=== PATIENT | male | born 1975 | race Caucasian/White ===

== ENCOUNTER 2018-02-04 13:29 | Emergency (ER) | payer BC ==
--- NOTE | 2018-02-04 15:15 | EDPHYS ---
Physician Documentation [facility] Name: Javid Carver Age: 42 yrs Sex: Male : 1975 Arrival Date: 02/04/2018 Time: 13:33 Bed 13 Private MD: ED Physician Keron Gillespie HPI: 02/04 15:08 This 42 yrs old Male presents to ER via Ambulatory with complaints of marcelino Congestion, Cough, Sore Throat. 15:08 The patient or guardian reports cough. Onset: The symptoms/episode began/occurred 2 marcelino day(s) ago. Severity of symptoms: At their worst the symptoms were mild, in the emergency department the symptoms are unchanged. Modifying factors: The symptoms are alleviated by nothing, the symptoms are aggravated by nothing. Associated signs and symptoms: Pertinent positives:. The patient has not experienced similar symptoms in the past. Historical: - Allergies: 13:45 No Known Drug Allergies; aj - Home Meds: 13:45 hydrochlorothiazide 12.5 mg Oral tab 1 tab once daily [Active]; aj - PMHx: 13:45 Hypertension; aj - PSHx: 13:45 None; aj - Immunization history:: Adult Immunizations up to date. - Social history:: Smoking status: Patient uses tobacco products, denies chronic smoking, but will smoke occasionally. - Family history:: not pertinent. ROS: 15:08 Constitutional: Negative for fever, chills, and weight loss, Eyes: Negative for injury, marcelino pain, redness, and discharge, ENT: Negative for injury, pain, and discharge, Neck: Negative for injury, pain, and swelling, Cardiovascular: Negative for chest pain, palpitations, and edema, Abdomen/GI: Negative for abdominal pain, nausea, vomiting, diarrhea, and constipation, Back: Negative for injury and pain, : Negative for injury, bleeding, discharge, and swelling, MS/Extremity: Negative for injury and deformity, Skin: Negative for injury, rash, and discoloration, Neuro: Negative for headache, weakness, numbness, tingling, and seizure, Psych: Negative for depression, anxiety, suicide ideation, homicidal ideation, and hallucinations, Allergy/Immunology: Negative for hives, rash, and allergies, Endocrine: Negative for neck swelling, polydipsia, polyuria, polyphagia, and marked weight changes, Hematologic/Lymphatic: Negative for swollen nodes, abnormal bleeding, and unusual bruising. 15:08 Respiratory: Positive for cough. Exam: 15:08 Constitutional: This is a well developed, well nourished patient who is awake, alert, marcelino and in no acute distress. Head/Face: Normocephalic, atraumatic. Eyes: Pupils equal round and reactive to light, extra-ocular motions intact. Lids and lashes normal. Conjunctiva and sclera are non-icteric and not injected. Cornea within normal limits. Periorbital areas with no swelling, redness, or edema. ENT: Nares patent. No nasal discharge, no septal abnormalities noted. Tympanic membranes are normal and external auditory canals are clear. Oropharynx with no redness, swelling, or masses, exudates, or evidence of obstruction, uvula midline. Mucous membranes moist. Neck: Trachea midline, no thyromegaly or masses palpated, and no cervical lymphadenopathy. Supple, full range of motion without nuchal rigidity, or vertebral point tenderness. No Meningismus. Chest/axilla: Normal chest wall appearance and motion. Nontender with no deformity. No lesions are appreciated. Cardiovascular: Regular rate and rhythm with a normal S1 and S2. No gallops, murmurs, or rubs. Normal PMI, no JVD. No pulse deficits. Abdomen/GI: Soft, non-tender, with normal bowel sounds. No distension or tympany. No guarding or rebound. No evidence of tenderness throughout. Back: No spinal tenderness. No costovertebral tenderness. Full range of motion. Male : Normal genitalia with no discharge or lesions. Skin: Warm, dry with normal turgor. Normal color with no rashes, no lesions, and no evidence of cellulitis. MS/ Extremity: Pulses equal, no cyanosis. Neurovascular intact. Full, normal range of motion. Neuro: Awake and alert, GCS 15, oriented to person, place, time, and situation. Cranial nerves II-XII grossly intact. Motor strength 5/5 in all extremities. Sensory grossly intact. Cerebellar exam normal. Normal gait. Psych: Awake, alert, with orientation to person, place and time. Behavior, mood, and affect are within normal limits. 15:08 Respiratory: the patient does not display signs of respiratory distress, Respirations: normal, Breath sounds: rhonchi, Respiratory rate: 19 Vital Signs: 13:45 BP 140 / 107; Pulse 97; Resp 19; Temp 98.8; Pulse Ox 98% on R/A; Weight 94.35 kg; aj Height 5 ft. 9 in. (175.26 cm); Pain 0/10; 14:45 BP 139 / 103; Pulse 95; Resp 18; Pulse Ox 99% on R/A; rb1 15:29 BP 140 / 100; Pulse 96; Resp 17; Pulse Ox 99% on R/A; rb1 13:45 Body Mass Index 30.72 (94.35 kg, 175.26 cm) 15:29 provider aware of BP rb1 MDM: 14:41 Patient medically screened. [facility] 15:10 Data reviewed: vital signs, nurses notes, lab test result(s), Flu: negative. [facility] 02/04 13:47 Order name: Flu; Complete Time: 15:07 02/04 13:47 Order name: Strep; Complete Time: 15:07 02/04 14:20 Order name: Throat Culture EDMS Administered Medications: 15:24 Drug: Zithromax 500 mg Route: PO; rb1 15:28 Follow up: Response: Medication administered at discharge. rb1 15:24 Drug: predniSONE 20 mg Route: PO; rb1 15:28 Follow up: Response: Medication administered at discharge. rb1 Disposition: 02/04/18 15:14 Discharged to Home. Impression: Cough, Acute upper respiratory infection, unspecified, Bronchitis, not specified as acute or chronic. - Condition is Stable. - Discharge Instructions: Acute Bronchitis, Upper Respiratory Infection, Adult, Cool Mist Vaporizers, Upper Respiratory Infection, Adult, [id number]. - Prescriptions for Cheratussin AC 10- 100 mg/5 mL Oral liquid - take 10 milliliter by ORAL route every 4 hours; 120 milliliter. Zithromax Z- Alexis 250 mg Oral Tablet - take 1 tablet by ORAL route as directed for 5 days Day 1 - take two (2) tablets one time. Day 2, 3, 4 , 5 take one (1) tablet once daily.; 6 tablet. Albuterol Sulfate 90 mcg/actuation - inhale 1-2 puff by INHALATION route every 4-6 hours; 1 Inhaler. - Medication Reconciliation Form, Thank You Letter, Antibiotic Education, Prescription Opioid Use, Work release form form. - Follow up: Private Physician; When: 2 - 3 days; Reason: Recheck today's complaints, Continuance of care, Re-evaluation by your physician. Follow up: Joel Harrison MD; When: 2 - 3 days; Reason: Recheck today's complaints, Continuance of care, Re-evaluation by your physician. - Problem is new. - Symptoms have improved. Signatures: Dispatcher [employer] Amberly Zavala RN RN aj Anderson, Corey, MD MD cha Barber, Rebecca, RN RN rb1
--- NOTE | 2018-02-04 15:15 | ER ---
Nurse's Notes [facility] Name: Javid Carver Age: 42 yrs Sex: Male : 1975 Arrival Date: 02/04/2018 Time: 13:33 Bed 13 Private MD: Diagnosis: Cough;Acute upper respiratory infection, unspecified;Bronchitis, not specified as acute or chronic Presentation: 02/04 13:44 Presenting complaint: Patient states: Flu like symptoms for 2 days. Transition of care: aj patient was not received from another setting of care. Onset of symptoms was February 02, 2018. Care prior to arrival: None. 13:44 Method Of Arrival: Ambulatory 13:44 Acuity: ALEJANDRA 4 aj Triage Assessment: 13:45 General: Appears in no apparent distress. comfortable, Behavior is calm, cooperative, aj appropriate for age. Pain: Denies pain. EENT: Reports nasal congestion nasal discharge. Respiratory: Reports cough that is Airway is patent Respiratory effort is even, unlabored, Respiratory pattern is regular, symmetrical, Breath sounds are clear bilaterally. Derm: Skin is intact, is healthy with good turgor, Skin is pink, warm \T\ dry. normal. Historical: - Allergies: 13:45 No Known Drug Allergies; - Home Meds: 13:45 hydrochlorothiazide 12.5 mg Oral tab 1 tab once daily [Active]; - PMHx: 13:45 Hypertension; - PSHx: 13:45 None; aj - Immunization history:: Adult Immunizations up to date. - Social history:: Smoking status: Patient uses tobacco products, denies chronic smoking, but will smoke occasionally. - Family history:: not pertinent. Screenin:44 Abuse screen: Denies threats or abuse. Nutritional screening: No deficits noted. rb1 Tuberculosis screening: No symptoms or risk factors identified. Fall Risk None identified. Assessment: 14:44 General: Appears uncomfortable, Behavior is calm, cooperative, Reports chills for 2-3 rb1 days, fever for feeling ill for. Neuro: Level of Consciousness is awake, alert, obeys commands, Oriented to person, place, time, situation. Cardiovascular: Capillary refill < 3 seconds is brisk in bilateral fingers. Respiratory: Reports cough that is productive, yellow sputum Airway is patent Respiratory effort is even, unlabored, Respiratory pattern is regular, symmetrical. GI: Reports diarrhea, nausea, vomiting, since 2-3 days. : No signs and/or symptoms were reported regarding the genitourinary system. Derm: Skin is pink, warm \T\ dry. 14:44 Respiratory: Breath sounds are clear bilaterally. rb1 14:44 Pain: Denies pain. rb1 15:28 Reassessment: Patient appears in no apparent distress at this time. No changes from rb1 previously documented assessment. Vital Signs: 13:45 BP 140 / 107; Pulse 97; Resp 19; Temp 98.8; Pulse Ox 98% on R/A; Weight 94.35 kg; aj Height 5 ft. 9 in. (175.26 cm); Pain 0/10; 14:45 BP 139 / 103; Pulse 95; Resp 18; Pulse Ox 99% on R/A; rb1 15:29 BP 140 / 100; Pulse 96; Resp 17; Pulse Ox 99% on R/A; rb1 13:45 Body Mass Index 30.72 (94.35 kg, 175.26 cm) aj 15:29 provider aware of BP rb1 ED Course: 13:33 Patient arrived in ED. rg4 13:44 Triage completed. aj 13:45 Arm band placed on left wrist. Patient placed in waiting room, Patient notified of wait aj time. Labs ordered per protocol. 14:41 Keron Gillespie MD is Attending Physician. [facility] 14:44 Linda Vieyra, RN is Primary Nurse. rb1 14:44 Patient has correct armband on for positive identification. Bed in low position. Call rb1 light in reach. Side rails up X 1. Pulse ox on. NIBP on. 15:12 Joel Harrison MD is Referral Physician. marcelino 15:32 No provider procedures requiring assistance completed. Patient did not have IV access rb1 during this emergency room visit. 15:34 Throat Culture Sent. rb1 Administered Medications: 15:24 Drug: Zithromax 500 mg Route: PO; rb1 15:28 Follow up: Response: Medication administered at discharge. rb1 15:24 Drug: predniSONE 20 mg Route: PO; rb1 15:28 Follow up: Response: Medication administered at discharge. rb1 Outcome: 15:14 Discharge ordered by . marcelino 15:32 Discharged to home ambulatory, with significant other. rb1 15:32 Condition: stable 15:32 Discharge instructions given to patient, Instructed on discharge instructions, follow up and referral plans. medication usage, Demonstrated understanding of instructions, follow-up care, medications, Prescriptions given X 3. 15:33 Patient left the ED. rb1 Signatures: Amberly Turner RN RN aj Anderson, Corey, MD MD cha Barber, Rebecca, RN RN rb1 Jayleen Contreras rg4 Corrections: (The following items were deleted from the chart) 15:30 14:44 Pain: Complains of pain in throat Pain currently is 5 out of 10 on a pain scale. rb1 rb1 15:32 15:29 BP 140 / 100; Pulse 96bpm; Resp 17bpm; Pulse Ox 99% RA; rb1 rb1
[2018-02-04 15:37] VITALS: TEMP 98.8
[2018-02-04 15:38] VITALS: O2SAT 99
[2018-02-04 15:39] VITALS: BP 140/100
[2018-02-04] MEDS ORDERED: AZITHROMYCIN 250 MG TAB ONE (15:41)
[2018-02-04] MEDS ORDERED: predniSONE 20 MG TAB ONE (15:41)
== END 2018-02-04 15:33 | disposition home or self-care (01) ==
LOC: ER 13:29
DX: J40 Bronchitis, not specified as acute or chronic (principal); J06.9 Acute upper respiratory infection, unspecified; I10 Essential (primary) hypertension; Z72.0 Tobacco use
CPT/HCPCS: 87070; 87081; 87804; 99284; J7512

== ENCOUNTER 2018-03-05 12:02 | Emergency (ER) | payer BC ==
--- NOTE | 2018-03-05 14:57 | EDPHYS ---
Physician Documentation [facility] Name: Javid Carver Age: 42 yrs Sex: Male : 1975 Arrival Date: 03/05/2018 Time: 12:05 Bed 12 Private MD: ED Physician Jay Cummings HPI: 03/05 14:05 This 42 yrs old Male presents to ER via Ambulatory with complaints of cp Congestion. Historical: - Allergies: 12:26 No Known Allergies; aj - Home Meds: 12:26 Norvasc 10 mg Oral tab 1 tab once daily [Active]; aj - PMHx: 12:26 Hypertension; aj - PSHx: 12:26 None; aj - Immunization history:: Adult Immunizations up to date. - Social history:: Smoking status: Patient uses tobacco products, smokes one-half pack cigarettes per day. ROS: 14:10 Constitutional: Negative for body aches, chills, fever, poor PO intake. cp 14:10 Eyes: Negative for injury, pain, redness, and discharge. cp 14:10 ENT: Positive for rhinorrhea, sore throat, Negative for drainage from ear(s), ear pain, difficulty swallowing, difficulty handling secretions. 14:10 Cardiovascular: Negative for chest pain, edema. 14:10 Respiratory: Positive for cough, Negative for shortness of breath, wheezing. 14:10 Abdomen/GI: Negative for abdominal pain, nausea, vomiting, and diarrhea. 14:10 Skin: Negative for cellulitis, rash. 14:10 Neuro: Negative for altered mental status, headache, weakness. 14:10 All other systems are negative. Exam: 14:15 Constitutional: The patient appears in no acute distress, alert, awake, cp non-diaphoretic, non-toxic, well developed, well nourished. 14:15 Head/Face: Normocephalic, atraumatic. cp 14:15 Eyes: Periorbital structures: appear normal, Pupils: equal, round, and reactive to light and accomodation, Extraocular movements: intact throughout, Conjunctiva: normal, no exudate, no injection, Sclera: no appreciated abnormality, Lids and lashes: appear normal, bilaterally. 14:15 ENT: External ear(s): are unremarkable, Ear canal(s): are normal, clear, TM's: bulging, is not appreciated, bilaterally, dullness, bilaterally, erythema, is not appreciated, bilaterally, Nose: is normal, Mouth: Lips: moist, Oral mucosa: moist, Posterior pharynx: Airway: no evidence of obstruction, patent, Tonsils: mild erythema, Uvula: midline, non-edematous, no erythema, swelling, is not appreciated, erythema, that is mild, exudate, is not appreciated. 14:15 Neck: ROM/movement: is normal, is supple, without pain, no range of motions limitations, no meningismus, no nuchal rigidity, Lymph nodes: no appreciated lymphadenopathy. 14:15 Chest/axilla: Inspection: normal, Palpation: is normal, no crepitus, no tenderness. 14:15 Cardiovascular: Rate: normal, Rhythm: regular. 14:15 Respiratory: the patient does not display signs of respiratory distress, Respirations: normal, no use of accessory muscles, no retractions, no splinting, no tachypnea, labored breathing, is not present, Breath sounds: are clear throughout, no decreased breath sounds, no stridor, no wheezing. 14:15 Abdomen/GI: Exam negative for discomfort, distension, guarding, Inspection: abdomen appears normal. 14:15 Skin: cellulitis, is not appreciated, no rash present. Vital Signs: 12:26 BP 133 / 96; Pulse 98; Resp 16; Temp 98.1; Pulse Ox 100% on R/A; Weight 95.25 kg; aj Height 5 ft. 9 in. (175.26 cm); 12:26 Body Mass Index 31.01 (95.25 kg, 175.26 cm) MDM: 14:04 Patient medically screened. 14:56 Data reviewed: vital signs, nurses notes, lab test result(s), and as a result, I will cp discharge patient. 03/05 12:28 Order name: Flu; Complete Time: 14:15 03/05 14:15 Interpretation: Reviewed. 03/05 14:15 Order name: Strep; Complete Time: 14:56 03/05 14:56 Interpretation: Reviewed. 03/05 14:54 Order name: Throat Culture EDMS Administered Medications: No medications were administered Disposition: 03/05/18 14:56 Discharged to Home. Impression: Acute upper respiratory infection, unspecified. - Condition is Stable. - Discharge Instructions: Upper Respiratory Infection, Adult. - Prescriptions for Tessalon Perles 100 mg Oral Capsule - take 1 capsule by ORAL route every 8 hours As needed; 15 capsule. - Work release form, Medication Reconciliation Form, Thank You Letter, Antibiotic Education, Prescription Opioid Use form. - Follow up: Private Physician; When: 2 - 3 days; Reason: Recheck today's complaints. - Problem is new. - Symptoms are unchanged. Addendum: 03/07/2018 06:42 Co-signature as Attending Physician, Jay Cummings MD I agree with the assessment and w a plan of care. Signatures: Dispatcher [employer] EDAmberly Carlson RN RN Keron Ferrell PA PA cp Appiah, William, MD MD wa Corrections: (The following items were deleted from the chart) 03/05 15:43 14:56 03/05/2018 14:56 Discharged to Home. Impression: Acute upper respiratory aj infection, unspecified. Condition is Stable. Forms are Medication Reconciliation Form, Thank You Letter, Antibiotic Education, Prescription Opioid Use. Follow up: Private Physician; When: 2 - 3 days; Reason: Recheck today's complaints. Problem is new. Symptoms are unchanged. cp
--- NOTE | 2018-03-05 14:57 | ER ---
Nurse's Notes [facility] Name: Javid Carver Age: 42 yrs Sex: Male : 1975 Arrival Date: 03/05/2018 Time: 12:05 Bed 12 Private MD: Diagnosis: Acute upper respiratory infection, unspecified Presentation: 03/05 12:25 Presenting complaint: Patient states: Flu symptoms for 2 days. Transition of care: aj patient was not received from another setting of care. Onset of symptoms was March 04, 2018. Initial Sepsis Screen: Does the patient meet any 2 criteria? No. Patient's initial sepsis screen is negative. Does the patient have a suspected source of infection? No. Patient's initial sepsis screen is negative. Care prior to arrival: None. 12:25 Method Of Arrival: Ambulatory 12:25 Acuity: ALEJANDRA 4 Triage Assessment: 12:26 General: Appears in no apparent distress. comfortable, Behavior is calm, cooperative, aj appropriate for age. Pain: Denies pain. EENT: Reports nasal congestion nasal discharge. Respiratory: Reports cough that is Breath sounds are clear bilaterally. Derm: Skin is intact, is healthy with good turgor, Skin is pink, warm \T\ dry. normal. Historical: - Allergies: 12:26 No Known Allergies; aj - Home Meds: 12: Norvasc 10 mg Oral tab 1 tab once daily [Active]; aj - PMHx: 12: Hypertension; aj - PSHx: 12: None; aj - Immunization history:: Adult Immunizations up to date. - Social history:: Smoking status: Patient uses tobacco products, smokes one-half pack cigarettes per day. Vital Signs: 12:26 BP 133 / 96; Pulse 98; Resp 16; Temp 98.1; Pulse Ox 100% on R/A; Weight 95.25 kg; aj Height 5 ft. 9 in. (175.26 cm); 12: Body Mass Index 31.01 (95.25 kg, 175.26 cm) aj ED Course: 12:05 Patient arrived in ED. rg4 12:25 Triage completed. aj 12:26 Arm band placed on left wrist. Patient placed in waiting room, Patient notified of wait aj time. Labs ordered per protocol. 14:04 Keron Good PA is PHCP. mae 14:04 Jay Cummings MD is Attending Physician. cp 14:29 Heather Limon, RN is Primary Nurse. dm5 Administered Medications: No medications were administered Outcome: 14:56 Discharge ordered by . cp 15:43 Patient left the ED. aj Signatures: Heather Limon, RN RN Amberly Henry RN RN Keron Ferrell PA PA cp Garcia, Rubi 4
[2018-03-05 15:54] VITALS: BP 133/96; TEMP 98.1; O2SAT 100
== END 2018-03-05 15:43 | disposition home or self-care (01) ==
LOC: ER 12:02
DX: J06.9 Acute upper respiratory infection, unspecified (principal); I10 Essential (primary) hypertension; F17.210 Nicotine dependence, cigarettes, uncomplicated
CPT/HCPCS: 87070; 87081; 87804; 99282

== ENCOUNTER 2019-01-05 10:21 | Emergency (ER) | payer BC ==
--- NOTE | 2019-01-05 11:12 | ER ---
Nurse's Notes [facility] Name: Javid Carver Age: 43 yrs Sex: Male : 1975 Arrival Date: 01/05/2019 Time: 10:22 Bed 25 Private MD: Sal Reardon Diagnosis: Blister (nonthermal) of lip and oral cavity Presentation: 01/05 10:27 Presenting complaint: Patient states: "I've had this sore on my lower lip and it keeps aa5 getting worse". Transition of care: patient was not received from another setting of care. Onset of symptoms was December 2018. Risk Assessment: Do you want to hurt yourself or someone else? Patient reports no desire to harm self or others. Initial Sepsis Screen: Does the patient meet any 2 criteria? No. Patient's initial sepsis screen is negative. Does the patient have a suspected source of infection? No. Patient's initial sepsis screen is negative. Care prior to arrival: None. 10:27 Method Of Arrival: Ambulatory aa5 10:27 Acuity: ALEJANDRA 4 aa5 Historical: - Allergies: 10:30 No Known Allergies; aa5 - Home Meds: 10:30 chlorothiazide 250 mg Oral tab once daily [Active]; aa5 - PMHx: 10:30 Hypertension; aa5 - PSHx: 10:30 None; aa5 - Immunization history:: Flu vaccine is up to date. - Social history:: Smoking status: Patient/guardian denies using tobacco. - Ebola Screening: : No symptoms or risks identified at this time. Screenin:48 Abuse screen: Denies threats or abuse. Denies injuries from another. Nutritional aj1 screening: No deficits noted. Tuberculosis screening: No symptoms or risk factors identified. Fall Risk None identified. Assessment: 11:48 General: Appears in no apparent distress. comfortable, Behavior is calm, cooperative, aj1 appropriate for age. Pain: Complains of pain in lower lip. Neuro: Level of Consciousness is awake, alert, obeys commands, Oriented to person, place, time, situation, Speech is normal. Cardiovascular: Patient's skin is warm and dry. Respiratory: Airway is patent Respiratory effort is even, unlabored, Respiratory pattern is regular, symmetrical. GI: No signs and/or symptoms were reported involving the gastrointestinal system. : No signs and/or symptoms were reported regarding the genitourinary system. EENT: wound noted to lower lip. Derm: Skin is pink, warm \\T\\ dry. normal. Musculoskeletal: No signs and/or symptoms reported regarding the musculoskeletal system. Circulation, motion, and sensation intact. Vital Signs: 10:30 BP 136 / 107; Pulse 104; Resp 16 S; Temp 98.5(O); Pulse Ox 96% on R/A; Weight 95.25 kg aa5 (R); Height 5 ft. 9 in. (175.26 cm) (R); Pain 7/10; 10:30 Body Mass Index 31.01 (95.25 kg, 175.26 cm) aa5 ED Course: 10:22 Patient arrived in ED. ag5 10:22 Sal Reardon MD is Private Physician. ag5 10:27 Arm band placed on. aa5 10:28 Triage completed. aa5 10:34 Rodney Sauceda MD is Attending Physician. 10:42 Patti Izquierdo, HANK is Primary Nurse. aj1 11:10 Clayton Ortiz DDS is Referral Physician. gs 11:48 Patient has correct armband on for positive identification. Bed in low position. Call aj1 light in reach. Side rails up X 1. 11:48 No provider procedures requiring assistance completed. aj1 11:50 Patient did not have IV access during this emergency room visit. aj1 Administered Medications: No medications were administered Outcome: 11:12 Discharge ordered by . gs 11:48 Discharged to home ambulatory. aj1 11:48 Condition: good 11:48 Discharge instructions given to patient, Instructed on discharge instructions, follow up and referral plans. medication usage, Demonstrated understanding of instructions, follow-up care, medications, Prescriptions given X 2. 11:50 Patient left the ED. aj1 Signatures: Patti Izquierdo, RN RN aj1 Rama Laurent RN RN aa5 Rodney Sauceda MD MD gs [place], [facility] Corrections: (The following items were deleted from the chart) 10:31 10:27 Acuity: ALEJANDRA 3 aa5 aa5
[2019-01-05 11:59] VITALS: BP 136/107; TEMP 98.5; O2SAT 96
--- NOTE | 2019-01-06 12:20 | EDPHYS ---
Physician Documentation [facility] Name: Javid Carver Age: 43 yrs Sex: Male : 1975 Arrival Date: 01/05/2019 Time: 10:22 Bed 25 Private MD: Sal Reardon ED Physician Rodney Sauceda HPI: 01/05 15:00 This 43 yrs old Male presents to ER via Ambulatory with complaints of BLISTER gs ON LIP. 15:00 The patient presents with a lesion. The problem is located in the lower lip. Onset: The gs symptoms/episode began/occurred 1 week(s) ago, and became worse. Duration: The symptoms are continuous. Modifying factors: the symptoms are aggravated by chewing. Associated signs and symptoms: Pertinent positives: pain, swelling, Pertinent negatives: fever. Severity of symptoms: At their worst the symptoms were moderate, in the emergency department the symptoms are unchanged. The patient has not experienced similar symptoms in the past. Historical: - Allergies: 10:30 No Known Allergies; aa5 - Home Meds: 10:30 chlorothiazide 250 mg Oral tab once daily [Active]; aa5 - PMHx: 10:30 Hypertension; aa5 - PSHx: 10:30 None; aa5 - Immunization history:: Flu vaccine is up to date. - Social history:: Smoking status: Patient/guardian denies using tobacco. - Ebola Screening: : No symptoms or risks identified at this time. ROS: 15:00 All other systems are negative. gs Exam: 15:00 Head/Face: Normocephalic, atraumatic. Eyes: Pupils equal round and reactive to light, gs extra-ocular motions intact. Lids and lashes normal. Conjunctiva and sclera are non-icteric and not injected. Cornea within normal limits. Periorbital areas with no swelling, redness, or edema. Neck: Trachea midline, no thyromegaly or masses palpated, and no cervical lymphadenopathy. Supple, full range of motion without nuchal rigidity, or vertebral point tenderness. No Meningismus. Cardiovascular: Regular rate and rhythm with a normal S1 and S2. No gallops, murmurs, or rubs. Normal PMI, no JVD. No pulse deficits. Respiratory: Lungs have equal breath sounds bilaterally, clear to auscultation and percussion. No rales, rhonchi or wheezes noted. No increased work of breathing, no retractions or nasal flaring. Abdomen/GI: Soft, non-tender, with normal bowel sounds. No distension or tympany. No guarding or rebound. No evidence of tenderness throughout. Back: No spinal tenderness. No costovertebral tenderness. Full range of motion. Skin: Warm, dry with normal turgor. Normal color with no rashes, no lesions, and no evidence of cellulitis. MS/ Extremity: Pulses equal, no cyanosis. Neurovascular intact. Full, normal range of motion. Neuro: Awake and alert, GCS 15, oriented to person, place, time, and situation. Cranial nerves II-XII grossly intact. Motor strength 5/5 in all extremities. Sensory grossly intact. Cerebellar exam normal. Normal gait. 15:00 Constitutional: The patient appears alert, awake. 15:00 ENT: Mouth: Lips: 2cm ulcerative lesion lower lip with small communication with buccal mucosa. Vital Signs: 10:30 BP 136 / 107; Pulse 104; Resp 16 S; Temp 98.5(O); Pulse Ox 96% on R/A; Weight 95.25 kg aa5 (R); Height 5 ft. 9 in. (175.26 cm) (R); Pain 7/10; 10:30 Body Mass Index 31.01 (95.25 kg, 175.26 cm) aa5 MDM: 11:04 Patient medically screened. 15:00 Data reviewed: vital signs, nurses notes. Counseling: I had a detailed discussion with the patient and/or guardian regarding: the historical points, exam findings, and any diagnostic results supporting the discharge/admit diagnosis, the need for outpatient follow up, an oral maxilofacial specialist. Response to treatment: There is no appreciated change of the patient's symptoms at this time. Administered Medications: No medications were administered Disposition: 01/05/19 11:12 Discharged to Home. Impression: Blister (nonthermal) of lip and oral cavity. - Condition is Stable. - Prescriptions for Clindamycin HCl 150 mg Oral Capsule - take 1 capsule by ORAL route every 6 hours for 10 days; 40 capsule. Valtrex 1 g Oral Tablet - take 2 tablet by ORAL route every 12 hours for 1 day; 4 tablet. - Work release form, Medication Reconciliation Form, Thank You Letter, Antibiotic Education, Prescription Opioid Use form. - Follow up: Clayton Ortiz DDS; When: 2 - 3 days; Reason: Re-evaluation by your physician. - Notes: warm salt water gargles after each meal, use only vaseline on lips and mouth Signatures: Patti Izquierdo, RN RN aj1 Rama Laurent RN RN aa5 Rodney Sauceda MD MD gs Corrections: (The following items were deleted from the chart) 11:50 11:12 01/05/2019 11:12 Discharged to Home. Impression: Blister (nonthermal) of lip and aj1 oral cavity. Condition is Stable. Forms are Medication Reconciliation Form, Thank You Letter, Antibiotic Education, Prescription Opioid Use. Follow up: Clayton Ortiz; When: 2 - 3 days; Reason: Re-evaluation by your physician. gs
== END 2019-01-05 11:50 | disposition home or self-care (01) ==
LOC: ER 10:21
DX: S00.521A Blister (nonthermal) of lip, initial encounter (principal); I10 Essential (primary) hypertension
CPT/HCPCS: 99282

== ENCOUNTER 2019-04-26 11:11 | Observation (INO) | payer BC ==
--- OUTSIDE RECORDS SUMMARY | 2019-04-26 11:14 | XMS REPORT ---
:1975 Author Organization [employer] Care Team Providers Name Role Phone Sal Reardon Provider Role Unavailable Allergies, Adverse Reactions, Alerts Substance Reaction Event Type N.K.D.A. Info Not Available Non Drug Allergy Problems Problem Type Condition Code Onset Dates Condition Status Assessment GERD without esophagitis K21.9 Active Problem HTN (hypertension), benign I10 Active Assessment Obstructive sleep apnea G47.33 Active Assessment Adult BMI 30.0-30.9 kg/sq m Z68.30 Active Assessment Encounter for general adult medical Z00.00 Active examination without abnormal findings Assessment HTN (hypertension), benign I10 Active Problem Adult BMI 30.0-30.9 kg/sq m Z68.30 Active Problem Moderate persistent reactive airway J45.41 Active disease with acute exacerbation Problem Obstructive sleep apnea G47.33 Active Problem GERD without esophagitis K21.9 Active Problem Need for tetanus, diphtheria, and Z23 Active acellular pertussis (Tdap) vaccine Problem Seasonal allergic rhinitis, J30.2 Active unspecified trigger Problem Need for pneumococcal vaccination Z23 Active Medications Medication Code Code Instructions Start End Date Status Dosage System Date Losartan [facility] 48160108968 50 MG Orally Active 1 tablet Potassium Once a day ProAir RespiClick [facility] 20132113918 108 (90 Base) February Active 2 puffs MCG/ACT 2017 as needed Inhalation every 6 hrs Chlorthalidone [facility] 56069675755 25 MG Orally Active 1 tablet Once a day in the morning with food Norvasc [facility] 32098111132 10 MG Orally February Active 1 tablet Once a day 2018 Flonase ND 05880212174 50 MCG/ACT February Active 1 spray Nasally Once a 2017 in each day nostril Protonix [facility] 22171643090 20 MG Orally Active 1 tablet Once a day Results No Known Results Summary Purpose [employer] Submission
--- NOTE | 2019-04-26 11:50 | EDPHYS ---
Physician Documentation [facility] Name: Javid Carver Age: 43 yrs Sex: Male : 1975 Arrival Date: 04/26/2019 Time: 11:13 Bed 4 Private MD: Sal Reardon ED Physician Keron Gillespie HPI: 04/26 11:45 This 43 yrs old Male presents to ER via Ambulatory with complaints of marcelino Weakness, Dizziness. 11:45 The patient presents to the emergency department with weakness of the. marcelino Historical: - Allergies: 11:29 No Known Allergies; aa5 - Home Meds: 11:29 chlorothiazide 250 mg Oral tab once daily [Active]; Norvasc 10 mg Oral tab 1 tab once aa5 daily [Active]; pantoprazole oral oral [Active]; - PMHx: 11: Hypertension; Acid Reflux; aa5 - PSHx: 11:29 None; aa5 - Immunization history:: Adult Immunizations up to date. - Social history:: Smoking status: Patient uses tobacco products, smokes one-half pack cigarettes per day. - Ebola Screening: : No symptoms or risks identified at this time. ROS: 11:45 Constitutional: Negative for fever, chills, and weight loss, Eyes: Negative for injury, marcelino pain, redness, and discharge, ENT: Negative for injury, pain, and discharge, Neck: Negative for injury, pain, and swelling, Cardiovascular: Negative for chest pain, palpitations, and edema, Respiratory: Negative for shortness of breath, cough, wheezing, and pleuritic chest pain, Back: Negative for injury and pain, : Negative for injury, bleeding, discharge, and swelling, MS/Extremity: Negative for injury and deformity, Skin: Negative for injury, rash, and discoloration, Neuro: Negative for headache, weakness, numbness, tingling, and seizure, Psych: Negative for depression, anxiety, suicide ideation, homicidal ideation, and hallucinations, Allergy/Immunology: Negative for hives, rash, and allergies, Endocrine: Negative for neck swelling, polydipsia, polyuria, polyphagia, and marked weight changes, Hematologic/Lymphatic: Negative for swollen nodes, abnormal bleeding, and unusual bruising. 11:45 Cardiovascular: Positive for chest pain. 11:45 Abdomen/GI: Positive for nausea. Exam: 11:45 Constitutional: This is a well developed, well nourished patient who is awake, alert, marcelino and in no acute distress. Head/Face: Normocephalic, atraumatic. Eyes: Pupils equal round and reactive to light, extra-ocular motions intact. Lids and lashes normal. Conjunctiva and sclera are non-icteric and not injected. Cornea within normal limits. Periorbital areas with no swelling, redness, or edema. ENT: Nares patent. No nasal discharge, no septal abnormalities noted. Tympanic membranes are normal and external auditory canals are clear. Oropharynx with no redness, swelling, or masses, exudates, or evidence of obstruction, uvula midline. Mucous membranes moist. Neck: Trachea midline, no thyromegaly or masses palpated, and no cervical lymphadenopathy. Supple, full range of motion without nuchal rigidity, or vertebral point tenderness. No Meningismus. Chest/axilla: Normal chest wall appearance and motion. Nontender with no deformity. No lesions are appreciated. Cardiovascular: Regular rate and rhythm with a normal S1 and S2. No gallops, murmurs, or rubs. Normal PMI, no JVD. No pulse deficits. Respiratory: Lungs have equal breath sounds bilaterally, clear to auscultation and percussion. No rales, rhonchi or wheezes noted. No increased work of breathing, no retractions or nasal flaring. Abdomen/GI: Soft, non-tender, with normal bowel sounds. No distension or tympany. No guarding or rebound. No evidence of tenderness throughout. Back: No spinal tenderness. No costovertebral tenderness. Full range of motion. Male : Normal genitalia with no discharge or lesions. Skin: Warm, dry with normal turgor. Normal color with no rashes, no lesions, and no evidence of cellulitis. MS/ Extremity: Pulses equal, no cyanosis. Neurovascular intact. Full, normal range of motion. Neuro: Awake and alert, GCS 15, oriented to person, place, time, and situation. Cranial nerves II-XII grossly intact. Motor strength 5/5 in all extremities. Sensory grossly intact. Cerebellar exam normal. Normal gait. Psych: Awake, alert, with orientation to person, place and time. Behavior, mood, and affect are within normal limits. Vital Signs: 11:29 BP 148 / 93; Pulse 92; Resp 16 S; Temp 97.0(TE); Pulse Ox 95% on R/A; Weight 95.25 kg aa5 (R); Height 5 ft. 9 in. (175.26 cm) (R); Pain 0/10; 12:50 BP 146 / 109; Pulse 98; Resp 16; Pulse Ox 98% on R/A; la1 13:49 BP 129 / 99; Pulse 74; Resp 15; Pulse Ox 98% on R/A; la1 11:29 Body Mass Index 31.01 (95.25 kg, 175.26 cm) aa5 MDM: 11:32 Patient medically screened. [facility] 11:45 Data reviewed: vital signs, nurses notes. [facility] 04/26 11:44 Order name: Basic Metabolic Panel [facility] 04/26 11:44 Order name: CBC with Diff [facility] 04/26 11:44 Order name: LFT's [facility] 04/26 11:44 Order name: Magnesium [facility] 04/26 11:44 Order name: NT PRO-BNP [facility] 04/26 11:44 Order name: PT-INR [facility] 04/26 11:44 Order name: Troponin (emerg Dept Use Only) [facility] 04/26 11:44 Order name: Lipase; Complete Time: 12:47 [facility] 04/26 11:44 Order name: Acetaminophen; Complete Time: 12:47 [facility] 04/26 11:44 Order name: ETOH Level; Complete Time: 12:47 [facility] 04/26 11:44 Order name: Ptt, Activated [facility] 04/26 11:44 Order name: Salicylate; Complete Time: 12:47 [facility] 04/26 11:44 Order name: Urine Drug Screen; Complete Time: 12:47 [facility] 04/26 11:45 Order name: Basic Metabolic Panel; Complete Time: 12:47 [facility] 04/26 11:44 Order name: XRAY Chest (1 view) [facility] 04/26 11:44 Order name: EKG; Complete Time: 11:47 [facility] 04/26 11:44 Order name: CT Head Brain wo Cont; Complete Time: 12:47 [facility] 04/26 11:45 Order name: CBC with Automated Diff; Complete Time: 12:47 [facility] 04/26 11:46 Order name: Liver (Hepatic) Function; Complete Time: 12:47 [facility] 04/26 11:46 Order name: Magnesium; Complete Time: 12:47 [facility] 04/26 11:46 Order name: NT PRO-BNP; Complete Time: 12:47 [facility] 04/26 11:46 Order name: Protime (+INR) [facility] 04/26 11:46 Order name: Troponin (Emerg Dept Use Only); Complete Time: 12:47 [facility] 04/26 12:27 Order name: Urine Dipstick--Ancillary (enter results); Complete Time: 12:47 counts include 234 beds at the [facility] 04/26 13:50 Order name: CONS Physician Consult [facility] 04/26 11:44 Order name: Cardiac monitoring; Complete Time: 12:21 [facility] 04/26 11:44 Order name: EKG - Nurse/Tech; Complete Time: 12:00 [facility] 04/26 11:44 Order name: IV Saline Lock; Complete Time: 12:00 [facility] 04/26 11:44 Order name: Labs collected and sent; Complete Time: 12:01 [facility] 04/26 11:44 Order name: O2 Per Protocol; Complete Time: 12:01 [facility] 04/26 11:44 Order name: O2 Sat Monitoring; Complete Time: 12:01 [facility] 04/26 11:44 Order name: Urine Dipstick-Ancillary (obtain specimen); Complete Time: 12:21 [facility] Administered Medications: 12:20 Drug: Lovenox 1 mg/kg Route: Sub-Q; Site: left lower abdomen; la1 12:50 Follow up: Response: No adverse reaction la1 12:21 Drug: Aspirin Chewable Tablet 324 mg Route: PO; la1 12:49 Follow up: Response: No adverse reaction la1 12:21 Drug: Lopressor (metoprolol TARTRATE) 50 mg Route: PO; la1 12:50 Follow up: Response: No adverse reaction la1 12:21 Drug: Pepcid 20 mg Route: IVP; Site: left antecubital; la1 12:50 Follow up: Response: No adverse reaction la1 14:30 Drug: Potassium Effervescent Tablet 50 mEq Route: PO; la1 14:30 Follow up: Response: No change in condition la1 Disposition: 04/26/19 11:49 Hospitalization ordered by aSl Reardon for Observation. Preliminary diagnosis are Chest pain, unspecified, Essential (primary) hypertension, Tobacco abuse counseling, Tobacco use, Hypokalemia, Unspecified kidney failure. - Bed requested for Telemetry/MedSurg (observation). - Status is Observation. la1 - Condition is Fair. - Problem is new. - Symptoms have improved. UTI on Admission? No Signatures: Dispatcher [employer] Saritha Laguna, RN RN Keron Blackwell MD MD cha Calderon, Audri, RN RN aa5 Aleks Kent RN RN la1 oMnica Jeffries 3 Corrections: (The following items were deleted from the chart) 12:49 11:49 Hospitalization Ordered by Sal Reardon MD for Observation. Preliminary diagnosis marcelino is Chest pain, unspecified; Essential (primary) hypertension; Tobacco abuse counseling; Tobacco use. Bed requested for Telemetry/MedSurg (observation). Status is Observation. Condition is Fair. Problem is new. Symptoms have improved. UTI on Admission? No. marcelino 14:05 12:49 04/26/2019 11:49 Hospitalization Ordered by Sal Reardon MD for Observation. dh3 Preliminary diagnosis is Chest pain, unspecified; Essential (primary) hypertension; Tobacco abuse counseling; Tobacco use; Hypokalemia; Unspecified kidney failure. Bed requested for Telemetry/MedSurg (observation). Status is Observation. Condition is Fair. Problem is new. Symptoms have improved. UTI on Admission? No. marcelino 14:05 14:05 04/26/2019 11:49 Hospitalization Ordered by Sal Reardon MD for Observation. dw Preliminary diagnosis is Chest pain, unspecified; Essential (primary) hypertension; Tobacco abuse counseling; Tobacco use; Hypokalemia; Unspecified kidney failure. Bed requested for Telemetry/MedSurg (observation). Status is Observation. Condition is Fair. Problem is new. Symptoms have improved. UTI on Admission? No. dh3 14:31 14:05 04/26/2019 11:49 Hospitalization Ordered by Sal Reardon MD for Observation. la1 Preliminary diagnosis is Chest pain, unspecified; Essential (primary) hypertension; Tobacco abuse counseling; Tobacco use; Hypokalemia; Unspecified kidney failure. Bed requested for Telemetry/MedSurg (observation). Status is Observation. Condition is Fair. Problem is new. Symptoms have improved. UTI on Admission? No. dw
--- NOTE | 2019-04-26 11:50 | ER ---
Nurse's Notes [facility] Name: Javid Carver Age: 43 yrs Sex: Male : 1975 Arrival Date: 04/26/2019 Time: 11:13 Bed 4 Private MD: Sal Reardon Diagnosis: Chest pain, unspecified;Essential (primary) hypertension;Tobacco abuse counseling;Tobacco use;Hypokalemia;Unspecified kidney failure Presentation: 04/26 11:27 Presenting complaint: Patient states: "I was just eating breakfast when I started aa5 feeling dizzy like I was going to pass out". pt c/o left arm feeling "sore" and reports generalized weakness. Pt denies nausea/vomiting. Transition of care: patient was not received from another setting of care. Risk Assessment: Do you want to hurt yourself or someone else? Patient reports no desire to harm self or others. Initial Sepsis Screen: Does the patient meet any 2 criteria? No. Patient's initial sepsis screen is negative. Does the patient have a suspected source of infection? No. Patient's initial sepsis screen is negative. Care prior to arrival: None. 11:27 Method Of Arrival: Ambulatory aa5 11:27 Acuity: ALEJANDRA 3 aa5 Historical: - Allergies: 11:29 No Known Allergies; aa5 - Home Meds: 11:29 chlorothiazide 250 mg Oral tab once daily [Active]; Norvasc 10 mg Oral tab 1 tab once aa5 daily [Active]; pantoprazole oral oral [Active]; - PMHx: 11:29 Hypertension; Acid Reflux; aa5 - PSHx: 11:29 None; aa5 - Immunization history:: Adult Immunizations up to date. - Social history:: Smoking status: Patient uses tobacco products, smokes one-half pack cigarettes per day. - Ebola Screening: : No symptoms or risks identified at this time. Screenin:58 Abuse screen: Denies threats or abuse. Nutritional screening: No deficits noted. la1 Tuberculosis screening: No symptoms or risk factors identified. Fall Risk None identified. 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 States feels la1 normal. General: Appears in no apparent distress. Behavior is calm, cooperative. Pain: Denies pain. Neuro: Level of Consciousness is awake, alert, obeys commands, Oriented to person, place, time, situation. Cardiovascular: Heart tones S1 S2 present Capillary refill < 3 seconds Patient's skin is warm and dry. Respiratory: Airway is patent Respiratory effort is even, unlabored, Respiratory pattern is regular, symmetrical, Breath sounds are clear bilaterally. GI: No signs and/or symptoms were reported involving the gastrointestinal system. : No signs and/or symptoms were reported regarding the genitourinary system. 12:45 Reassessment: Patient appears in no apparent distress at this time. No changes from la1 previously documented assessment. Patient and/or family updated on plan of care and expected duration. Pain level reassessed. Patient is alert, oriented x 3, equal unlabored respirations, skin warm/dry/pink. 13:49 Reassessment: Patient appears in no apparent distress at this time. No changes from la1 previously documented assessment. Patient and/or family updated on plan of care and expected duration. Pain level reassessed. Patient is alert, oriented x 3, equal unlabored respirations, skin warm/dry/pink. Vital Signs: 11:29 BP 148 / 93; Pulse 92; Resp 16 S; Temp 97.0(TE); Pulse Ox 95% on R/A; Weight 95.25 kg aa5 (R); Height 5 ft. 9 in. (175.26 cm) (R); Pain 0/10; 12:50 BP 146 / 109; Pulse 98; Resp 16; Pulse Ox 98% on R/A; la1 13:49 BP 129 / 99; Pulse 74; Resp 15; Pulse Ox 98% on R/A; la1 11:29 Body Mass Index 31.01 (95.25 kg, 175.26 cm) aa5 ED Course: 11:13 Patient arrived in ED. rg4 11:14 Sal Reardon MD is Private Physician. rg4 11:27 Arm band placed on. aa5 11:28 Triage completed. aa5 11:32 Keron Gillespie MD is Attending Physician. marcelino 11:38 Aleks Kent, HANK is Primary Nurse. la1 11:48 Sal Reardon MD is Hospitalizing Provider. marcelino 11:54 No provider procedures requiring assistance completed. Inserted saline lock: 20 gauge la1 in left antecubital area, using aseptic technique. Blood collected. 11:59 XRAY Chest (1 view) In Process Unspecified. EDMS 12:02 salicylic acid drawn by me and sent to lab. 3 12:03 CT completed. Patient tolerated procedure well. Patient moved back from CT. mw3 12:04 CT Head Brain wo Cont In Process Unspecified. EDMS 12:22 Urine collected: clean catch specimen, clear. dh3 12:51 Call light in reach. Side rails up X 1. la1 14:31 Patient admitted, IV remains in place. la1 Administered Medications: 12:20 Drug: Lovenox 1 mg/kg Route: Sub-Q; Site: left lower abdomen; la1 12:50 Follow up: Response: No adverse reaction la1 12:21 Drug: Aspirin Chewable Tablet 324 mg Route: PO; la1 12:49 Follow up: Response: No adverse reaction la1 12:21 Drug: Lopressor (metoprolol TARTRATE) 50 mg Route: PO; la1 12:50 Follow up: Response: No adverse reaction la1 12:21 Drug: Pepcid 20 mg Route: IVP; Site: left antecubital; la1 12:50 Follow up: Response: No adverse reaction la1 14:30 Drug: Potassium Effervescent Tablet 50 mEq Route: PO; la1 14:30 Follow up: Response: No change in condition la1 Outcome: 11:49 Decision to Hospitalize by Provider. marcelino 14:31 Admitted to Med/surg accompanied by tech, via wheelchair, with chart. la1 14:31 Condition: stable 14:31 Instructed on the need for admit. 14:31 Patient left the ED. la1 Signatures: Dispatcher [employer] EDKeron Peterson MD MD cha Calderon, Audri, RN RN [email or web address] Aleks Kent, RN RN Jayleen Burger Deanna 3 Radha rPabhakar 3
[2019-04-26 12:11] LABS: Absolute Lymphocytes (CBC) 2.4 K/uL (0.7-4.9); Eosinophils % 2.1 % (0-4.4); Hematocrit 49.3 % (39.6-49.0); Lymphocytes % 23.5 % (15.3-44.8); MPV 6.8 fL (7.6-11.3); Monocytes % 10.9 % (3.3-12.3); RBC Red Blood Cell Count 5.56 M/uL (4.33-5.43)
--- NOTE | 2019-04-26 12:17 | RAD REPORT ---
EXAM DESCRIPTION: CT - Head Brain Wo Cont - 04/26/2019 12:03 pm CLINICAL HISTORY: Headache, dizziness, syncope COMPARISON: None. TECHNIQUE: Axial 5 mm thick images of the head were obtained without IV contrast. All CT scans are performed using dose optimization technique as appropriate and may include automated exposure control or mA/KV adjustment according to patient size. FINDINGS: No intracranial hemorrhage, mass, edema or shift of mid-line structures. No acute infarcti on changes seen. No abnormal extra-axial fluid collections. Ventricles are normal. Mastoid air cells and visualized portions of the paranasal sinuses are clear. No acute bony findings. IMPRESSION: Negative non-contrast CT head examination.
[2019-04-26] MEDS ORDERED: ENOXAPARIN 100 MG/ML SYR SQ ONE (12:26)
[2019-04-26] MEDS ORDERED: ASPIRIN 81 MG CHEWABLE TABLET ONE (12:26)
[2019-04-26] MEDS ORDERED: METOPROLOL TAR 50 MG TAB ONE (12:26)
[2019-04-26] MEDS ORDERED: FAMOTIDINE 20 MG/2 ML VIAL IV ONE (12:26)
[2019-04-26 12:30] LABS: ALT/SGPT 193 U/L (12-78); AST/SGOT 81 U/L (15-37); Albumin 3.7 g/dL (3.4-5.0); Alkaline Phosphatase 64 U/L (45-117); BUN Blood Urea Nitrogen 21 mg/dL (7-18); Bicarbonate 30 mmol/L (21-32); Bilirubin Direct 0.4 mg/dL (0-0.2); Bilirubin Total 1.5 mg/dL (0.2-1.0); Glucose Level 100 mg/dL (74-106); Lipase 246 U/L (73-393); Magnesium 2.1 mg/dL (1.8-2.4); NT PRO-BNP 22 pg/mL (<125); Protein, Total 7.9 g/dL (6.4-8.2); Sodium Level 140 mmol/L (136-145); Troponin (Emerg Dept Use Only) < 0.02 ng/mL (0.0-0.045)
[2019-04-26 12:35] LABS: Urine Blood 2+ (NEG); Urine Glucose NEGATIVE (NEG); Urine Protein 1+ (NEG)
[2019-04-26 12:36] LABS: Barbiturates NEGATIVE (NEGATIVE); Benzodiazepines NEGATIVE (NEGATIVE); Cocaine NEGATIVE (NEGATIVE); METHAMPHETAM NEGATIVE (NEGATIVE); Methadone NEGATIVE (NEGATIVE); Opiates NEGATIVE (NEGATIVE); Phencyclidine NEGATIVE (NEGATIVE); THC Cannibis NEGATIVE (NEGATIVE)
[2019-04-26 12:57] LABS: Protime INR 1.01
--- NOTE | 2019-04-26 13:32 | RAD REPORT ---
EXAM DESCRIPTION: RAD - Chest Single View - 04/26/2019 11:59 am COMPARISON: None. TECHNIQUE: AP portable chest image was obtained . FINDINGS: Lungs are clear. Heart and vasculature are normal. No measurable pleural effusion and no p neumothorax. No acute bony abnormality seen. No acute aortic findings suspected. IMPRESSION: No acute cardiopulmonary process. No significant interval change.
[2019-04-26] MEDS ORDERED: ONDANSETRON 4 MG/2 ML VIAL IV PRN (14:31)
[2019-04-26] MEDS ORDERED: ACETAMINOPHEN 500 MG TAB PO PRN (14:31)
[2019-04-26] MEDS ORDERED: POTASSIUM 25 MEQ EFFERV TAB ONE (14:40)
[2019-04-26 14:42] VITALS: TEMP 97
[2019-04-26 14:45] VITALS: BP 129/99
[2019-04-26 14:58] VITALS: BMI 30.4
[2019-04-26 15:37] VITALS: O2SAT 95
--- NOTE | 2019-04-26 16:53 | P.SSS ---
Patient History Date of Service: 04/26/19 Primary Care Provider: Alexys Reason for admission: Near syncope History of Present Illness: Patient was sitting in [employer] with his . Started having a dizzy episode. Had a short one. Then one lasting 10min. He was working outdoors yesterday. Came to the ER. He had a negative EKG, CXR and head CT. Potassium was low and his creatine was a bit elevated. Otherwise normal labs. Normal troponins. He has not had near syncope episode repeatedly. Patient had no chest pain. Allergies codeine Allergy (Unverified 07/16/16 12:09) Unknown No Known Drug Allergies Allergy (Unverified 06/15/15 10:18) Unknown No Known Allergies Allergy (Uncoded 03/05/18 15:47) Unknown Home Medications: Potassium Chloride 20 meq PO DAILY 7 Days #7 tab.er.prt 04/26/19 - Past Medical/Surgical History Has patient received pneumonia vaccine in the past: No Diabetic: No -: HTN -: acid reflux - Family History Father -: Hypertension, Diabetes Mother -: Heart disease, Hypertension, Diabetes, Stroke, Cancer, Blood disorders, Liver disease, Kidney disease - Social History Smoking Status: Current every day smoker Alcohol use: Yes Place of Residence: Home Review of Systems 10-point ROS is otherwise unremarkable Physical Examination - Vital Signs Temperature: 97.0 F Blood Pressure: 129/99 Pulse: 74 Respirations: 15 - Physical Exam General: Alert, In no apparent distress HEENT: Atraumatic, PERRLA, Mucous membr. moist/pink, EOMI, Sclerae nonicteric Neck: Supple, 2+ carotid pulse no bruit, No LAD, Without JVD or thyroid abnormality Respiratory: Clear to auscultation bilaterally, Normal air movement Cardiovascular: Regular rate/rhythm, Normal S1 S2 Gastrointestinal: Normal bowel sounds, No tenderness Musculoskeletal: No tenderness Integumentary: No rashes Neurological: Normal gait, Normal speech, Normal strength at 5/5 x4 extr, Normal tone, Normal affect Lymphatics: No axilla or inguinal lymphadenopathy - Studies Laboratory Data (last 24 hrs) 04/26/19 11:54: PT 11.9, INR 1.01, APTT 30.7 04/26/19 11:54: WBC 10.2, Hgb 17.0, Hct 49.3 H, Plt Count 189 04/26/19 11:54: Sodium 140, Potassium 3.0 L, BUN 21 H, Creatinine 1.37 H, Glucose 100, Magnesium 2.1, Total Bilirubin 1.5 H, AST 81 H, ALT 193 H, Alkaline Phosphatase 64, Lipase 246 - Diagnosis (Problem(s)) (1) Near syncope Current Visit: Yes Status: Acute Plan: Patient had one episode. Possible secondary to dehydration. No family history of men his age having heart disease. Will discharge him home. Give him a week of potassium and have the patient follow up with me. - Disposition Disposition: ROUTINE DISCHARGE Condition: GOOD Diet: Regular Activity: Ad tyler Physician Review: Patient Assessed, Agree with Above Assessment and Plan Critical Care: No Time Spent Managing Pts Care (In Minutes): 45
[2019-04-26] MEDS ORDERED: METOPROLOL TAR 25 MG TAB PO SCH (18:00)
[2019-04-26] MEDS ORDERED: ENOXAPARIN 100 MG/ML SYR SQ SCH (21:00)
[2019-04-26] MEDS ORDERED: FAMOTIDINE 20 MG TAB PO SCH (21:00)
[2019-04-26] MEDS ORDERED: POTASSIUM 25 MEQ EFFERV TAB PO SCH (21:00)
[2019-04-26] MEDS ORDERED: FAMOTIDINE 20 MG/2 ML VIAL IV SCH (21:00)
--- NOTE | 2019-04-27 07:54 | EKG ---
Test Date: 2019-04-26 Test Time: 11:38:42 Scientific Linguist: ROLLY MEASUREMENT RESULTS: Intervals: Rate: 84 [place]: 124 QRSD: 92 QT: 354 QTc: 418 [place]: P: 32 [place]: 124 QRS: 30 T: 39 INTERPRETIVE STATEMENTS: Normal sinus rhythm Nonspecific ST and T wave abnormality Abnormal ECG Compared to ECG 09/20/2015 07:40:54 ST (T wave) deviation now present Sinus bradycardia no longer present Electronically Signed On 04-27-19 07:53:33 CDT by Hi Smiley
[2019-04-27] MEDS ORDERED: ASPIRIN EC 81 MG TAB PO SCH (09:00)
[2019-04-27] MEDS ORDERED: AMLODIPINE 5 MG TAB PO SCH (09:00)
== END 2019-04-26 17:52 | disposition home or self-care (01) ==
LOC: ER 11:11 → ERHOLD 13:46 → 2ND 14:24
PROVIDERS: ADMIT Internal Medicine; ATTEND Internal Medicine
DX: R55 Syncope and collapse (principal); I10 Essential (primary) hypertension; F17.210 Nicotine dependence, cigarettes, uncomplicated
CPT/HCPCS: 36415; 70450; 71045; 80048; 80076; 80307; 80320; 80329; 81003; 83690; 83735; 83880; 84484; 85025; 85610; 85730; 93005; 96372; 96374; 99285; G0378; J1650

== ENCOUNTER 2019-08-01 15:50 | Emergency (ER) | payer BC ==
--- NOTE | 2019-08-01 16:40 | RAD REPORT ---
EXAM DESCRIPTION: RAD - Hand Right 3 View - 08/01/2019 4:22 pm CLINICAL HISTORY: Right hand pain status post injury FINDINGS: No fracture or dislocation is seen.
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
[2019-08-01 17:43] VITALS: BP 146/84; TEMP 98; O2SAT 96
== END 2019-08-01 17:24 | disposition home or self-care (01) ==
LOC: ER 15:50
DX: S60.221A Contusion of right hand, initial encounter (principal); Y04.2XXA Assault by strike against or bumped into by another person, initial encounter; Y93.89 Activity, other specified; Y92.9 Unspecified place or not applicable; Z72.0 Tobacco use
CPT/HCPCS: 99283

== ENCOUNTER 2021-06-06 04:15 | Emergency (ER) | payer BC ==
--- OUTSIDE RECORDS SUMMARY | 2021-06-06 04:18 | XMS REPORT | Continuity of Care Document ---
:1975 Author Organization [facility] t Address [address] [place] [address] Care Team Providers Name Role Phone Tanna Noble Attending Clinician Doctor Unassigned, Name Attending Clinician Unavailable Singer CARLOS Attending Clinician Problems This patient has no known problems. Allergies, Adverse Reactions, Alerts This patient has no known allergies or adverse reactions. Medications Ordered Filled Start Stop Current Ordering Indication Dosage Frequency Signature Comments Components Source Medication Medication Date Date Medication? Clinician (SIG) Name Name Protonix Protonix Yes Na Reed [address] [facility] BusPIRone BusPIRone Yes Na Reed [address] [facility] Metoprolol Metoprolol Yes Na Reed 1.[address] [facility] Tartrate Tartrate tablets [facility] s - with food [facility] Procedures This patient has no known procedures. Encounters Start End Encounter Admission Attending Care Care Encounter Source Date/Time Date/Time Type Type Clinicians Facility Department ID 2021-02-01 2021-02-01 Outpatient [facility] [id number] [facility] 2020-06-03 2020-06-03 [facility] [id number] [facility] 13:40:00 13:40:00 t [place] [employer] s - Drive [facility] 2020-01-20 2020-01-20 [facility] [id number] [facility] 14:21:00 14:21:00 t Channing [place] [employer] s - Drive [facility] 2020-01-15 2020-01-15 [facility] [id number] [facility] 14:55:00 14:55:00 t [place]anning [employer] s - Drive [facility] 2019-12-28 2019-12-28 Emergency Jeramie [id number] 11:59:45 16:55:00 Joan Cisse [place] [id number] [place] [id number] [place] [id number] 2019-12-28 2019-12-28 [facility] [id number] 10:58:00 10:58:00 t ALTO [employer] s - [employer] [facility] Clin[facility] 2019-12-28 2019-12-28 Orders Doctor WARREN [id number] 00:00:00 00:00:00 Only Unassigned, SURENDRA [id number] [place] [id number] 2019-09-11 2019-09-11 [facility] [id number] 08:24:00 08:24:00 t [employer]anning [employer] [facility] 2019-09-07 2019-09-07 [facility] [id number] 15:20:00 15:20:00 t [place]anning [employer] s - Drive [facility] 2019-07-29 2019-07-29 [facility] [id number] 13:22:00 13:22:00 t [place] [employer] s - Drive [facility] 2019-06-26 2019-06-26 [facility] [id number] 09:56:00 09:56:[address] [place] s - Drive [facility] Clinics 2019-06-25 2019-06-25 [facility] [id number] 15:20:00 15:20:[address] [place] s - Drive [facility] 2019-06-04 2019-06-04 Emergency [facility] [id number] 05:22:14 06:49:00 Jordon Karimi [id number] [place] [id number] [place] [id number] 2019-02-16 2019-02-16 [facility] [id number] 16:00:00 16:00:00 t [facility] [address] [place] s - Road [facility] Clinics Results This patient has no known results.
[2021-06-06] MEDS ORDERED: dexAMETHasone 10 MG/ML VIAL ONE (06:04)
[2021-06-06] MEDS ORDERED: FAMOTIDINE 20 MG/2 ML VIAL IV ONE (06:04)
[2021-06-06] MEDS ORDERED: NA CHLORIDE 0.9% 500 ML ONE (06:04)
[2021-06-06] MEDS ORDERED: ONDANSETRON 4 MG/2 ML VIAL ONE (06:06)
[2021-06-06 06:15] LABS: Absolute Lymphocytes (CBC) 1.4 K/uL (0.7-4.9); Basophils % 0.5 % (0-1.3); Lymphocytes % 34.5 % (15.3-44.8); MPV 6.3 fL (7.6-11.3); RBC Red Blood Cell Count 4.82 M/uL (4.33-5.43)
[2021-06-06 06:23] LABS: Albumin 3.5 g/dL (3.4-5.0); Bilirubin Total 0.8 mg/dL (0.2-1.0); Potassium 3.7 mmol/L (3.5-5.1); Protein, Total 7.2 g/dL (6.4-8.2)
--- NOTE | 2021-06-06 06:41 | EDPHYS ---
Physician Documentation [facility] Name: Javid Carver Age: 46 yrs Sex: Male : 1975 Arrival Date: 06/06/2021 Time: 04:20 Bed 18 Private MD: [place] Physician Keron Gillespie HPI: 06/06 05:40 This 46 yrs old Male presents to ER via Ambulatory with complaints of marcelino Nausea/Vomiting, Achy, Loss of taste/smell. 05:40 The patient presents to the emergency department with nausea, vomiting, diarrhea, that marcelino is continuous. Onset: The symptoms/episode began/occurred 4 day(s) ago. Possible causes: unknown. The symptoms are aggravated by nothing. The symptoms are alleviated by nothing. Associated signs and symptoms: The patient has no apparent associated signs or symptoms. Severity of symptoms: At their worst the symptoms were mild moderate in the emergency department the symptoms are unchanged. The patient has not experienced similar symptoms in the past. Historical: - Allergies: 04:50 No Known Allergies; bb - Home Meds: 04:50 Unable to obtain [Active]; bb - PMHx: 04:50 Hypertension; bb - PSHx: 04:50 None; bb - Immunization history:: Adult Immunizations up to date, Client reports having NOT received the Covid vaccine. - Social history:: Smoking status: Patient denies any tobacco usage or history of. Patient/guardian denies using alcohol, street drugs. ROS: 05:41 Constitutional: Negative for fever, chills, and weight loss, Eyes: Negative for injury, marcelino pain, redness, and discharge, ENT: Negative for injury, pain, and discharge, Neck: Negative for injury, pain, and swelling, Cardiovascular: Negative for chest pain, palpitations, and edema, Back: Negative for injury and pain, : Negative for injury, bleeding, discharge, and swelling, MS/Extremity: Negative for injury and deformity, Skin: Negative for injury, rash, and discoloration, Neuro: Negative for headache, weakness, numbness, tingling, and seizure, Psych: Negative for depression, anxiety, suicide ideation, homicidal ideation, and hallucinations, Allergy/Immunology: Negative for hives, rash, and allergies, Endocrine: Negative for neck swelling, polydipsia, polyuria, polyphagia, and marked weight changes, Hematologic/Lymphatic: Negative for swollen nodes, abnormal bleeding, and unusual bruising. 05:41 Respiratory: Positive for cough, shortness of breath, at rest. 05:41 Abdomen/GI: Positive for nausea and vomiting, diarrhea. Exam: 05:41 Constitutional: This is a well developed, well nourished patient who is awake, alert, marcelino and in no acute distress. Head/Face: Normocephalic, atraumatic. Eyes: Pupils equal round and reactive to light, extra-ocular motions intact. Lids and lashes normal. Conjunctiva and sclera are non-icteric and not injected. Cornea within normal limits. Periorbital areas with no swelling, redness, or edema. ENT: Nares patent. No nasal discharge, no septal abnormalities noted. Tympanic membranes are normal and external auditory canals are clear. Oropharynx with no redness, swelling, or masses, exudates, or evidence of obstruction, uvula midline. Mucous membranes moist. Neck: Trachea midline, no thyromegaly or masses palpated, and no cervical lymphadenopathy. Supple, full range of motion without nuchal rigidity, or vertebral point tenderness. No Meningismus. Chest/axilla: Normal chest wall appearance and motion. Nontender with no deformity. No lesions are appreciated. Cardiovascular: Regular rate and rhythm with a normal S1 and S2. No gallops, murmurs, or rubs. Normal PMI, no JVD. No pulse deficits. Abdomen/GI: Soft, non-tender, with normal bowel sounds. No distension or tympany. No guarding or rebound. No evidence of tenderness throughout. Back: No spinal tenderness. No costovertebral tenderness. Full range of motion. Male : Normal genitalia with no discharge or lesions. Skin: Warm, dry with normal turgor. Normal color with no rashes, no lesions, and no evidence of cellulitis. MS/ Extremity: Pulses equal, no cyanosis. Neurovascular intact. Full, normal range of motion. Neuro: Awake and alert, GCS 15, oriented to person, place, time, and situation. Cranial nerves II-XII grossly intact. Motor strength 5/5 in all extremities. Sensory grossly intact. Cerebellar exam normal. Normal gait. Psych: Awake, alert, with orientation to person, place and time. Behavior, mood, and affect are within normal limits. 05:41 Respiratory: mild respiratory distress is noted, Respirations: no acute changes, that is mild is noted, labored breathing, is not present, Breath sounds: bronchial sounds, that are mild, are scattered, decreased breath sounds, that are mild, are located in both bases, rhonchi, that are mild, are scattered, stridor, that is mild, + upper airway congestion. Vital Signs: 04:48 BP 141 / 102; Pulse 96; Resp 20 S; Temp 98.1(O); Pulse Ox 99% on R/A; Weight 95.25 kg bb (R); Height 5 ft. 9 in. (175.26 cm) (R); Pain 0/10; 04:48 Body Mass Index 31.01 (95.25 kg, 175.26 cm) MDM: 05:12 Patient medically screened. [facility] 05:42 Differential diagnosis: gastritis, cholecystitis, viral gastroenteritis, marcelino gastroenteritis. Differential Diagnosis Bronchitis Upper Respiratory Infection Pharyngitis Viral Syndrome. Data reviewed: vital signs, nurses notes, detention records. Data interpreted: nuclear monitoring technician: rate is 96 beats/min, rhythm is regular. Test interpretation: by ED physician or midlevel provider: ECG, plain radiologic studies. Counseling: I had a detailed discussion with the patient and/or guardian regarding: the historical points, exam findings, and any diagnostic results supporting the discharge/admit diagnosis, lab results, radiology results. 06/06 04:53 Order name: Flu 06/06 04:53 Order name: COVID-19 : Document "Date of Symptom Onset" if Symptomatic. 06/06 04:54 Order name: Influenza Screen ([facility] 06/06 05:13 Order name: CBC with Diff [facility] 06/06 05:13 Order name: Comprehensive Metabolic Panel; Complete Time: 06:28 [facility] 06/06 04:52 Order name: XRAY Chest (1 view) 06/06 05:13 Order name: PO challenge; Complete Time: 06:48 [facility] 06/06 06:29 Order name: CBC Smear Scan [facility] 06/06 06:40 Order name: SARS-COV-2 RT PCR EDTN Administered Medications: 05:50 Drug: NS 0.9% 500 ml Route: IV; Rate: bolus; Site: left antecubital; 06:48 Follow up: IV Status: Completed infusion; IV Intake: 500ml em 05:50 Drug: Pepcid (famotidine) 20 mg Route: IVP; Site: left antecubital; bb 06:48 Follow up: Response: No adverse reaction em 05:53 Drug: Decadron - Dexamethasone 10 mg Route: IVP; Site: left antecubital; bb 06:48 Follow up: Response: No adverse reaction em 05:56 Drug: Zofran (Ondansetron) 4 mg Route: IVP; Site: left antecubital; bb 06:48 Follow up: Response: No adverse reaction em Disposition Summary: 06/06/21 06:40 Discharge Ordered Location: Home [facility] Problem: new [facility] Symptoms: have improved marcelino Condition: Fair [facility] Diagnosis - Diarrhea, unspecified marcelino - Coronavirus infection, unspecified - covid 19 [facility] - Cough [facility] Followup: marcelino - With: Private Physician - When: 2 - 3 days - Reason: Recheck today's complaints, Continuance of care, Re-evaluation by your physician Followup: marcelino - With: - When: 2 - 3 days - Reason: Recheck today's complaints, Re-evaluation by your physician Discharge Instructions: - Discharge Summary Sheet [facility] - Allergies, Adult marcelino - Food Choices to Help Relieve Diarrhea, Adult marcelino - Diarrhea, Adult marcelino - Irritable Bowel Syndrome, Adult marcelino - Diarrhea, Adult, [id number] [facility] - Viral Respiratory Infection, [id number] [facility] - COVID-19 [facility] Forms: - Medication Reconciliation Form [facility] - Thank You Letter [facility] - Antibiotic Education [facility] - Prescription Opioid Use [facility] Prescriptions: - albuterol sulfate 90 mcg/actuation Inhalation HFA aerosol inhaler - inhale 2 puff by INHALATION route every 3-4 hours; 1 puff; Refills: 0, Product marcelino Selection Permitted - dexamethasone 2 mg Oral tablet - take 1 tablet by ORAL route 3 times per day; 15 tablet; Refills: 0, Product marcelino Selection Permitted - ivermectin 3 mg Oral tablet - take 4 tablet by ORAL route once daily; 20 tablet; Refills: 0, Product marcelino Selection Permitted - Pepcid 20 mg Oral Tablet - take 1 tablet by ORAL route every 12 hours for 15 days; 30 tablet; Refills: 0, [facility] Product Selection Permitted - Zithromax 500 mg Oral Tablet - take 1 tablet by ORAL route once daily for 5 days; 5 tablet; Refills: 0, [facility] Product Selection Permitted Signatures: Dispatcher [employer] Keron Calixto MD MD cha Ballard, Brenda, RN RN bb Vlad John RN em Corrections: (The following items were deleted from the chart) 05:24 04:54 CORONAVIRUS ordered. EDTN EDMS
--- NOTE | 2021-06-06 06:41 | ER ---
Nurse's Notes [facility] Name: Javid Carver Age: 46 yrs Sex: Male : 1975 Arrival Date: 06/06/2021 Time: 04:20 Bed 18 Private MD: Diagnosis: Diarrhea, unspecified;Coronavirus infection, unspecified-covid 19;Cough Presentation: 06/06 04:48 Chief complaint: Patient states: he has been feeling sick the last couple of days with bb fever, chills, vomiting. Coronavirus screen: chills, fever, vomiting. Client presents with at least one sign or symptom that may indicate coronavirus-19. Standard/surgical mask placed on the client. Ebola Screen: No symptoms or risks identified at this time. Initial Sepsis Screen: Does the patient meet any 2 criteria? No. Patient's initial sepsis screen is negative. Does the patient have a suspected source of infection? No. Patient's initial sepsis screen is negative. Risk Assessment: Do you want to hurt yourself or someone else? Patient reports no desire to harm self or others. Onset of symptoms was June 04, 2021. 04:48 Method Of Arrival: Ambulatory bb 04:48 Acuity: ALEJANDRA 3 bb Triage Assessment: 04:50 General: Appears in no apparent distress. Behavior is calm, cooperative. Pain: Denies bb pain. Neuro: Level of Consciousness is awake, alert, obeys commands, Oriented to person, place, time, situation. Cardiovascular: Capillary refill < 3 seconds Patient's skin is warm and dry. Respiratory: Respiratory effort is unlabored. GI: Abdomen is non-distended, Reports vomiting. Derm: Skin is pink, warm \T\ dry. Musculoskeletal: Circulation, motion, and sensation intact. Historical: - Allergies: 04:50 No Known Allergies; bb - Home Meds: 04:50 Unable to obtain [Active]; bb - PMHx: 04:50 Hypertension; bb - PSHx: 04:50 None; bb - Immunization history:: Adult Immunizations up to date, Client reports having NOT received the Covid vaccine. - Social history:: Smoking status: Patient denies any tobacco usage or history of. Patient/guardian denies using alcohol, street drugs. Screenin:10 Abuse screen: Denies threats or abuse. Nutritional screening: No deficits noted. bb Tuberculosis screening: No symptoms or risk factors identified. Fall Risk None identified. Assessment: 05:10 Reassessment: No changes from previously documented assessment. Patient is alert, bb oriented x 3, equal unlabored respirations, skin warm/dry/pink. see triage assessment. 06:04 Reassessment: Patient is alert, oriented x 3, equal unlabored respirations, skin bb warm/dry/pink. pt awaiting diagnostic results. 06:48 Reassessment: Patient appears in no apparent distress at this time. Patient is alert, em oriented x 3, equal unlabored respirations, skin warm/dry/pink. Vital Signs: 04:48 BP 141 / 102; Pulse 96; Resp 20 S; Temp 98.1(O); Pulse Ox 99% on R/A; Weight 95.25 kg bb (R); Height 5 ft. 9 in. (175.26 cm) (R); Pain 0/10; 04:48 Body Mass Index 31.01 (95.25 kg, 175.26 cm) ED Course: 04:20 Patient arrived in ED. am2 04:50 Triage completed. bb 04:50 Arm band placed on Patient placed in waiting room, Patient notified of wait time. Labs bb ordered per protocol. X-ray ordered. 04:52 COVID swab sent to lab. Flu and/or RSV swab sent to lab. bb 04:58 Lynette Li, RN is Primary Nurse. bb 05:10 Patient has correct armband on for positive identification. bb 05:10 No provider procedures requiring assistance completed. bb 05:12 Keron Gillespie MD is Attending Physician. marcelino 05:50 Initial lab(s) drawn, by nv, sent to lab. Inserted saline lock: 20 gauge in left bb antecubital area, using aseptic technique. Blood collected. 06:39 Notified ED physician of a critical lab result(s). pt is Covid positive. Dr Gillespie bb notified. 06:40 Benson Ugarte MD is Referral Physician. marcelino 06:49 IV discontinued, intact, bleeding controlled, No redness/swelling at site. Pressure em dressing applied. 07:21 XRAY Chest (1 view) In Process Unspecified. EDMS Administered Medications: 05:50 Drug: NS 0.9% 500 ml Route: IV; Rate: bolus; Site: left antecubital; bb 06:48 Follow up: IV Status: Completed infusion; IV Intake: 500ml em 05:50 Drug: Pepcid (famotidine) 20 mg Route: IVP; Site: left antecubital; bb 06:48 Follow up: Response: No adverse reaction em 05:53 Drug: Decadron - Dexamethasone 10 mg Route: IVP; Site: left antecubital; bb 06:48 Follow up: Response: No adverse reaction em 05:56 Drug: Zofran (Ondansetron) 4 mg Route: IVP; Site: left antecubital; bb 06:48 Follow up: Response: No adverse reaction em Intake: 06:48 IV: 500ml; Total: 500ml. em Outcome: 06:40 Discharge ordered by MD. benson 06:48 Discharged to home ambulatory. em 06:48 Condition: good 06:48 Discharge instructions given to patient, Instructed on discharge instructions, follow up and referral plans. medication usage, Demonstrated understanding of instructions, follow-up care, medications, Prescriptions given X 5 06:49 Patient left the ED. em Signatures: Dispatcher [employer] Keron Calixto MD MD cha Munoz, Edgar, RN RN Lynette Rowan RN RN Amberly Fairchild
[2021-06-06 07:00] VITALS: BP 141/102; TEMP 98.1; O2SAT 99
--- NOTE | 2021-06-06 07:42 | RAD REPORT ---
EXAM DESCRIPTION: RAD - Chest Single View - 06/06/2021 7:21 am CLINICAL HISTORY: FEVER COMPARISON: Chest Single View dated 04/26/2019; CHEST SINGLE VIEW dated 09/20/2015; CHEST PA AND LAT 2 VIEW dated 03/04/2010; CHEST PA AND LAT 2 VIEW dated 01/06/2010 FINDINGS: No evidence of edema or pneumonia. The heart size is within normal limits.No acute osseous abnormality. No significant pleural effusions or pneumothorax. IMPRESSION: No acute cardiopulmonary disease.
[2021-06-06 07:44] LABS: Platelet Estimate DECR; White Blood Cell Scan OK (OK)
[2021-06-06 07:45] LABS: Blood Morphology Comment NOT SEEN (NOT SEEN)
== END 2021-06-06 06:49 | disposition home or self-care (01) ==
LOC: ER 04:15
DX: U07.1 COVID-19 (principal); R05 Cough; I10 Essential (primary) hypertension
CPT/HCPCS: 85025; 36415; 80053; 87804 ×2; 71045; U0003; J1100; J7040; J2405; 96361; 96374; 96375; 99284

== ENCOUNTER 2022-01-26 18:03 | Emergency (ER) | payer BC ==
--- OUTSIDE RECORDS SUMMARY | 2022-01-26 18:08 | XMS REPORT | Continuity of Care Document ---
:1975 Author Organization [facility] t Address [phone] Care Team Providers Name Role Phone WALESKA VALDEZ Primary Care Physician Unavailable Morgan Valdez Attending Clinician Unavailable Hector RIDDLE, S Attending Clinician Tanna YOUNG Attending Clinician Unavailable Doctor Unassigned, Name Attending Clinician Unavailable Porter BONILLA Attending Clinician Unavailable Singer CARLOS Attending Clinician Tanna YOUNG Admitting Clinician Unavailable Porter BONILLA Admitting Clinician Unavailable Payers Payer Name Policy Type Policy Number Effective Date Expiration Date S ource Problems Condition Condition Condition Status Onset Resolution Last Treating Co mments Source Name Details Category Date Date Treatment Clinician Date No known No known Disease Unive rs active active ity of problems problems [facility] Allergies, Adverse Reactions, Alerts Allergy Allergy Status Severity Reaction(s) Onset Inactive Treating Comm ents Source Name Type Date Date Clinician Lisinopr Propensi Active Cough 0 Univer s il ty to 6-12 ity of adverse 00:00: [place] reaction [address] [place] [address] s Branch LISINOPR DRUG Active COUGH 2018-0 Univers IL INGREDI 6-12 ity of 00:00: [place] 00 Medical Branch Social History Social Habit Start Date Stop Date Quantity Comments Source Sex Assigned At Uni versity [facility] Smoking Status Start Date Stop Date Source Unknown if ever smoked Universit y [facility] Medications Ordered Filled Start Stop Current Ordering Indication Dosage Frequency Signature Comments Components Source Medication Medication Date Date Medication? Clinician (SIG) Name Name morpHINE 2019- No 4mg 4 mg, Slow Un raúl injection 4 12-28 IV Push, ity of mg 22:30: 21:23 ONCE, 1 [place] 00 :00 dose, Mon Medical 12/28/19 at Branch 1630, STAT ondansetron 2019- No 4mg 4 mg, Slow Univers (ZOFRAN 12-28 IV Push, ity of (PF)) 22:30: 21:23 ONCE, 1 [place] injection 4 00 :00 dose, Mon Med ical mg 12/28/19 at Branch 1630, CONTRERAS ketorolac 2019- No 30mg 30 mg, Unive rs (TORADOL) 12-28 Slow IV ity of injection 19:30: 18:26 Push, [place] 30 mg 00 :00 ONCE, 1 Medical dose, [facility] 12/28/19 at 1330, CONTRERAS
Fa culty member approving Restricted medication : DEMIAN YOUNG albuterol 2019-0 Yes [id number] 2{puff} Inhale 2 Univers 90 1-08 Puffs ity of mcg/actuati 00:00: every 4 Nirav as on inhaler 00 (four) Medical hours as Branch needed for Wheezing or Shortness of Breath. benzonatate 2019-0 Yes [id number] 100mg Take 1 Univers 100 mg 1-08 capsule by ity of capsule 00:00: mouth 3 (three) Medical times Branch daily as needed for Cough. albuterol 2020-0 Yes [id number] 2{puff} Inhale 2 Univers 90 1-08 Puffs ity of mcg/actuati 00:00: every 4 Nirav as on inhaler 00 (four) Medical hours as Branch needed for Wheezing or Shortness of Breath. benzonatate 2020-0 Yes [id number] 100mg Take 1 Univers 100 mg 1-08 capsule by ity of capsule 00:00: mouth 3 [place] 00 (three) Medical times Branch daily as needed for Cough. NaCl 0.9% 2018- No 1000mL at 999 Uni vers (NS) bolus 06-04 08-01 mL/hr, ity of infusion 11:45: 11:47 1,000 mL, Nirav as 1,000 mL 00 :00 IV Medical Piggyback, Branch ONCE, 1 dose, Bing 06/04/19 at 0645, STAT methylPREDN Yes 125mg 125 mg, Un raúl ISolone 06-04 Intravenou ity of sodium 11:00: s, Q6H, [place] succinate 00 First dose Medi rand (SOLU-MEDRO on Bing Branch L) 06/04/19 at injection 0600, 125 mg Until Discontinu ed, Routine losartan 50 Yes 50mg Take 50 mg Univers mg tablet 8-01 by mouth ity of 10:45: daily. [address] NICOLE Yes 81mg Take 81 mg Univer s CHEWABLE 8-01 by mouth ity of ASPIRIN 10:45: daily. [address] pantoprazol Yes 20mg Take 20 mg Univers e 20 mg EC 8-01 by mouth ity o f tablet 10:45: daily. [address] chlorthalid Yes 25mg Take 25 mg Univers one 25 mg 8-01 by mouth ity of tablet 10:45: daily. [address] losartan 50 Yes 50mg Take 50 mg Univers mg tablet 8-01 by mouth ity of 10:45: daily. [address] NICOLE Yes 81mg Take 81 mg Univer s CHEWABLE 8-01 by mouth ity of ASPIRIN 10:45: daily. [address] pantoprazol Yes 20mg Take 20 mg Univers e 20 mg EC 8-01 by mouth ity o f tablet 10:45: daily. [address] chlorthalid 2018- Yes 25mg Take 25 mg Univers one 25 mg 8-01 by mouth ity of tablet 10:45: daily. [address] losartan 50 Yes 50mg Take 50 mg Univers mg tablet 8-01 by mouth ity of 10:45: daily. [address] NICOLE 2018- Yes 81mg Take 81 mg Univer s CHEWABLE 8-01 by mouth ity of ASPIRIN 10:45: daily. [address] pantoprazol 2019-0 Yes 20mg Take 20 mg Univers e 20 mg EC 8-01 by mouth ity o f tablet 10:45: daily. [address] Branch chlorthalid 2019-0 Yes 25mg Take 25 mg Univers one 25 mg 8-01 by mouth ity of tablet 10:45: daily. [address] Branch chlorphenir 2019-0 Yes [id number] 4mg Take 1 Univers amine 4 mg 8-01 tablet by ity of tablet 00:00: mouth [place] 00 every 6 Medical (six) Branch hours as needed for Allergies or Runny nose. benzonatate 2019-0 Yes [id number] 100mg Take 1 Univers 100 mg 8-01 capsule by ity of capsule 00:00: mouth 3 00 (three) Medical times Branch daily as needed for Cough. methylPREDN 2019-0 Yes [id number] Take by Univers ISolone 8-01 mouth ity of (MEDROL, 00:00: SEE-INSTRU Nirav as MC,) 4 mg 00 CTIONS. Medica l tablets follow Branch package directions benzonatate 2018-0 Yes [id number] 100mg Take 1 Univers 100 mg 8-01 capsule by ity of capsule 00:00: mouth 3 [place] 00 (three) Medical times Branch daily as needed for Cough. methylPREDN 2019-0 Yes [id number] Take by Univers ISolone 8-01 mouth ity of (MEDROL, 00:00: SEE-INSTRU Nirav as MC,) 4 mg 00 CTIONS. Medica l tablets follow Branch package directions chlorphenir 2019-0 Yes [id number] 4mg Take 1 Univers amine 4 mg 8-01 tablet by ity of tablet 00:00: mouth [place] 00 every 6 Medical (six) Branch hours as needed for Allergies or Runny nose. benzonatate 2018-0 Yes [id number] 100mg Take 1 Univers 100 mg 8-01 capsule by ity of capsule 00:00: mouth 3 [place] 00 (three) Medical times Branch daily as needed for Cough. methylPREDN 2019-0 Yes [id number] Take by Univers ISolone 8-01 mouth ity of (MEDROL, 00:00: SEE-INSTRU Nirav as MC,) 4 mg 00 CTIONS. Medica l tablets follow Branch package directions chlorphenir 2019-0 Yes [id number] 4mg Take 1 Univers amine 4 mg 8-01 tablet by ity of tablet 00:00: mouth [place] 00 every 6 Medical (six) Branch hours as needed for Allergies or Runny nose. benzonatate 2018- 2019- No 100mg Take 1 Un raúl 100 mg 04-15 capsule by ity of capsule 00:00: 00:00 mouth 3 [place] 00 :00 (three) Medical times Branch daily as needed for Cough. Protonix Protonix Yes Na Valdez [address] [facility] BusPIRone BusPIRone Yes Na Valdez [address] HCl HCl [facility] Clinics Metoprolol Metoprolol Yes Na Valdez 1.[address] Tartrate Tartrate tablets Luke s - with food [facility] ent Clinics Vital Signs Vital Name Observation Time Observation Value Comments Source Systolic blood 2019-12-28 22:00:00 144 mm[Hg] Univer sity [facility] Diastolic blood 2019-12-28 22:00:00 105 mm[Hg] [facility] Heart rate 2019-12-28 22:00:00 64 /min [facility] Respiratory rate 2019-12-28 22:00:00 20 /min [facility] Oxygen saturation in 2019-12-28 22:00:00 97 /min [facility] Arterial blood by [facility] Pulse oximetry Branch Body temperature 2019-12-28 17:58:00 36.56 Kamille [facility] Body height 2019-12-28 17:58:00 175.3 cm [facility] Body weight 2019-12-28 17:58:00 90.719 kg [facility] BMI 2019-12-28 17:58:00 29.53 kg/m2 [facility] Systolic blood 2019-12-28 22:00:00 144 mm[Hg] Univer sity [facility] Diastolic blood 2019-12-28 22:00:00 105 mm[Hg] [facility] Heart rate 2019-12-28 22:00:00 64 /min [facility] Respiratory rate 2019-12-28 22:00:00 20 /min [facility] saturation in 2019-12-28 22:00:00 97 /min University of Arterial blood by [facility] Pulse oximetry Branch Body temperature 2019-12-28 17:58:00 36.56 Kamille [facility] [place] [facility] Body height 2019-12-28 17:58:00 175.3 cm [facility] [place] [facility] Body weight 2019-12-28 17:58:00 90.719 kg [facility] [place] [facility] BMI 2019-12-28 17:58:00 29.53 kg/m2 [facility] [place] [facility] Systolic blood 2019-06-04 10:29:00 136 mm[Hg] Univer sity of pressure [place] [facility] Diastolic blood 2019-06-04 10:29:00 102 mm[Hg] Unive rsity of pressure [place] [facility] Heart rate 2019-06-04 10:29:00 103 /min Universi ty of [facility] Body temperature 2019-06-04 10:29:00 36.78 Kamille Univ ersity of [facility] Respiratory rate 2019-06-04 10:29:00 20 /min Univ ersity of [facility] Body height 2019-06-04 10:29:00 175.3 cm [facility] [place] [facility] Body weight 2019-06-04 10:29:00 95.255 kg [facility] [place] [facility] BMI 2019-06-04 10:29:00 31.01 kg/m2 Universi ty of [facility] Oxygen saturation in 2019-06-04 10:29:00 96 /min University of Arterial blood by [facility] Pulse oximetry Branch Systolic blood 2019-06-04 10:29:00 136 mm[Hg] Univer sity of pressure [place] [facility] Diastolic blood 2019-06-04 10:29:00 102 mm[Hg] Unive rsity of pressure [place] [facility] Heart rate 2019-06-04 10:29:00 103 /min [facility] [place] [facility] Body temperature 2019-06-04 10:29:00 36.78 Kamille Univ ersity [facility] Respiratory rate 2019-06-04 10:29:00 20 /min Univ [facility] [place] [facility] Body height 2019-06-04 10:29:00 175.3 cm [facility] [place] [facility] Body weight 2019-06-04 10:29:00 95.255 kg [facility] [place] [facility] BMI 2019-06-04 10:29:00 31.01 kg/m2 [facility] [place] [facility] Oxygen saturation in 2019-06-04 10:29:00 96 /min University Arterial blood by [facility] Pulse oximetry Branch Procedures Procedure Date / Time Performing Clinician Source Performed CT ABDOMEN PELVIS WO 2019-12-28 20:01:17 Demian Young [facility] CONTRAST Medical Branch LIPASE 2019-12-28 18:10:00 Demian Young [facility] COMP. METABOLIC PANEL 2019-12-28 18:10:00 Demian Young [facility] ([id number]) Medical Branch CBC WITH DIFFERENTIAL 2019-12-28 18:10:00 Demian [facility] URIN[facility]YSIS 2019-12-28 18:10[facility] 2019-12-28 17:54:35 Doctor Unassigned, No [place] CONSENT/REFUSAL FOR 2019-12-28 17:44:24 Doctor Unassigned, No [facility] DIAGNOSIS AND TREATMENT [facility] COMP. METABOLIC PANEL 2019-06-04 10:49:00 Jordon Craig [facility] ([id number]) [facility] CBC WITH DIFFERENTIAL 2019-06-04 10:49:00 Singer Jordon [facility] XR CHEST 1 VW 2019-06-04 10:45:17 Singer Jordon [facility] NOTICE OF PRIVACY 2019-06-04 10:16:35 Doctor Unassigned, No [place] Encounters Start End Encounter Admission Attending Care Care Encounter Source Date/Time Date/Time Type Type Clinicians Facility Department ID 2021-11-29 [facility] [id number] [facility] 2021-[facility] [id number] 14[facility]30:49 [facility] 2021[facility]11-29 [facility] [id number] 12:43:32 [id number] [facility] 2021-11-29 Outpatient Valdez, Na STLMLC STLMLC [id number] 11:34:10 [id number] [facility] 2021-11-29 Outpatient Valdez, Na STLMLC STLMLC [id number] 11:15:43 [id number] [facility] 2021-11-29 Outpatient Valdez, Na STLMLC STLMLC [id number] 10:59:47 [id number] [facility] 2021-11-29 Outpatient Valdez, Na STLMLC STLMLC [id number] 10:57:56 [id number] [facility] 2021-11-09 2021-11-09 ambulatory STLMLC STLC [id number] [facility] 2021-02-01 2021-02-01 [facility] [id number] [facility] 2020-06-03 2020-06-03 [facility] [id number] 13:40:00 13:40:00 t [place] [address] s - [address] [facility] Medicine Outpati ent Clinics 2020-01-20 2020-01-20 [facility] [id number] 14:21:00 14:21:00 t Jackson Waizy LuVeeker s - Drive [facility] Medicine Outpati ent Clinics 2020-01-15 2020-01-15 [facility] [id number] 14:55:00 14:55:00 t Media[employer]ast s - Drive [facility] l Medicine Outpati ent Clinics 2019-12-28 2019-12-28 Emergency TULIO Young [id number] 11:59:45 16:55:00 Demian Karimi [id number] [place] [id number] [place] [id number] 2019-12-28 2019-12-28 Emergency TULIO Young [id number] Univers 11:59:45 16:55:00 Demian S Sachi [id number] i ty [facility] [id number] [facility] [id number] [place] [id number] [place] 2019-12-28 2019-12-28 Emergency X HECTOR [facility] ERT [id number] Univers 11:59:45 16:55:00 DEMIAN ity of [facility] 2019-12-28 2019-12-28 [facility] [id number] 10:58:00 10:58:00 t InflaRx [facility] Medicine Outpati ent [facility] 2019-12-28 2019-12-28 Orders Doctor WARREN [id number] 00:00:00 00:00:00 Only Unassigned, SURENDRA [id number] [place] [facility] [id number] [id number] [facility] 2019-12-28 2019-12-28 Orders Doctor WARREN [id number] Univers 00:00:00 00:00:00 Only Unassigned, SURENDRA [id number] ity of [place] [facility] 4.2.7.2.686 [place] [facility] [id number] [address] 2019-11-11 2019-11-11 Emergency X [facility] ERT [id number] Univers 10:51:25 12:46:00 NICO pitts of [facility] 2019-09-11 2019-09-11 [facility] [id number] 08:24:00 08:24:00 InflaRx [facility] Medicine Outpati ent Clinics 2019-09-07 2019-09-07 [facility] [id number] 15:20:00 15:20:00 t Eloqua Axxana [facility] Medicine Outpati ent Clinics 2019-07-29 2019-07-29 [facility] [id number] 13:22:00 13:22:00 Diveboard [facility] Medicine Outpati ent Clinics 2019-06-26 2019-06-26 [facility] [id number] 09:56:00 09:56:00 t [facility] s - Drive [facility] ent [facility] 2019-06-25 2019-06-25 [place] [id number] 15:20:00 15:20:00 t [facility] s - Drive [facility] ent [facility] 2019-06-04 2019-06-04 Emergency Craig, [facility] [id number] 05:22:14 06:49:00 Jordon Karimi [id number] [place] [id number] [place] [id number] 2019-06-04 2019-06-04 Emergency Craig, [facility] [id number] [facility] 05:22:14 06:49:00 Jordon Karimi [id number] i ty of [place] 4.2.7.2.686 [facility] [id number] [facility] 084 Branch 2019-02-16 2019-02-16 Outpatient Paramjit Yusuft [id number] 16:00:00 16:00:00 [facility] s Road [facility] Results Test Description Test Time Test Comments Results Result [facility] Comments CT ABDOMEN 2019-12-06 1. ?No urinary system Uni versity of PELVIS WO 4 calculi. No [place] [facility] CONTRAST 21:04:46 hydronephrosis. 2. Branch ?Stranding and hyperemia within left lower quadrant mesentery. These arenonspecific findings and appearance may be exaggerated due to volumeaveraging. Findings may represent hyperemia related to mild enteritis.3. ?Additional findings as above.CT abdomen and pelvis without contrast REASON FOR STUDY: Flank pain, stone disease suspected rule out kidney stone COMPARISON: None available. TECHNIQUE: Unenhanced multidetector axial CT images from lung bases throughpelvic inlet. As requested, no IV contrast was used. Coronal and sagittalMPR images also generated. INTRAVENOUS CONTRAST ADMINISTRATION: None. DOSE REPORT (Total DLP mGy*cm): 407. FINDINGS: Limited evaluation of abdominal and pelvic organs due to lack ofintravenous contrast. Lower chest: Bilateral calcified granulomas. ABDOMEN AND PELVISLiver: No focal hepatic lesions identified within limits of unenhancedtechnique. Biliary Tract/GB: No radiopaque cholelithiasis. Spleen: Within normal limits. Pancreas: Within normal limits. Adrenals: Within normal limits. Kidneys: Normal unenhanced appearance of bilateral kidneys. Nohydronephrosis or nephrolithiasis. Bowel: Mild rectosigmoid diverticulosis without CT evidence ofdiverticulitis. Small bowel is unremarkable. Appendix is normal. Peritoneum: Non-enlarged partially calcified lymph nodes within thegastrohepatic ligament. Minimal stranding at the left lower quadrantmesentery may be in part related to volume averaging. Vasculature: Limited evaluation without intravenous contrast. Nosignificant abdominal aortic atherosclerotic calcifications. Lymph Nodes: No lymphadenopathy. ? Pelvic Organs: Urinary bladder is normal for the degree of distention. Nourinary bladder calculi. Prostate contains coarse calcifications andmeasures 4.2 cm in transverse dimension at the level femoral necks. Abdominal/Pelvic Wall: Small fat-containing umbilical hernia.. BONES: No acute or aggressive osseous abnormality. [facility], Radiant Results Inft User - 12/28/2019 3:05 PM CSTCT abdomen and pelvis without contrastREASON FOR STUDY: Flank pain, stone disease suspected rule out kidney stoneCOMPARISON: None available.TECHNIQUE: Unenhanced multidetector axial CT images from lung bases throughpelvic inlet. As requested, no IV contrast was used. Coronal and sagittalMPR images also generated.INTRAVENOUS CONTRAST ADMINISTRATION: None.DOSE REPORT (Total DLP mGy*cm): 407.FINDINGS: Limited evaluation of abdominal and pelvic organs due to lack ofintravenous contrast.Lower chest: Bilateral calcified granulomas.ABDOMEN AND PELVISLiver: No focal hepatic lesions identified within limits of unenhancedtechnique.B iliary Tract/GB: No radiopaque cholelithiasis.Spleen : Within normal limits.Pancreas: Within normal limits.Adrenals: Within normal limits.Kidneys: Normal unenhanced appearance of bilateral kidneys. Nohydronephrosis or nephrolithiasis.Bowel : Mild rectosigmoid diverticulosis without CT evidence ofdiverticulitis. Small bowel is unremarkable. Appendix is normal.Peritoneum: Non-enlarged partially calcified lymph nodes within thegastrohepatic ligament. Minimal stranding at the left lower quadrantmesentery may be in part related to volume averaging.Vasculature : Limited evaluation without intravenous contrast. Nosignificant abdominal aortic atherosclerotic calcifications.Lymph Nodes: No lymphadenopathy. Pelvic Organs: Urinary bladder is normal for the degree of distention. Nourinary bladder calculi. Prostate contains coarse calcifications andmeasures 4.2 cm in transverse dimension at the level femoral necks.Abdominal/Pelvi c Wall: Small fat-containing umbilical hernia..BONES: No acute or aggressive osseous abnormality.IMPRESSIO N1. No urinary system calculi. No hydronephrosis. 2. Stranding and hyperemia within left lower quadrant mesentery. These arenonspecific findings and appearance may be exaggerated due to volumeaveraging. Findings may represent hyperemia related to mild enteritis.3. Additional findings as above. Complete Metabolic Panel 2019-12-28 18:46:00 Test Item Value Reference Range Interpretation Comme nts NA (test code = 3880328673) 139 mmol/L 135-145 K (test code = 0363127295) 3.7 mmol/L 3.5-5 CL (test code = 8348982343) 104 mmol/L 98-108 CO2 TOTAL (test code = 0279595049) 27 mmol/L 23-31 AGAP (test code = 3313956155) 2-16 BUN (test code = 6046076502) 16 mg/dL 7-23 GLUCOSE (test code = 5799864481) 94 mg/dL 70-110 CREATININE (test code = 1.06 mg/dL 0.6-1.25 7601418377) TOTAL BILI (test code = 1.3 mg/dL 0.1-1.1 H 6994440390) CALCIUM (test code = 8748062116) 9.2 mg/dL 8.6-10.6 T PROTEIN (test code = 1137811710) 7.4 g/dL 6.3-8.2 ALBUMIN (test code = 1611220606) 4.2 g/dL 3.5-5 ALK PHOS (test code = 3967524188) 49 U/L 34-122 ALTv (test code = 1742-6) 33 U/L 5-50 AST(SGOT) (test code = 0463169369) 33 U/L 13-40 eGFR Calculation (Non- mL/min/1.73m2 [place]) (test code = 7123647739) eGFR Calculation ( mL/min/1.73m2 [place]) (test code = 3690059610) KAYY (test code = KAYY) Association of Glomerular Filtration Rate (GFR) and Staging of Kidney Disease* + +-------- + ------+| GFR (mL/min/1.73 m2) ?| With Kidney Damage ?| ?Without Kidney Damage+ +-- + +| ?>90 ?| ?Stage one ?| ? Normal ?+ +------- + -------+| ?60-89 ?| ?Stage two ?| ? Decreased GFR ? + +-------- + ------+| ?30-59 ?| ?Stage three ?| ? Stage three ? + +-------- + ------+| ?15-29 ?| ?Stage four ? | ? Stage four ?+ +------- + -------+| ?<15 (or dialysis) ? ?| ?Stage five ? | ? Stage five ?+ +------- + -------+ *Each stage assumes the associated GFR level has been in effect for at least three months. ?Stages 1 to 5, with or without kidney disease, indicate chronic kidney disease. Notes: Determination of stages one and two (with eGFR >59mL/min/1.73 m2) requires estimation of kidney damage for at least three months as defined by structural or functional abnormalities of the kidney, manifested by either:Pathological abnormalities or Markers of kidney damage (including abnormalities in the composition of the blood or urine or abnormalities in imaging tests). Lab Interpretation (test code = Abnormal 95151-3) [facility] [place] [facility], [id number] 18:46:00 Test Item Value Reference Range Interpretation Comments LIPASE (test code = 3471121995) 174 U/L 0-220 Lab Interpretation (test code = Normal 92585-6) [facility] [place] [facility]inalysis2020-02-24 18:41:00 Test Item Value Reference Range Interpretation Comments APPEARANCE (test code = Clear Clear 5902426489) COLOR (test code = Yellow Yellow 3469239154) PH (test code = 4.8-8.0 6437461244) SP GRAVITY (test code = 1.003-1.030 0520508434) GLU U QUAL (test code = Normal Normal 9976227526) BLOOD (test code = 2+ Negative A 0697391071) KETONES (test code = Negative Negative 3291998478) PROTEIN (test code = 100 mg/dL Negative A 2887-8) UROBILIN (test code = Normal Normal 3690085787) BILIRUBIN (test code = Negative Negative 1403461364) NITRITE (test code = Negative Negative 7375472556) LEUK ANNA (test code = Negative Negative 7823601743) RBC/HPF (test code = See_Comment H [Autom ated message] 5775645820) The system Ryan generated this result transmit jessica reference range : 0 - 3 HPF. The refe rence range was not u sed to interpret th is result as normal/abnormal . WBC/HPF (test code = See_Comment [Autom ated message] 4517175130) The system Ryan generated this result transmit jessica reference range : 0 - 5 HPF. The refe rence range was not u sed to interpret th is result as normal/abnormal . BACTERIA (test code = Few Negative A 6732721051) MUCOUS (test code = Slight Negative LPF A 9645140870) HYAL CAST (test code = See_Comment H [Aut omated message] 8856942213) The system Ryan generated this result transmit jessica reference range : <=2 LPF. The refere nce range was not u sed to interpret th is result as normal/abnormal . Lab Interpretation (test Abnormal code = 85856-4) [facility] WITH [id number] 18:29:00 Test Item Value Reference Range Interpretation Comments WBC (test code = See_Comment H [Automated 4390-2) message] The sy stem which generated this result transmitted reference range : 4.20 - 10.70 10*3/?L. The reference range was not used to interpret this result as normal/abnormal . RBC (test code = See_Comment H [Automated 789-8) message] The sy stem which generated this result transmitted reference range : 4.26 - 5.52 10*6/?L. The reference range was not used to interpret this result as normal/abnormal . HGB (test code = 17.2 g/dL 12.2-16.4 H 718-7) HCT (test code = 50.2 % 38.4-49.3 H 4544-3) MCV (test code = 87.3 fL 81.7-95.6 787-2) MCH (test code = 29.9 pg 26.1-32.7 785-6) MCHC (test code = 34.3 g/dL 31.2-35 786-4) RDW-SD (test code = 39.5 fL 38.5-51.6 92407-0) RDW-CV (test code = 12.4 % 12.1-15.4 788-0) PLT (test code = See_Comment [Automated 777-3) message] The sy stem which generated this result transmitted reference range : 150 - 328 10*3/ ?L. The reference r gely was not used to interpret this result as normal/abnormal . MPV (test code = 8.6 fL 9.8-13 L 97163-6) NRBC/100 WBC (test See_Comment [Automat ed code = 5042388218) message] The system which generated this result transmitted reference range : 0.0 - 10.0 /100 WBCs. The refer ence range was not u sed to interpret th is result as normal/abnormal . NRBC x10^3 (test code <0.01 See_Comment [Auto mated = 1933036796) message] The s ystem which generated this result transmitted reference range : 10*3/?L. The reference range was not used to interpret this result as normal/abnormal . GRAN MAT (NEUT) % 58.6 % (test code = 770-8) IMM GRAN % (test code 0.50 % = 3064051766) LYMPH % (test code = 26.9 % 736-9) MONO % (test code = 10.1 % 5905-5) EOS % (test code = 3.2 % 713-8) BASO % (test code = 0.7 % 706-2) GRAN MAT x10^3(ANC) 7.58 10*3/uL 1.99-6.95 H (test code = 4727296306) IMM GRAN x10^3 (test 0.06 10*3/uL 0-0.06 code = 3118555743) LYMPH x10^3 (test code 3.48 10*3/uL 1.09-3.23 H = 731-0) MONO x10^3 (test code 1.30 10*3/uL 0.36-1.02 H = 742-7) EOS x10^3 (test code = 0.42 10*3/uL 0.06-0.53 711-2) BASO x10^3 (test code 0.09 10*3/uL 0.01-0.09 = 704-7) Lab Interpretation Abnormal (test code = 11051-9) [facility]. METABOLIC PANEL (33577)2019-06-04 11:45:00 Test Item Value Reference Range Interpretation Comments NA (test code = 144 mmol/L 135-145 6686514576) K (test code = 3.3 mmol/L 3.5-5 L 1097472011) CL (test code = 103 mmol/L 98-108 4383445083) CO2 TOTAL (test code = 29 mmol/L 23-31 3216008083) AGAP (test code = 2-16 3263153787) BUN (test code = 17 mg/dL 7-23 3956477173) GLUCOSE (test code = 126 mg/dL 70-110 H 0749372802) CREATININE (test code = 1.30 mg/dL 0.6-1.25 H 8627469230) TOTAL BILI (test code = 1.1 mg/dL 0.1-1.6 8041837667) CALCIUM (test code = 9.3 mg/dL 8.6-10.6 3451712299) T PROTEIN (test code = 8.0 g/dL 6.3-8.2 3328224627) ALBUMIN (test code = 4.5 g/dL 3.5-5 4174548202) ALK PHOS (test code = 66 U/L 34-122 9121334665) ALT(SGPT) (test code = 215 U/L 9-51 H 3882352410) AST(SGOT) (test code = 114 U/L 13-40 H 5011119727) eGFR Calculation mL/min/1.73m2 (Non-) (test code = 7169618516) eGFR Calculation mL/min/1.73m2 () (test code = 5686016673) KAYY (test code = KAYY) Association of Glomerular Filtration Rate (GFR) and Staging of Kidney Disease*+ + + +| GFR (mL/min/1.73 m2)?| With Kidney Damage?|?Without Kidney Damage+ --------+ --------+ +|?>90?|?S tage one?|? Normal?+ ---------+ ---------+ +|?60-89? |?Stage two?|? Decreased GFR? + --+ --+ ------+|?30-59?|?Stage three?|? Stage three? + --+ --+ ------+|?15-29?|?Stage four? |? Stage four?+ -------+ -------+ +|?<15 (or dialysis)?|?Stage five? |? Stage five?+ -------+ -------+ +*Each stage assumes the associated GFR level has been in effect for at least three months.?Stages 1 to 5, with or without kidney disease, indicate chronic kidney disease.Notes: Determination of stages one and two (with eGFR >59mL/min/1.73 m2) requires estimation of kidney damage for at least three months as defined by structural or functional abnormalities of the kidney, manifested by either:Pathological abnormalities or Markers of kidney damage (including abnormalities in the composition of the blood or urine or abnormalities in imaging tests). Lab Interpretation Abnormal (test code = 36276-0) [facility] WITH [id number] 11:30:00 Test Item Value Reference Range Interpretation Comments WBC (test code = See_Comment H [Automated 1390-2) message] The sy stem which generated this result transmitted reference range : 4.20 - 10.70 10*3/?L. The reference range was not used to interpret this result as normal/abnormal . RBC (test code = See_Comment [Automated 869-8) message] The sy stem which generated this result transmitted reference range : 4.26 - 5.52 10*6/?L. The reference range was not used to interpret this result as normal/abnormal . HGB (test code = 16.9 g/dL 12.2-16.4 H 718-7) HCT (test code = 46.9 % 38.4-49.3 4544-3) MCV (test code = 86.5 fL 81.7-95.6 787-2) MCH (test code = 31.2 pg 26.1-32.7 785-6) MCHC (test code = 36.0 g/dL 31.2-35 H 786-4) RDW-SD (test code = 39.8 fL 38.5-51.6 68931-3) RDW-CV (test code = 12.9 % 12.1-15.4 788-0) PLT (test code = See_Comment [Automated 777-3) message] The sy stem which generated this result transmitted reference range : 150 - 328 10*3/ ?L. The reference r gely was not used to interpret this result as normal/abnormal . MPV (test code = 8.7 fL 9.8-13 L 66773-2) NRBC/100 WBC (test See_Comment [Automat ed code = 8997154725) message] The system which generated this result transmitted reference range : 0.0 - 10.0 /100 WBCs. The refer ence range was not u sed to interpret th is result as normal/abnormal . NRBC x10^3 (test code <0.01 See_Comment [Auto mated = 7149870011) message] The s ystem which generated this result transmitted reference range : 10*3/?L. The reference range was not used to interpret this result as normal/abnormal . GRAN MAT (NEUT) % 55.4 % (test code = 770-8) IMM GRAN % (test code 0.90 % = 0217840468) LYMPH % (test code = 27.9 % 736-9) MONO % (test code = 11.8 % 5905-5) EOS % (test code = 3.0 % 713-8) BASO % (test code = 1.0 % 706-2) GRAN MAT x10^3(ANC) 6.33 10*3/uL 1.99-6.95 (test code = 0788771158) IMM GRAN x10^3 (test 0.10 10*3/uL 0-0.06 H code = 9213819666) LYMPH x10^3 (test code 3.18 10*3/uL 1.09-3.23 = 731-0) MONO x10^3 (test code 1.35 10*3/uL 0.36-1.02 H = 742-7) EOS x10^3 (test code = 0.34 10*3/uL 0.06-0.53 711-2) BASO x10^3 (test code 0.11 10*3/uL 0.01-0.09 H = 704-7) Lab Interpretation Abnormal (test code = 94564-1) [facility]"
--- NOTE | 2022-01-26 18:45 | EDPHYS ---
Physician Documentation [facility] Name: Javid Carver Age: 46 yrs Sex: Male : 1975 Arrival Date: 01/26/2022 Time: 18:07 Bed 16 Private MD: ED Physician Primo Azevedo HPI: 01/26 18:37 This 46 yrs old Male presents to ER via Ambulatory with complaints of Facial Swelling, rn tooth pain. 18:37 The patient presents with pain, swelling. The problem is located in the left cheek. rn Onset: The symptoms/episode began/occurred this morning. Duration: The symptoms are continuous. Modifying factors: The symptoms are alleviated by nothing, the symptoms are aggravated by chewing, talking. Associated signs and symptoms: Pertinent positives: pain, redness in area, swelling, Pertinent negatives: fever. Associated signs and symptoms:. Severity of symptoms: At their worst the symptoms were mild, in the emergency department the symptoms are unchanged. The patient has not experienced similar symptoms in the past. The patient has not recently seen a physician. Pt reports woke up today with dental pain and left cheek swelling, sees abscess along his left upper gum. No fever. . Historical: - Allergies: 18:25 No Known Allergies; ph - PMHx: 18:25 acid reflux; Hypertension; ph - Immunization history:: Client reports having NOT received the Covid vaccine. - Social history:: Smoking status: Patient denies any tobacco usage or history of. - Family history:: not pertinent. - Hospitalizations: : No recent hospitalization is reported. ROS: 18:39 Constitutional: + fever ENT: + dental pain and swelling of face Neck: Negative for rn injury, pain, and swelling, Respiratory: Negative for shortness of breath, cough, wheezing, and pleuritic chest pain, Neuro: Negative for headache, weakness, numbness, tingling, and seizure. Exam: 18:39 Constitutional: This is a well developed, well nourished patient who is awake, alert, rn and in no acute distress. Head/Face: Atraumatic. + mild induration of left buccal space, no fluctuance ENT: + poor dentition, + small 1 cm abscess along left maxillary gingiva Vital Signs: 18:23 BP 156 / 99; Pulse 76; Resp 16; Temp 100.9; Pulse Ox 99% on R/A; Weight 108.86 kg; ph Height 5 ft. 9 in. (175.26 cm); 18:23 Body Mass Index 35.44 (108.86 kg, 175.26 cm) ph Procedures: 18:39 I \T\ D: Incision and drainage was performed for an abscess of the left left maxillary rn gingiva Incised with 18 g needle. Drained moderate amount purulent fluid. serosanguinous fluid. MDM: 18:31 Patient medically screened. rn 18:39 Differential diagnosis: dental caries, gingivitis, dental abscess. Data reviewed: vital rn signs, nurses notes, and as a result, I will discharge patient. Counseling: I had a detailed discussion with the patient and/or guardian regarding: the historical points, exam findings, and any diagnostic results supporting the discharge/admit diagnosis, the need for outpatient follow up, to return to the emergency department if symptoms worsen or persist or if there are any questions or concerns that arise at home. Response to treatment: the patient's symptoms have markedly improved after treatment, and as a result, I will discharge patient. Special discussion: I discussed with the patient/guardian in detail that at this point there is no indication for admission to the hospital. It is understood, however, that if the symptoms persist or worsen the patient needs to return immediately for re-evaluation. Based on the history and exam findings, there is no indication for further emergent testing or inpatient evaluation. I discussed with the patient/guardian the need to see a dentist for further evaluation of the symptoms. ED course: Pt feels much better, will give abx here and dc home with abx. Plans to see dentist tomorrow. . Administered Medications: 18:50 Drug: Clindamycin 600 mg Route: IM; Site: right gluteus; bp 19:02 Follow up: Response: No adverse reaction bp Disposition Summary: 01/26/22 18:44 Discharge Ordered Location: Home rn Problem: new rn Symptoms: have improved rn Condition: Stable rn Diagnosis - Cellulitis of face rn - Periodontal disease, unspecified - With abscess rn Followup: rn - With: Private Physician - When: Tomorrow - Reason: Recheck today's complaints, Re-evaluation by your physician Discharge Instructions: - Discharge Summary Sheet rn - Cellulitis, Adult rn - Dental Abscess rn Forms: - Medication Reconciliation Form rn - Thank You Letter rn - Antibiotic internal affairs commander - Prescription Opioid Use rn Prescriptions: - Amoxicillin 875 mg Oral Tablet - take 1 tablet by ORAL route every 12 hours for 10 days; 20 tablet; Refills: 0, rn Product Selection Permitted - Clindamycin HCl 300 mg Oral Capsule - take 1 capsule by ORAL route every 6 hours for 10 days; 40 capsule; Refills: 0, rn Product Selection Permitted - Tramadol 50 mg Oral Tablet - take 1 tablet by ORAL route every 8 hours as needed; 12 tablet; Refills: 0, rn Product Selection Permitted Signatures: Primo Azevedo MD MD rn Hall, Patricia, RN RN ph Peltier, Brian RN RN bp
--- NOTE | 2022-01-26 18:45 | ER ---
Nurse's Notes [facility] Name: Javid Carver Age: 46 yrs Sex: Male : 1975 Arrival Date: 01/26/2022 Time: 18:07 Bed 16 Private MD: Diagnosis: Cellulitis of face;Periodontal disease, unspecified-With abscess Presentation: 01/26 18:23 Chief complaint: Patient states: L sided facial swelling that started today, states ph that he has cavities x 2 in same area, also reports fatigue and dizziness, low grade fever in triage. Coronavirus screen: Vaccine status: Patient reports being unvaccinated. Ebola Screen: No symptoms or risks identified at this time. Initial Sepsis Screen: Does the patient meet any 2 criteria? No. Patient's initial sepsis screen is negative. Does the patient have a suspected source of infection? No. Patient's initial sepsis screen is negative. Risk Assessment: Do you want to hurt yourself or someone else? Patient reports no desire to harm self or others. Onset of symptoms was January 26, 2022. 18:23 Method Of Arrival: Ambulatory ph 18:23 Acuity: ALEJANDRA 4 ph Triage Assessment: 18:25 General: Appears in no apparent distress. Behavior is calm, cooperative, Reports fever ph for 0-12 hours. Pain: Complains of pain in left cheek and left jaw. EENT: Poor dentition noted. Neuro: Level of Consciousness is awake, alert, obeys commands, Oriented to person, place, time, situation. Derm: Skin is intact, Skin is pink, warm \T\ dry. Historical: - Allergies: 18:25 No Known Allergies; ph - PMHx: 18:25 acid reflux; Hypertension; ph - Immunization history:: Client reports having NOT received the Covid vaccine. - Social history:: Smoking status: Patient denies any tobacco usage or history of. - Family history:: not pertinent. - Hospitalizations: : No recent hospitalization is reported. Screenin:30 Abuse screen: Denies threats or abuse. Denies injuries from another. Nutritional bp screening: No deficits noted. Tuberculosis screening: No symptoms or risk factors identified. Fall Risk None identified. Assessment: 18:30 General: SEE TRIAGE NOTE. bp 19:00 Reassessment: PT D/C HOME AMBULATORY, DX WITH CELLULITIS OF FACE. bp Vital Signs: 18:23 BP 156 / 99; Pulse 76; Resp 16; Temp 100.9; Pulse Ox 99% on R/A; Weight 108.86 kg; ph Height 5 ft. 9 in. (175.26 cm); 18:23 Body Mass Index 35.44 (108.86 kg, 175.26 cm) ph ED Course: 18:07 Patient arrived in ED. mr 18:24 Jose Abel, RN is Primary Nurse. bp 18:25 Triage completed. ph 18:25 Arm band placed on Patient placed in an exam room, on a stretcher. ph 18:30 Patient has correct armband on for positive identification. Bed in low position. Call bp light in reach. Side rails up X2. 18:30 No provider procedures requiring assistance completed. Patient did not have IV access bp during this emergency room visit. 18:31 Primo Azevedo MD is Attending Physician. rn Administered Medications: 18:50 Drug: Clindamycin 600 mg Route: IM; Site: right gluteus; bp 19:02 Follow up: Response: No adverse reaction bp Outcome: 18:44 Discharge ordered by . rn 19:06 Discharged to home ambulatory. bp 19:06 Condition: stable 19:06 Discharge instructions given to patient, Instructed on discharge instructions, follow up and referral plans. medication usage, wound care, Demonstrated understanding of instructions, follow-up care, medications, wound care, Prescriptions given X 3. 19:08 Patient left the ED. bp Signatures: Ana Cristina Aponte mr Primo Azevedo MD MD rn Hall, Patricia, RN RN Jose Abel RN RN bp
[2022-01-26] MEDS ORDERED: CLINDAMYCIN IV 150 MG/ML (4 mL) VIAL ONE (18:51)
[2022-01-26 19:12] VITALS: BP 156/99; TEMP 100.9; O2SAT 99
== END 2022-01-26 19:08 | disposition home or self-care (01) ==
LOC: ER 18:03
PROC: 0C9 Mouth and Throat, Drainage (ICD-10-PCS; principal; 2022-01-26)
DX: L03.211 Cellulitis of face (principal); K08.89 Other specified disorders of teeth and supporting structures; K02.9 Dental caries, unspecified; R53.83 Other fatigue; R42 Dizziness and giddiness; K05.219 Aggressive periodontitis, localized, unspecified severity
CPT/HCPCS: 41800 ×2; 96372; 99283; S0077

== ENCOUNTER 2022-11-25 10:36 | Emergency (ER) | payer SELFPAY ==
--- OUTSIDE RECORDS SUMMARY | 2022-11-25 10:40 | XMS REPORT | Continuity of Care Document ---
:1975 Author Organization [facility] t Address [address] [place] [address] Care Team Providers Name Role Phone TIM VALDEZ Primary Care Physician Unavailable Tim Valdez Attending Clinician Unavailable DAIANA ALDANA Attending Clinician Unavailable Daiana Aldana MD Attending Clinician Demian Noble Attending Clinician DEMIAN YOUNG Attending Clinician Unavailable Doctor Unassigned, [place] Attending Clinician Unavailable NICO BONILLA Attending Clinician Unavailable Jordon Craig DO Attending Clinician DAIANA ALDANA Admitting Clinician Unavailable DEMIAN YOUNG Admitting Clinician Unavailable NICO BONILLA Admitting Clinician Unavailable Payers Payer Name Policy Type Policy Number Effective Date Expiration Date [id number] 2017 00:00:00 OUT OF STATE Problems Condition Condition Condition Status Onset Resolution Last Treating Co mments Source Name Details Category Date Date Treatment Clinician Date Gastroente Gastroente Disease Active 2022-1 U nivers ritis ritis 2-28 ity of 00:00: [place] 00 Medical Branch No known No known Disease Unive rs active active ity of problems problems [facility] [id number] Need for Problem Active Comm on tetanus, Spirit diphtheria - [facility] , and acellular [facility] pertussis Medical (Tdap) Center vaccine [id number] Gastroesop Problem Active Co mmon hageal [facility] reflux - [facility] disease [facility] esophagiti Medica s [place] [id number] Seasonal Problem Active Comm on allergic Spirit rhinitis, - [facility] unspecifie [facility] [id number] Moderate Problem Active Com sat persistent Spirit reactive - [facility] airway [facility] with acute Medica l exacerbati Center on Obstructiv Obstructiv Problem Active C ommon e sleep e sleep Spirit apnea apnea [facility] [id number] Generalize Problem Active Com sat d anxiety Spirit disorder - [facility] [id number] Need for Problem Active Comm on pneumococc Spirit al - [facility] vaccinatio [facility] Alcoholism Alcoholism Problem Active C ommon Spirit [facility] [id number] HTN Problem Active Common (hypertens Spirit ion), - [facility]I benign [facility] Body mass Adult BMI Problem Active Com mon index 30+ 30.0-30.9 Spir it - obesity kg/sq [facility] Chronic Chronic Problem Active Common fatigue fatigue [facility] syndrome - [facility] Seasonal Seasonal Problem Active Commo n allergy allergies [facility] Allergies, Adverse Reactions, Alerts Allergy Allergy Status Severity Reaction(s) Onset Inactive Treating Comm ents Source Name Type Date Date Clinician Lisinopr Propensi Active Cough 2018-0 Univer s il ty to 6-12 ity of adverse 00:00: [place] reaction Medical s Branch LISINOPR DRUG Active COUGH 2018-0 Univers IL INGREDI 6-12 ity of 00:00: [place] [address] Medical Branch Social History Social Habit Start Date Stop Date Quantity Comments Source History of Tobacco [facility] - [facility] Use [facility] Sex Assigned At [facility] willie - [facility] Exposure to 2022-10-21 2022-10-31 Not sure [facility] SARS-CoV-2 (event) 00:00:00 06:50:00 Medica l Branch Smoking Status Start Date Stop Date Source Never Smoker [facility] - [facility] Tobacco smoking consumption [facility] Medical unknown Branch Medications Ordered Filled Start Stop Current Ordering Indication Dosage Frequency Signature Comments Components Source Medication Medication Date Date Medication? Clinician (SIG) Name Name aspirin 2021-11 Yes 325mg 325 mg, Univer s tablet 325 - Oral, ity of mg 15:00: DAILY, [place] 00 First dose Medical on Sat Branch 10/31/22 at 0900, Until Discontinu ed, Routine ondansetron 2021-11- No 4mg 4 mg, Slow Univers (ZOFRAN 01-01- IV Push, ity of (PF)) 13:45: 13:51 ONCE, 1 [place] injection 4 00 :00 dose, On Medi rand mg Sat Branch 10/31/22 at 0745, CONTRERAS NaCl 0.9% 2021-11- No 1000mL at 999 Uni vers (NS) bolus 01-01 12-28 mL/hr, ity of infusion 13:45: 15:28 1,000 mL, Nirav as 1,000 mL 00 :00 IV Medical Infusion, [place] ONCE, 1 dose, On Sat10/31/22 at 0745, STAT NICOLE 2021-11 Yes 81mg Take 81 mg Univer s CHEWABLE 01-01 by mouth ity of ASPIRIN 09:18: daily. [place] ORAL 52 Medical Branch aspirin 81 2021-11- Yes [id number] 81mg Take 1 Univers mg chewable 01-01 tablet by it y of tablet 00:00: 05:59 mouth in [place] 00 :00 the Medical morning Branch for 15 days. ondansetron 2021-11- Yes [id number] 4mg Take 1 Univers 4 mg 01-01 tablet by ity of disintegrat 00:00: 05:59 [place] tablet 00 :00 every 8 Medica l (eight) Branch hours as needed for Nausea and Vomiting (N/V) for up to 5 days. morpHINE 2019- No 4mg 4 mg, Slow Un raúl injection 4 12-28-24 IV Push, ity of mg 22:30: 21:23 ONCE, 1 [place] 00 :00 dose, [facility] Medical 12/28/19 at Branch 1630, STAT ondansetron 2019- No 4mg 4 mg, Slow Univers (ZOFRAN 12-28 IV Push, ity of (PF)) 22:30: 21:23 ONCE, 1 [place] injection 4 00 :00 dose, Mon Med ical mg 12/28/19 at Branch 1630, CONTRERAS ketorolac 2019-2019- No 30mg 30 mg, Unive rs (TORADOL) 12-28 Slow IV ity of injection 19:30: 18:26 Push, [place] 30 mg 00 :00 ONCE, 1 Medical dose, Mon Branch 12/28/19 at 1330, CONTRERAS
Fa culty member approving Restricted medication : DEMIAN YOUNG albuterol 2019-0 Yes [id number] 2{puff} Inhale 2 Univers 90 1-08 Puffs ity of mcg/actuati 00:00: every 4 Nirav as on inhaler 00 (four) Medical hours as Branch needed for Wheezing or Shortness of Breath. benzonatate 2020-0 Yes [id number] 100mg Take 1 Univers 100 mg 1-08 capsule by ity of capsule 00:00: mouth 3 [place] 00 (three) Medical times Branch daily as needed for Cough. albuterol 2019-0 Yes [id number] 2{puff} Inhale 2 Univers 90 1-08 Puffs ity of mcg/actuati 00:00: every 4 Nirav as on inhaler 00 (four) Medical hours as Branch needed for Wheezing or Shortness of Breath. benzonatate 2020-0 Yes [id number] 100mg Take 1 Univers 100 mg 1-08 capsule by ity of capsule 00:00: mouth 3 [place] 00 (three) Medical times Branch daily as needed for Cough. albuterol 2020-0 Yes [id number] 2{puff} Inhale 2 Univers 90 1-08 Puffs ity of mcg/actuati 00:00: every 4 Nirav as on inhaler 00 (four) Medical hours as Branch needed for Wheezing or Shortness of Breath. benzonatate 2020-0 Yes [id number] 100mg Take 1 Univers 100 mg 1-08 capsule by ity of capsule 00:00: mouth 3 [place] 00 (three) Medical times Branch daily as needed for Cough. NaCl 0.9% 2018- No 1000mL at 999 Uni vers (NS) bolus 8 08-01 mL/hr, ity of infusion 11:45: 11:47 1,000 mL, Nirav as 1,000 mL 00 :00 IV Medical Piggyback, Branch ONCE, 1 dose, Bing 06/04/19 at 0645, STAT methylPREDN 2018- Yes 125mg 125 mg, Un raúl ISolone 06-04 Intravenou ity of sodium 11:00: s, Q6H, [place] succinate 00 First dose Medi rand (SOLU-MEDRO on Bing Branch L) 06/04/19 at injection 0600, 125 mg Until Discontinu ed, Routine losartan 50 2018- Yes 50mg Take 50 mg Univers mg tablet 8-01 by mouth ity of 10:45: daily. [address] NICOLE Yes 81mg Take 81 mg Univer s CHEWABLE 8-01 by mouth ity of ASPIRIN 10:45: daily. [address] pantoprazol Yes 20mg Take 20 mg Univers e 20 mg EC 8-01 by mouth ity o f tablet 10:45: daily. [address] chlorthalid Yes 25mg Take 25 mg Univers one 25 mg 8-01 by mouth ity of tablet 10:45: daily. [address] losartan 50 Yes 50mg Take 50 mg Univers mg tablet 8-01 by mouth ity of 10:45: daily. [address] NICOLE Yes 81mg Take 81 mg Univer s CHEWABLE 8-01 by mouth ity of ASPIRIN 10:45: daily. [address] pantoprazol Yes 20mg Take 20 mg Univers e 20 mg EC 8-01 by mouth ity o f tablet 10:45: daily. [address] chlorthalid Yes 25mg Take 25 mg Univers one 25 mg 8-01 by mouth ity of tablet 10:45: daily. [address] losartan 50 Yes 50mg Take 50 mg Univers mg tablet 8-01 by mouth ity of 10:45: daily. [address] NICOLE Yes 81mg Take 81 mg Univer s CHEWABLE 8-01 by mouth ity of ASPIRIN 10:45: daily. [address] pantoprazol Yes 20mg Take 20 mg Univers e 20 mg EC 8-01 by mouth ity o f tablet 10:45: daily. [address] chlorthalid 2019-0 Yes 25mg Take 25 mg Univers one 25 mg 8-01 by mouth ity of tablet 10:45: daily. [address] pantoprazol 2019-0 Yes 20mg Take 20 mg Univers e 20 mg EC 8-01 by mouth ity o f tablet 05:45: daily. [address] chlorthalid 2019-0 Yes 25mg Take 25 mg Univers one 25 mg 8-01 by mouth ity of tablet 05:45: daily. [address] losartan 50 2019-0 Yes 50mg Take 50 mg Univers mg tablet 8-01 by mouth ity of 05:45: daily. [address] benzonatate 2019-0 Yes [id number] 100mg Take 1 Univers 100 mg 8-01 capsule by ity of capsule 00:00: mouth 3 [place] 00 (three) Medical times Branch daily as needed for Cough. methylPREDN 2019-0 Yes [id number] Take by Univers ISolone 8-01 mouth ity of (MEDROL, 00:00: SEE-INSTRU Nirav as MC,) 4 mg 00 CTIONS. Medica l tablets follow Branch package directions chlorphenir 2019-0 Yes [id number] 4mg Take 1 Univers amine 4 mg 8-01 tablet by ity of tablet 00:00: mouth [place] 00 every 6 Medical (six) Branch hours as needed for Allergies or Runny nose. chlorphenir 2019-0 Yes [id number] 4mg Take 1 Univers amine 4 mg 8-01 tablet by ity of tablet 00:00: mouth [place] 00 every 6 Medical (six) Branch hours as needed for Allergies or Runny nose. benzonatate 2019-0 Yes [id number] 100mg Take 1 Univers 100 mg 8-01 capsule by ity of capsule 00:00: mouth 3 [place] 00 (three) Medical times Branch daily as needed for Cough. methylPREDN 2019-0 Yes [id number] Take by Univers ISolone 8-01 mouth ity of (MEDROL, 00:00: SEE-INSTRU Nirav as MC,) 4 mg 00 CTIONS. Medica l tablets follow Branch package directions benzonatate 2019-0 Yes [id number] 100mg Take 1 Univers 100 mg 8-01 capsule by ity of capsule 00:00: mouth 3 [place] 00 (three) Medical times Branch daily as needed for Cough. methylPREDN 2019-0 Yes [id number] Take by Univers ISolone 8-01 mouth ity of (MEDROL, 00:00: SEE-INSTRU Nirav as MC,) 4 mg 00 CTIONS. Medica l tablets follow Branch package directions chlorphenir 2019-0 Yes [id number] 4mg Take 1 Univers amine 4 mg 8-01 tablet by ity of tablet 00:00: mouth [place] 00 every 6 Medical (six) Branch hours as needed for Allergies or Runny nose. benzonatate 2019-0 Yes [id number] 100mg Take 1 Univers 100 mg 8-01 capsule by ity of capsule 00:00: mouth 3 [place] 00 (three) Medical times Branch daily as needed for Cough. methylPREDN 2018-0 Yes [id number] Take by Univers ISolone 8-01 mouth ity of (MEDROL, 00:00: SEE-INSTRU Nirav as MC,) 4 mg 00 CTIONS. Medica l tablets follow Branch package directions chlorphenir 0 Yes [id number] 4mg Take 1 Univers amine 4 mg 8-01 tablet by ity of tablet 00:00: mouth [place] 00 every 6 Medical (six) Branch hours as needed for Allergies or Runny nose. benzonatate 2019- No 100mg Take 1 Un raúl 100 mg 6-12 08- capsule by ity of capsule 00:00: 00:00 mouth 3 [place] 00 :00 (three) Medical times Branch daily as needed for Cough. Flonase 50 Flonase 50 2017- No 1{spray QD Flonase 50 MCG/ACT MCG/ACT 4-24 _in_eac MCG/ACT 00:00: h_nostr 00 il} ProAir ProAir No 2{puffs QID ProAir RespiClick RespiClick 4-24 _as_nee RespiClick 108 (90 108 (90 00:00: ded} 108 (90 Base) Base) 00 Base) MCG/ACT MCG/ACT MCG/ACT Flonase 50 Flonase 50 2017- No 1{spray QD Flonase 50 MCG/ACT MCG/ACT 4-24 _in_eac MCG/ACT 00:00: h_nostr 00 il} ProAir ProAir 0 No 2{puffs QID ProAir RespiClick RespiClick 4-24 _as_nee RespiClick 108 (90 108 (90 00:00: ded} 108 (90 Base) Base) 00 Base) MCG/ACT MCG/ACT MCG/ACT Flonase 50 Flonase 50 No 1{spray QD Flonase 50 MCG/ACT MCG/ACT 4-24 _in_eac MCG/ACT 00:00: h_nostr 00 il} ProAir ProAir No 2{puffs QID ProAir RespiClick RespiClick 4-24 _as_nee RespiClick 108 (90 108 (90 00:00: ded} 108 (90 Base) Base) 00 Base) MCG/ACT MCG/ACT MCG/ACT Protonix Protonix Yes Na Valdez 1 tablet [facility] BusPIRone BusPIRone Yes Na Valdez 1 tablet Common HCl HCl [facility] Metoprolol Metoprolol Yes Na Valdez 1.5 Common Tartrate Tartrate tablets Spir it with food - [facility] amLODIPine amLODIPine No 1{table amLODIPine Besylate 5 Besylate 5 t} Besylate 5 MG MG MG Metoprolol Metoprolol No 2{table BID Metoprolol Tartrate Tartrate ts_with Tartrate 100 MG 100 MG _food} 100 MG Aspir-Low Aspir-Low No 1{table QD Aspir-Low 81 MG 81 MG t} 81 MG Protonix 40 Protonix 40 No 1{table QD Protonix MG MG t} 40 MG busPIRone busPIRone No 1{table TID busPIRone HCl 15 MG HCl 15 MG t} HCl 15 MG Aspir-Low Aspir-Low No 1{table QD Aspir-Low 81 MG 81 MG t} 81 MG amLODIPine amLODIPine No 1{table QD amLODIPine Besylate 5 Besylate 5 t_at_be Besylate 5 MG MG dtime} MG Aspir-Low Aspir-Low No 1{table QD Aspir-Low 81 MG 81 MG t} 81 MG amLODIPine amLODIPine No 1{table QD amLODIPine Besylate 5 Besylate 5 t_at_be Besylate 5 MG MG dtime} MG Immunizations Ordered Immunization Filled Immunization Date Status Commen ts Source Name Name Pneumovax (PPSV23) Pneumovax (PPSV23) 2018-01-01 Completed [facility] 09:44:00 [facility] Adacel (Tdap) Adacel (Tdap) 2018-01-01 Completed Common S pirit 09:44:00 - [facility] Pneumovax (PPSV23) Pneumovax (PPSV23) 2018-01-01 Completed [facility] 09:44:00 - [facility] Adacel (Tdap) Adacel (Tdap) 2018-01-01 Completed Common S pirit 09:44:00 - [facility] Pneumovax (PPSV23) Pneumovax (PPSV23) 2018-01-01 Completed [facility] 09:44:00 - [facility] Adacel (Tdap) Adacel (Tdap) 2018-01-01 Completed Common S pirit 09:44:00 - [facility] Vital Signs Vital Name Observation Time Observation Value Comments Source Systolic blood 2022-10-31 12:52:00 145 mm[Hg] Univer sity of [facility] Diastolic blood 2022-10-31 12:52:00 104 mm[Hg] Unive rsity of [facility] Heart rate 2022-10-31 12:52:00 71 /min [facility] Body temperature 2022-10-31 12:52:00 36.61 Kamille [facility] Respiratory rate 2022-10-31 12:52:00 18 /min [facility] Body height 2022-10-31 12:52:00 175.3 cm [facility] Body weight 2022-10-31 12:52:00 108.863 kg [facility] BMI 2022-10-31 12:52:00 35.44 kg/m2 [facility] Oxygen saturation in 2022-10-31 12:52:00 99 /min [facility] blood by [facility] Pulse oximetry Branch Systolic blood 2019-12-28 22:00:00 144 mm[Hg] Univer sity of [facility] Diastolic blood 2019-12-28 22:00:00 105 mm[Hg] Unive rsity of [facility] Heart rate 2019-12-28 22:00:00 64 /min [facility] Respiratory rate 2019-12-28 22:00:00 20 /min [facility] Oxygen saturation in 2019-12-28 22:00:00 97 /min University of Arterial blood by [facility] rand Pulse oximetry Branch Body temperature 2019-12-28 17:58:00 36.56 Kamille Univ ersity of [place] [facility] [place] Body height 2019-12-28 17:58:00 175.3 cm Universi ty of [place] [facility] [place] Body weight 2019-12-28 17:58:00 90.719 kg Universi ty of [place] [facility] BMI 2019-12-28 17:58:00 29.53 kg/m2 Universi ty of [facility] Branch Systolic blood 2019-12-28 22:00:00 144 mm[Hg] Univer sity of pressure [facility] Branch Diastolic blood 2019-12-28 22:00:00 105 mm[Hg] Unive rsity of pressure [facility] Branch Heart rate 2019-12-28 22:00:00 64 /min Universi ty of [place] [facility] [place] Respiratory rate 2019-12-28 22:00:00 20 /min Univ ersity of [facility] Oxygen saturation in 2019-12-28 22:00:00 97 /min University of Arterial blood by [facility] Pulse oximetry Branch Body temperature 2019-12-28 17:58:00 36.56 Kamille Univ ersity of [facility] Body height 2019-12-28 17:58:00 175.3 cm Universi ty of [place] [facility] [place] Body weight 2019-12-28 17:58:00 90.719 kg Universi ty [facility] [place] [facility] [place] BMI 2019-12-28 17:58:00 29.53 kg/m2 Universi ty of [facility] Branch Systolic blood 2019-06-04 10:29:00 136 mm[Hg] Univer sity of pressure [facility] Branch Diastolic blood 2019-06-04 10:29:00 102 mm[Hg] Unive rsity of pressure [facility] Heart rate 2019-06-04 10:29:00 103 /min Universi ty of [facility] Body temperature 2019-06-04 10:29:00 36.78 Kamille Univ ersity [facility] [place] [facility] Respiratory rate 2019-06-04 10:29:00 20 /min Univ ersity [facility] [place] [facility] [place] Body height 2019-06-04 10:29:00 175.3 cm [facility]i ty [facility] [place] [facility] [place] Body weight 2019-06-04 10:29:00 95.255 kg Universi ty of [place] [facility] BMI 2019-06-04 10:29:00 31.01 kg/m2 [facility] Oxygen saturation in 2019-06-04 10:29:00 96 /min University of Arterial blood by [facility] Pulse oximetry Branch Systolic blood 2019-06-04 10:29:00 136 mm[Hg] Univer sity of pressure [facility] Diastolic blood 2019-06-04 10:29:00 102 mm[Hg] Unive rsity of pressure [facility] Heart rate 2019-06-04 10:29:00 103 /min [facility] Body temperature 2019-06-04 10:29:00 36.78 Kamille [facility] Respiratory rate 2019-06-04 10:29:00 20 /min [facility] Body height 2019-06-04 10:29:00 175.3 cm [facility] Body weight 2019-06-04 10:29:00 95.255 kg [facility] BMI 2019-06-04 10:29:00 31.01 kg/m2 [facility] Oxygen saturation in 2019-06-04 10:29:00 96 /min [facility] Arterial blood by [facility] Pulse oximetry Branch Procedures Procedure Date / Time Performing Clinician Source Performed XR CHEST 2 VW 2022-10-31 14:04:07 Daiana Aldana [facility] TROPONIN I 2022-10-31 13:50:00 Daiana Aldana [facility] COMP. METABOLIC PANEL 2022-10-31 13:50:00 Daiana Aldana [facility] ([id number]) [facility] CBC WITH DIFF 2022-10-31 13:50:00 Daiana Aldana [facility] N-TERMINAL PRO-BNP 2022-10-31 13:50:00 Daiana Aldana [facility] COVID-19 (ID NOW RAPID 2022-10-31 13:50:00 Daiana Aldana [facility] TESTING) [facility] RAPID INFLUENZA A/B 2022-10-31 13:14:00 Daiana Aldana [facility] CONSENT/REFUSAL FOR 2022-10-31 12:43:31 Doctor Unassigned, No Un iversity [facility] DIAGNOSIS AND TREATMENT Name Medical Branch CT ABDOMEN PELVIS WO 2019-12-28 20:01:17 Demian Young [facility] CONTRAST Medical Branch LIPASE 2019-12-28 18:10:00 Demian Young [facility] COMP. METABOLIC PANEL 2019-12-28 18:10:00 Demian Young [facility] ([id number]) Medical Branch CBC WITH DIFFERENTIAL 2019-12-28 18:10:00 Demian Young [facility] URINALYSIS 2019-12-28 18:10:00 Demian Young [facility] NOTICE OF PRIVACY 2019-12-28 17:54:35 Doctor Unassigned, No [facility] Medical [place] CONSENT/REFUSAL FOR 2019-12-28 17:44:24 [facility] Medical Branch COMP. METABOLIC PANEL 2019-06-04 10:49:00 Jordon Craig [facility] ([id number]) [facility] CBC WITH DIFFERENTIAL 2019-06-04 10:49:00 Jordon Craig [facility] XR CHEST 1 VW 2019-06-04 10:45:17 Singer Jordon [facility] NOTICE OF PRIVACY 2019-06-04 10:16:35 Doctor Unassigned, No [facility] Encounters Start End Encounter Admission Attending Care Care Encounter Source Date/Time Date/Time Type Type Clinicians Facility Department ID 2022-07-12 Outpatient Valdez, Na STLMLC STLC [id number] 2 Common 14:58:00 [facility] 2022-06-29 Outpatient Valdez, Na STLMLC STLMLC [id number] 2 Common 11:19:00 [facility] 2021-11-29 Outpatient Valdez, Na STLMLC STLMLC [id number] 2 Common 14:31:20 [facility] 2021-11-29 Outpatient Valdez, Na STLMLC STLMLC [id number] 2 Common 14:30:49 [facility] 2021-11-29 Outpatient Valdez, Na STLMLC STLMLC [id number] 2 Common 12:43:32 [id number] [facility] 2021-11-29 Outpatient Valdez, Na STLMLC STLMLC [id number] 2 Common 11:34:10 [id number] [facility] 2021-11-29 Outpatient Valdez, Na STLMLC STLMLC [id number] 2 Common 11:15:43 [id number] [facility] 2021-11-29 Outpatient Valdez, Na STLMLC STLMLC [id number] 2 Common 10:59:47 [id number] [facility] 2021-11-29 Outpatient Valdez, Na STLMLC STLMLC [id number] 2 Common 10:57:56 [id number] [facility] 2022-10-31 2022-10-31 Emergency X [facility] ERT [id number] Univers 06:54:00 09:29:00 DAIANA ity [facility] 2022-10-31 2022-10-31 Emergency [facility] [id number] Univers 06:54:00 09:29:00 Daiana Dory GOMEZ [id number] ity [facility] [id number] [facility] [id number] [address] 2022-06-29 2022-06-29 (TEL) STLMLC STLMLC [id number] Co mmon 00:00:00 00:00:00 [facility] 2022-06-28 2022-06-28 (TEL) STLMLC STLMLC [id number] Co mmon 00:00:00 00:00:00 [facility] 2021-11-09 2021-11-09 OFFICE STLMLC STLMLC [id number] Co mmon 00:00:00 00:00:00 VISIT [facility] LEVEL 4 [facility] 2021-02-01 2021-02-01 Outpatient STLMLC STLMLC [id number] Common 00:00:00 00:00:00 [facility] 2020-06-03 2020-06-03 [facility] [id number] Common 13:40:00 13:40:[address] [facility] 2020-01-20 2020-01-20 [facility] [id number] Common 14:21:00 14:21:[address] Sp[address] [facility] 2020-01-15 2020-01-15 [facility] [id number] Common 14:55:00 14:55:[address] Sp[address] [facility] 2019-12-28 2019-12-28 Emergency Young, [facility] [id number] Univers 11:59:45 16:55:00 Demian Gomez [id number] i ty [facility] [id number] [facility] s [place] [id number] [facility] 084 Branch 2019-12-28 2019-12-28 Emergency X YOUNG, [facility] ERT [id number] Univers 11:59:45 16:55:00 DEMIAN ity of [facility] 2019-12-28 2019-12-28 Emergency [place], [facility] [id number] 11:59:45 16:55:00 Demian Tanna Sachi [id number] [place] [id number] [place] [id number] [facility] 2019-12-28 2019-12-28 Outpatient Paramjit Yusuft [id number] Common 10:58:00 10:58:[address] [facility] 2019-12-28 2019-12-28 Orders Doctor WARREN [id number] Univers 00:00:00 00:00:00 Only Unassigned, SURENDRA [id number] ity of [place] [facility] [id number] [facility] [id number] [facility] 009 Branch 2019-12-28 2019-12-28 Orders Doctor WARREN [id number] 00:00:00 00:00:00 Only Unassigned, SURENDRA [id number] [place] [facility] [id number] 2019-11-11 2019-11-11 Emergency X CHAD, [facility] ERT [id number] Univers 10:51:25 12:46:00 NICO pitts [facility] 2019-09-11 2019-09-11 [facility] [id number] Common 08:24:00 08:24:[address] [facility] 2019-09-07 2019-09-07 [facility] [id number] Common 15:20:00 15:20:[address] [facility] 2019-07-29 2019-07-29 [facility] [id number] Common 13:22:00 13:22:[address] [facility] 2019-06-26 2019-06-26 [facility] [id number] Common 09:56:00 09:56:[address] [facility] 2019-06-25 2019-06-25 [facility] [id number] Common 15:20:00 15:20:[address] [facility] 2019-06-04 2019-06-04 [facility] [id number] [facility] 05:22:14 06:49:00 Jordon Gomez [id number] i ty of [place] [id number] [facility] [id number] [address] 2019-06-04 2019-06-04 Emergency Craig, [facility] [id number] 05:22:14 06:49:00 Jordon Gomez [id number] [place] 4.2.7.2.686 [place] [id number] [facility] 2019-02-16 2019-02-16 [facility] [id number] Common 16:00:00 16:00:00 t [facility] [address] [facility] Results Test Description Test Time Test Comments Results Result Comments Source TROPONIN I 2022-10-31 14:27:53 Test Item Value Reference Range Interpretation Comme nts TROPONIN I (test code = 0.005 ng/mL See_Comment [Au tomated message] The [id number]) system which ge nerated this result tra nsmitted reference range : <=0.034. The reference r gely was not used to int erpret this result as normal/abnormal . KAYY (test code = KAYY) Reference (Normal) Range (defined by the 99th percentile reference limit): <= 0.034 ng/mL Note: Cardiac troponin begins to rise 3-4 hours after the onset of ischemia. Repeat in 4-6 hours if the sample was drawn within 3-4 hours of the onset of the symptom and found normal. Diagnosis of myocardial injury is made with acute changes in cTn concentrations with at least one serial sample above the 99th percentile upper reference limit (URL), taken together with the patient's clinical presentation. Biotin has been reported to cause a negative bias, interpret results relative to patient's use of biotin. Lab Interpretation Normal (test code = 41943-9) [facility] WITH [id number] 14:24:31 Test Item Value Reference Range Interpretation Comments WBC (test code = See_Comment [Automated 1036-2) message] The sy stem which generated this result transmitted reference range : 4.20 - 10.70 10*3/?L. The reference range was not used to interpret this result as normal/abnormal . RBC (test code = See_Comment [Automated 279-8) message] The sy stem which generated this result transmitted reference range : 4.26 - 5.52 10*6/?L. The reference range was not used to interpret this result as normal/abnormal . HGB (test code = 15.3 g/dL 12.2-16.4 718-7) HCT (test code = 42.1 % 38.4-49.3 4544-3) MCV (test code = 85.6 fL 81.7-95.6 787-2) MCH (test code = 31.1 pg 26.1-32.7 785-6) MCHC (test code = 36.3 g/dL 31.2-35.0 H 786-4) RDW-SD (test code = 39.0 fL 38.5-51.6 60565-3) RDW-CV (test code = 12.7 % 12.1-15.4 788-0) PLT (test code = See_Comment L [Automated 777-3) message] The sy stem which generated this result transmitted reference range : 150 - 328 10*3/ ?L. The reference r egly was not used to interpret this result as normal/abnormal . MPV (test code = 8.4 fL 9.8-13.0 L 88234-9) IPF % (test code = 0.9 % 1.2-10.7 L Platelet count 0067425987) measured by fluorescence method. NRBC/100 WBC (test See_Comment [Automat ed code = 5777539859) message] The system which generated this result transmitted reference range : 0.0 - 10.0 /100 WBCs. The refer ence range was not u sed to interpret th is result as normal/abnormal . NRBC x10^3 (test code See_Comment [Auto mated = 6205877473) message] The s ystem which generated this result transmitted reference range : 10*3/?L. The reference range was not used to interpret this result as normal/abnormal . GRAN MAT (NEUT) % 53.8 % (test code = 770-8) IMM GRAN % (test code 0.80 % = 9812461929) LYMPH % (test code = 31.2 % 736-9) MONO % (test code = 11.4 % 5905-5) EOS % (test code = 1.9 % 713-8) BASO % (test code = 0.9 % 706-2) GRAN MAT x10^3(ANC) 5.30 10*3/uL 1.99-6.95 (test code = 1451502007) IMM GRAN x10^3 (test 0.08 10*3/uL 0.00-0.06 H code = 6133314331) LYMPH x10^3 (test code 3.08 10*3/uL 1.09-3.23 = 731-0) MONO x10^3 (test code 1.13 10*3/uL 0.36-1.02 H = 742-7) EOS x10^3 (test code = 0.19 10*3/uL 0.06-0.53 711-2) BASO x10^3 (test code 0.09 10*3/uL 0.01-0.09 = 704-7) Lab Interpretation Abnormal (test code = 58490-2) [id number] 14:24:31 Test Item Value Reference Range Interpretation Comments NT-proBNP (test code 82 pg/mL See_Comment [Autom ated = 4302437549) message] The system which generated this result transmitted reference range : <=125. The reference range was not used to interpret this result as normal/abnormal . KAYY (test code = KAYY) Biotin has been reported to cause a negative bias, interpret results relative to patient's use of biotin. Lab Interpretation Normal (test code = 01723-8) [facility] METABOLIC PANEL ([id number])2022-10-31 14:16:16 Test Item Value Reference Range Interpretation Comments NA (test code = 140 mmol/L 135-145 2879045674) K (test code = 3.8 mmol/L 3.5-5.0 9040500986) CL (test code = 108 mmol/L 98-108 3882914116) CO2 TOTAL (test code = 25 mmol/L 23-31 1424812238) AGAP (test code = 2-16 4713893497) BUN (test code = 12 mg/dL 7-23 3004432728) GLUCOSE (test code = 117 mg/dL 70-110 H 0261669284) CREATININE (test code = 0.92 mg/dL 0.60-1.25 1685648298) TOTAL BILI (test code = 0.9 mg/dL 0.1-1.8 0879477798) CALCIUM (test code = 8.2 mg/dL 8.6-10.6 L 5970595301) T PROTEIN (test code = 6.5 g/dL 6.3-8.2 5495543479) ALBUMIN (test code = 3.8 g/dL 3.5-5.0 1108124979) ALK PHOS (test code = 59 U/L 34-122 2808834502) ALTv (test code = 64 U/L 5-50 H 1742-6) AST(SGOT) (test code = 37 U/L 13-40 0985305964) eGFR (test code = mL/min/1.73m2 5670511229) KAYY (test code = KAYY) Association of Glomerular Filtration Rate (GFR) and Staging of Kidney Disease* + --+ --+ ------+| GFR (mL/min/1.73 m2) ?| With Kidney Damage ?| ?Without Kidney Damage+ --------+ --------+ +| ?>90 ?| ?Stage one ?| ? Normal ?+ ---+ ---+ -------+| ?60-89 ?| ?Stage two ?| ? Decreased GFR ? + --+ --+ ------+| ?30-59 ?| ?Stage three ?| ? Stage three ? + --+ --+ ------+| ?15-29 ?| ?Stage four ? | ? Stage four ?+ ---+ ---+ -------+| ?<15 (or dialysis) ? ?| ?Stage five ? | ? Stage five ?+ ---+ ---+ -------+ *Each stage assumes the associated GFR [...] tests). Lab Interpretation Abnormal (test code = 99173-1) [facility] PELVIS WO [id number] 21:04:461. ?No urinary system calculi. No hydronephrosis. 2. ?Stranding and hyperemia within left lower quadrant [...] was used. Coronal and sagittalMPR images also gen erated. INTRAVENOUS CONTRAST ADMINISTRATION: None. DOSE REPORT (Total [...] rule out kidney stoneCOMPARISON: None available.TECHNIQUE: Unenhanced multidet delia axial CT images from lung bases throughpelvic inlet. As requested, no IV contrast was used. Coronal and sagittalMPR images also generated.INTRAVENOUS CONTRAST ADMINISTRATION: None.DOSE REPORT (Total DLP mGy*cm): 407.FINDINGS: Limited evaluation of abdominal and pelvic organs due to lack ofintravenous contrast.Lower chest: Bilateral calcified granulomas.ABDOMEN AND PELVISLiver: No focal hepatic lesions identified within limits of unenhancedtechnique.Biliary Tract/GB: No radiopaque cholelithiasis.Spleen: Within normal limits.Pancreas: Within normal limits.Adrenals: Within normal limits.Kidneys:Normal unenhanced appearance of bilateral kidneys. Nohydronephrosis or nephrolithiasis.Bowel: Mild rectosigmoid diverticulosis without CT evidence ofdiverticulitis. Small bowel is unremarkable. Appendix is normal.Peritoneum: Non-enlarged partially calcified lymph nodes within thegastrohepatic ligament. Minimal stranding at the left lower quadrantmesentery may be in part related to volume averaging.Vasculature: Limited evaluation without intravenous contrast. Nosignificant abdominal aortic atherosclerotic calcifications.Lymph Nodes: No lymphadenopathy. Pelvic Organs: Urinary bladder is normal for the degree of distention. Nourinary bladder calculi. Prostate contains coarse calcifications andmeasures 4.2 cm in transverse dimension at the level femoral necks.Abdominal/Pelvic Wall: Small fat-containing umbilical hernia..BONES: No acute or aggressive osseous abnormality.IMPRESSION1. No urinary systemcalculi. No hydronephrosis. 2. Stranding and hyperemia within left lower quadrant mesentery. These ar enonspecific findings and appearance may be exaggerated due to volumeaveraging. Findings may represent hyperemia related to mild enteritis.3. Additional findings as above.[facility] 2019-12-28 18:46:00 Test Item Value Reference Range Interpretation Comments NA (test code = 139 mmol/L 135-145 0121220234) K (test code = 3.7 mmol/L 3.5-5 6891467074) CL (test code = 104 mmol/L 98-108 8946193440) CO2 TOTAL (test code = 27 mmol/L 23-31 4995953580) AGAP (test code = 2-16 3554612820) BUN (test code = 16 mg/dL 7-23 2630923741) GLUCOSE (test code = 94 mg/dL 70-110 3971132546) CREATININE (test code = 1.06 mg/dL 0.6-1.25 6582901907) TOTAL BILI (test code = 1.3 mg/dL 0.1-1.1 H 3279543211) CALCIUM (test code = 9.2 mg/dL 8.6-10.6 0221586885) T PROTEIN (test code = 7.4 g/dL 6.3-8.2 2313225192) ALBUMIN (test code = 4.2 g/dL 3.5-5 4115743343) ALK PHOS (test code = 49 U/L 34-122 8955541863) ALTv (test code = 33 U/L 5-50 1742-6) AST(SGOT) (test code = 33 U/L 13-40 5345614265) eGFR Calculation mL/min/1.73m2 (Non-) (test code = 0640424955) eGFR Calculation mL/min/1.73m2 () (test code = 8559837114) KAYY (test code = KAYY) Association of Glomerular Filtration Rate (GFR) and Staging of Kidney Disease* + --+ --+ ------+| GFR (mL/min/1.73 m2) ?| With Kidney Damage ?| ?Without Kidney Damage+ --------+ --------+ +| ?>90 ?| ?Stage one ?| ? Normal ?+ ---+ ---+ -------+| ?60-89 ?| ?Stage two ?| ? Decreased GFR ? + --+ --+ ------+| ?30-59 ?| ?Stage three ?| ? Stage three ? + --+ --+ ------+| ?15-29 ?| ?Stage four ? | ? Stage four ?+ ---+ ---+ -------+| ?<15 (or dialysis) ? ?| ?Stage five ? | ? Stage five ?+ ---+ ---+ -------+ *Each stage assumes the associated GFR [...] tests). Lab Interpretation Abnormal (test code = 55397-3) [facility]entonLip[facility], [id number] 18:46:00 Test Item Value Reference Range Interpretation Comments LIPASE (test code = 4063235133) 174 U/L 0-220 Lab Interpretation (test code = Normal 56562-6) [facility] DentonUrinalysis2020-02-24 18:41:00 Test Item Value Reference Range Interpretation Comments APPEARANCE (test code = Clear Clear 3495255207) COLOR (test code = Yellow Yellow 4537015076) PH (test code = 4.8-8.0 8765438969) SP GRAVITY (test code = 1.003-1.030 5943336364) GLU U QUAL (test code = Normal Normal 9658061053) BLOOD (test code = 2+ Negative A 3330699866) KETONES (test code = Negative Negative 3273623502) PROTEIN (test code = 100 mg/dL Negative A 2887-8) UROBILIN (test code = Normal Normal 7134338636) BILIRUBIN (test code = Negative Negative 4759123839) NITRITE (test code = Negative Negative 7338833156) LEUK ANNA (test code = Negative Negative 3868658351) RBC/HPF (test code = See_Comment H [Autom ated message] 9531738713) The system Fanne[employer] generated this result transmit jessica reference range : 0 - 3 HPF. The refe rence range was not u sed to interpret th is result as normal/abnormal . WBC/HPF (test code = See_Comment [Autom ated message] 9129753140) The system [employer]anne[employer] generated this result transmit jessica reference range : 0 - 5 HPF. The refe rence range was not u sed to interpret th is result as normal/abnormal . BACTERIA (test code = Few Negative A 7677229603) MUCOUS (test code = Slight Negative LPF A 3056650930) HYAL CAST (test code = See_Comment H [Aut omated message] 5459048071) The system Fanne[employer] generated this result transmit jessica reference range : <=2 LPF. The refere nce range was not u sed to interpret th is result as normal/abnormal . Lab Interpretation (test Abnormal code = 60916-5) [facility] WITH [id number] 18:29:00 Test Item Value Reference Range Interpretation Comments WBC (test code = See_Comment H [Automated 2090-2) message] The sy stem which generated this [...] RDW-SD (test code = 39.5 fL 38.5-51.6 89771-3) RDW-CV (test code = 12.4 % 12.1-15.4 788-0) PLT (test code = See_Comment [Automated 777-3) message] The sy stem which generated this result transmitted reference range : 150 - 328 10*3/ ?L. The reference r gely was not used to interpret this result as normal/abnormal . MPV (test code = 8.6 fL 9.8-13 L 06386-5) NRBC/100 WBC (test See_Comment [Automat ed code = 1070976281) message] The system which generated this result transmitted reference range : 0.0 - 10.0 /100 WBCs. The refer ence range was not u sed to interpret th is result as normal/abnormal . NRBC x10^3 (test code <0.01 See_Comment [Auto mated = 8657696247) message] The s ystem which generated this result transmitted reference range : 10*3/?L. The reference range was not used to interpret this result as normal/abnormal . GRAN MAT (NEUT) % 58.6 % (test code = 770-8) IMM GRAN % (test code 0.50 % = 6638396939) LYMPH % (test code = 26.9 % 736-9) MONO % (test code = 10.1 % 5905-5) EOS % (test code = 3.2 % 713-8) BASO % (test code = 0.7 % 706-2) GRAN MAT x10^3(ANC) 7.58 10*3/uL 1.99-6.95 H (test code = 1263361886) IMM GRAN x10^3 (test 0.06 10*3/uL 0-0.06 code = 2500239257) LYMPH x10^3 (test code 3.48 10*3/uL 1.09-3.23 H = 731-0) MONO x10^3 (test code 1.30 10*3/uL 0.36-1.02 H = 742-7) EOS x10^3 (test code = 0.42 10*3/uL 0.06-0.53 711-2) BASO x10^3 (test code 0.09 10*3/uL 0.01-0.09 = 704-7) Lab Interpretation Abnormal (test code = 97372-8) [facility]. METABOLIC PANEL ([id number])2019-06-04 11:45:00 Test Item Value Reference Range Interpretation Comments NA (test code = 144 mmol/L 135-145 6877667055) K (test code = 3.3 mmol/L 3.5-5 L 8819587220) CL (test code = 103 mmol/L 98-108 8791022411) CO2 TOTAL (test code = 29 mmol/L 23-31 4219238419) AGAP (test code = 2-16 7336337147) BUN (test code = 17 mg/dL 7-23 0921139920) GLUCOSE (test code = 126 mg/dL 70-110 H 0269128952) CREATININE (test code = 1.30 mg/dL 0.6-1.25 H 4595440931) TOTAL BILI (test code = 1.1 mg/dL 0.1-1.9 9612676111) CALCIUM (test code = 9.3 mg/dL 8.6-10.6 3896120793) T PROTEIN (test code = 8.0 g/dL 6.3-8.2 6695525711) ALBUMIN (test code = 4.5 g/dL 3.5-5 2995903667) ALK PHOS (test code = 66 U/L 34-122 8830836497) ALT(SGPT) (test code = 215 U/L 9-51 H 0376101553) AST(SGOT) (test code = 114 U/L 13-40 H 0138360561) eGFR Calculation mL/min/1.73m2 (Non-) (test code = 8653184932) eGFR Calculation mL/min/1.73m2 () (test code = 6539355795) KAYY (test code = KAYY) Association of [...] tests). Lab Interpretation Abnormal (test code = 80150-6) [facility] WITH [id number] 11:30:00 Test Item Value Reference Range Interpretation Comments WBC (test code = See_Comment H [Automated 7821-2) message] The sy stem which generated this result transmitted reference range : 4.20 - 10.70 10*3/?L. The reference range was not used to interpret this result as normal/abnormal . RBC (test code = See_Comment [Automated 026-8) message] The sy stem which generated this [...] RDW-SD (test code = 39.8 fL 38.5-51.6 39226-9) RDW-CV (test code = 12.9 % 12.1-15.4 788-0) PLT (test code = See_Comment [Automated 777-3) message] The sy stem which generated this result transmitted reference range : 150 - 328 10*3/ ?L. The reference r gely was not used to interpret this result as normal/abnormal . MPV (test code = 8.7 fL 9.8-13 L 68116-0) NRBC/100 WBC (test See_Comment [Automat ed code = 8230878503) message] The system which generated this result transmitted reference range : 0.0 - 10.0 /100 WBCs. The refer ence range was not u sed to interpret th is result as normal/abnormal . NRBC x10^3 (test code <0.01 See_Comment [Auto mated = 5267199706) message] The s ystem which generated this result transmitted reference range : 10*3/?L. The reference range was not used to interpret this result as normal/abnormal . GRAN MAT (NEUT) % 55.4 % (test code = 770-8) IMM GRAN % (test code 0.90 % = 8350932558) LYMPH % (test code = 27.9 % 736-9) MONO % (test code = 11.8 % 5905-5) EOS % (test code = 3.0 % 713-8) BASO % (test code = 1.0 % 706-2) GRAN MAT x10^3(ANC) 6.33 10*3/uL 1.99-6.95 (test code = 2533631812) IMM GRAN x10^3 (test 0.10 10*3/uL 0-0.06 H code = 8348924076) LYMPH x10^3 (test code 3.18 10*3/uL 1.09-3.23 = 731-0) MONO x10^3 (test code 1.35 10*3/uL 0.36-1.02 H = 742-7) EOS x10^3 (test code = 0.34 10*3/uL 0.06-0.53 711-2) BASO x10^3 (test code 0.11 10*3/uL 0.01-0.09 H = 704-7) Lab Interpretation Abnormal (test code = 99161-4) [facility]"
--- NOTE | 2022-11-25 10:57 | ER ---
Nurse's Notes [facility] Name: Javid Carver Age: 47 yrs Sex: Male : 1975 Arrival Date: 11/25/2022 Time: 10:38 Bed 11 Private MD: Diagnosis: Dental caries, unspecified;Cellulitis of face Presentation: 11/25 10:54 Chief complaint: Patient states: mouth pain to the top left since Saturday, facial kc6 swelling beginning yesterday. Coronavirus screen: Vaccine status: Patient reports being unvaccinated. At this time, the client does not indicate any symptoms associated with coronavirus-19. Ebola Screen: No symptoms or risks identified at this time. Initial Sepsis Screen: Does the patient meet any 2 criteria? No. Patient's initial sepsis screen is negative. Does the patient have a suspected source of infection? No. Patient's initial sepsis screen is negative. Risk Assessment: Do you want to hurt yourself or someone else? Patient reports no desire to harm self or others. Onset of symptoms was November 23, 2022. 10:54 Method Of Arrival: Ambulatory kc6 10:54 Acuity: ALEJANDRA 4 kc6 Triage Assessment: 10:56 General: Appears in no apparent distress. comfortable, Behavior is calm, cooperative, kc6 appropriate for age. Pain: Complains of pain in left jaw Pain does not radiate. Pain currently is 9 out of 10 on a pain scale. Quality of pain is described as aching, dull, Pain began 2-3 days ago. Is continuous, Alleviated by nothing. Aggravated by eating, drinking, Also complains of no other associated symptoms. EENT: Reports pain in left jaw. Neuro: Riggs Agitation-Sedation Scale (RASS): 0 - Alert and Calm Level of Consciousness is awake, alert, obeys commands, Oriented to person, place, time, situation, Appropriate for age. Cardiovascular: Heart tones S1 S2 present Capillary refill < 3 seconds. Respiratory: Airway is patent Trachea midline Respiratory effort is even, unlabored, Respiratory pattern is regular, symmetrical, Breath sounds are clear bilaterally. GI: No signs and/or symptoms were reported involving the gastrointestinal system. : No signs and/or symptoms were reported regarding the genitourinary system. Derm: No signs and/or symptoms reported regarding the dermatologic system. Skin is intact, Skin is pink, warm \T\ dry. Musculoskeletal: No signs and/or symptoms reported regarding the musculoskeletal system. Circulation, motion, and sensation intact. Capillary refill < 3 seconds, Range of motion: intact in all extremities. Historical: - Allergies: 10:56 No Known Allergies; kc6 - PMHx: 10:56 acid reflux; Hypertension; kc6 - PSHx: 10:56 None; kc6 - Immunization history:: Client reports having NOT received the Covid vaccine. Flu vaccine is not up to date. - Social history:: Smoking status: Patient denies any tobacco usage or history of. - Family history:: not pertinent. - Hospitalizations: : No recent hospitalization is reported. Screenin:58 [facility] ED Fall Risk Assessment (Adult) History of falling in the last 3 months, [facility] including since admission No falls in past 3 months (0 pts) Confusion or Disorientation No (0 pts) Intoxicated or Sedated No (0 pts) Impaired Gait No (0 pts) Mobility Assist Device Used No (0 pt) Altered Elimination No (0 pt) Score/Fall Risk Level 0 - 2 = Low Risk Oriented to surroundings, Maintained a safe environment, Educated pt \T\ family on fall prevention, incl call for assistance when getting out of bed, Assessed \T\ reinforced patient's understanding of fall precautions, Hourly rounding (assess needs \T\ fall precautionary measures) done. Abuse screen: Denies threats or abuse. Denies injuries from another. Nutritional screening: No deficits noted. Tuberculosis screening: No symptoms or risk factors identified. Assessment: 10:57 Reassessment: please see triage assessment. 6 Vital Signs: 10:54 BP 166 / 112; Pulse 117; Resp 18 S; Temp 99.8(O); Pulse Ox 96% on R/A; Weight 104.33 kg kc (R); Height 5 ft. 7 in. (170.18 cm) (R); Pain 9/10; 10:54 Body Mass Index 36.02 (104.33 kg, 170.18 cm) [facility] ED Course: 10:38 Patient arrived in ED. as 10:45 Primo Azevedo MD is Attending Physician. rn 10:53 Patient has correct armband on for positive identification. Bed in low position. Call mm9 light in reach. Pulse ox on. NIBP on. 10:54 Rodriguez, Antonia, RN is Primary Nurse. kc6 10:55 Triage completed. kc6 10:56 Arm band placed on. kc6 11:02 No provider procedures requiring assistance completed. Patient did not have IV access kc6 during this emergency room visit. Administered Medications: No medications were administered Medication: 11:02 VIS not applicable for this client. kc6 Outcome: 10:56 Discharge ordered by . rn 11:02 Discharged to home ambulatory. kc6 11:02 Condition: stable 11:02 Discharge instructions given to patient, Instructed on discharge instructions, follow up and referral plans. medication usage, Demonstrated understanding of instructions, follow-up care, medications, Prescriptions given X 2. 11:02 Patient left the ED. kc6 Signatures: Jenny Lopez Roman, MD MD rn Antonia Rodriguez RN RN Jacqueline Aldrich mm9
--- NOTE | 2022-11-25 10:57 | EDPHYS ---
Physician Documentation [facility] Name: Javid Carver Age: 47 yrs Sex: Male : 1975 Arrival Date: 11/25/2022 Time: 10:38 Bed 11 Private MD: ED Physician Primo Azevedo HPI: 11/25 10:52 This 47 yrs old Male presents to ER via Unassigned with complaints of Facial Swelling, rn Toothache. 10:52 The patient presents with pain, swelling. The problem is located in the face. Onset: rn The symptoms/episode began/occurred yesterday. Duration: The symptoms are continuous, and are steadily getting worse. Modifying factors: The symptoms are alleviated by nothing, the symptoms are aggravated by talking. Associated signs and symptoms: Pertinent positives: pain, swelling, Pertinent negatives: fever. Severity of symptoms: At their worst the symptoms were moderate, in the emergency department the symptoms are unchanged. The patient has experienced a previous episode. The patient has not recently seen a physician. Pt reports recent dental problems/pain, last night left cheek began swelling and more painful.. Historical: - Allergies: 10:56 No Known Allergies; kc6 - PMHx: 10:56 acid reflux; Hypertension; kc6 - PSHx: 10:56 None; kc6 - Immunization history:: Client reports having NOT received the Covid vaccine. Flu vaccine is not up to date. - Social history:: Smoking status: Patient denies any tobacco usage or history of. - Family history:: not pertinent. - Hospitalizations: : No recent hospitalization is reported. ROS: 10:52 Constitutional: Negative for fever, chills, and weight loss, ENT: + dental pain and rn left facial swelling Exam: 10:52 Constitutional: This is a well developed, well nourished patient who is awake, alert, rn and in no acute distress. Head/Face: Normocephalic, atraumatic. + left cheek swelling and left infraorbital swelling, no fluctuance or purulence. ENT: + poor dentition with deep dental caries. Vital Signs: 10:54 BP 166 / 112; Pulse 117; Resp 18 S; Temp 99.8(O); Pulse Ox 96% on R/A; Weight 104.33 kg kc6 (R); Height 5 ft. 7 in. (170.18 cm) (R); Pain 07/14; 10:54 Body Mass Index 36.02 (104.33 kg, 170.18 cm) kc6 MDM: 10:45 Patient medically screened. rn 10:52 Differential diagnosis: dental caries, dental abscess, facial cellulitis. Data rn reviewed: vital signs, nurses notes, and as a result, I will discharge patient. Counseling: I had a detailed discussion with the patient and/or guardian regarding: the historical points, exam findings, and any diagnostic results supporting the discharge/admit diagnosis, the need for outpatient follow up, to return to the emergency department if symptoms worsen or persist or if there are any questions or concerns that arise at home. Special discussion: I discussed with the patient/guardian in detail that at this point there is no indication for admission to the hospital. It is understood, however, that if the symptoms persist or worsen the patient needs to return immediately for re-evaluation. Administered Medications: No medications were administered Disposition Summary: 11/25/22 10:56 Discharge Ordered Location: Home rn Problem: new rn Symptoms: are unchanged rn Condition: Stable rn Diagnosis - Dental caries, unspecified rn - Cellulitis of face rn Followup: rn - With: Private Physician - When: As needed - Reason: Recheck today's complaints, Re-evaluation by your physician Discharge Instructions: - Discharge Summary Sheet rn - Dental Pain rn - Cellulitis, Adult, [id number] rn Forms: - Medication Reconciliation Form rn - Thank You Letter rn - Antibiotic ncaa compliance internship - Prescription Opioid Use rn Prescriptions: - Clindamycin HCl 300 mg Oral Capsule - take 1 capsule by ORAL route every 6 hours for 10 days; 40 capsule; Refills: 0, rn Product Selection Permitted - Tramadol 50 mg Oral Tablet - take 1 tablet by ORAL route every 8 hours as needed; 12 tablet; Refills: 0, rn Product Selection Permitted Signatures: Primo Azevedo MD MD rn Campbell, Kaitlyn RN RN kc6
[2022-11-25 11:53] VITALS: BP 166/112; TEMP 99.8; O2SAT 96
== END 2022-11-25 11:02 | disposition home or self-care (01) ==
LOC: ER 10:36
DX: L03.211 Cellulitis of face (principal); K02.9 Dental caries, unspecified
CPT/HCPCS: 99283

== ENCOUNTER 2023-04-27 23:13 | Emergency (ER) | payer SELFPAY ==
--- OUTSIDE RECORDS SUMMARY | 2023-04-27 23:18 | XMS REPORT | Continuity of Care Document ---
:1975 Author Organization [facility] t Address [address] [facility] [address] [place] [address] Care Team Providers Name Role Phone Melissa Reed Primary Care Physician Melissa Reed Attending Clinician Unavailable LISA BENITEZ Attending Clinician Unavailable Lisa Benitez DO Attending Clinician DAIANA ALDANA Attending Clinician Unavailable Daiana Aldana MD Attending Clinician Demian Noble Attending Clinician DEMIAN YOUNG Attending Clinician Unavailable Doctor Unassigned, [place] Attending Clinician Unavailable NICO BONILLA Attending Clinician Unavailable Jordon Craig DO Attending Clinician DAIANA ALDANA Admitting Clinician Unavailable DEMIAN YOUNG Admitting Clinician Unavailable NICO BONILLA Admitting Clinician Unavailable Payers Payer Name Policy Type Policy Number Effective Date Expiration Date [id number] 2017 00:00:00 OUT OF STATE Problems Condition Condition Condition Status Onset Resolution Last Treating Co mments Source Name Details Category Date Date Treatment Clinician Date Gastroente Gastroente Disease Active 2021-11 U nivers ritis ritis 2- ity of 00:00: [place] [address] Medical Branch No known No known Disease Unive rs active active ity of problems problems [facility] [id number] Need for Problem Active Comm on tetanus, Spirit diphtheria - [facility] , and acellular [facility] pertussis Medical (Tdap) Center vaccine [id number] Gastroesop Problem Active Co mmon hageal Spirit reflux - [facility] disease [facility] esophagiti Medica l s Vivian [id number] Seasonal Problem Active Comm on allergic Spirit rhinitis, - [facility] unspecifie [facility] [id number] Moderate Problem Active Com sat persistent Spirit reactive - [facility] airway [facility] with acute Medica l exacerbati Center on Obstructiv Obstructiv Problem Active C ommon e sleep e sleep Spirit apnea apnea [facility] [id number] Generalize Problem Active Com sat anxiety Spirit disorder - [facility] [id number] Need for Problem Active Comm on pneumococc Spirit al - [facility] vaccinatio [facility] Alcoholism Alcoholism Problem Active C ommon Spirit [facility] [id number] HTN Problem Active Common (hypertens Spirit ion), - [facility]I benign [facility] Body mass Adult BMI Problem Active Com mon index 30+ 30.0-30.9 Spir it - obesity kg/sq [facility] Chronic Chronic Problem Active Common fatigue fatigue Spirit syndrome - [facility] Seasonal Seasonal Problem Active Commo n allergy allergies [facility] Allergies, Adverse Reactions, Alerts Allergy Allergy Status Severity Reaction(s) Onset Inactive Treating Comm ents Source Name Type Date Date Clinician Lisinopr Propensi Active Cough Univer s il ty to 6-12 ity of adverse 00:00: [place] reaction Medical s Branch LISINOPR DRUG Active COUGH Univers IL INGREDI 6-12 ity of 00:00: [place] 00 Medical Branch Social History Social Habit Start Date Stop Date Quantity Comments Source History of Tobacco [facility] - [facility] Use [facility] Sex Assigned At [facility] Sp willie - [facility] Exposure to 2022-10-21 2022-10-31 Not sure [facility] SARS-CoV-2 (event) 00:00:00 06:50:00 Medica l Branch Smoking Status Start Date Stop Date Source Never Smoker [facility] - [facility] Tobacco smoking consumption [facility] unknown Branch Medications Ordered Filled Start Stop Current Ordering Indication Dosage Frequency Signature Comments Components Source Medication Medication Date Date Medication? Clinician (SIG) Name Name lactulose 2022- No 30mL 30 mL, Unive rs (CEPHULAC) 04-18 06-15 Oral, ity of solution 30 20:45: 20:49 [place] :[place] dose, On Medical Bing Branch 04/18/23 at 1545, CONTRERAS aspirin 2021-11 Yes 325mg 325 mg, Univer s tablet 325 2-28 Oral, ity of mg 15:00: DAILY, [place] 00 First dose Medical on Sat Branch 10/31/22 at 0900, Until Discontinu ed, Routine ondansetron 2021-11- No 4mg 4 mg, Slow Univers (ZOFRAN 2- 12-28 IV Push, ity of (PF)) 13:45: 13:51 ONCE, 1 [place] injection 4 00 :00 dose, On Medi rand mg Sat Branch 10/31/22 at 0745, CONTRERAS NaCl 0.9% 2021-11- No 1000mL at 999 Uni vers (NS) bolus 2-28 12-28 mL/hr, ity of infusion 13:45: 15:28 1,000 mL, Nirav as 1,000 mL 00 :00 IV Medical Infusion, Branch ONCE, 1 dose, On Sat10/31/22 at 0745, STAT NICOLE 2021-11 Yes 81mg Take 81 mg Univer s CHEWABLE 2-28 by mouth ity of ASPIRIN 09:18: daily. [place] [address] Medical Branch NICOLE 2021-11 Yes 81mg Take 81 mg Univer s CHEWABLE 2-28 by mouth ity of ASPIRIN 09:18: daily. [place] [address] Medical Branch aspirin 81 2021-11- No [id number] 81mg Take 1 Univers mg chewable 2-28 - tablet by it y of tablet 00:00: 05:59 mouth in [place] 00 :00 the Medical morning Branch for 15 days. ondansetron 2021-11- No [id number] 4mg Take 1 Univers 4 mg 01-01 tablet by ity of disintegrat 00:00: 05:59 [place] tablet 00 :00 every 8 Medica l (eight) Branch hours as needed for Nausea and Vomiting (N/V) for up to 5 days. morpHINE 2019-2019- No 4mg 4 mg, Slow Un raúl [...] approving Restricted medication : DEMIAN YOUNG albuterol 2020-0 Yes [id number] 2{puff} Inhale 2 Univers 90 1-08 Puffs ity of mcg/actuati 00:00: every 4 Nirav as on inhaler 00 (four) Medical hours as Branch needed for Wheezing or Shortness of Breath. benzonatate 2020-0 Yes [id number] 100mg Take 1 Univers 100 mg 1-08 capsule by ity of capsule 00:00: mouth 3 [place] 00 (three) Medical times Branch daily as needed for Cough. albuterol 2020-0 Yes [id number] 2{puff} Inhale 2 Univers 90 1-08 Puffs ity of mcg/actuati 00:00: every 4 Nirav as on inhaler 00 (four) Medical hours as Branch needed for Wheezing or Shortness of Breath. benzonatate 2020-0 Yes [id number] 100mg Take 1 Univers 100 mg 1-08 capsule by ity of capsule 00:00: mouth 3 [place] 00 (three) Medical times Branch daily as needed for Cough. albuterol 2020-0 Yes [id number] 2{puff} Inhale 2 Univers 90 1-08 Puffs ity of mcg/actuati 00:00: every 4 Nirav as on inhaler 00 (four) Medical hours as Branch needed for Wheezing or Shortness of Breath. benzonatate 2020-0 Yes [id number] 100mg Take 1 Univers 100 mg 1-08 capsule by ity of capsule 00:00: mouth 3 (three) Medical times Branch daily as needed for Cough. albuterol 2020-0 Yes [id number] 2{puff} Inhale 2 Univers 90 1-08 Puffs ity of mcg/actuati 00:00: every 4 Nirav as on inhaler 00 (four) Medical hours as Branch needed for Wheezing or Shortness of Breath. benzonatate 2020-0 Yes [id number] 100mg Take 1 Univers 100 mg 1-08 capsule by ity of capsule 00:00: mouth 3 [place] (three) Medical times Branch daily as needed for Cough. NaCl 0.9% 2019- No 1000mL at 999 Uni vers (NS) bolus 06-04 mL/hr, ity of infusion 11:45: 11:47 1,000 mL, Nirav as 1,000 mL 00 :00 IV Medical Piggyback, Branch ONCE, 1 dose, Bing 06/04/19 at 0645, STAT methylPREDN 2018-0 Yes 125mg 125 mg, Un raúl ISolone 06-04 Intravenou ity of sodium 11:00: s, Q6H, [place] succinate 00 First dose Medi rand (SOLU-MEDRO on Bing Branch L) 06/04/19 at injection 0600, 125 mg Until Discontinu ed, Routine losartan 50 2018-0 Yes 50mg Take 50 mg Univers mg tablet 06-04 by mouth ity of 10:45: daily. [address] NICOLE 2019-0 Yes 81mg Take 81 mg Univer s CHEWABLE 06-04 by mouth ity of ASPIRIN 10:45: daily. [address] pantoprazol 2019-0 Yes 20mg Take 20 mg Univers e 20 mg EC 06-04 by mouth ity o f tablet 10:45: daily. [address] chlorthalid 2019-0 Yes 25mg Take 25 mg Univers one 25 mg 06-04 by mouth ity of tablet 10:45: daily. [address] losartan 50 Yes 50mg Take 50 mg Univers mg tablet 8-01 by mouth ity of 10:45: daily. [address] NICOLE 2019-0 Yes 81mg Take 81 mg Univer s CHEWABLE 8-01 by mouth ity of ASPIRIN 10:45: daily. [address] pantoprazol Yes 20mg Take 20 mg Univers e 20 mg EC 8-01 by mouth ity o f tablet 10:45: daily. [address] chlorthalid Yes 25mg Take 25 mg Univers one 25 mg 8-01 by mouth ity of tablet 10:45: daily. [address] losartan 50 Yes 50mg Take 50 mg Univers mg tablet 8-01 by mouth ity of 10:45: daily. [address] NICOLE Yes 81mg Take 81 mg Univer s CHEWABLE 8-01 by mouth ity of ASPIRIN 10:45: daily. [address] pantoprazol Yes 20mg Take 20 mg Univers e 20 mg EC 8-01 by mouth ity o f tablet 10:45: daily. [address] chlorthalid Yes 25mg Take 25 mg Univers one 25 mg 8-01 by mouth ity of tablet 10:45: daily. [address] pantoprazol 0 Yes 20mg Take 20 mg Univers e 20 mg EC 8-01 by mouth ity o f tablet 05:45: daily. [address] chlorthalid Yes 25mg Take 25 mg Univers one 25 mg 8-01 by mouth ity of tablet 05:45: daily. [address] losartan 50 0 Yes 50mg Take 50 mg Univers mg tablet 8-01 by mouth ity of 05:45: daily. [address] pantoprazol [address] Yes 20mg Take 20 mg Univers e 20 mg EC 8-01 by mouth ity o f tablet 05:45: daily. [address] chlorthalid [address] Yes 25mg Take 25 mg Univers one 25 mg 8-01 by mouth ity of tablet 05:45: daily. [address] losartan 50 Yes 50mg Take 50 mg Univers mg tablet 8-01 by mouth ity of 05:45: daily. [place] 10 Medical Branch benzonatate 2019-0 Yes [id number] 100mg Take 1 Univers 100 mg 8-01 capsule by ity of capsule 00:00: mouth 3 (three) Medical times Branch daily as needed for Cough. methylPREDN 2019-0 Yes [id number] Take by Univers ISolone 8-01 mouth ity of (MEDROL, 00:00: SEE-INSTRU Nirav as MC,) 4 mg 00 CTIONS. Medica l tablets follow Branch package directions chlorphenir 2019-0 Yes [id number] 4mg Take 1 Univers amine 4 mg 8-01 tablet by ity of tablet 00:00: mouth [place] 00 every 6 Medical (six) Branch hours as needed for Allergies or Runny nose. chlorphenir 2019-0 Yes [id number] 4mg Take 1 Univers amine 4 mg 8-01 tablet by ity of tablet 00:00: mouth [place] 00 every 6 Medical (six) Branch hours as needed for Allergies or Runny nose. benzonatate 2019-0 Yes [id number] 100mg Take 1 Univers 100 mg 8-01 capsule by ity of capsule 00:00: mouth 3 (three) Medical times Branch daily as needed for Cough. methylPREDN 2019-0 Yes [id number] Take by Univers ISolone 8-01 mouth ity of (MEDROL, 00:00: SEE-INSTRU Nirav as MC,) 4 mg 00 CTIONS. Medica l tablets follow Branch package directions benzonatate 2019-0 Yes [id number] 100mg Take 1 Univers 100 mg 8-01 capsule by ity of capsule 00:00: mouth 3 (three) Medical times Branch daily as needed for Cough. methylPREDN 2019-0 Yes [id number] Take by Univers ISolone 8-01 mouth ity of (MEDROL, 00:00: SEE-INSTRU Nirav as MC,) 4 mg 00 CTIONS. Medica l tablets follow Branch package directions chlorphenir 2019-0 Yes [id number] 4mg Take 1 Univers amine 4 mg 8-01 tablet by ity of tablet 00:00: mouth [place] 00 every 6 Medical (six) Branch hours as needed for Allergies or Runny nose. benzonatate 2019-0 Yes [id number] 100mg Take 1 Univers 100 mg 8-01 capsule by ity of capsule 00:00: mouth 3 (three) Medical times Branch daily as needed for Cough. methylPREDN 2019-0 Yes [id number] Take by Univers ISolone 8-01 mouth ity of (MEDROL, 00:00: SEE-INSTRU Nirav as MC,) 4 mg 00 CTIONS. Medica l tablets follow Branch package directions chlorphenir 2019-0 Yes [id number] 4mg Take 1 Univers amine 4 mg 8-01 tablet by ity of tablet 00:00: mouth [place] 00 every 6 Medical (six) Branch hours as needed for Allergies or Runny nose. benzonatate 2019-0 Yes [id number] 100mg Take 1 Univers 100 mg 8-01 capsule by ity of capsule 00:00: mouth 3 [place] 00 (three) Medical times Branch daily as needed for Cough. methylPREDN 2018-0 Yes [id number] Take by Univers ISolone 8-01 mouth ity of (MEDROL, 00:00: SEE-INSTRU Nirav as MC,) 4 mg 00 CTIONS. Medica l tablets follow Branch package directions chlorphenir Yes [id number] 4mg Take 1 Univers amine 4 mg 8-01 tablet by ity of tablet 00:00: mouth [place] 00 every 6 Medical (six) Branch hours as needed for Allergies or Runny nose. benzonatate 2019- No 100mg Take 1 Un raúl 100 mg 612 08- capsule by ity of capsule 00:00: 00:00 mouth 3 [place] 00 :00 (three) Medical times Branch daily as needed for Cough. Flonase 50 Flonase 50 No 1{spray QD [...] MCG/ACT MCG/ACT MCG/ACT Protonix Protonix Yes Na Reed 1 tablet [facility] BusPIRone BusPIRone Yes Na Reed 1 tablet Common HCl HCl [facility] Metoprolol Metoprolol Yes Na Reed 1.5 Common Tartrate Tartrate tablets Spir it with food - [facility] amLODIPine amLODIPine No 1{table amLODIPine Besylate [...] (PPSV23) 2018-01-01 Completed [facility] 09:44:[address] [facility] Adacel (Tdap) Adacel (Tdap) 2018-01-01 Completed Common S pirit 09:44:00 - [facility] Pneumovax (PPSV23) Pneumovax (PPSV23) 2018-01-01 Completed [facility] 09:44:00 - [facility] Adacel (Tdap) Adacel (Tdap) 2018-01-01 Completed Common S pirit 09:44:00 - [facility] Pneumovax (PPSV23) Pneumovax (PPSV23) 2018-01-01 Completed [facility] 09:44:00 - [facility] Adacel (Tdap) Adacel (Tdap) 2018-01-01 Completed Common S pirit 09:44:00 [facility] Vital Signs Vital Name Observation Time Observation Value Comments Source Systolic blood 2023-04-18 20:27:00 146 mm[Hg] Univer sity of [facility] Diastolic blood 2023-04-18 20:27:00 99 mm[Hg] Unive rsity of [facility] Heart rate 2023-04-18 20:27:00 65 /min General acute hospital Body temperature 2023-04-18 20:27:00 36.5 Kamille [facility] 2023-04-18 20:27:00 18 /min General acute hospital Body height 2023-04-18 20:27:00 175.3 cm General acute hospital Body weight 2023-04-18 20:27:00 108.863 kg General acute hospital BMI 2023-04-18 20:27:00 35.44 kg/m2 General acute hospital Oxygen saturation in 2023-04-18 20:27:00 97 /min [facility] Arterial blood by [facility] Pulse oximetry Branch Systolic blood 2022-10-31 12:52:00 145 mm[Hg] Univer sity of [facility] Diastolic blood 2022-10-31 12:52:00 104 mm[Hg] Unive rsity of [facility] Heart rate 2022-10-31 12:52:00 71 /min General acute hospital Body temperature 2022-10-31 12:52:00 36.61 Kamille Univ ersity of [place] [facility] Respiratory rate 2022-10-31 12:52:00 18 /min Univ ersity of [place] [facility] Body height 2022-10-31 12:52:00 175.3 cm Universi ty of [place] [facility] Body weight 2022-10-31 12:52:00 108.863 kg Universi ty of [place] [facility] BMI 2022-10-31 12:52:00 35.44 kg/m2 Universi ty of [place] [facility] Oxygen saturation in 2022-10-31 12:52:00 99 /min University of Arterial blood by [place] myhomemove rand Pulse oximetry Branch Systolic blood 2019-12-28 22:00:00 144 mm[Hg] Univer sity of pressure [place] Medical [facility] Diastolic blood 2019-12-28 22:00:00 105 mm[Hg] Unive rsity of pressure [place] Medical [facility] Heart rate 2019-12-28 22:00:00 64 /min Universi ty of [place] [facility] Respiratory rate 2019-12-28 22:00:00 20 /min Univ ersity of [place] [facility] Oxygen saturation in 2019-12-28 22:00:00 97 /min University of Arterial blood by [place] myhomemove rand Pulse oximetry Branch Body temperature 2019-12-28 17:58:00 36.56 Kamille Univ ersity of [place] [facility] Body height 2019-12-28 17:58:00 175.3 cm Universi ty of [place] [facility] Body weight 2019-12-28 17:58:00 90.719 kg Universi ty of [place] [facility] BMI 2019-12-28 17:58:00 29.53 kg/m2 Universi ty of [place] [facility] Systolic blood 2019-12-28 22:00:00 144 mm[Hg] Univer sity of pressure [place] [facility] Diastolic blood 2019-12-28 22:00:00 105 mm[Hg] Unive rsity of pressure [place] [facility] Heart rate 2019-12-28 22:00:00 64 /min Universi ty of [place] [facility] Respiratory rate 2019-12-28 22:00:00 20 /min Univ ersity of [place] [facility] Oxygen saturation in 2019-12-28 22:00:00 97 /min University of Arterial blood by [place] myhomemove rand Pulse oximetry Branch Body temperature 2019-12-28 17:58:00 36.56 Kamille Univ ersity of [place] [facility] Body height 2019-12-28 17:58:00 175.3 cm Universi ty of [place] [facility] Body weight 2019-12-28 17:58:00 90.719 kg Universi ty of [place] [facility] BMI 2019-12-28 17:58:00 29.53 kg/m2 Universi ty of [place] [facility] Systolic blood 2019-06-04 10:29:00 136 mm[Hg] Univer sity of pressure [place] [facility] Diastolic blood 2019-06-04 10:29:00 102 mm[Hg] Unive rsity of pressure [place] [facility] Heart rate 2019-06-04 10:29:00 103 /min Universi ty of [place] [facility] Body temperature 2019-06-04 10:29:00 36.78 Kamille Univ ersity of [place] [facility] Respiratory rate 2019-06-04 10:29:00 20 /min Univ ersity of [place] [facility] Body height 2019-06-04 10:29:00 175.3 cm Universi ty of [place] [facility] Body weight 2019-06-04 10:29:00 95.255 kg Universi ty of [place] [facility] BMI 2019-06-04 10:29:00 31.01 kg/m2 Universi ty of [place] [facility] Oxygen saturation in 2019-06-04 10:29:00 96 /min University of Arterial blood by [place] [facility] Pulse oximetry Branch Systolic blood 2019-06-04 10:29:00 136 mm[Hg] Univer sity of pressure [place] [facility] Diastolic blood 2019-06-04 10:29:00 102 mm[Hg] Unive rsity of pressure [place] [facility] Heart rate 2019-06-04 10:29:00 103 /min Universi ty of [place] [facility] Body temperature 2019-06-04 10:29:00 36.78 Kamille Univ ersity of [place] [facility] Respiratory rate 2019-06-04 10:29:00 20 /min Univ ersity of [place] [facility] Body height 2019-06-04 10:29:00 175.3 cm Universi ty of [place] [facility] Body weight 2019-06-04 10:29:00 95.255 kg Universi ty of [place] [facility] BMI 2019-06-04 10:29:00 31.01 kg/m2 Universi ty of [place] [facility] Oxygen saturation in 2019-06-04 10:29:00 96 /min University of Arterial blood by [facility] Pulse oximetry Branch Procedures Procedure Date / Time Performing Clinician Source Performed ASSIGNMENT OF BENEFITS 2023-04-18 20:53:18 Doctor Unassigned, No [facility] Medical Branch CONSENT/REFUSAL FOR 2023-04-18 20:24:58 Doctor Unassigned, No Un iversity [facility] DIAGNOSIS AND TREATMENT Name Medical [place] XR CHEST 2 VW 2022-10-31 14:04:07 Daiana Aldana [facility] TROPONIN I 2022-10-31 13:50:00 Daiana Aldana [facility] COMP. METABOLIC PANEL 2022-10-31 13:50:00 Daiana Aldana [facility] ([id number]) Medical [place] CBC WITH DIFF 2022-10-31 13:50:00 Daiana Aldana [facility] N-TERMINAL PRO-BNP 2022-10-31 13:50:00 Daiana Aldana [facility] COVID-19 (ID NOW RAPID 2022-10-31 13:50:00 Daiana Aldana [facility] TESTING) Medical [place] RAPID INFLUENZA A/B 2022-10-31 13:14:00 Daiana Aldana [facility] CONSENT/REFUSAL FOR 2022-10-31 12:43:31 [facility]igned, [facility] Medical [place] CT ABDOMEN PELVIS WO 2019-12-28 20:01:17 Demian [facility] CONTRAST Medical Branch LIPASE 2019-12-28 18:10:00 Demian Young [facility] COMP. METABOLIC PANEL 2019-12-28 18:10:00 Demian Young [facility] ([id number]) [facility] CBC WITH DIFFERENTIAL 2019-12-28 18:10:00 Demian Young [facility] URINALYSIS 2019-12-28 18:10:00 Demian Young [facility] NOTICE OF PRIVACY 2019-12-28 17:54:35 Doctor Unassigned, No [facility] PRACTICES Name Medical Branch CONSENT/REFUSAL FOR 2019-12-28 17:44:24 Doctor Unassigned, No [facility] Name Medical [place] COMP. METABOLIC PANEL 2019-06-04 10:49:00 Jordon Craig [facility] ([id number]) Medical Branch CBC WITH DIFFERENTIAL 2019-06-04 10:49:00 [facility] CHEST 1 VW 2019-06-04 10:45:17 Jordon Craig Ashuelot o f [facility] NOTICE OF PRIVACY 2019-06-04 10:16:35 Doctor Unassigned, No [facility] PRACTICES Name [facility] Branch Encounters Start End Encounter Admission Attending Care Care Encounter Source Date/Time Date/Time Type Type Clinicians Facility Department ID 2022-07-12 Outpatient Reed, Na STLMLC STLMLC [id number] 2 Common 14:58:00 [facility] 2022-06-29 Outpatient Reed, Na STLMLC STLMLC [id number] 2 Common 11:19:00 [facility] 2021-11-29 Outpatient Reed, Na STLMLC STLMLC [id number] 2 Common 14:31:20 [facility] 2021-11-29 Outpatient Reed, Na STLMLC STLMLC [id number] 2 Common 14:30:49 [facility] 2021-11-29 Outpatient Reed, Na STLMLC STLMLC [id number] 2 Common 12:43:32 [id number] [facility] 2021-11-29 Outpatient Reed, Na STLMLC STLMLC [id number] 2 Common 11:34:10 [id number] [facility] 2021-11-29 Outpatient Reed, Na STLMLC STLMLC [id number] 2 Common 11:15:43 [id number] [facility] 2021-11-29 Outpatient Reed, Na STLMLC STLMLC [id number] 2 Common 10:59:47 [id number] [facility] 2021-11-29 Outpatient Reed, Na STLMLC STLMLC [id number] 2 Common 10:57:56 [id number] [facility] 2023-04-18 2023-04-18 Emergency [facility] E[facility] [id number] Univers 15:29:00 16:13:00 LISA ity [facility] 2023-04-18 2023-04-18 Emergency [facility] [id number] Univers 15:29:00 16:13:00 Lisa GOMEZ [id number] ity of [place] [id number] [facility] [id number] [address] 2022-10-31 2022-10-31 Emergency [facility] ERT [id number] Univers 06:54:00 09:29:00 DAIANA ity [facility] 2022-10-31 2022-10-31 Emergency [facility] [id number] Univers 06:54:00 09:29:00 Daiana A JASON [id number] ity [facility] [id number] [facility] [id number] [address] 2022-06-29 2022-06-29 (TEL) STLMLC STLMLC [id number] Co mmon 00:00:00 00:00:00 [facility] 2022-06-28 2022-06-28 (TEL) STLMLC STLMLC [id number] Co mmon 00:00:00 00:00:00 [facility] 2021-11-09 2021-11-09 OFFICE STLMLC STLMLC [id number] Co mmon 00:00:00 00:00:00 VISIT [facility] PT CHI LEVEL 4 [facility] 2021-02-01 2021-02-01 Outpatient STLMLC STLMLC [id number] Common 00:00:00 00:00:00 [facility] 2020-06-03 2020-06-03 [facility] [id number] Common 13:40:00 13:40:[address] [facility] 2020-01-20 2020-01-20 [facility] [id number] Common 14:21:00 14:21:[address] Sp[address] [facility] 2020-01-15 2020-01-15 [facility] [id number] Common 14:55:00 14:55:[address] [facility] 2019-12-28 2019-12-28 [facility] [id number] Univers 11:59:45 16:55:00 Demian Cisse Jason [id number] i ty [facility] [id number] [facility] [id number] [facility] 084 [place] 2019-12-28 2019-12-28 Emergency [facility] [id number] Univers 11:59:45 16:55:00 DEMIAN pitts [facility] 2019-12-28 2019-12-28 [facility] [id number] 11:59:45 16:55:00 Demian Cisse Jason [id number] [place] [id number] [place] [id number] [facility] 2019-12-28 2019-12-28 Outpatient [facility] [id number] Common 10:58:00 10:58:00 [facility] [address] [facility] 2019-12-28 2019-12-28 Orders Doctor WARREN [id number] Univers 00:00:00 00:00:00 Only Unassigned, SURENDRA 350.1.13.10 ity of Level [place] [facility] 4.2.7.2.686 [facility] [id number] [facility] [address] 2019-12-28 2019-12-28 Orders Doctor WARREN [id number] 00:00:00 00:00:00 Only Unassigned, SURENDRA 350.1.13.10 Level Green [facility] 4.2.7.2.686 [id number] 2019-11-11 2019-11-11 Emergency X CHAD [facility] ERT [id number] Univers 10:51:25 12:46:00 NICO pitts [facility] 2019-09-11 2019-09-11 [place] [place] [id number] Common 08:24:00 08:24:[address] [facility] 2019-09-07 2019-09-07 [place] [place] [id number] Common 15:20:00 15:20:[address] [facility] 2019-07-29 2019-07-29 Outpatient [place] [id number] Common 13:22:00 13:22:[address] [facility] 2019-06-26 2019-06-26 Outpatient [place] 27 [id number] Common 09:56:00 09:56:[address] [facility] 2019-06-25 2019-06-25 Outpatient [place] [id number] Common 15:20:00 15:20:[address] Sp[address] [facility] 2019-06-04 2019-06-04 Emergency Craig, [facility] [id number] [facility] 05:22:14 06:49:00 Jordon Gomez 350.1.13.10 i ty of [place] 4.2.7.2.686 [facility] [id number] [address] 2019-06-04 2019-06-04 Emergency Craig, [facility] [id number] 05:22:14 06:49:00 Jordon Gomez 350.1.13.10 [place] 4.2.7.2.686 [place] [id number] [facility] 2019-02-16 2019-02-16 Outpatient [place] [id number] Common 16:00:00 16:00:00 t [facility] [address] Sp[address] Road [facility] Results Test Description Test Time Test Comments Results Result Comments Source TROPONIN I 2022-10-31 14:27:53 Test Item Value Reference Range Interpretation Comme nts TROPONIN I (test code = 0.005 ng/mL See_Comment [Au tomated message] The 5422085799) system which ge nerated this result tra [...] biotin. Lab Interpretation Normal (test code = 99319-4) [facility] WITH [id number] 14:24:31 Test Item Value Reference Range Interpretation Comments WBC (test code = See_Comment [Automated 4077-2) message] The sy stem which generated this result transmitted reference range : 4.20 - 10.70 10*3/?L. The reference range was not used to interpret this result as normal/abnormal . RBC (test code = See_Comment [Automated 669-8) message] The sy stem which generated this [...] RDW-SD (test code = 39.0 fL 38.5-51.6 91655-2) RDW-CV (test code = 12.7 % 12.1-15.4 788-0) PLT (test code = See_Comment L [Automated 027-3) message] The sy stem which generated this result transmitted reference range : 150 - 328 10*3/ ?L. The reference r gely was not used to interpret this result as normal/abnormal . MPV (test code = 8.4 fL 9.8-13.0 L 45525-5) IPF % (test code = 0.9 % 1.2-10.7 L Platelet count 5137216418) measured by fluorescence method. NRBC/100 WBC (test See_Comment [Automat ed code = 2362351886) message] The system which generated this result transmitted reference range : 0.0 - 10.0 /100 WBCs. The refer ence range was not u sed to interpret th is result as normal/abnormal . NRBC x10^3 (test code See_Comment [Auto mated = 4907840305) message] The s ystem which generated this result transmitted reference range : 10*3/?L. The reference range was not used to interpret this result as normal/abnormal . GRAN MAT (NEUT) % 53.8 % (test code = 770-8) IMM GRAN % (test code 0.80 % = 8494703209) LYMPH % (test code = 31.2 % 736-9) MONO % (test code = 11.4 % 5905-5) EOS % (test code = 1.9 % 713-8) BASO % (test code = 0.9 % 706-2) GRAN MAT x10^3(ANC) 5.30 10*3/uL 1.99-6.95 (test code = 3177886599) IMM GRAN x10^3 (test 0.08 10*3/uL 0.00-0.06 H code = 6816073244) LYMPH x10^3 (test code 3.08 10*3/uL 1.09-3.23 = 731-0) MONO x10^3 (test code 1.13 10*3/uL 0.36-1.02 H = 742-7) EOS x10^3 (test code = 0.19 10*3/uL 0.06-0.53 711-2) BASO x10^3 (test code 0.09 10*3/uL 0.01-0.09 = 704-7) Lab Interpretation Abnormal (test code = 75134-6) [id number] 14:24:31 Test Item Value Reference Range Interpretation Comments NT-proBNP (test code 82 pg/mL See_Comment [Autom ated = 2869076379) message] The system which generated this result transmitted reference range : <=125. The reference range was not used to interpret this result as normal/abnormal . KAYY (test code = KAYY) Biotin has been reported to cause a negative bias, interpret results relative to patient's use of biotin. Lab Interpretation Normal (test code = 26657-8) [facility]. METABOLIC PANEL ([id number])2022-10-31 14:16:16 Test Item Value Reference Range Interpretation Comments NA (test code = 140 mmol/L 135-145 4638137544) K (test code = 3.8 mmol/L 3.5-5.0 3853581693) CL (test code = 108 mmol/L 98-108 5496981128) CO2 TOTAL (test code = 25 mmol/L 23-31 4255423922) AGAP (test code = 2-16 1111033894) BUN (test code = 12 mg/dL 7-23 3687231511) GLUCOSE (test code = 117 mg/dL 70-110 H 4545995883) CREATININE (test code = 0.92 mg/dL 0.60-1.25 3532521863) TOTAL BILI (test code = 0.9 mg/dL 0.1-1.3 7108132185) CALCIUM (test code = 8.2 mg/dL 8.6-10.6 L 7860653412) T PROTEIN (test code = 6.5 g/dL 6.3-8.2 9343644887) ALBUMIN (test code = 3.8 g/dL 3.5-5.0 4300175277) ALK PHOS (test code = 59 U/L 34-122 8381817194) ALTv (test code = 64 U/L 5-50 H 1742-6) AST(SGOT) (test code = 37 U/L 13-40 8391232235) eGFR (test code = mL/min/1.73m2 1332912119) KAYY (test code = KAYY) Association of [...] tests). Lab Interpretation Abnormal (test code = 70811-7) [facility] WO [id number] 21:04:461. ?No urinary system calculi. No hydronephrosis. [...] acute or aggressive osseous abnormality.IMPRESSION1. No urinary system calculi. No hydronephrosis. 2. Stranding and hyperemia within left lower quadrant mesentery. These a renonspecific findings and appearance may be exaggerated due to volumeaveraging. Findings may represent hyperemia related to mild enteritis.3. Additional findings as above.[facility] 2019-12-28 18:46:00 Test Item Value Reference Range Interpretation Comments NA (test code = 139 mmol/L 135-145 1969820460) K (test code = 3.7 mmol/L 3.5-5 8248849201) CL (test code = 104 mmol/L 98-108 4753007674) CO2 TOTAL (test code = 27 mmol/L 23-31 1223702137) AGAP (test code = 2-16 8890108337) BUN (test code = 16 mg/dL 7-23 4544980905) GLUCOSE (test code = 94 mg/dL 70-110 3529795860) CREATININE (test code = 1.06 mg/dL 0.6-1.25 6325654673) TOTAL BILI (test code = 1.3 mg/dL 0.1-1.1 H 5513862691) CALCIUM (test code = 9.2 mg/dL 8.6-10.6 0146961089) T PROTEIN (test code = 7.4 g/dL 6.3-8.2 7937090226) ALBUMIN (test code = 4.2 g/dL 3.5-5 6057812943) ALK PHOS (test code = 49 U/L 34-122 2739428359) ALTv (test code = 33 U/L 5-50 1742-6) AST(SGOT) (test code = 33 U/L 13-40 9653165154) eGFR Calculation mL/min/1.73m2 (Non-) (test code = 9196312579) eGFR Calculation mL/min/1.73m2 () (test code = 0381804036) KAYY (test code = KAYY) Association of [...] tests). Lab Interpretation Abnormal (test code = 32147-1) [facility], [id number] 18:46:00 Test Item Value Reference Range Interpretation Comments LIPASE (test code = 8078916830) 174 U/L 0-220 Lab Interpretation (test code = Normal 41515-0) [facility]ysis2020-[facility] 18:41:00 Test Item Value Reference Range Interpretation Comments APPEARANCE (test code = Clear Clear 6417665824) COLOR (test code = Yellow Yellow 9852049437) PH (test code = 4.8-8.0 2236445203) SP GRAVITY (test code = 1.003-1.030 8938063878) GLU U QUAL (test code = Normal Normal 6832611435) BLOOD (test code = 2+ Negative A 1635515834) KETONES (test code = Negative Negative 2424043128) PROTEIN (test code = 100 mg/dL Negative A 2887-8) UROBILIN (test code = Normal Normal 8535951749) BILIRUBIN (test code = Negative Negative 6446107914) NITRITE (test code = Negative Negative 8048378335) LEUK ANNA (test code = Negative Negative 2833572524) RBC/HPF (test code = See_Comment H [Autom ated message] 4613470589) The system tarpipe generated this result transmit jessica reference range : 0 - 3 HPF. The refe rence range was not u sed to interpret th is result as normal/abnormal . WBC/HPF (test code = See_Comment [Autom ated message] 3590213885) The system tarpipe generated this result transmit jessica reference range : 0 - 5 HPF. The refe rence range was not u sed to interpret th is result as normal/abnormal . BACTERIA (test code = Few Negative A 4218853838) MUCOUS (test code = Slight Negative LPF A 1051998062) HYAL CAST (test code = See_Comment H [Aut omated message] 3419353966) The system tarpipe generated this result transmit jessica reference range : <=2 LPF. The refere nce range was not u sed to interpret th is result as normal/abnormal . Lab Interpretation (test Abnormal code = 66305-4) [facility] WITH [id number] 18:29:00 Test Item Value Reference Range Interpretation Comments WBC (test code = See_Comment H [Automated 6690-2) message] The sy stem which generated this [...] RDW-SD (test code = 39.5 fL 38.5-51.6 38027-2) RDW-CV (test code = 12.4 % 12.1-15.4 788-0) PLT (test code = See_Comment [Automated 777-3) message] The sy stem which generated this result transmitted reference range : 150 - 328 10*3/ ?L. The reference r gely was not used to interpret this result as normal/abnormal . MPV (test code = 8.6 fL 9.8-13 L 25498-9) NRBC/100 WBC (test See_Comment [Automat ed code = 2794490359) message] The system which generated this result transmitted reference range : 0.0 - 10.0 /100 WBCs. The refer ence range was not u sed to interpret th is result as normal/abnormal . NRBC x10^3 (test code <0.01 See_Comment [Auto mated = 0265776611) message] The s ystem which generated this result transmitted reference range : 10*3/?L. The reference range was not used to interpret this result as normal/abnormal . GRAN MAT (NEUT) % 58.6 % (test code = 770-8) IMM GRAN % (test code 0.50 % = 4898498563) LYMPH % (test code = 26.9 % 736-9) MONO % (test code = 10.1 % 5905-5) EOS % (test code = 3.2 % 713-8) BASO % (test code = 0.7 % 706-2) GRAN MAT x10^3(ANC) 7.58 10*3/uL 1.99-6.95 H (test code = 9519086264) IMM GRAN x10^3 (test 0.06 10*3/uL 0-0.06 code = 2302409512) LYMPH x10^3 (test code 3.48 10*3/uL 1.09-3.23 H = 731-0) MONO x10^3 (test code 1.30 10*3/uL 0.36-1.02 H = 742-7) EOS x10^3 (test code = 0.42 10*3/uL 0.06-0.53 711-2) BASO x10^3 (test code 0.09 10*3/uL 0.01-0.09 = 704-7) Lab Interpretation Abnormal (test code = 33833-9) [facility] METABOLIC PANEL ([id number])2019-06-04 11:45:00 Test Item Value Reference Range Interpretation Comments NA (test code = 144 mmol/L 135-145 1270621712) K (test code = 3.3 mmol/L 3.5-5 L 7282611883) CL (test code = 103 mmol/L 98-108 0274623536) CO2 TOTAL (test code = 29 mmol/L 23-31 2821807043) AGAP (test code = 2-16 9203814485) BUN (test code = 17 mg/dL 7-23 5846954662) GLUCOSE (test code = 126 mg/dL 70-110 H 6064236634) CREATININE (test code = 1.30 mg/dL 0.6-1.25 H 4558025379) TOTAL BILI (test code = 1.1 mg/dL 0.1-1.9 6893308846) CALCIUM (test code = 9.3 mg/dL 8.6-10.6 4933654296) T PROTEIN (test code = 8.0 g/dL 6.3-8.2 4560393224) ALBUMIN (test code = 4.5 g/dL 3.5-5 2669058805) ALK PHOS (test code = 66 U/L 34-122 1180891391) ALT(SGPT) (test code = 215 U/L 9-51 H 2374673265) AST(SGOT) (test code = 114 U/L 13-40 H 1705613329) eGFR Calculation mL/min/1.73m2 (Non-) (test code = 5763680842) eGFR Calculation mL/min/1.73m2 () (test code = 8427959165) KAYY (test code = KAYY) Association of Glomerular Filtration Rate (GFR) and Staging of Kidney Disease*+ + + +| GFR (mL/min/1.73 m2)?| With Kidney Damage?|?Without Kidney Damage+ --------+ --------+ +|?>90?|?S magalye one?|? Normal?+ ---------+ ---------+ +|?60-89? |?Stage two?|? [...] tests). Lab Interpretation Abnormal (test code = 42913-3) [facility] WITH [id number] 11:30:00 Test Item Value Reference Range Interpretation Comments WBC (test code = See_Comment H [Automated 0862-2) message] The sy stem which generated this result transmitted reference range : 4.20 - 10.70 10*3/?L. The reference range was not used to interpret this result as normal/abnormal . RBC (test code = See_Comment [Automated 509-8) message] The sy stem which generated this [...] RDW-SD (test code = 39.8 fL 38.5-51.6 70094-8) RDW-CV (test code = 12.9 % 12.1-15.4 788-0) PLT (test code = See_Comment [Automated 777-3) message] The sy stem which generated this result transmitted reference range : 150 - 328 10*3/ ?L. The reference r gely was not used to interpret this result as normal/abnormal . MPV (test code = 8.7 fL 9.8-13 L 41646-1) NRBC/100 WBC (test See_Comment [Automat ed code = 5746297629) message] The system which generated this result transmitted reference range : 0.0 - 10.0 /100 WBCs. The refer ence range was not u sed to interpret th is result as normal/abnormal . NRBC x10^3 (test code <0.01 See_Comment [Auto mated = 4781537737) message] The s ystem which generated this result transmitted reference range : 10*3/?L. The reference range was not used to interpret this result as normal/abnormal . GRAN MAT (NEUT) % 55.4 % (test code = 770-8) IMM GRAN % (test code 0.90 % = 7409223561) LYMPH % (test code = 27.9 % 736-9) MONO % (test code = 11.8 % 5905-5) EOS % (test code = 3.0 % 713-8) BASO % (test code = 1.0 % 706-2) GRAN MAT x10^3(ANC) 6.33 10*3/uL 1.99-6.95 (test code = 4255051384) IMM GRAN x10^3 (test 0.10 10*3/uL 0-0.06 H code = 9773250668) LYMPH x10^3 (test code 3.18 10*3/uL 1.09-3.23 = 731-0) MONO x10^3 (test code 1.35 10*3/uL 0.36-1.02 H = 742-7) EOS x10^3 (test code = 0.34 10*3/uL 0.06-0.53 711-2) BASO x10^3 (test code 0.11 10*3/uL 0.01-0.09 H = 704-7) Lab Interpretation Abnormal (test code = 73619-4) [facility]"
[2023-04-28] MEDS ORDERED: NA CHLORIDE 0.9% 1,000 ML ONE (00:03)
[2023-04-28] MEDS ORDERED: ACETAMINOPHEN 500 MG TAB ONE (00:11)
[2023-04-28 00:16] LABS: Absolute Lymphocytes (CBC) 1.3 K/uL (0.7-4.9); Hematocrit 43.7 % (39.6-49.0); Lymphocytes % 11.9 % (15.3-44.8); MCV 88.4 fL (80-100); MPV 5.5 fL (7.6-11.3); RBC Red Blood Cell Count 4.94 M/uL (4.33-5.43)
[2023-04-28 00:22] LABS: SARS-CoV-2 Antigen Rapid Res Negative (Negative)
[2023-04-28 00:25] LABS: Potassium 3.7 mEq/L (3.5-5.1)
[2023-04-28 01:28] LABS: Blood Morphology Comment NOT SEEN (NOT SEEN); Platelet Estimate DECR; White Blood Cell Scan OK (OK)
--- NOTE | 2023-04-28 02:49 | ER ---
Nurse's Notes [facility] Name: Javid Carver Age: 47 yrs Sex: Male : 1975 Arrival Date: 04/27/2023 Time: 23:13 Bed 14 Private MD: Diagnosis: Foot cellulitis;Fever, unspecified Presentation: 04/27 23:55 Chief complaint: Patient states: fever chills body aches since last pm concerned with kl heat exhaustion small wound noted to top of left foot warm to touch. Coronavirus screen: Vaccine status: Patient reports being unvaccinated. Ebola Screen: Patient negative for fever greater than or equal to 101.5 degrees Fahrenheit, and additional compatible Ebola Virus Disease symptoms. Initial Sepsis Screen: Does the patient meet any 2 criteria? Temp <36.0*C (96.8*F)) or > 38.3*C (100.9*F). Does the patient have a suspected source of infection? Yes: Skin breakdown/wound. Risk Assessment: Do you want to hurt yourself or someone else? Patient reports no desire to harm self or others. Onset of symptoms was April 27, 2023. 23:55 Method Of Arrival: Ambulatory 23:55 Acuity: ALEJANDRA 3 kl Triage Assessment: 04/28 00:12 General: Appears uncomfortable, Behavior is cooperative. Pain: Complains of pain in kl generalized body aches. EENT: No deficits noted. Neuro: No deficits noted. Cardiovascular: No deficits noted. Respiratory: No deficits noted. GI: No deficits noted. No signs and/or symptoms were reported involving the gastrointestinal system. GI: No deficits noted. No signs and/or symptoms were reported involving the gastrointestinal system. : No deficits noted. No signs and/or symptoms were reported regarding the genitourinary system. Derm: Wound noted dorsum of left foot. Historical: - Allergies: 00:11 No Known Allergies; kl - Home Meds: 00:11 Metoprolol Tartrate Oral [Active]; Norvasc 10 mg Oral tab 1 tab once daily [Active]; kl - PMHx: 00:11 acid reflux; Hypertension; kl - Immunization history:: Adult Immunizations not immunized. - Social history:: Smoking status: Reported history of juuling and/or vaping. Screenin:[facility] (Adult) History of falling in the last 3 months, kl including since admission. [facility] Fall Risk Assessment (Adult) Confusion or Disorientation No (0 pts) Intoxicated or Sedated No (0 pts) Impaired Gait No (0 pts) Mobility Assist Device Used No (0 pt) Altered Elimination No (0 pt) Score/Fall Risk Level 0 - 2 = Low Risk Oriented to surroundings, Maintained a safe environment. Abuse screen: Denies threats or abuse. Nutritional screening: No deficits noted. Tuberculosis screening: No symptoms or risk factors identified. Assessment: 00:18 Reassessment: see triage. kl 02:00 Reassessment: Patient appears in no apparent distress at this time. Patient and/or kl family updated on plan of care and expected duration. Pain level reassessed. Patient states feeling better. Patient states symptoms have improved. Vital Signs: 04/27 23:55 BP 150 / 108; Pulse 85; Resp 20; Temp 101.3(O); Pulse Ox 98% on R/A; Weight 47.17 kg kl (M); Height 5 ft. 7 in. ; Pain 10/10; 04/28 00:18 BP 146 / 97; Pulse 88; kl 01:20 BP 128 / 83; Pulse 72; Resp 18; Temp 98.8; Pain 0/10; kl 02:54 BP 148 / 68; Pulse 70; Resp 16; Pulse Ox 98% on R/A; kl 04/27 23:55 Body Mass Index 16.29 (47.17 kg, 170.18 cm) 04/27 23:55 Pain Scale: Adult 01:20 Pain Scale: Adult ED Course: 04/27 23:19 Patient arrived in ED. es 23:34 Skyler Hughes DO is Attending Physician. ms3 23:55 Inserted saline lock: 20 gauge in left antecubital area, using aseptic technique. Blood kl collected. 04/28 00:11 Triage completed. kl 00:18 Patient has correct armband on for positive identification. Bed in low position. Call kl light in reach. Side rails up X2. Pulse ox on. NIBP on. Door closed. Noise minimized. Lights dimmed. 01:14 Chest Pa And Lat (2 Views) XRAY In Process Unspecified. EDMS 02:47 Sal Reardon MD is Referral Physician. ms3 02:54 No provider procedures requiring assistance completed. IV discontinued, intact, kl bleeding controlled, No redness/swelling at site. Pressure dressing applied. Administered Medications: 00:14 Drug: NS 0.9% IV 1000 ml Route: IV; Rate: 1000 ml; Site: left antecubital; kl 01:22 Follow up: IV Status: Completed infusion; IV Intake: 1000ml kl 00:14 Drug: Acetaminophen PO 1000 mg Route: PO; kl 01:21 Follow up: Response: Temperature is decreased kl Intake: 01:22 IV: 1000ml; Total: 1000ml. kl Outcome: 02:48 Discharge ordered by . ms3 02:54 Discharged to home ambulatory. kl 02:54 Condition: improved 02:54 Discharge instructions given to patient, significant other, Instructed on discharge instructions, follow up and referral plans. medication usage, Demonstrated understanding of instructions, follow-up care, medications, Prescriptions given X 1. 02:55 Patient left the ED. kl Signatures: Dispatcher [employer] Liz Phillips RN RN kl Salyer, Edna es Sims, Marcus, DO DO ms3
--- NOTE | 2023-04-28 02:49 | EDPHYS ---
Physician Documentation [facility] Name: Javid Carver Age: 47 yrs Sex: Male : 1975 Arrival Date: 04/27/2023 Time: 23:13 Bed 14 Private MD: ED Physician Skyler Hughes HPI: 04/27 23:42 This 47 yrs old Male presents to ER via Unassigned with complaints of feet cramping, ms3 shakeing, nausea, over heated. 23:42 47-year-old male with past medical history of hypertension presents for body cramps, ms3 chills, subjective fever, nausea, vomiting. Patient states he worked last night and feels like he got overheated. Patient states his symptoms began around 11:30 PM to midnight. Patient denies alleviating or inciting factors. Patient states his discomfort is 7/10. Historical: - Allergies: 04/28 00:11 No Known Allergies; kl - Home Meds: 00:11 Metoprolol Tartrate Oral [Active]; Norvasc 10 mg Oral tab 1 tab once daily [Active]; kl - PMHx: 00:11 acid reflux; Hypertension; kl - Immunization history:: Adult Immunizations not immunized. - Social history:: Smoking status: Reported history of juuling and/or vaping. ROS: 04/27 23:42 Constitutional: Negative for fever, and chills. Neck: Negative for injury, pain, and ms3 swelling, Cardiovascular: Negative for chest pain, and palpitations. Respiratory: Negative for shortness of breath, cough, wheezing, and pleuritic chest pain, Abdomen/GI: Negative for abdominal pain, nausea, vomiting, diarrhea, and constipation. MS/extremity: Positive for cramping. All other systems are negative. Exam: 23:42 Constitutional: This is a well developed, well nourished patient who is awake, alert, ms3 and in no acute distress. Head/Face: Normocephalic, atraumatic. Neck: Trachea midline, no cervical lymphadenopathy. Supple, full range of motion without nuchal rigidity, or vertebral point tenderness. No Meningismus. Chest/axilla: Normal chest wall appearance and motion. Nontender with no deformity. Cardiovascular: Regular rate and rhythm with a normal S1 and S2. No gallops, murmurs, or rubs. Normal PMI, no JVD. No pulse deficits. Respiratory: Lungs have equal breath sounds bilaterally, clear to auscultation and percussion. No rales, rhonchi or wheezes noted. No increased work of breathing, no retractions or nasal flaring. Abdomen/GI: Soft, non-tender, with normal bowel sounds. No distension or tympany. No guarding or rebound. No evidence of tenderness throughout. Skin: Warm, dry with normal turgor. Normal color with no rashes, no lesions, and no evidence of cellulitis. MS/ Extremity: Pulses equal, no cyanosis. Neurovascular intact. Full, normal range of motion. Vital Signs: 23:55 BP 150 / 108; Pulse 85; Resp 20; Temp 101.3(O); Pulse Ox 98% on R/A; Weight 47.17 kg kl (M); Height 5 ft. 7 in. ; Pain 10/10; 04/28 00:18 BP 146 / 97; Pulse 88; kl 01:20 BP 128 / 83; Pulse 72; Resp 18; Temp 98.8; Pain 0/10; kl 02:54 BP 148 / 68; Pulse 70; Resp 16; Pulse Ox 98% on R/A; kl 04/27 23:55 Body Mass Index 16.29 (47.17 kg, 170.18 cm) 04/27 23:55 Pain Scale: Adult kl 01:20 Pain Scale: Adult kl MDM: 04/27 23:42 Differential Diagnosis Flu, COVID, Rhabdo, ANDREW. az3 23:50 Patient medically screened. [facility] 04/28 02:48 Data reviewed: vital signs, nurses notes, lab test result(s), radiologic studies, and ms3 as a result, I will discharge patient. 02:48 I considered the following discharge prescriptions or medication management in the [facility] emergency department Medications were administered in the Emergency Department. See MAR. Independent interpretation of the following test(s) in the Emergency Department X-Ray: My interpretation is CXR images reviewed by me do not show PNA. Care significantly affected by the following chronic conditions: Hypertension. Counseling: I had a detailed discussion with the patient and/or guardian regarding: the historical points, exam findings, and any diagnostic results supporting the discharge/admit diagnosis, lab results, the need for outpatient follow up, to return to the emergency department if symptoms worsen or persist or if there are any questions or concerns that arise at home. ED course: Patient wishing to be discharged. Patient given doxycycline for mild erythema on wound on right ventral surface of his foot. Patient to follow-up with primary care physician in 2 to 3 days. Patient understands and agrees to plan. All questions were answered. Return precautions discussed include worsening symptoms, or any other concerns. 04/27 23:42 Order name: CK; Complete Time: 00:57 ms3 04/27 23:42 Order name: CBC with Diff; Complete Time: ms3 04/27 23:42 Order name: BMP; Complete Time: 00: ms3 04/27 23:44 Order name: Flu; Complete Time: 00: ms3 04/28 00:06 Order name: SARS-COV-2 Antigen Rapid; Complete Time: 00: EDMS 04/28 00:23 Order name: CBC Smear Scan; Complete Time: : EDMS 04/28 00:57 Order name: Chest Pa And Lat (2 Views) XRAY ms3 Administered Medications: 00:14 Drug: NS 0.9% IV 1000 ml Route: IV; Rate: 1000 ml; Site: left antecubital; kl 01:22 Follow up: IV Status: Completed infusion; IV Intake: 1000ml 00:14 Drug: Acetaminophen PO 1000 mg Route: PO; kl 01:21 Follow up: Response: Temperature is decreased kl Disposition Summary: 04/28/23 02:48 Discharge Ordered Location: Home ms3 Condition: Stable ms3 Diagnosis - Foot cellulitis ms3 - Fever, unspecified ms3 Followup: ms3 - With: Sal Reardon MD - When: 2 - 3 days - Reason: Recheck today's complaints Discharge Instructions: - Discharge Summary Sheet ms3 - Cellulitis, Adult ms3 - Fever, Adult ms3 Forms: - Medication Reconciliation Form ms3 - Thank You Letter ms3 - Antibiotic Education ms3 - Prescription Opioid Use ms3 Prescriptions: - Doxycycline Hyclate 100 mg Oral Tablet - take 1 tablet by ORAL route every 12 hours; 20 tablet; Refills: 0, Product ms3 Selection Permitted Signatures: [facility] Liz Phillips RN RN kl Sims, Marcus, DO DO ms3 Corrections: (The following items were deleted from the chart) 00:06 04/27 23:44 SARS-COV-2 RT PCR+[id number] ordered. EDMS EDMS
[2023-04-28 03:17] VITALS: O2SAT 98
[2023-04-28 03:19] VITALS: TEMP 98.8
[2023-04-28 03:21] VITALS: BP 148/68
--- NOTE | 2023-04-29 14:08 | RAD REPORT ---
EXAM DESCRIPTION: Chest Pa And Lat (2 Views) CLINICAL HISTORY: FEVER TECHNIQUE: PA and lateral chest COMPARISON: None available for comparison FINDINGS: CHEST: Heart: The cardiomediastinal silhouette is within normal limits. Lungs: No focal consolidation. Mediastinum: Unremarkable Pleura: No appreciable effusion. No pneumothorax. Bones: Intact IMPRESSION: No acute cardiopulmonary disease. Electronically signed by: Anthony Gibson MD 04/28/2023 5:36 AM CDT Due to temporary technical issues with the PACS/Fluency reporting system, reports are being signed by the in house radiologist without review as a courtesy to ensure prompt reporting. The interpreting r adiologist is fully responsible for the content of the report.
== END 2023-04-28 02:55 | disposition home or self-care (01) ==
LOC: ER 23:13
DX: L03.115 Cellulitis of right lower limb (principal)
CPT/HCPCS: 36415; 71046; 80048; 82550; 85025; 87804; 87811; 96360; 99284

== ENCOUNTER → 2023-11-13 | Emergency (ER) | payer BC, SELFPAY ==
[~2023-11-13] MED LIST: ONDANSETRON 4 MG (ODT) TAB ONE
--- OUTSIDE RECORDS SUMMARY | 2023-11-13 15:16 | XMS REPORT | Continuity of Care Document ---
Author Name Unknown Address [address] [facility] [address] [place] [address] [facility] Address [address] [facility] [address] [place] [address] Care Team Providers Care [employer] Name Role Phone TIM VALDEZ Primary Care Physician Unavailab Neetu Beltran Attending Clinician Unavailab Tim Buenrostro L Attending Clinician Unavailable DEMIAN YOUNG Attending Clinician Unavailable Demian Noble Attending Clinician [phone] LISA BENITEZ Attending Clinician Unavailab Lisa Bragg DO Attending Clinician [phone] DAIANA ALDANA Attending Clinician UnavailDaiana Khan MD Attending Clinician [phone] Doctor Unassigned, [place] Attending Clinician U NICO Mckeon Attending Clinician Unavaila Jordon Phipps DO Attending Clinician [phone] DEMIAN YOUNG Admitting Clinician Unavailable DIAANA ALDANA Admitting Clinician UnavailNICO Espinoza Admitting Clinician Unavaila ble Payers Payer Name Policy Type Policy Number Effective Date Expirati on Date Source [facility] - OUT OF STATE [id number] 2017 00:00:00 2023 00:00:00 Problems Condition Name Condition Details Condition Category Status Onset Date Resolution Date Last Treatment Date Treating Clinician Comments Source Gastroente ritis Gastroente ritis Disease Active 2021-11 00:00: 00 [facility] [id number] Gastroesop hageal reflux disease without esophagiti s Problem Active [facility] [id number] Seasonal allergic rhinitis, unspecifie d trigger Problem Active [facility] [id number] Moderate persistent reactive airway disease with acute exacerbati on Problem Active [facility] Obstructiv e sleep apnea Obstructiv e sleep apnea Problem Active [facility] [id number] Generalize d anxiety disorder Problem Active [facility] Alcoholism Alcoholism Problem Active [facility] [id number] HTN (hypertens ion), benign Problem Active [facility] Body mass index 30+ - obesity Adult BMI 30.0-30.9 kg/sq m Problem Active [facility] Chronic fatigue syndrome Chronic fatigue Problem Active [facility] Seasonal allergy Seasonal allergies Problem Active [facility] Tobacco abuse Tobacco abuse Problem [facility] Thrombocyt openia Thrombocyt openia, unspecifie d Problem [facility] Counseling about tobacco use Tobacco abuse counseling Problem [facility] No known active problems No known active problems Disease [facility] Allergies, Adverse Reactions, Alerts Allergy Name Allergy Type Status Severity Reaction(s) Onset Date Inactive Date Treating Clinician Comments Source Lisinopr il Propensi ty to adverse reaction s Active Cough 04-15 00:00: 00 [facility] LISINOPR [place] DRUG INGREDI Active COUGH 04-15 00:00: 00 [facility] Social History Social Habit Start Date Stop Date Quantity Comments Source History of Tobacco Use [facility] Sex Assigned At [facility] to SARS-CoV-2 (event) 2022-10-21 00:00:00 2022-10-31 06:50:00 Not sure [facility] Smoking Status Start Date Stop Date Source Never Smoker [facility] Tobacco smoking consumption unknown [facility] Medications Ordered Medication Name Filled Medication Name Start Date Stop Date Current Medication? Ordering Clinician Indication Dosage Frequency Signature (SIG) Comments Components Source HYDROcodone -acetaminop hen (NORCO) 10-325 mg tablet 1 tablet 2022-11 22:00: 00 08-24 21:22 :00 No 1{tbl} 1 tablet, Oral, ONCE, 1 dose, On 08/24/23 at 1700, Routine [facility] indomethaci n 50 mg capsule 2022-11 00:00: 00 Yes [id number] 50mg Take 1 capsule by mouth in the morning and 1 capsule at noon and 1 capsule in the evening. Take with meals. [facility] colchicine, gout, 0.6 mg tablet 2022-11 00:00: 00 Yes [id number] Take 1 tablet followed by 2 tablets an hour later. [facility] lactulose (CEPHULAC) solution 30 mL 04-18 20:45: 00 04-18 20:49 :00 No 30mL 30 mL, Oral, ONCE, 1 dose, On Bing 04/18/23 at 1545, CONTRERAS [facility] aspirin tablet 325 mg 2021-11 15:00: 00 Yes 325mg 325 mg, Oral, DAILY, First dose on Sat10/31/22 at 0900, Until Discontinu ed, Routine [facility] ondansetron (ZOFRAN (PF)) injection 4 mg 2021-11 13:45: 00 10-31 13:51 :00 No 4mg 4 mg, Slow IV Push, ONCE, 1 dose, On Sat10/31/22 at 0745, CONTRERAS [facility] NaCl 0.9% (NS) bolus infusion 1,000 mL 2021-11 13:45: 00 10-31 15:28 :00 No 1000mL at 999 mL/hr, 1,000 mL, IV Infusion, ONCE, 1 dose, On Sat10/31/22 at 0745, STAT [facility] NICOLE CHEWABLE ASPIRIN ORAL 2021-11 09:18: 52 Yes 81mg Take 81 mg by mouth daily. [facility] NICOLE CHEWABLE ASPIRIN ORAL 2021-11 09:18: 52 Yes 81mg Take 81 mg by mouth daily. [facility] NICOLE CHEWABLE ASPIRIN ORAL 2021-11 09:18: 52 Yes 81mg Take 81 mg by mouth daily. [facility] aspirin 81 mg chewable tablet 2021-11 00:00: 00 11-16 05:59 :00 No [id number] 81mg Take 1 tablet by mouth in the morning for 15 days. [facility] ondansetron 4 mg disintegrat ing tablet 2021-11 00:00: 00 11-06 05:59 :00 No [id number] 4mg Take 1 tablet by mouth every 8 (eight) hours as needed for Nausea and Vomiting (N/V) for up to 5 days. [facility] morpHINE injection 4 mg 12-28 22:30: 00 12-28 21:23 :00 No 4mg 4 mg, Slow IV Push, ONCE, 1 dose, Sat12/28/19 at 1630, STAT [facility] ondansetron (ZOFRAN (PF)) injection 4 mg 12-28 22:30: 00 12-28 21:23 :00 No 4mg 4 mg, Slow IV Push, ONCE, 1 dose, Sat12/28/19 at 1630, CONTRERAS [facility] ketorolac (TORADOL) injection 30 mg 12-28 19:30: 00 12-28 18:26 :00 No 30mg 30 mg, Slow IV Push, ONCE, 1 dose, Sat12/28/19 at 1330, CONTRERAS
Fa culty member approving Restricted medication : DEMIAN YOUNG [facility] albuterol 90 mcg/actuati on inhaler 20200 -08 00:00: 00 Yes [id number] 2{puff} Inhale 2 Puffs every 4 (four) hours as needed for Wheezing or Shortness of Breath. [facility] benzonatate 100 mg capsule 0 - 00:00: 00 Yes [id number] 100mg Take 1 capsule by mouth 3 (three) times daily as needed for Cough. [facility] albuterol 90 mcg/actuati on inhaler 20200 - 00:00: 00 Yes [id number] 2{puff} Inhale 2 Puffs every 4 (four) hours as needed for Wheezing or Shortness of Breath. [facility] benzonatate 100 mg capsule 0 11-11 00:00: 00 Yes [id number] 100mg Take 1 capsule by mouth 3 (three) times daily as needed for Cough. [facility] albuterol 90 mcg/actuati on inhaler 0 11-11 00:00: 00 Yes [id number] 2{puff} Inhale 2 Puffs every 4 (four) hours as needed for Wheezing or Shortness of Breath. [facility] benzonatate 100 mg capsule 0 11-11 00:00: 00 Yes [id number] 100mg Take 1 capsule by mouth 3 (three) times daily as needed for Cough. [facility] albuterol 90 mcg/actuati on inhaler 20200 11-11 00:00: 00 Yes [id number] 2{puff} Inhale 2 Puffs every 4 (four) hours as needed for Wheezing or Shortness of Breath. [facility] benzonatate 100 mg capsule 0 11-11 00:00: 00 Yes [id number] 100mg Take 1 capsule by mouth 3 (three) times daily as needed for Cough. [facility] albuterol 90 mcg/actuati on inhaler 20200 -08 00:00: 00 Yes [id number] 2{puff} Inhale 2 Puffs every 4 (four) hours as needed for Wheezing or Shortness of Breath. [facility] benzonatate 100 mg capsule 0 1-08 00:00: 00 Yes [id number] 100mg Take 1 capsule by mouth 3 (three) times daily as needed for Cough. [facility] NaCl 0.9% (NS) bolus infusion 1,000 mL 06-04 11:45: 00 06-04 11:47 :00 No 1000mL at 999 mL/hr, 1,000 mL, IV Piggyback, ONCE, 1 dose, Bing 06/04/19 at 0645, STAT [facility] methylPREDN ISolone sodium succinate (SOLU-MEDRO L) injection 125 mg 06-04 11:00: 00 Yes 125mg 125 mg, Intravenou s, Q6H, First dose on Sat06/04/19 at 0600, Until Discontinu ed, Routine [facility] losartan 50 mg tablet 06-04 10:45: 10 Yes 50mg Take 50 mg by mouth daily. [facility] NICOLE CHEWABLE ASPIRIN ORAL 06-04 10:45: 10 Yes 81mg Take 81 mg by mouth daily. [facility] pantoprazol e 20 mg EC tablet 06-04 10:45: 10 Yes 20mg Take 20 mg by mouth daily. [facility] chlorthalid one 25 mg tablet 06-04 10:45: 10 Yes 25mg Take 25 mg by mouth daily. [facility] losartan 50 mg tablet 06-04 10:45: 10 Yes 50mg Take 50 mg by mouth daily. [facility] NICOLE CHEWABLE ASPIRIN ORAL 06-04 10:45: 10 Yes 81mg Take 81 mg by mouth daily. [facility] pantoprazol e 20 mg EC tablet 06-04 10:45: 10 Yes 20mg Take 20 mg by mouth daily. [facility] chlorthalid one 25 mg tablet 06-04 10:45: 10 Yes 25mg Take 25 mg by mouth daily. [facility] losartan 50 mg tablet 06-04 10:45: 10 Yes 50mg Take 50 mg by mouth daily. [facility] NICOLE CHEWABLE ASPIRIN ORAL 06-04 10:45: 10 Yes 81mg Take 81 mg by mouth daily. [facility] pantoprazol e 20 mg EC tablet 06-04 10:45: 10 Yes 20mg Take 20 mg by mouth daily. [facility] chlorthalid one 25 mg tablet 06-04 10:45: 10 Yes 25mg Take 25 mg by mouth daily. [facility] pantoprazol e 20 mg EC tablet 06-04 05:45: 10 Yes 20mg Take 20 mg by mouth daily. [facility] chlorthalid one 25 mg tablet 06-04 05:45: 10 Yes 25mg Take 25 mg by mouth daily. [facility] losartan 50 mg tablet 06-04 05:45: 10 Yes 50mg Take 50 mg by mouth daily. [facility] pantoprazol e 20 mg EC tablet 06-04 05:45: 10 Yes 20mg Take 20 mg by mouth daily. [facility] chlorthalid one 25 mg tablet 06-04 05:45: 10 Yes 25mg Take 25 mg by mouth daily. [facility] losartan 50 mg tablet 06-04 05:45: 10 Yes 50mg Take 50 mg by mouth daily. [facility] pantoprazol e 20 mg EC tablet 06-04 05:45: 10 Yes 20mg Take 20 mg by mouth daily. [facility] chlorthalid one 25 mg tablet 06-04 05:45: 10 Yes 25mg Take 25 mg by mouth daily. [facility] losartan 50 mg tablet 06-04 05:45: 10 Yes 50mg Take 50 mg by mouth daily. [facility] benzonatate 100 mg capsule 06-04 00:00: 00 Yes [id number] 100mg Take 1 capsule by mouth 3 (three) times daily as needed for Cough. [facility] methylPREDN ISolone (MEDROL, MC,) 4 mg tablets 06-04 00:00: 00 Yes [id number] Take by mouth SEE-INSTRU CTIONS. follow package directions [facility] chlorphenir amine 4 mg tablet 06-04 00:00: 00 Yes [id number] 4mg Take 1 tablet by mouth every 6 (six) hours as needed for Allergies or Runny nose. [facility] chlorphenir amine 4 mg tablet 06-04 00:00: 00 Yes [id number] 4mg Take 1 tablet by mouth every 6 (six) hours as needed for Allergies or Runny nose. [facility] benzonatate 100 mg capsule 06-04 00:00: 00 Yes [id number] 100mg Take 1 capsule by mouth 3 (three) times daily as needed for Cough. [facility] methylPREDN ISolone (MEDROL, MC,) 4 mg tablets 06-04 00:00: 00 Yes [id number] Take by mouth SEE-INSTRU CTIONS. follow package directions [facility] benzonatate 100 mg capsule 06-04 00:00: 00 Yes [id number] 100mg Take 1 capsule by mouth 3 (three) times daily as needed for Cough. [facility] methylPREDN ISolone (MEDROL, MC,) 4 mg tablets 06-04 00:00: 00 Yes [id number] Take by mouth SEE-INSTRU CTIONS. follow package directions [facility] chlorphenir amine 4 mg tablet 06-04 00:00: 00 Yes [id number] 4mg Take 1 tablet by mouth every 6 (six) hours as needed for Allergies or Runny nose. [facility] benzonatate 100 mg capsule 06-04 00:00: 00 Yes [id number] 100mg Take 1 capsule by mouth 3 (three) times daily as needed for Cough. [facility] methylPREDN ISolone (MEDROL, MC,) 4 mg tablets 06-04 00:00: 00 Yes [id number] Take by mouth SEE-INSTRU CTIONS. follow package directions [facility] chlorphenir amine 4 mg tablet 06-04 00:00: 00 Yes [id number] 4mg Take 1 tablet by mouth every 6 (six) hours as needed for Allergies or Runny nose. [facility] benzonatate 100 mg capsule 06-04 00:00: 00 Yes [id number] 100mg Take 1 capsule by mouth 3 (three) times daily as needed for Cough. [facility] methylPREDN ISolone (MEDROL, MC,) 4 mg tablets 06-04 00:00: 00 Yes [id number] Take by mouth SEE-INSTRU CTIONS. follow package directions [facility] chlorphenir amine 4 mg tablet 06-04 00:00: 00 Yes [id number] 4mg Take 1 tablet by mouth every 6 (six) hours as needed for Allergies or Runny nose. [facility] benzonatate 100 mg capsule 06-04 00:00: 00 Yes [id number] 100mg Take 1 capsule by mouth 3 (three) times daily as needed for Cough. [facility] methylPREDN ISolone (MEDROL, MC,) 4 mg tablets 06-04 00:00: 00 Yes [id number] Take by mouth SEE-INSTRU CTIONS. follow package directions [facility] chlorphenir amine 4 mg tablet 06-04 00:00: 00 Yes [id number] 4mg Take 1 tablet by mouth every 6 (six) hours as needed for Allergies or Runny nose. [facility] benzonatate 100 mg capsule 04-15 00:00: 00 06-04 00:00 :00 No 100mg Take 1 capsule by mouth 3 (three) times daily as needed for Cough. [facility] Flonase 50 MCG/ACT Flonase 50 MCG/ACT 02-25 00:00: 00 No 1{spray _in_eac h_nostr il} QD Flonase 50 MCG/ACT ProAir RespiClick 108 (90 Base) MCG/ACT ProAir RespiClick 108 (90 Base) MCG/ACT 02-25 00:00: 00 No 2{puffs _as_nee ded} QID ProAir RespiClick 108 (90 Base) MCG/ACT Flonase 50 MCG/ACT Flonase 50 MCG/ACT 02-25 00:00: 00 No 1{spray _in_eac h_nostr il} QD Flonase 50 MCG/ACT ProAir RespiClick 108 (90 Base) MCG/ACT ProAir RespiClick 108 (90 Base) MCG/ACT 02-25 00:00: 00 No 2{puffs _as_nee ded} QID ProAir RespiClick 108 (90 Base) MCG/ACT Flonase 50 MCG/ACT Flonase 50 MCG/ACT 02-25 00:00: 00 No 1{spray _in_eac h_nostr il} QD Flonase 50 MCG/ACT ProAir RespiClick 108 (90 Base) MCG/ACT ProAir RespiClick 108 (90 Base) MCG/ACT 02-25 00:00: 00 No 2{puffs _as_nee ded} QID ProAir RespiClick 108 (90 Base) MCG/ACT Flonase 50 MCG/ACT Flonase 50 MCG/ACT 02-25 00:00: 00 No 1{spray _in_eac h_nostr il} QD Flonase 50 MCG/ACT ProAir RespiClick 108 (90 Base) MCG/ACT ProAir RespiClick 108 (90 Base) MCG/ACT 02-25 00:00: 00 No 2{puffs _as_nee ded} QID ProAir RespiClick 108 (90 Base) MCG/ACT Flonase 50 MCG/ACT Flonase 50 MCG/ACT 02-25 00:00: 00 No 1{spray _in_eac h_nostr il} QD Flonase 50 MCG/ACT ProAir RespiClick 108 (90 Base) MCG/ACT ProAir RespiClick 108 (90 Base) MCG/ACT 02-25 00:00: 00 No 2{puffs _as_nee ded} QID ProAir RespiClick 108 (90 Base) MCG/ACT Protonix Protonix Yes Na Valdez 1 tablet [facility] BusPIRone HCl BusPIRone HCl Yes Na Valdez 1 tablet [facility] Metoprolol Tartrate Metoprolol Tartrate Yes Na Valdez 1.5 tablets with food [facility] amLODIPine Besylate 5 MG amLODIPine Besylate 5 MG No 1{table t} amLODIPine Besylate 5 MG Metoprolol Tartrate 100 MG Metoprolol Tartrate 100 MG No 2{table ts_with _food} BID Metoprolol Tartrate 100 MG Aspir-Low 81 MG Aspir-Low 81 MG No 1{table t} QD Aspir-Low 81 MG Protonix 40 MG Protonix 40 MG No 1{table t} QD Protonix 40 MG busPIRone HCl 15 MG busPIRone HCl 15 MG No 1{table t} TID busPIRone HCl 15 MG Aspir-Low 81 MG Aspir-Low 81 MG No 1{table t} QD Aspir-Low 81 MG amLODIPine Besylate 5 MG amLODIPine Besylate 5 MG No 1{table t_at_be dtime} QD amLODIPine Besylate 5 MG Aspir-Low 81 MG Aspir-Low 81 MG No 1{table t} QD Aspir-Low 81 MG amLODIPine Besylate 5 MG amLODIPine Besylate 5 MG No 1{table t_at_be dtime} QD amLODIPine Besylate 5 MG busPIRone HCl 15 MG busPIRone HCl 15 MG No 1{table t} BID busPIRone HCl 15 MG Aspir-Low 81 MG Aspir-Low 81 MG No 1{table t} QD Aspir-Low 81 MG Metoprolol Tartrate 100 MG Metoprolol Tartrate 100 MG No 2{table ts_with _food} BID Metoprolol Tartrate 100 MG Protonix 40 MG Protonix 40 MG No 1{table t} QD Protonix 40 MG amLODIPine Besylate 5 MG amLODIPine Besylate 5 MG No 1{table t_at_be dtime} QD amLODIPine Besylate 5 MG busPIRone HCl 15 MG busPIRone HCl 15 MG No 1{table t} BID busPIRone HCl 15 MG Aspir-Low 81 MG Aspir-Low 81 MG No 1{table t} QD Aspir-Low 81 MG Metoprolol Tartrate 100 MG Metoprolol Tartrate 100 MG No 2{table ts_with _food} BID Metoprolol Tartrate 100 MG Protonix 40 MG Protonix 40 MG No 1{table t} QD Protonix 40 MG amLODIPine Besylate 5 MG amLODIPine Besylate 5 MG No 1{table t_at_be dtime} QD amLODIPine Besylate 5 MG Immunizations Ordered Immunization Name Filled Immunization Name Date Status Comments Source Pneumovax (PPSV23) Pneumovax (PPSV23) 2018-01-01 09:44:00 Completed [facility] Adacel (Tdap) Adacel (Tdap) 2018-01-01 09:44:00 Completed [facility] Pneumovax (PPSV23) Pneumovax (PPSV23) 2018-01-01 09:44:00 Completed [facility] Adacel (Tdap) Adacel (Tdap) 2018-01-01 09:44:00 Completed [facility] Pneumovax (PPSV23) Pneumovax (PPSV23) 2018-01-01 09:44:00 Completed [facility] Adacel (Tdap) Adacel (Tdap) 2018-01-01 09:44:00 Completed [facility] Pneumovax (PPSV23) Pneumovax (PPSV23) Unknown Completed [facility] Adacel (Tdap) Adacel (Tdap) Unknown Completed [facility] Pneumovax (PPSV23) Pneumovax (PPSV23) Unknown Completed [facility] Adacel (Tdap) Adacel (Tdap) Unknown Completed [facility] Vital Signs Vital Name Observation Time Observation Value Comments S ource Systolic blood pressure 2023-08-24 20:16:00 130 mm[Hg] [facility] Diastolic blood pressure 2023-08-24 20:16:00 96 mm[Hg] [facility] Heart rate 2023-08-24 20:16:00 69 /min [facility] Body temperature 2023-08-24 20:16:00 36.89 Kamille [facility] Respiratory rate 2023-08-24 20:16:00 18 /min [facility] Body height 2023-08-24 20:16:[address] [facility] Body weight 2023-08-24 20:16:[address] [facility] BMI 2023-08-24 20:16:00 35.15 kg/m2 [facility] Oxygen saturation in Arterial blood by Pulse oximetry 2023-08-24 20:16:00 99 /min [facility] Systolic blood pressure 2023-04-18 20:27:00 146 mm[Hg] [facility] Diastolic blood pressure 2023-04-18 20:27:00 99 mm[Hg] [facility] Heart rate 2023-04-18 20:27:00 65 /min [facility] Body temperature 2023-04-18 20:27:00 36.5 Kamille [facility] Respiratory rate 2023-04-18 20:27:00 18 /min [facility] Body height 2023-04-18 20:27:00 175.3 cm [facility] Body weight 2023-04-18 20:27:[address] [facility] BMI 2023-04-18 20:27:00 35.44 kg/m2 [facility] Oxygen saturation in Arterial blood by Pulse oximetry 2023-04-18 20:27:00 97 /min [facility] Systolic blood pressure 2022-10-31 12:52:00 145 mm[Hg] [facility] Diastolic blood pressure 2022-10-31 12:52:00 104 mm[Hg] [facility] Heart rate 2022-10-31 12:52:00 71 /min [facility] Body temperature 2022-10-31 12:52:00 36.61 Kamille [facility] Respiratory rate 2022-10-31 12:52:00 18 /min [facility] Body height 2022-10-31 12:52:00 175.3 cm [facility] Body weight 2022-10-31 12:52:[address] [facility] BMI 2022-10-31 12:52:00 35.44 kg/m2 [facility] Oxygen saturation in Arterial blood by Pulse oximetry 2022-10-31 12:52:00 99 /min [facility] Systolic blood pressure 2019-12-28 22:00:00 144 mm[Hg] [facility] Diastolic blood pressure 2019-12-28 22:00:00 105 mm[Hg] [facility] Heart rate 2019-12-28 22:00:00 64 /min [facility] Respiratory rate 2019-12-28 22:00:00 20 /min [facility] Oxygen saturation in Arterial blood by Pulse oximetry 2019-12-28 22:00:00 97 /min [facility] Body temperature 2019-12-28 17:58:00 36.56 Kamille [facility] Body height 2019-12-28 17:58:[address] [facility] Body weight 2019-12-28 17:58:[address] [facility] BMI 2019-12-28 17:58:00 29.53 kg/m2 [facility] Systolic blood pressure 2019-12-28 22:00:00 144 mm[Hg] [facility] Diastolic blood pressure 2019-12-28 22:00:00 105 mm[Hg] [facility] Heart rate 2019-12-28 22:00:00 64 /min [facility] Respiratory rate 2019-12-28 22:00:00 20 /min [facility] Oxygen saturation in Arterial blood by Pulse oximetry 2019-12-28 22:00:00 97 /min [facility] Body temperature 2019-12-28 17:58:00 36.56 Kamille [facility] Body height 2019-12-28 17:58:[address] [facility] Body weight 2019-12-28 17:58:[address] [facility] BMI 2019-12-28 17:58:00 29.53 kg/m2 [facility] Systolic blood pressure 2019-06-04 10:29:00 136 mm[Hg] [facility] Diastolic blood pressure 2019-06-04 10:29:00 102 mm[Hg] [facility] Heart rate 2019-06-04 10:29:00 103 /min [facility] Body temperature 2019-06-04 10:29:00 36.78 Kamille [facility] Respiratory rate 2019-06-04 10:29:00 20 /min [facility] Body height 2019-06-04 10:29:[address] [facility] Body weight 2019-06-04 10:29:[address] [facility] BMI 2019-06-04 10:29:00 31.01 kg/m2 [facility] Oxygen saturation in Arterial blood by Pulse oximetry 2019-06-04 10:29:00 96 /min [facility] Systolic blood pressure 2019-06-04 10:29:00 136 mm[Hg] [facility] Diastolic blood pressure 2019-06-04 10:29:00 102 mm[Hg] [facility] Heart rate 2019-06-04 10:29:00 103 /min [facility] Body temperature 2019-06-04 10:29:00 36.78 Kamille [facility] Respiratory rate 2019-06-04 10:29:00 20 /min [facility] Body height 2019-06-04 10:29:[address] [facility] Body weight 2019-06-04 10:29:[address] [facility] BMI 2019-06-04 10:29:00 31.01 kg/m2 [facility] Oxygen saturation in Arterial blood by Pulse oximetry 2019-06-04 10:29:00 96 /min [facility] Procedures Procedure Date / Time Performed Performing Clinician Source ASSIGNMENT OF BENEFITS 2023-08-24 22:10:13 Docto r Unassigned, [place] [facility] XR ANKLE 3+ VW LEFT 2023-08-24 20:54:52 Demian Young [facility] CONSENT/REFUSAL FOR DIAGNOSIS AND TREATMENT 2023-08-24 19:52:32 Doctor Unassigned, [place] [facility] ASSIGNMENT OF BENEFITS 2023-04-18 20:53:18 Docto r Unassigned, [place] [facility] CONSENT/REFUSAL FOR DIAGNOSIS AND TREATMENT 2023-04-18 20:24:58 Doctor Unassigned, [place] [facility] XR CHEST 2 VW 2022-10-31 14:04:07 [facility] 2022-10-31 13:50:00 Daiana Aldana Uni [facility] COMP. METABOLIC PANEL ([id number]) 2022-10-31 13:50:00 Daiana Aldana [facility] CBC WITH DIFF 2022-10-31 13:50:00 [facility] 2022-10-31 13:50:00 Daiana Aldana [facility] COVID-19 (ID NOW RAPID TESTING) 2022-10-31 13:50:00 Daiana Aldana [facility] RAPID INFLUENZA A/B 2022-10-31 13:14:00 Lesia Aldana [facility] CONSENT/REFUSAL FOR DIAGNOSIS AND TREATMENT 2022-10-31 12:43:31 Doctor Unassigned, [place] [facility] CT ABDOMEN PELVIS WO CONTRAST 2019-12-28 20:01:17 Demian Young [facility] LIPASE 2019-12-28 18:10:00 Demian Young [facility] COMP. METABOLIC PANEL (87380) 2019-12-28 18:10:00 Demian Young [facility] CBC WITH DIFFERENTIAL 2019-12-28 18:10:00 Demian Young [facility] URINALYSIS 2019-12-28 18:10:00 Demian Young [facility] NOTICE OF PRIVACY PRACTICES 2019-12-28 17:54:35 Doctor Unassigned, [place] [facility] CONSENT/REFUSAL FOR DIAGNOSIS AND TREATMENT 2019-12-28 17:44:24 Doctor Unassigned, [place] [facility] COMP. METABOLIC PANEL (97060) 2019-06-04 10:49:00 Jordon Craig [facility] CBC WITH DIFFERENTIAL 2019-06-04 10:49:00 Yusef Craig [facility] XR CHEST 1 VW 2019-06-04 10:45:[address] [facility] NOTICE OF PRIVACY PRACTICES 2019-06-04 10:16:35 Doctor Unassigned, [place] [facility] Encounters Start Date/Time End Date/Time Encounter Type Admission Type Attending [facility] Care Facility Care Department Encounter ID Source 2023-05-28 15:09:00 Outpatient Neetu Feng STLMLC STLMLC [id number] [facility] 2022-07-12 14:58:00 Outpatient Valdez, Na STLMLC STLMLC [id number] [facility] 2022-06-29 11:19:00 Outpatient Valdez, Na STLMLC STLMLC [id number] [facility] 2021-11-29 14:31:20 Outpatient Valdez, Na STLMLC STLMLC [id number] [facility] 2021-11-29 14:30:49 Outpatient Valdez, Na STLMLC STLMLC [id number] [facility] 2021-11-29 12:43:32 Outpatient Derek Na STLMLC STLMLC [id number] [facility] 2021-11-29 11:34:10 Outpatient Tim Valdez STLMLC STLMLC [id number] [facility] 2021-11-29 11:15:43 Outpatient Derek Na STLMLC STLMLC [id number] [facility] 2021-11-29 10:59:47 Outpatient Valdez, Na STLMLC STLMLC [id number] [facility] 2021-11-29 10:57:56 Outpatient Derek Na STLMLC STLMLC [id number] [facility] 2023-08-28 10:41:51 2023-08-28 10:41:51 Outpatient SFA [facility] [id number] Micky Buenrostro Gary 2023-08-27 09:30:18 2023-08-27 09:30:18 Outpatient SFA [facility] [id number] Micky Vega 2023-08-24 15:18:00 2023-08-24 18:43:00 Emergency X DEMIAN YOUNG [facility] [id number] [facility] 2023-08-24 15:18:00 2023-08-24 18:43:00 Emergency Demian Young [facility] 1.2.840.114 350.1.13.10 4.2.7.2.686 [id number] [facility] 2023-05-25 13:34:20 2023-05-25 13:34:20 Outpatient [facility] [id number] Micky Vega 2023-05-02 13:12:06 2023-05-02 13:12:06 Outpatient [facility] [id number] Micky Vega 2023-04-18 15:29:00 2023-04-18 16:13:00 Emergency X LISA BENITEZ [facility] ERT [id number] [facility] 2023-04-18 15:29:00 2023-04-18 16:13:00 Emergency Lisa Benitez [facility] 1.2.840.114 350.1.13.10 4.2.7.2.686 [id number] [facility] 2023-01-25 00:00:00 2023-01-25 00:00:00 (TEL) STLMLC STLMLC [id number] [facility] 2023-01-25 00:00:00 2023-01-25 00:00:00 (TEL) STLMLC STLMLC [id number] [facility] 2022-10-31 06:54:00 2022-10-31 09:29:00 Emergency X DAIANA ALDANA [facility] ERT [id number] [facility] 2022-10-31 06:54:00 2022-10-31 09:29:00 Emergency Daiana Aldana [facility] 1.2.840.114 350.1.13.10 4.2.7.2.686 [id number] [facility] 2022-06-29 00:00:00 2022-06-29 00:00:00 (TEL) STLMLC STLMLC [id number] [facility] 2022-06-28 00:00:00 2022-06-28 00:00:00 (TEL) STLMLC STLMLC [id number] [facility] 2021-11-09 00:00:00 2021-11-09 00:00:00 OFFICE VISIT ESTAB PT LEVEL 4 STLMLC STLMLC [id number] [facility] 2021-02-01 00:00:00 2021-02-01 00:00:00 Outpatient STLMLC STLMLC [id number] [facility] 2020-06-03 13:40:00 2020-06-03 13:40:00 [facility] [employer] [id number] [facility] 2020-01-20 14:21:00 2020-01-20 14:21:00 Outpatient [facility] [id number] [facility] 2020-01-15 14:55:00 2020-01-15 14:55:00 Outpatient [facility] [employer] [id number] [facility] 2019-12-28 11:59:45 2019-12-28 16:55:00 Emergency Demian Young [address]2.840.114 350.1.13.10 4.2.7.2.686 [id number] [facility] 2019-12-28 11:59:45 2019-12-28 16:55:00 Emergency X HECTOR DEMIAN [facility] ERT [id number] [facility] 2019-12-28 11:59:45 2019-12-28 16:55:00 Emergency Demian Young [address]2.840.114 350.1.13.10 4.2.7.2.686 [id number] 2019-12-28 10:58:00 2019-12-28 10:58:[address] [facility] [id number] [facility] 2019-12-28 00:00:00 2019-12-28 00:00:00 Orders Only Doctor Unassigned, [place] [facility] 1.2.840.114 350.1.13.10 4.2.7.2.686 [id number] [facility] 2019-12-28 00:00:00 2019-12-28 00:00:00 Orders Only Doctor Unassigned, [place] [facility] 1.2.840.114 350.1.13.10 4.2.7.2.686 [id number] 2019-11-11 10:51:25 2019-11-11 12:46:00 Emergency X NICO BONILLA [facility] ERT [id number] [facility] 2019-09-11 08:24:00 2019-09-11 08:24:[address] [facility] [id number] [facility] 2019-09-07 15:20:00 2019-09-07 15:20:[address] [facility] [id number] [facility] 2019-07-29 13:22:00 2019-07-29 13:22:[address] [facility] [id number] [facility] 2019-06-26 09:56:00 2019-06-26 09:56:00 [address] [facility] [id number] [facility] 2019-06-25 15:20:00 2019-06-25 15:20:[address] [facility] [address] [facility] [id number] [facility] 2019-06-04 05:22:14 2019-06-04 06:49:00 Emergency Jordon Craig [facility] 1..840.114 350.1.13.10 4.2.7.2.686 [id number] [facility] 2019-06-04 05:22:14 2019-06-04 06:49:00 Emergency Jordon Craig [facility] 1.2.840.114 350.1.13.10 4.2.7.2.686 [id number] 2019-02-16 16:00:00 2019-02-16 16:00:00 [facility] [id number] [facility] Results Test Description Test Time Test Comments Results Result Co mments Source [facility] WITH [id number] 14:24:31* Test Item Value Reference Range Interpretation Comme nts WBC (test code = 6690-2) See_Comment [Automated messa ge] The system which generated this result transmitted reference range: 4.20 - 10.70 10*3/?L. The reference range was not used to interpret this result as normal/abnormal. RBC (test code = 789-8) See_Comment [Automated messa ge] The system which generated this result transmitted reference range: 4.26 - 5.52 10*6/?L. The reference range was not used to interpret this result as normal/abnormal. HGB (test code = 718-7) 15.3 g/dL 12.2-16.4 HCT (test code = 4544-3) 42.1 % 38.4-49.3 MCV (test code = 787-2) 85.6 fL 81.7-95.6 MCH (test code = 785-6) 31.1 pg 26.1-32.7 MCHC (test code = 786-4) 36.3 g/dL 31.2-35.0 H RDW-SD (test code = 83291-1) 39.0 fL 38.5-51.6 RDW-CV (test code = 788-0) 12.7 % 12.1-15.4 PLT (test code = 777-3) See_Comment L [Automated messa ge] The system which generated this result transmitted reference range: 150 - 328 10*3/?L. The reference range was not used to interpret this result as normal/abnormal. MPV (test code = 61412-3) 8.4 fL 9.8-13.0 L IPF % (test code = 6650231598) 0.9 % 1.2-10.7 L Platelet count measured by fluorescence method. NRBC/100 WBC (test code = 6806430709) See_Comment [Automated me ssage] The system which generated this result transmitted reference range: 0.0 - 10.0 /100 WBCs. The reference range was not used to interpret this result as normal/abnormal. NRBC x10^3 (test code = 8079860442) See_Comment [Automated messa ge] The system which generated this result transmitted reference range: 10*3/?L. The reference range was not used to interpret this result as normal/abnormal. GRAN MAT (NEUT) % (test code = 770-8) 53.8 % IMM GRAN % (test code = 0992774144) 0.80 % LYMPH % (test code = 736-9) 31.2 % MONO % (test code = 5905-5) 11.4 % EOS % (test code = 713-8) 1.9 % BASO % (test code = 706-2) 0.9 % GRAN MAT x10^3(ANC) (test code = 4693414206) 5.30 10*3/uL 1.99-6.95 IMM GRAN x10^3 (test code = 1046956112) 0.08 10*3/uL 0.00-0.06 H LYMPH x10^3 (test code = 731-0) 3.08 10*3/uL 1.09-3.23 MONO x10^3 (test code = 742-7) 1.13 10*3/uL 0.36-1.02 H EOS x10^3 (test code = 711-2) 0.19 10*3/uL 0.06-0.53 BASO x10^3 (test code = 704-7) 0.09 10*3/uL 0.01-0.09 Lab Interpretation (test code = 11904-3) [id number] 14:24:31* Test Item Value Reference Range Interpretation Comme nts NT-proBNP (test code = 8920659648) 82 pg/mL See_Comment [Automated message] The system which generated this result transmitted reference range: <=125. The reference range was not used to interpret this result as normal/abnormal. KAYY (test code = KAYY) Biotin has been reported to cause a negative bias, interpret results relative to patient's use of biotin. Lab Interpretation (test code = 64201-1) Normal [facility]. METABOLIC PANEL (09319)2022-10-31 14:16:16* Test Item Value Reference Range Interpretation Comme nts NA (test code = 6833838932) 140 mmol/L 135-145 K (test code = 2709095479) 3.8 mmol/L 3.5-5.0 CL (test code = 1596675995) 108 mmol/L 98-108 CO2 TOTAL (test code = 8090222305) 25 mmol/L 23-31 AGAP (test code = 4811963531) 2-16 BUN (test code = 0933114940) 12 mg/dL 7-23 GLUCOSE (test code = 6268776376) 117 mg/dL 70-110 H CREATININE (test code = 0630721939) 0.92 mg/dL 0.60-1.25 TOTAL BILI (test code = 3368729557) 0.9 mg/dL 0.1-1.1 CALCIUM (test code = 0162733176) 8.2 mg/dL 8.6-10.6 L T PROTEIN (test code = 6479313851) 6.5 g/dL 6.3-8.2 ALBUMIN (test code = 3854918747) 3.8 g/dL 3.5-5.0 ALK PHOS (test code = 9951898467) 59 U/L 34-122 ALTv (test code = 1742-6) 64 U/L 5-50 H AST(SGOT) (test code = 9377880376) 37 U/L 13-40 eGFR (test code = 4581086358) mL/min/1.73m2 KAYY (test code = KAYY) Association of [...] imaging tests). Lab Interpretation (test code = 86096-0) [facility] [id number] 21:04:461. ?No urinary system calculi. No hydronephrosis. [...] without intravenous contrast. Nosignificant abdominal aortic atherosclerotic ca lcifications. Lymph Nodes: No lymphadenopathy. ? Pelvic Organs: [...] No hydronephrosis. 2. Stranding and hyperemia within l eft lower quadrant mesentery. These arenonspecific findings and appearance may be exaggerated due to volumeaveraging. Findings may represent hyperemia related to mild enteritis.3. Additional findingsas above.[facility] [id number] 18:46:00* Test Item Value Reference Range Interpretation Comme nts NA (test code = 3944099222) 139 mmol/L 135-145 K (test code = 9724602167) 3.7 mmol/L 3.5-5 CL (test code = 1539759730) 104 mmol/L 98-108 CO2 TOTAL (test code = 6991012017) 27 mmol/L 23-31 AGAP (test code = 9968990271) 2-16 BUN (test code = 0944446730) 16 mg/dL 7-23 GLUCOSE (test code = 7424147649) 94 mg/dL 70-110 CREATININE (test code = 2576027099) 1.06 mg/dL 0.6-1.25 TOTAL BILI (test code = 5080787305) 1.3 mg/dL 0.1-1.1 H CALCIUM (test code = 2024890322) 9.2 mg/dL 8.6-10.6 T PROTEIN (test code = 0515337233) 7.4 g/dL 6.3-8.2 ALBUMIN (test code = 7153144495) 4.2 g/dL 3.5-5 ALK PHOS (test code = 8721254331) 49 U/L 34-122 ALTv (test code = 1742-6) 33 U/L 5-50 AST(SGOT) (test code = 3102903327) 33 U/L 13-40 eGFR Calculation (Non-) (test code = 1357036730) mL/min/1.73m2 eGFR Calculation () (test code = 4814744451) mL/min/1.73m2 KAYY (test code = KAYY) Association of [...] imaging tests). Lab Interpretation (test code = 02695-6) [facility]normal [facility] HospitalLip[facility], [id number] 18:46:00* Test Item Value Reference Range Interpretation Comme nts LIPASE (test code = 1449799818) 174 U/L 0-220 Lab Interpretation (test cod e = 25344-4) Normal [facility]inalysis2020-[facility] 18:41:00* Test Item Value Reference Range Interpretation Comme nts APPEARANCE (test code = 9161775016) Clear Clear COLOR (test code = 0419128558) Yellow Yellow PH (test code = 4047325023) 4.8-8.0 SP GRAVITY (test code = 1830530027) 1.003-1.030 GLU U QUAL (test code = 6634000473) Normal Normal BLOOD (test code = 4319029794) 2+ Negative A KETONES (test code = 8048545728) Negative Negative PROTEIN (test code = 2887-8) 100 mg/dL Negative A UROBILIN (test code = 8812335343) Normal Normal BILIRUBIN (test code = 5596262067) Negative Negative NITRITE (test code = 5449849215) Negative Negative LEUK ANNA (test code = 5847188587) Negative Negative RBC/HPF (test code = 9165845382) See_Comment H [Automated messa ge] The system which generated this result transmitted reference range: 0 - 3 HPF. The reference range was not used to interpret this result as normal/abnormal. WBC/HPF (test code = 2171689905) See_Comment [Automated messa ge] The system which generated this result transmitted reference range: 0 - 5 HPF. The reference range was not used to interpret this result as normal/abnormal. BACTERIA (test code = 2862986176) Few Negative A MUCOUS (test code = 7708843758) Slight Negative LPF A HYAL CAST (test code = 7795723998) See_Comment H [Automated messa ge] The system which generated this result transmitted reference range: <=2 LPF. The reference range was not used to interpret this result as normal/abnormal. Lab Interpretation (test code = 93472-3) Abnormal [facility] WITH [id number] 18:29:00* Test Item Value Reference Range Interpretation Comme nts WBC (test code = 6690-2) See_Comment H [Automated messa ge] The system which generated this result transmitted reference range: 4.20 - 10.70 10*3/?L. The reference range was not used to interpret this result as normal/abnormal. RBC (test code = 789-8) See_Comment H [Automated messa ge] The system which generated this result transmitted reference range: 4.26 - 5.52 10*6/?L. The reference range was not used to interpret this result as normal/abnormal. HGB (test code = 718-7) 17.2 g/dL 12.2-16.4 H HCT (test code = 4544-3) 50.2 % 38.4-49.3 H MCV (test code = 787-2) 87.3 fL 81.7-95.6 MCH (test code = 785-6) 29.9 pg 26.1-32.7 MCHC (test code = 786-4) 34.3 g/dL 31.2-35 RDW-SD (test code = 30537-8) 39.5 fL 38.5-51.6 RDW-CV (test code = 788-0) 12.4 % 12.1-15.4 PLT (test code = 777-3) See_Comment [Automated [employer]] The system which generated this result transmitted reference range: 150 - 328 10*3/?L. The reference range was not used to interpret this result as normal/abnormal. MPV (test code = 18855-6) 8.6 fL 9.8-13 L NRBC/100 WBC (test code = 3856086983) See_Comment [Automated untapt ssage] The system which generated this result transmitted reference range: 0.0 - 10.0 /100 WBCs. The reference range was not used to interpret this result as normal/abnormal. NRBC x10^3 (test code = 1885396835) <0.01 See_Comment [Automated [employer]] The system which generated this result transmitted reference range: 10*3/?L. The reference range was not used to interpret this result as normal/abnormal. GRAN MAT (NEUT) % (test code = 770-8) 58.6 % IMM GRAN % (test code = 8564174350) 0.50 % LYMPH % (test code = 736-9) 26.9 % MONO % (test code = 5905-5) 10.1 % EOS % (test code = 713-8) 3.2 % BASO % (test code = 706-2) 0.7 % GRAN MAT x10^3(ANC) (test code = 3544733480) 7.58 10*3/uL 1.99-6.95 H IMM GRAN x10^3 (test code = 6469156999) 0.06 10*3/uL 0-0.06 LYMPH x10^3 (test code = 731-0) 3.48 10*3/uL 1.09-3.23 H MONO x10^3 (test code = 742-7) 1.30 10*3/uL 0.36-1.02 H EOS x10^3 (test code = 711-2) 0.42 10*3/uL 0.06-0.53 BASO x10^3 (test code = 704-7) 0.09 10*3/uL 0.01-0.09 Lab Interpretation (test code = 88796-2) [facility] (27989)2019-06-04 11:45:00* Test Item Value Reference Range Interpretation Comme nts NA (test code = 2597501981) 144 mmol/L 135-145 K (test code = 2651846823) 3.3 mmol/L 3.5-5 L CL (test code = 5483258916) 103 mmol/L 98-108 CO2 TOTAL (test code = 3106924582) 29 mmol/L 23-31 AGAP (test code = 4736387261) 2-16 BUN (test code = 6484633446) 17 mg/dL 7-23 GLUCOSE (test code = 9517015675) 126 mg/dL 70-110 H CREATININE (test code = 2908481321) 1.30 mg/dL 0.6-1.25 H TOTAL BILI (test code = 0065403550) 1.1 mg/dL 0.1-1.1 CALCIUM (test code = 2780473417) 9.3 mg/dL 8.6-10.6 T PROTEIN (test code = 6315439119) 8.0 g/dL 6.3-8.2 ALBUMIN (test code = 8058193339) 4.5 g/dL 3.5-5 ALK PHOS (test code = 0969829888) 66 U/L 34-122 ALT(SGPT) (test code = 9477379037) 215 U/L 9-51 H AST(SGOT) (test code = 9380793199) 114 U/L 13-40 H eGFR Calculation (Non-) (test code = 0499381207) mL/min/1.73m2 eGFR Calculation () (test code = 8233443518) mL/min/1.73m2 KAYY (test code = KAYY) Association of [...] imaging tests). Lab Interpretation (test code = 08749-5) Abnormal [facility] WITH [id number] 11:30:00* Test Item Value Reference Range Interpretation Comme nts WBC (test code = 6690-2) See_Comment H [Automated ELENZA] The system which generated this result transmitted reference range: 4.20 - 10.70 10*3/?L. The reference range was not used to interpret this result as normal/abnormal. RBC (test code = 789-8) See_Comment [ELIKE] The system which generated this result transmitted reference range: 4.26 - 5.52 10*6/?L. The reference range was not used to interpret this result as normal/abnormal. HGB (test code = 718-7) 16.9 g/dL 12.2-16.4 H HCT (test code = 4544-3) 46.9 % 38.4-49.3 MCV (test code = 787-2) 86.5 fL 81.7-95.6 MCH (test code = 785-6) 31.2 pg 26.1-32.7 MCHC (test code = 786-4) 36.0 g/dL 31.2-35 H RDW-SD (test code = 02452-0) 39.8 fL 38.5-51.6 RDW-CV (test code = 788-0) 12.9 % 12.1-15.4 PLT (test code = 777-3) See_Comment [Automated messa ge] The system which generated this result transmitted reference range: 150 - 328 10*3/?L. The reference range was not used to interpret this result as normal/abnormal. MPV (test code = 10581-0) 8.7 fL 9.8-13 L NRBC/100 WBC (test code = 4293094592) See_Comment [Automated untapt ssage] The system which generated this result transmitted reference range: 0.0 - 10.0 /100 WBCs. The reference range was not used to interpret this result as normal/abnormal. NRBC x10^3 (test code = 4451334093) <0.01 See_Comment [Automated [employer]] The system which generated this result transmitted reference range: 10*3/?L. The reference range was not used to interpret this result as normal/abnormal. GRAN MAT (NEUT) % (test code = 770-8) 55.4 % IMM GRAN % (test code = 2056282086) 0.90 % LYMPH % (test code = 736-9) 27.9 % MONO % (test code = 5905-5) 11.8 % EOS % (test code = 713-8) 3.0 % BASO % (test code = 706-2) 1.0 % GRAN MAT x10^3(ANC) (test code = 1452770270) 6.33 10*3/uL 1.99-6.95 IMM GRAN x10^3 (test code = 2481530717) 0.10 10*3/uL 0-0.06 H LYMPH x10^3 (test code = 731-0) 3.18 10*3/uL 1.09-3.23 MONO x10^3 (test code = 742-7) 1.35 10*3/uL 0.36-1.02 H EOS x10^3 (test code = 711-2) 0.34 10*3/uL 0.06-0.53 BASO x10^3 (test code = 704-7) 0.11 10*3/uL 0.01-0.09 H Lab Interpretation (test code = 24394-5) [facility]"
--- NOTE | 2023-11-13 16:33 | ER ---
Nurse's Notes [facility] Name: Javid Carver Age: 48 yrs Sex: Male : 1975 Arrival Date: 11/13/2023 Time: 15:12 Bed IW2 Private MD: Diagnosis: SARS-associated coronavirus as the cause of diseases classified elsewhere Presentation: 11/13 15:26 Chief complaint: Patient states: COUGH CONGESTION SINCE YESTERDAY COUGHING UP MUCOUS. db Coronavirus screen: Vaccine status: Patient reports being unvaccinated. Client denies travel out of the [place] in the last 14 days. At this time, the client does not indicate any symptoms associated with coronavirus-19. Ebola Screen: Patient negative for fever greater than or equal to 101.5 degrees Fahrenheit, and additional compatible Ebola Virus Disease symptoms Patient denies exposure to infectious person. Patient denies travel to an Ebola-affected area in the 21 days before illness onset. No symptoms or risks identified at this time. Initial Sepsis Screen: Does the patient meet any 2 criteria? No. Patient's initial sepsis screen is negative. Does the patient have a suspected source of infection? No. Patient's initial sepsis screen is negative. Risk Assessment: Do you want to hurt yourself or someone else? Patient reports no desire to harm self or others. Onset of symptoms was November 12, 2023. 15:26 Method Of Arrival: Ambulatory db 15:26 Acuity: ALEJANDRA 4 db Triage Assessment: 15:28 General: Appears in no apparent distress. comfortable, Behavior is calm, cooperative. db Pain: Complains of pain in chest. Neuro: Level of Consciousness is awake, alert, obeys commands, Oriented to person, place, time, situation. Respiratory: Reports cough that is Airway is patent Respiratory effort is even, unlabored, Respiratory pattern is regular, symmetrical. Historical: - Allergies: 15:28 No Known Allergies; db - Home Meds: 15:32 Metoprolol Tartrate Oral [Active]; Norvasc 10 mg Oral tab 1 tab once daily [Active]; db - PMHx: 15:28 acid reflux; Hypertension; db - Immunization history:: Adult Immunizations unknown. - Social history:: Smoking status: Reported history of juuling and/or vaping. Assessment: 16:43 Reassessment: No changes from previously documented assessment. Patient and/or family ll1 updated on plan of care and expected duration. Pain level reassessed. Vital Signs: 15:26 BP 133 / 86; Pulse 80; Resp 18; Temp 97.8; Pulse Ox 96% on R/A; Weight 104.33 kg; db Height 5 ft. 9 in. ; 15:26 Body Mass Index 33.97 (104.33 kg, 175.26 cm) db ED Course: 15:17 Patient arrived in ED. mg5 15:18 Regine Tobar FNP-C is [facility]. kb 15:18 Primo Azevedo MD is Attending Physician. kb 15:28 Triage completed. db 15:28 Arm band placed on right wrist. Patient placed in waiting room. db 15:34 Flu Sent. db 15:34 COVID-19 SARS RT PCR Sent. db 15:34 Strep Sent. db Administered Medications: 16:44 Drug: Ondansetron Oral Disintegrating Tablet Oral Disintegrating Tablet 4 mg PO once ll1 Route: PO; 17:00 Follow up: Response: No adverse reaction ll1 Outcome: 16:33 Discharge ordered by . kb 16:44 Patient left the ED. ll1 16:44 Discharged to home ambulatory, ll1 16:44 Condition: stable 16:44 Discharge instructions given to patient, Instructed on discharge instructions, follow up and referral plans. medication usage, Demonstrated understanding of instructions, follow-up care, medications, Prescriptions given X 1, Signatures: Regine Tobar FNP-C FNP-Ckb Lewis, Lynsay, RN RN ll1 Vikki Stokes RN RN db Parul Dowd mg5 Corrections: (The following items were deleted from the chart) 15:28 15:26 BP 133 / 86; Pulse 80bpm; Resp 18bpm; Temp 97.8F; 104.33 kg; Height 5 ft. 9 in.; db BMI: 33.9; db
--- NOTE | 2023-11-13 16:33 | EDPHYS ---
Physician Documentation [facility] Name: Javid Carver Age: 48 yrs Sex: Male : 1975 Arrival Date: 11/13/2023 Time: 15:12 Bed IW2 Private MD: ED Physician Primo Azevedo HPI: 11/13 16:29 This 48 yrs old Male presents to ER via Ambulatory with complaints of Flu Symptoms. kb 16:29 Pt is a 48 year old male who presents for cough, congestion, bodyaches, chills, fever, kb nausea and vomiting that started yesterday morning. States symptoms increased last night. Reports and kids had the flu last week. . Historical: - Allergies: 15:28 No Known Allergies; db - Home Meds: 15:32 Metoprolol Tartrate Oral [Active]; Norvasc 10 mg Oral tab 1 tab once daily [Active]; db - PMHx: 15:28 acid reflux; Hypertension; db - Immunization history:: Adult Immunizations unknown. - Social history:: Smoking status: Reported history of juuling and/or vaping. ROS: 16:25 Abdomen/GI: Negative for abdominal pain, nausea, vomiting, diarrhea, and constipation, kb 16:25 Constitutional: Positive for body aches, chills, fatigue, fever, malaise, 16:25 ENT: Positive for rhinorrhea, sinus congestion, sore throat, 16:25 Respiratory: Positive for cough, 16:25 Abdomen/GI: Positive for nausea and vomiting, 16:25 All other systems are negative, Exam: 16:26 Constitutional: This is a well developed, well nourished patient who is awake, alert, kb and in no acute distress. Head/Face: Normocephalic, atraumatic. ENT: Moist Mucous membranes Cardiovascular: Regular rate Respiratory: Respirations even and unlabored. No increased work of breathing. Talking in full sentences Abdomen/GI: Soft, non-tender. No distention Skin: Warm, dry with normal turgor. Normal color. MS/ Extremity: Pulses equal, no cyanosis. Neurovascular intact. Full, normal range of motion. Neuro: Awake and alert, GCS 15, oriented to person, place, time, and situation. Moves all extremities. Normal gait. Vital Signs: 15:26 BP 133 / 86; Pulse 80; Resp 18; Temp 97.8; Pulse Ox 96% on R/A; Weight 104.33 kg; db Height 5 ft. 9 in. ; 15:26 Body Mass Index 33.97 (104.33 kg, 175.26 cm) db MDM: 15:18 Patient medically screened. kb 16:29 Data reviewed: vital signs, nurses notes. kb 16:32 Differential Diagnosis: Other flu, covid, uri, strep. I considered the following kb discharge prescriptions or medication management in the emergency department I discussed and recommended Over The Counter medications, Antibiotics: At this time antibiotics are not recommended, Antivirals: At this time, antivirals are not recommended. Counseling: I had a detailed discussion with the patient and/or guardian regarding the historical points, exam findings, and any diagnostic results supporting the discharge/admit diagnosis, lab results, the need for outpatient follow up, a family practitioner, to return to the emergency department if symptoms worsen or persist or if there are any questions or concerns that arise at home. 11/13 15:30 Order name: Flu; Complete Time: 16:21 11/13 15:30 Order name: COVID-19 SARS RT PCR; Complete Time: 16:28 11/13 15:30 Order name: Strep 11/13 16:12 Order name: Throat Culture EDMS Administered Medications: 16:44 Drug: Ondansetron Oral Disintegrating Tablet Oral Disintegrating Tablet 4 mg PO once ll1 Route: PO; 17:00 Follow up: Response: No adverse reaction ll1 Disposition: 17:56 Co-signature as Attending Physician, Primo Azevedo MD I reviewed the patient's care rn provided by the Advanced Practice Provider and agree with the diagnosis and treatment plan. Disposition Summary: 11/13/23 16:33 Discharge Ordered Notes: Location: Home kb Condition: Stable kb Diagnosis - SARS-associated coronavirus as the cause of diseases classified elsewhere kb Followup: kb - With: Emergency Department - When: As needed - Reason: Worsening of condition Followup: kb - With: Private Physician - When: 2 - 3 days - Reason: Recheck today's complaints, Continuance of care, Re-evaluation by your physician Discharge Instructions: - Discharge Summary Sheet kb - COVID-19 kb - Viral Illness, Adult kb Forms: - Work release form kb - Medication Reconciliation Form kb - Thank You Letter kb - Antibiotic Education kb - Prescription Opioid Use kb - Patient Portal Instructions kb - Leadership Thank You Letter kb Prescriptions: - Zofran 4 mg Oral tablet - take 1 tablet ORAL route every 6 hours As needed; 10 tablet; Refills: 0, kb Product Selection Permitted Signatures: Dispatcher [employer] Regine Fernández, PROTOZOOLOGIST-C PROTOZOOLOGIST-Primo Jarrett MD MD rn Lewis, Lynsay RN RN ll1 Vikki Stokes RN RN db
[2023-11-13 18:23] VITALS: BP 133/86; TEMP 97.8; O2SAT 96
== END ==
LOC: ER 15:12
DX: U07.1 COVID-19 (principal); I10 Essential (primary) hypertension
CPT/HCPCS: 87070; 87081; 87635; 87804 ×2; 99283; Q0162

== ENCOUNTER → 2024-01-28 | Emergency (ER) | payer BC, OTHER ==
[~2024-01-28] MED LIST changes: +KETOROLAC 30 MG/ML INJ ONE; +MORPHINE 4 MG/ML SYR ONE; +NA CHLORIDE 0.9% 1,000 ML ONE; -ONDANSETRON 4 MG (ODT) TAB ONE; +ONDANSETRON 4 MG/2 ML VIAL ONE
--- OUTSIDE RECORDS SUMMARY | 2024-01-28 21:18 | XMS REPORT | Continuity of Care Document ---
Author Name Unknown Address [address] [facility] [address] [place] [address] [facility] Address [address] [facility] [address] [place] [address] Care Team Providers Care Provisioning Analyst Name Role Phone TIM VALDEZ Primary Care Physician Unavailab Neetu Beltran Attending Clinician Unavailab Tim Buenrostro L Attending Clinician Unavailable DEMIAN YOUNG Attending Clinician Unavailable Demian Noble Attending Clinician [phone] LISA BENITEZ Attending Clinician Unavailab Lisa Bragg DO Attending Clinician [phone] DAIANA ALDANA Attending Clinician UnavailDaiana Khan MD Attending Clinician [phone] Doctor Unassigned, Botines Attending Clinician U NICO Mckoen Attending Clinician Unavaila Jordon Phipps DO Attending Clinician [phone] DEMIAN YOUNG Admitting Clinician Unavailable DAIANA ALDANA Admitting Clinician UnavailNICO Espinoza Admitting Clinician Unavaila ble Payers Payer Name Policy Type Policy Number Effective Date Expirati on Date Source [facility] [id number] 2017 00:00:00 2023 00:00:00 Problems Condition Name Condition Details Condition Category Status Onset Date Resolution Date Last Treatment Date Treating Clinician Comments Source Gastroente ritis Gastroente ritis Disease Active 2021-11 00:00: 00 [facility] [id number] Gastroesop hageal reflux disease without esophagiti s Problem Active [facility] [id number] Seasonal allergic rhinitis, unspecifie d trigger Problem Active [facility] [id number] Moderate persistent reactive airway disease with acute exacerbati on Problem Active [facility] Obstructiv e sleep apnea Obstructiv e sleep apnea Problem Active [facility] [id number] Generalize d anxiety disorder Problem Active [facility] Alcoholism Alcoholism Problem Active [facility] [id number] HTN (hypertens ion), benign Problem Active [facility] Body mass index 30+ - obesity Adult BMI 30.0-30.9 kg/sq m Problem Active [facility] Chronic fatigue syndrome Chronic fatigue Problem Active [facility] Seasonal allergy Seasonal allergies Problem Active [facility] Tobacco abuse Tobacco abuse Problem [facility] Thrombocyt openia Thrombocyt openia, unspecifie d Problem [facility] Counseling about tobacco use Tobacco abuse counseling Problem [facility] No known active problems No known active problems Disease [facility] Allergies, Adverse Reactions, Alerts Allergy Name Allergy Type Status Severity Reaction(s) Onset Date Inactive Date Treating Clinician Comments Source Lisinopr il Propensi ty to adverse reaction s Active Cough 04-15 00:00: 00 [facility] LISINOPR IL DRUG INGREDI Active COUGH 04-15 00:00: 00 [facility] Social History Social Habit Start Date Stop Date Quantity Comments Source History of Tobacco Use [facility] Sex Assigned At [facility] to SARS-CoV-2 (event) 2022-10-21 00:00:00 2022-10-31 06:50:00 Not sure [facility] Smoking Status Start Date Stop Date Source Never Smoker [facility] Tobacco smoking consumption unknown [facility] Medications Ordered Medication Name Filled Medication Name Start Date Stop Date Current Medication? Ordering Clinician Indication Dosage Frequency Signature (SIG) Comments Components Source HYDROcodone -acetaminop hen (NORCO) 10-325 mg tablet 1 tablet 2022-11 22:00: 00 08-24 21:22 :00 No 1{tbl} 1 tablet, Oral, ONCE, 1 dose, On 08/24/23 at 1700, Routine [facility] indomethaci n 50 mg capsule 2022-11 00:00: 00 Yes [id number] 50mg Take 1 capsule by mouth in the morning and 1 capsule at noon and 1 capsule in the evening. Take with meals. [facility] colchicine, gout, 0.6 mg tablet 2022-11 00:00: 00 Yes [id number] Take 1 tablet followed by 2 tablets an hour later. [facility] lactulose (CEPHULAC) solution 30 mL 04-18 20:45: 00 04-18 20:49 :00 No 30mL 30 mL, Oral, ONCE, 1 dose, On Bing 04/18/23 at 1545, CONTRERAS [facility] aspirin tablet 325 mg 2021-11 15:00: 00 Yes 325mg 325 mg, Oral, DAILY, First dose on Sat10/31/22 at 0900, Until Discontinu ed, Routine [facility] ondansetron (ZOFRAN (PF)) injection 4 mg 2021-11 13:45: 00 10-31 13:51 :00 No 4mg 4 mg, Slow IV Push, ONCE, 1 dose, On Sat10/31/22 at 0745, CONTRERAS [facility] NaCl 0.9% (NS) bolus infusion 1,000 mL 2021-11 13:45: 00 10-31 15:28 :00 No 1000mL at 999 mL/hr, 1,000 mL, IV Infusion, ONCE, 1 dose, On Sat10/31/22 at 0745, STAT [facility] NICOLE CHEWABLE ASPIRIN ORAL 2021-11 09:18: 52 Yes 81mg Take 81 mg by mouth daily. [facility] NICOLE CHEWABLE ASPIRIN ORAL 2021-11 09:18: 52 Yes 81mg Take 81 mg by mouth daily. [facility] NICOLE CHEWABLE ASPIRIN ORAL 2021-11 09:18: 52 Yes 81mg Take 81 mg by mouth daily. [facility] aspirin 81 mg chewable tablet 2021-11 00:00: 00 11-16 05:59 :00 No [id number] 81mg Take 1 tablet by mouth in the morning for 15 days. [facility] ondansetron 4 mg disintegrat ing tablet 2021-11 00:00: 00 11-06 05:59 :00 No [id number] 4mg Take 1 tablet by mouth every 8 (eight) hours as needed for Nausea and Vomiting (N/V) for up to 5 days. [facility] morpHINE injection 4 mg 12-28 22:30: 00 12-28 21:23 :00 No 4mg 4 mg, Slow IV Push, ONCE, 1 dose, Sat12/28/19 at 1630, STAT [facility] ondansetron (ZOFRAN (PF)) injection 4 mg 12-28 22:30: 00 12-28 21:23 :00 No 4mg 4 mg, Slow IV Push, ONCE, 1 dose, Sat12/28/19 at 1630, CONTRERAS [facility] ketorolac (TORADOL) injection 30 mg 12-28 19:30: 00 12-28 18:26 :00 No 30mg 30 mg, Slow IV Push, ONCE, 1 dose, Sat12/28/19 at 1330, CONTRERAS
Fa culty member approving Restricted medication : DEMIAN YOUNG [facility] albuterol 90 mcg/actuati on inhaler 20200 -08 00:00: 00 Yes [id number] 2{puff} Inhale 2 Puffs every 4 (four) hours as needed for Wheezing or Shortness of Breath. [facility] benzonatate 100 mg capsule 0 - 00:00: 00 Yes [id number] 100mg Take 1 capsule by mouth 3 (three) times daily as needed for Cough. [facility] albuterol 90 mcg/actuati on inhaler 20200 - 00:00: 00 Yes [id number] 2{puff} Inhale 2 Puffs every 4 (four) hours as needed for Wheezing or Shortness of Breath. [facility] benzonatate 100 mg capsule 0 11-11 00:00: 00 Yes [id number] 100mg Take 1 capsule by mouth 3 (three) times daily as needed for Cough. [facility] albuterol 90 mcg/actuati on inhaler 0 11-11 00:00: 00 Yes [id number] 2{puff} Inhale 2 Puffs every 4 (four) hours as needed for Wheezing or Shortness of Breath. [facility] benzonatate 100 mg capsule 0 11-11 00:00: 00 Yes [id number] 100mg Take 1 capsule by mouth 3 (three) times daily as needed for Cough. [facility] albuterol 90 mcg/actuati on inhaler 20200 11-11 00:00: 00 Yes [id number] 2{puff} Inhale 2 Puffs every 4 (four) hours as needed for Wheezing or Shortness of Breath. [facility] benzonatate 100 mg capsule 0 11-11 00:00: 00 Yes [id number] 100mg Take 1 capsule by mouth 3 (three) times daily as needed for Cough. [facility] albuterol 90 mcg/actuati on inhaler 20200 -08 00:00: 00 Yes [id number] 2{puff} Inhale 2 Puffs every 4 (four) hours as needed for Wheezing or Shortness of Breath. [facility] benzonatate 100 mg capsule 0 1-08 00:00: 00 Yes [id number] 100mg Take 1 capsule by mouth 3 (three) times daily as needed for Cough. [facility] NaCl 0.9% (NS) bolus infusion 1,000 mL 06-04 11:45: 00 06-04 11:47 :00 No 1000mL at 999 mL/hr, 1,000 mL, IV Piggyback, ONCE, 1 dose, Bing 06/04/19 at 0645, STAT [facility] methylPREDN ISolone sodium succinate (SOLU-MEDRO L) injection 125 mg 06-04 11:00: 00 Yes 125mg 125 mg, Intravenou s, Q6H, First dose on Sat06/04/19 at 0600, Until Discontinu ed, Routine [facility] losartan 50 mg tablet 06-04 10:45: 10 Yes 50mg Take 50 mg by mouth daily. [facility] NICOLE CHEWABLE ASPIRIN ORAL 06-04 10:45: 10 Yes 81mg Take 81 mg by mouth daily. [facility] pantoprazol e 20 mg EC tablet 06-04 10:45: 10 Yes 20mg Take 20 mg by mouth daily. [facility] chlorthalid one 25 mg tablet 06-04 10:45: 10 Yes 25mg Take 25 mg by mouth daily. [facility] losartan 50 mg tablet 06-04 10:45: 10 Yes 50mg Take 50 mg by mouth daily. [facility] NICOLE CHEWABLE ASPIRIN ORAL 06-04 10:45: 10 Yes 81mg Take 81 mg by mouth daily. [facility] pantoprazol e 20 mg EC tablet 06-04 10:45: 10 Yes 20mg Take 20 mg by mouth daily. [facility] chlorthalid one 25 mg tablet 06-04 10:45: 10 Yes 25mg Take 25 mg by mouth daily. [facility] losartan 50 mg tablet 06-04 10:45: 10 Yes 50mg Take 50 mg by mouth daily. [facility] NICOLE CHEWABLE ASPIRIN ORAL 06-04 10:45: 10 Yes 81mg Take 81 mg by mouth daily. [facility] pantoprazol e 20 mg EC tablet 06-04 10:45: 10 Yes 20mg Take 20 mg by mouth daily. [facility] chlorthalid one 25 mg tablet 06-04 10:45: 10 Yes 25mg Take 25 mg by mouth daily. [facility] pantoprazol e 20 mg EC tablet 06-04 05:45: 10 Yes 20mg Take 20 mg by mouth daily. [facility] chlorthalid one 25 mg tablet 06-04 05:45: 10 Yes 25mg Take 25 mg by mouth daily. [facility] losartan 50 mg tablet 06-04 05:45: 10 Yes 50mg Take 50 mg by mouth daily. [facility] pantoprazol e 20 mg EC tablet 06-04 05:45: 10 Yes 20mg Take 20 mg by mouth daily. [facility] chlorthalid one 25 mg tablet 06-04 05:45: 10 Yes 25mg Take 25 mg by mouth daily. [facility] losartan 50 mg tablet 06-04 05:45: 10 Yes 50mg Take 50 mg by mouth daily. [facility] pantoprazol e 20 mg EC tablet 06-04 05:45: 10 Yes 20mg Take 20 mg by mouth daily. [facility] chlorthalid one 25 mg tablet 06-04 05:45: 10 Yes 25mg Take 25 mg by mouth daily. [facility] losartan 50 mg tablet 06-04 05:45: 10 Yes 50mg Take 50 mg by mouth daily. [facility] benzonatate 100 mg capsule 06-04 00:00: 00 Yes [id number] 100mg Take 1 capsule by mouth 3 (three) times daily as needed for Cough. [facility] methylPREDN ISolone (MEDROL, MC,) 4 mg tablets 06-04 00:00: 00 Yes [id number] Take by mouth SEE-INSTRU CTIONS. follow package directions [facility] chlorphenir amine 4 mg tablet 06-04 00:00: 00 Yes [id number] 4mg Take 1 tablet by mouth every 6 (six) hours as needed for Allergies or Runny nose. [facility] chlorphenir amine 4 mg tablet 06-04 00:00: 00 Yes [id number] 4mg Take 1 tablet by mouth every 6 (six) hours as needed for Allergies or Runny nose. [facility] benzonatate 100 mg capsule 06-04 00:00: 00 Yes [id number] 100mg Take 1 capsule by mouth 3 (three) times daily as needed for Cough. [facility] methylPREDN ISolone (MEDROL, MC,) 4 mg tablets 06-04 00:00: 00 Yes [id number] Take by mouth SEE-INSTRU CTIONS. follow package directions [facility] benzonatate 100 mg capsule 06-04 00:00: 00 Yes [id number] 100mg Take 1 capsule by mouth 3 (three) times daily as needed for Cough. [facility] methylPREDN ISolone (MEDROL, MC,) 4 mg tablets 06-04 00:00: 00 Yes [id number] Take by mouth SEE-INSTRU CTIONS. follow package directions [facility] chlorphenir amine 4 mg tablet 06-04 00:00: 00 Yes [id number] 4mg Take 1 tablet by mouth every 6 (six) hours as needed for Allergies or Runny nose. [facility] benzonatate 100 mg capsule 06-04 00:00: 00 Yes [id number] 100mg Take 1 capsule by mouth 3 (three) times daily as needed for Cough. [facility] methylPREDN ISolone (MEDROL, MC,) 4 mg tablets 06-04 00:00: 00 Yes [id number] Take by mouth SEE-INSTRU CTIONS. follow package directions [facility] chlorphenir amine 4 mg tablet 06-04 00:00: 00 Yes [id number] 4mg Take 1 tablet by mouth every 6 (six) hours as needed for Allergies or Runny nose. [facility] benzonatate 100 mg capsule 06-04 00:00: 00 Yes [id number] 100mg Take 1 capsule by mouth 3 (three) times daily as needed for Cough. [facility] methylPREDN ISolone (MEDROL, MC,) 4 mg tablets 06-04 00:00: 00 Yes [id number] Take by mouth SEE-INSTRU CTIONS. follow package directions [facility] chlorphenir amine 4 mg tablet 06-04 00:00: 00 Yes [id number] 4mg Take 1 tablet by mouth every 6 (six) hours as needed for Allergies or Runny nose. [facility] benzonatate 100 mg capsule 06-04 00:00: 00 Yes [id number] 100mg Take 1 capsule by mouth 3 (three) times daily as needed for Cough. [facility] methylPREDN ISolone (MEDROL, MC,) 4 mg tablets 06-04 00:00: 00 Yes [id number] Take by mouth SEE-INSTRU CTIONS. follow package directions [facility] chlorphenir amine 4 mg tablet 06-04 00:00: 00 Yes [id number] 4mg Take 1 tablet by mouth every 6 (six) hours as needed for Allergies or Runny nose. [facility] benzonatate 100 mg capsule 04-15 00:00: 00 06-04 00:00 :00 No 100mg Take 1 capsule by mouth 3 (three) times daily as needed for Cough. [facility] Flonase 50 MCG/ACT Flonase 50 [...] Protonix Protonix Yes Na Valdez 1 tablet [facility] BusPIRone HCl BusPIRone HCl Yes Na Valdez 1 tablet [facility] Metoprolol Tartrate Metoprolol Tartrate Yes Na Valdez 1.5 tablets with food [facility] amLODIPine Besylate 5 MG amLODIPine Besylate 5 [...] Pneumovax (PPSV23) Pneumovax (PPSV23) 2018-01-01 09:44:00 Completed [facility] Adacel (Tdap) Adacel (Tdap) 2018-01-01 09:44:00 Completed [facility] Pneumovax (PPSV23) Pneumovax (PPSV23) 2018-01-01 09:44:00 Completed [facility] Adacel (Tdap) Adacel (Tdap) 2018-01-01 09:44:00 Completed [facility] Pneumovax (PPSV23) Pneumovax (PPSV23) 2018-01-01 09:44:00 Completed [facility] Adacel (Tdap) Adacel (Tdap) 2018-01-01 09:44:00 Completed [facility] Pneumovax (PPSV23) Pneumovax (PPSV23) Unknown Completed [facility] Adacel (Tdap) Adacel (Tdap) Unknown Completed [facility] Pneumovax (PPSV23) Pneumovax (PPSV23) Unknown Completed [facility] Adacel (Tdap) Adacel (Tdap) Unknown Completed [facility] Vital Signs Vital Name Observation Time Observation Value Comments S ource Systolic blood pressure 2023-08-24 20:16:00 130 mm[Hg] [facility] Diastolic blood pressure 2023-08-24 20:16:00 96 mm[Hg] [facility] Heart rate 2023-08-24 20:16:00 69 /min [facility] Body temperature 2023-08-24 20:16:00 36.89 [facility] Respiratory rate 2023-08-24 20:16:00 18 /min [facility] Body height 2023-08-24 20:16:00 175.3 cm [facility] Body weight 2023-08-24 20:16:00 107.956 kg [facility] BMI 2023-08-24 20:16:00 35.15 kg/m2 [facility] Oxygen saturation in Arterial blood by Pulse oximetry 2023-08-24 20:16:00 99 /min [facility] Systolic blood pressure 2023-04-18 20:27:00 146 mm[Hg] [facility] Diastolic blood pressure 2023-04-18 20:27:00 99 mm[Hg] [facility] Heart rate 2023-04-18 20:27:00 65 /min [facility] Body temperature 2023-04-18 20:27:00 36.5 [facility] Respiratory rate 2023-04-18 20:27:00 18 /min [facility] Body height 2023-04-18 20:27:00 175.3 cm [facility] Body weight 2023-04-18 20:27:00 108.863 kg [facility] BMI 2023-04-18 20:27:00 35.44 kg/m2 [facility] Oxygen saturation in Arterial blood by Pulse oximetry 2023-04-18 20:27:00 97 /min [facility] Systolic blood pressure 2022-10-31 12:52:00 145 mm[Hg] [facility] Diastolic blood pressure 2022-10-31 12:52:00 104 mm[Hg] [facility] Heart rate 2022-10-31 12:52:00 71 /min [facility] Body temperature 2022-10-31 12:52:00 36.61 [facility] Respiratory rate 2022-10-31 12:52:00 18 /min [facility] Body height 2022-10-31 12:52:00 175.3 cm [facility] Body weight 2022-10-31 12:52:00 108.863 kg [facility] BMI 2022-10-31 12:52:00 35.44 kg/m2 [facility] Oxygen saturation in Arterial blood by Pulse oximetry 2022-10-31 12:52:00 99 /min [facility] Systolic blood pressure 2019-12-28 22:00:00 144 mm[Hg] [facility] Diastolic blood pressure 2019-12-28 22:00:00 105 mm[Hg] [facility] Heart rate 2019-12-28 22:00:00 64 /min [facility] Respiratory rate 2019-12-28 22:00:00 20 /min [facility] Oxygen saturation in Arterial blood by Pulse oximetry 2019-12-28 22:00:00 97 /min [facility] Body temperature 2019-12-28 17:58:00 36.56 [facility] Body height 2019-12-28 17:58:00 175.3 cm [facility] Body weight 2019-12-28 17:58:00 90.719 kg [facility] BMI 2019-12-28 17:58:00 29.53 kg/m2 [facility] Systolic blood pressure 2019-12-28 22:00:00 144 mm[Hg] [facility] Diastolic blood pressure 2019-12-28 22:00:00 105 mm[Hg] [facility] Heart rate 2019-12-28 22:00:00 64 /min [facility] Respiratory rate 2019-12-28 22:00:00 20 /min [facility] Oxygen saturation in Arterial blood by Pulse oximetry 2019-12-28 22:00:00 97 /min [facility] Body temperature 2019-12-28 17:58:00 36.56 [facility] Body height 2019-12-28 17:58:00 175.3 cm [facility] Body weight 2019-12-28 17:58:00 90.719 kg [facility] BMI 2019-12-28 17:58:00 29.53 kg/m2 [facility] Systolic blood pressure 2019-06-04 10:29:00 136 mm[Hg] [facility] Diastolic blood pressure 2019-06-04 10:29:00 102 mm[Hg] [facility] Heart rate 2019-06-04 10:29:00 103 /min [facility] Body temperature 2019-06-04 10:29:00 36.78 [facility] Respiratory rate 2019-06-04 10:29:00 20 /min [facility] Body height 2019-06-04 10:29:00 175.3 cm [facility] Body weight 2019-06-04 10:29:00 95.255 kg [facility] BMI 2019-06-04 10:29:00 31.01 kg/m2 [facility] Oxygen saturation in Arterial blood by Pulse oximetry 2019-06-04 10:29:00 96 /min [facility] Systolic blood pressure 2019-06-04 10:29:00 136 mm[Hg] [facility] Diastolic blood pressure 2019-06-04 10:29:00 102 mm[Hg] [facility] Heart rate 2019-06-04 10:29:00 103 /min [facility] Body temperature 2019-06-04 10:29:00 36.78 [facility] Respiratory rate 2019-06-04 10:29:00 20 /min [facility] Body height 2019-06-04 10:29:00 175.3 cm [facility] Body weight 2019-06-04 10:29:00 95.255 kg [facility] BMI 2019-06-04 10:29:00 31.01 kg/m2 [facility] Oxygen saturation in Arterial blood by Pulse oximetry 2019-06-04 10:29:00 96 /min [facility] Procedures Procedure Date / Time Performed Performing Clinician Source ASSIGNMENT OF BENEFITS 2023-08-24 22:10:13 Docto r Unassigned, Botines [facility] XR ANKLE 3+ VW LEFT 2023-08-24 20:54:52 Demian Young [facility] CONSENT/REFUSAL FOR DIAGNOSIS AND TREATMENT 2023-08-24 19:52:32 Doctor Unassigned, Botines [facility] ASSIGNMENT OF BENEFITS 2023-04-18 20:53:18 Docto r Unassigned, Botines [facility] CONSENT/REFUSAL FOR DIAGNOSIS AND TREATMENT 2023-04-18 20:24:58 Doctor Unassigned, Botines [facility] XR CHEST 2 VW 2022-10-31 14:04:07 [facility] 2022-10-31 13:50:00 Daiana Aldana [facility] COMP. METABOLIC PANEL ([id number]) 2022-10-31 13:50:00 Daiana Aldana [facility] CBC WITH DIFF 2022-10-31 13:50:00 [facility] 2022-10-31 13:50:00 Daiana Aldana [facility] COVID-19 (ID NOW RAPID TESTING) 2022-10-31 13:50:00 Daiana Aldana [facility] RAPID INFLUENZA A/B 2022-10-31 13:14:00 Lesia Aldana [facility] CONSENT/REFUSAL FOR DIAGNOSIS AND TREATMENT 2022-10-31 12:43:31 Doctor Unassigned, Botines [facility] CT ABDOMEN PELVIS WO CONTRAST 2019-12-28 20:01:17 Demian Young [facility] LIPASE 2019-12-28 18:10:00 Demian Young [facility] COMP. METABOLIC PANEL ([id number]) 2019-12-28 18:10:00 Demian Young [facility] CBC WITH DIFFERENTIAL 2019-12-28 18:10:00 Demian Young [facility] URINALYSIS 2019-12-28 18:10:00 Demian Young [facility] NOTICE OF PRIVACY PRACTICES 2019-12-28 17:54:35 Doctor Unassigned, Botines [facility] CONSENT/REFUSAL FOR DIAGNOSIS AND TREATMENT 2019-12-28 17:44:24 Doctor Unassigned, Botines [facility] COMP. METABOLIC PANEL ([id number]) 2019-06-04 10:49:00 Jordon Craig [facility] CBC WITH DIFFERENTIAL 2019-06-04 10:49:00 Yusef Craig [facility] XR CHEST 1 VW 2019-06-04 10:45:17 Jordon Craig [facility] NOTICE OF PRIVACY PRACTICES 2019-06-04 10:16:35 Doctor Unassigned, Botines [facility] Encounters Start Date/Time End Date/Time Encounter Type Admission Type Attending [facility] Care Department Encounter ID Source 2023-05-28 15:09:00 Outpatient Neetu Feng [facility] ST[facility] [id number] [facility] 2022-07-12 14:58:00 Outpatient Valdez, Na STLMLC ST[facility] [id number] [facility] 2022-06-29 11:19:00 Outpatient Valdez, Na STLMLC ST[facility] [id number] [facility] 2021-11-29 14:31:20 Outpatient Valdez, Na STLMLC ST[facility] [id number] [facility] 2021-11-29 14:30:49 Outpatient Valdez, Na STLMLC ST[facility]C [id number] [facility] 2021-11-29 12:43:32 Outpatient Derek Na STLMLC STL[facility]C [id number] [facility] 2021-11-29 11:34:10 Outpatient Tim Valdez STLML[facility] STL[facility] [id number] [facility] 2021-11-29 11:15:43 Outpatient Derek Na STLMLC STL[facility]C [id number] [facility] 2021-11-29 10:59:47 Outpatient Valdez, Na STLMLC ST[facility] [id number] [facility] 2021-11-29 10:57:56 Outpatient Derek Na STL[facility] STL[facility]C [id number] [facility] 2023-08-28 10:41:51 2023-08-28 10:41:51 Outpatient S[facility] [id number] Micky Buenrostro [place] 2023-08-27 09:30:18 2023-08-27 09:30:18 Outpatient SFA [facility] [id number] Micky Vega 2023-08-24 15:18:00 2023-08-24 18:43:00 Emergency X DEMIAN YOUNG [facility] [id number] [facility] 2023-08-24 15:18:00 2023-08-24 18:43:00 Emergency Demian Young [facility] [id number] [facility] 2023-05-25 13:34:20 2023-05-25 13:34:20 Outpatient [facility] [id number] Micky Vega 2023-05-02 13:12:06 2023-05-02 13:12:06 Outpatient SFA [facility] [id number] Micky Vega 2023-04-18 15:29:00 2023-04-18 16:13:00 Emergency X LISA BENITEZ [facility] ERT [id number] [facility] 2023-04-18 15:29:00 2023-04-18 16:13:00 Emergency Lisa Benitez [facility] [id number] 350.1.13.10 4.2.7.2.686 [id number] [facility] 2023-01-25 00:00:00 2023-01-25 00:00:00 (TEL) STLMLC STLMLC [id number] [facility] 2023-01-25 00:00:00 2023-01-25 00:00:00 (TEL) STLMLC STLMLC [id number] [facility] 2022-10-31 06:54:00 2022-10-31 09:29:00 Emergency X DAIANA ALDANA [facility] ERT [id number] [facility] 2022-10-31 06:54:00 2022-10-31 09:29:00 Emergency Daiana Aldana [facility] [id number] 350.1.13.10 4.2.7.2.686 [id number] [facility] 2022-06-29 00:00:00 2022-06-29 00:00:00 (TEL) STLMLC STLMLC [id number] [facility] 2022-06-28 00:00:00 2022-06-28 00:00:00 (TEL) STLMLC STLMLC [id number] [facility] 2021-11-09 00:00:00 2021-11-09 00:00:00 OFFICE VISIT ESTAB PT LEVEL 4 STLMLC STLMLC [id number] [facility] 2021-02-01 00:00:00 2021-02-01 00:00:00 Outpatient STLMLC STLMLC [id number] [facility] 2020-06-03 13:40:00 2020-06-03 13:40:00 [facility] [employer] [id number] [facility] 2020-01-20 14:21:00 2020-01-20 14:21:00 [facility] [employer] [id number] [facility] 2020-01-15 14:55:00 2020-01-15 14:55:00 [facility] [employer] [id number] [facility] 2019-12-28 11:59:45 2019-12-28 16:55:00 Emergency Demian Young [address]2.840.114 350.1.13.10 4.2.7.2.686 [id number] [facility] 2019-12-28 11:59:45 2019-12-28 16:55:00 Emergency X HECTOR DEMIAN [facility] ERT [id number] [facility] 2019-12-28 11:59:45 2019-12-28 16:55:00 Emergency Demian Young [address]2.840.114 350.1.13.10 4.2.7.2.686 [id number] 2019-12-28 10:58:00 2019-12-28 10:58:00 [facility] [id number] [facility] 2019-12-28 00:00:00 2019-12-28 00:00:00 Orders Only Doctor Unassigned, Botines [facility] 1.2.840.114 350.1.13.10 4.2.7.2.686 [id number] [facility] 2019-12-28 00:00:00 2019-12-28 00:00:00 Orders Only Doctor Unassigned, Botines [facility] 1.2.840.114 350.1.13.10 4.2.7.2.686 [id number] 2019-11-11 10:51:25 2019-11-11 12:46:00 Emergency X NICO BONILLA [facility] ERT [id number] [facility] 2019-09-11 08:24:00 2019-09-11 08:24:00 [facility] [id number] [facility] 2019-09-07 15:20:00 2019-09-07 15:20:00 [facility] [id number] [facility] 2019-07-29 13:22:00 2019-07-29 13:22:00 [facility] [id number] [facility] 2019-06-26 09:56:00 2019-06-26 09:56:00 [facility] [id number] [facility] 2019-06-25 15:20:00 2019-06-25 15:20:00 [facility] [address] [facility] [id number] [facility] 2019-06-04 05:22:14 2019-06-04 06:49:00 Emergency Jordon Craig [facility] 1..840.114 350.1.13.10 4.2.7.2.686 [id number] [facility] 2019-06-04 05:22:14 2019-06-04 06:49:00 Emergency Jordon Criag [facility] 1.2.840.114 350.1.13.10 4.2.7.2.686 [id number] 2019-02-16 16:00:00 2019-02-16 16:00:00 [facility] [id number] [facility] Results Test Description Test Time Test Comments Results Result Co mments Source [facility] WITH [id number] 14:24:31* Test Item Value Reference Range Interpretation [...] g/dL 31.2-35.0 H RDW-SD (test code = 32697-2) 39.0 fL 38.5-51.6 RDW-CV (test code = 788-0) 12.7 % 12.1-15.4 PLT (test code = 777-3) See_Comment L [Automated messa ge] The system which generated this result transmitted reference range: 150 - 328 10*3/?L. The reference range was not used to interpret this result as normal/abnormal. MPV (test code = 05396-3) 8.4 fL 9.8-13.0 L IPF % (test code = 7866437020) 0.9 % 1.2-10.7 L Platelet count measured by fluorescence method. NRBC/100 WBC (test code = 5285584447) See_Comment [Automated me ssage] The system which generated this result transmitted reference range: 0.0 - 10.0 /100 WBCs. The reference range was not used to interpret this result as normal/abnormal. NRBC x10^3 (test code = 2506572449) See_Comment [Automated messa ge] The system which generated this result transmitted reference range: 10*3/?L. The reference range was not used to interpret this result as normal/abnormal. GRAN MAT (NEUT) % (test code = 770-8) 53.8 % IMM GRAN % (test code = 7093307475) 0.80 % LYMPH % (test code = 736-9) 31.2 % MONO % (test code = 5905-5) 11.4 % EOS % (test code = 713-8) 1.9 % BASO % (test code = 706-2) 0.9 % GRAN MAT x10^3(ANC) (test code = 6502505982) 5.30 10*3/uL 1.99-6.95 IMM GRAN x10^3 (test code = 7265617541) 0.08 10*3/uL 0.00-0.06 H LYMPH x10^3 (test code = 731-0) 3.08 10*3/uL 1.09-3.23 MONO x10^3 (test code = 742-7) 1.13 10*3/uL 0.36-1.02 H EOS x10^3 (test code = 711-2) 0.19 10*3/uL 0.06-0.53 BASO x10^3 (test code = 704-7) 0.09 10*3/uL 0.01-0.09 Lab Interpretation (test code = 60256-9) Abnormal [facility] [id number] 14:24:31* Test Item Value Reference Range Interpretation Comme nts NT-proBNP (test code = 0004394581) 82 pg/mL See_Comment [Automated message] The system which generated this result transmitted reference range: <=125. The reference range was not used to interpret this result as normal/abnormal. KAYY (test code = KAYY) Biotin has been reported to cause a negative bias, interpret results relative to patient's use of biotin. Lab Interpretation (test code = 60489-9) Normal [facility]. METABOLIC PANEL (69822)2022-10-31 14:16:16* Test Item Value Reference Range Interpretation Comme nts NA (test code = 3416035703) 140 mmol/L 135-145 K (test code = 6576937408) 3.8 mmol/L 3.5-5.0 CL (test code = 4245320424) 108 mmol/L 98-108 CO2 TOTAL (test code = 7832956214) 25 mmol/L 23-31 AGAP (test code = 4135242494) 2-16 BUN (test code = 5108031709) 12 mg/dL 7-23 GLUCOSE (test code = 3449985812) 117 mg/dL 70-110 H CREATININE (test code = 7162538793) 0.92 mg/dL 0.60-1.25 TOTAL BILI (test code = 2293187976) 0.9 mg/dL 0.1-1.1 CALCIUM (test code = 2804281779) 8.2 mg/dL 8.6-10.6 L T PROTEIN (test code = 2442347568) 6.5 g/dL 6.3-8.2 ALBUMIN (test code = 3767006031) 3.8 g/dL 3.5-5.0 ALK PHOS (test code = 4241241208) 59 U/L 34-122 ALTv (test code = 1742-6) 64 U/L 5-50 H AST(SGOT) (test code = 8260867820) 37 U/L 13-40 eGFR (test code = 0219503474) mL/min/1.73m2 KAYY (test code = KAYY) Association [...] imaging tests). Lab Interpretation (test code = 06973-4) Abnormal [facility] PELVIS WO [id number] 21:04:461. ?No urinary system calculi. No hydronephrosis. [...] hyperemia related to mild enteritis.3. Additional findingsas above.[facility] CenterComplete Metabolic [id number] 18:46:00* Test Item Value Reference Range Interpretation Comme nts NA (test code = 0550066466) 139 mmol/L 135-145 K (test code = 5727308160) 3.7 mmol/L 3.5-5 CL (test code = 1554279745) 104 mmol/L 98-108 CO2 TOTAL (test code = 6632767175) 27 mmol/L 23-31 AGAP (test code = 1102916060) 2-16 BUN (test code = 4752529429) 16 mg/dL 7-23 GLUCOSE (test code = 6360714871) 94 mg/dL 70-110 CREATININE (test code = 2317710852) 1.06 mg/dL 0.6-1.25 TOTAL BILI (test code = 7649793898) 1.3 mg/dL 0.1-1.1 H CALCIUM (test code = 8146169566) 9.2 mg/dL 8.6-10.6 T PROTEIN (test code = 3430423893) 7.4 g/dL 6.3-8.2 ALBUMIN (test code = 8644592476) 4.2 g/dL 3.5-5 ALK PHOS (test code = 9811408298) 49 U/L 34-122 ALTv (test code = 1742-6) 33 U/L 5-50 AST(SGOT) (test code = 6686602901) 33 U/L 13-40 eGFR Calculation (Non-) (test code = 3553233848) mL/min/1.73m2 eGFR Calculation () (test code = 5898786202) mL/min/1.73m2 KAYY (test code = KAYY) Association [...] imaging tests). Lab Interpretation (test code = 65206-1) Abnormal [facility] CenterLipase, [id number] 18:46:00* Test Item Value Reference Range Interpretation Comme nts LIPASE (test code = 4281275313) 174 U/L 0-220 Lab Interpretation (test cod e = 19684-3) Normal [facility] CenterUrinalysis2020-02-24 18:41:00* Test Item Value Reference Range Interpretation Comme nts APPEARANCE (test code = 6111545714) Clear Clear COLOR (test code = 7286735782) Yellow Yellow PH (test code = 2389004495) 4.8-8.0 SP GRAVITY (test code = 3325070653) 1.003-1.030 GLU U QUAL (test code = 3867381191) Normal Normal BLOOD (test code = 4848071161) 2+ Negative A KETONES (test code = 1735649941) Negative Negative PROTEIN (test code = 2887-8) 100 mg/dL Negative A UROBILIN (test code = 8673576803) Normal Normal BILIRUBIN (test code = 9957482529) Negative Negative NITRITE (test code = 3025563957) Negative Negative LEUK ANNA (test code = 9730477916) Negative Negative RBC/HPF (test code = 2583386852) See_Comment H [Automated messa ge] The system which generated this result transmitted reference range: 0 - 3 HPF. The reference range was not used to interpret this result as normal/abnormal. WBC/HPF (test code = 0637575117) See_Comment [Automated messa ge] The system which generated this result transmitted reference range: 0 - 5 HPF. The reference range was not used to interpret this result as normal/abnormal. BACTERIA (test code = 2327868780) Few Negative A MUCOUS (test code = 5460513680) Slight Negative LPF A HYAL CAST (test code = 8534565139) See_Comment H [Automated messa ge] The system which generated this result transmitted reference range: <=2 LPF. The reference range was not used to interpret this result as normal/abnormal. Lab Interpretation (test code = 50523-5) Abnormal [facility] WITH [id number] 18:29:00* Test Item Value Reference Range Interpretation [...] 34.3 g/dL 31.2-35 RDW-SD (test code = 18051-1) 39.5 fL 38.5-51.6 RDW-CV (test code = 788-0) 12.4 % 12.1-15.4 PLT (test code = 777-3) See_Comment [Automated [employer] Laba ge] The system which generated this result transmitted reference range: 150 - 328 10*3/?L. The reference range was not used to interpret this result as normal/abnormal. MPV (test code = 60885-3) 8.6 fL 9.8-13 L NRBC/100 WBC (test code = 8192168678) See_Comment [Automated [employer] ssage] The system which generated this result transmitted reference range: 0.0 - 10.0 /100 WBCs. The reference range was not used to interpret this result as normal/abnormal. NRBC x10^3 (test code = 1734810781) <0.01 See_Comment [Automated Devign Laba ge] The system which generated this result transmitted reference range: 10*3/?L. The reference range was not used to interpret this result as normal/abnormal. GRAN MAT (NEUT) % (test code = 770-8) 58.6 % IMM GRAN % (test code = 5653641660) 0.50 % LYMPH % (test code = 736-9) 26.9 % MONO % (test code = 5905-5) 10.1 % EOS % (test code = 713-8) 3.2 % BASO % (test code = 706-2) 0.7 % GRAN MAT x10^3(ANC) (test code = 8140362439) 7.58 10*3/uL 1.99-6.95 H IMM GRAN x10^3 (test code = 2249233523) 0.06 10*3/uL 0-0.06 LYMPH x10^3 (test code = 731-0) 3.48 10*3/uL 1.09-3.23 H MONO x10^3 (test code = 742-7) 1.30 10*3/uL 0.36-1.02 H EOS x10^3 (test code = 711-2) 0.42 10*3/uL 0.06-0.53 BASO x10^3 (test code = 704-7) 0.09 10*3/uL 0.01-0.09 Lab Interpretation (test code = 07854-2) Abnormal [facility] Center[facility]. METABOLIC PANEL (85831)2019-06-04 11:45:00* Test Item Value Reference Range Interpretation Comme nts NA (test code = 0141456483) 144 mmol/L 135-145 K (test code = 2668059815) 3.3 mmol/L 3.5-5 L CL (test code = 5743955959) 103 mmol/L 98-108 CO2 TOTAL (test code = 1800631459) 29 mmol/L 23-31 AGAP (test code = 1207800457) 2-16 BUN (test code = 1946895233) 17 mg/dL 7-23 GLUCOSE (test code = 1470440417) 126 mg/dL 70-110 H CREATININE (test code = 8278185324) 1.30 mg/dL 0.6-1.25 H TOTAL BILI (test code = 9843295332) 1.1 mg/dL 0.1-1.1 CALCIUM (test code = 8743249731) 9.3 mg/dL 8.6-10.6 T PROTEIN (test code = 5783568779) 8.0 g/dL 6.3-8.2 ALBUMIN (test code = 5789059390) 4.5 g/dL 3.5-5 ALK PHOS (test code = 0466181379) 66 U/L 34-122 ALT(SGPT) (test code = 3648914404) 215 U/L 9-51 H AST(SGOT) (test code = 9330960198) 114 U/L 13-40 H eGFR Calculation (Non-) (test code = 9738760464) mL/min/1.73m2 eGFR Calculation () (test code = 2885470598) mL/min/1.73m2 KAYY (test code = KAYY) Association [...] imaging tests). Lab Interpretation (test code = 52992-2) Abnormal [facility] WITH [id number] 11:30:00* Test Item Value Reference Range Interpretation Comme nts WBC (test code = 6690-2) See_Comment H [Automated [employer]] The system which generated this result transmitted reference range: 4.20 - 10.70 10*3/?L. The reference range was not used to interpret this result as normal/abnormal. RBC (test code = 789-8) See_Comment [[employer] / [email or web address]] The system which generated this result transmitted [...] g/dL 31.2-35 H RDW-SD (test code = 93945-3) 39.8 fL 38.5-51.6 RDW-CV (test code = 788-0) 12.9 % 12.1-15.4 PLT (test code = 777-3) See_Comment [Automated messa ge] The system which generated this result transmitted reference range: 150 - 328 10*3/?L. The reference range was not used to interpret this result as normal/abnormal. MPV (test code = 92631-2) 8.7 fL 9.8-13 L NRBC/100 WBC (test code = 8431782508) See_Comment [Automated [employer] ssage] The system which generated this result transmitted reference range: 0.0 - 10.0 /100 WBCs. The reference range was not used to interpret this result as normal/abnormal. NRBC x10^3 (test code = 6589498984) <0.01 See_Comment [Automated Devign Laba ge] The system which generated this result transmitted reference range: 10*3/?L. The reference range was not used to interpret this result as normal/abnormal. GRAN MAT (NEUT) % (test code = 770-8) 55.4 % IMM GRAN % (test code = 5537720346) 0.90 % LYMPH % (test code = 736-9) 27.9 % MONO % (test code = 5905-5) 11.8 % EOS % (test code = 713-8) 3.0 % BASO % (test code = 706-2) 1.0 % GRAN MAT x10^3(ANC) (test code = 0545533289) 6.33 10*3/uL 1.99-6.95 IMM GRAN x10^3 (test code = 2963795440) 0.10 10*3/uL 0-0.06 H LYMPH x10^3 (test code = 731-0) 3.18 10*3/uL 1.09-3.23 MONO x10^3 (test code = 742-7) 1.35 10*3/uL 0.36-1.02 H EOS x10^3 (test code = 711-2) 0.34 10*3/uL 0.06-0.53 BASO x10^3 (test code = 704-7) 0.11 10*3/uL 0.01-0.09 H Lab Interpretation (test code = 35044-9) Abnormal [facility]"
[2024-01-28 22:00] LABS: Absolute Lymphocytes (CBC) 3.2 K/uL (0.7-4.9); Absolute Monocytes 1.3 K/uL (0.1-1.3); Basophils % 1.2 % (0-1.3); Hematocrit 44.8 % (39.6-49.0); Hemoglobin 15.7 g/dL (13.6-17.9); MPV 6.9 fL (7.6-11.3)
[2024-01-28 22:11] LABS: Specific Gravity 1.018 (1.005-1.030); Sqamous Epithelial <5 /HPF (None Seen); Urine Bacteria None Seen /HPF (<20); Urine Bilirubin NEGATIVE (Negative); Urine Blood 3+ (Negative); Urine Clarity Clear (Clear); Urine Color Yellow (Yellow); Urine Crystals Unidentified Few /HPF (None Seen); Urine Culture Reflex Order NOT NEEDED; Urine Glucose NEGATIVE (Negative); Urine Ketones NEGATIVE (Negative); Urine Microscopic Reflex YN ORDER UMIC; Urine Mucus Slight /HPF (None Seen); Urine Nitrite NEGATIVE (Negative); Urine Protein 2+ (Negative); Urine RBC >50 /HPF (None Seen); Urine Urobilinogen Normal (Normal); Urine WBC <5 /HPF (<5); Urine Yeast (Budding) Trace /HPF (None Seen)
[2024-01-28 22:15] LABS: Absolute Basophils 0.1 K/uL (0-0.5); Absolute Eosinophils 0.2 K/uL (0-0.5); Absolute Neutrophil 7.3 K/uL (1.8-8.0); Lymphocytes % 26.2 % (15.3-44.8); MCH 30.9 pg (27.0-35.0); MCV 88.2 fL (80-100); Monocytes % 11.1 % (3.3-12.3); Neutrophils % 59.5 % (41.7-73.7); Nucleated Red Blood Cells % 0.2 % (0-0); Platelets 130 thou/uL (152-406); RBC Red Blood Cell Count 5.07 M/uL (4.33-5.43); Red Cell Distribution Width 13.4 % (12.1-15.2)
--- NOTE | 2024-01-28 22:26 | RAD REPORT ---
EXAM DESCRIPTION: CT - Stone Protocol - 01/28/2024 10:20 pm CLINICAL HISTORY: Flank pain. FLANK PAIN COMPARISON: Abdomen Pelvis W Contrast dated 12/04/2016 TECHNIQUE: Axial images were obtained without oral or IV contrast. Lack of contrast limits solid org an and vascular assessment. The akexz-er-ltqh spans the entirety of the system partially obscuring uppermost abdomen and lung bases. Coronal reformatted images were obtained and reviewed. All CT scans are performed using dose optimization technique as appropriate and may include automated exposure control or mA/KV adjustment according to patient size. FINDINGS: The lower lung hart are clear. Imaged portions of the liver and spleen show no suspicious findings on non-contrast imaging. The panc reas and adrenal glands are normal. No pathologic lymphadenopathy in the abdomen or pelvis. Several right-sided renal calculi are present, largest in the right renal pelvis measuring 6 mm. No l eft-sided stone or hydronephrosis. No bowel obstruction, free air, free fluid or abscess. Normal appendix noted. No significant bony abnormality. IMPRESSION: Right nephrolithiasis without hydronephrosis.
[2024-01-28 22:59] LABS: Albumin 3.2 g/dL (3.4-5.0); Albumin/Globulin Ratio 0.9 (1.1-1.8); Anion Gap 8.1 mEq/L (5.0-15.0); Globulin 3.5 g/dL (2.3-3.5); Potassium 4.1 mEq/L (3.5-5.1); Protein, Total 6.7 g/dL (6.4-8.2)
--- NOTE | 2024-01-28 23:23 | ER ---
Nurse's Notes [facility] Name: Javid Carver Age: 48 yrs Sex: Male : 1975 Arrival Date: 01/28/2024 Time: 21:14 Bed 16 Private MD: Diagnosis: Calculus of kidney Presentation: 01/27 21:33 Coronavirus screen: At this time, the client does not indicate any symptoms associated as6 with coronavirus-19. Ebola Screen: No symptoms or risks identified at this time. Risk Assessment: Do you want to hurt yourself or someone else? Patient reports no desire to harm self or others. 21:33 Method Of Arrival: Ambulatory as6 21:33 Acuity: ALEJANDRA 3 as6 21:35 Chief complaint: Patient states: right sided flank pain that started yesterday and has as6 been worsening today. pt also reports n/v and difficulty urinating. Onset of symptoms was January 27, 2024. 21:58 Initial Sepsis Screen: Does the patient meet any 2 criteria? No. Patient's initial as6 sepsis screen is negative. Does the patient have a suspected source of infection? No. Patient's initial sepsis screen is negative. Historical: - Allergies: 21:36 Hydrocodone-Acetaminophen; as6 - Home Meds: 23:35 Norvasc 10 mg Oral tab 1 tab once daily [Active]; Metoprolol Tartrate Oral [Active]; tl4 - PMHx: 21:36 Hypertension; acid reflux; as6 - PSHx: 21:36 None; as6 - Immunization history:: Adult Immunizations up to date. - Social history:: Smoking status: Patient denies any tobacco usage or history of. Screenin:37 [facility] ED Fall Risk Assessment (Adult) History of falling in the last 3 months, as6 including since admission No falls in past 3 months (0 pts) Confusion or Disorientation No (0 pts) Intoxicated or Sedated No (0 pts) Impaired Gait No (0 pts) Mobility Assist Device Used No (0 pt) Altered Elimination No (0 pt) Score/Fall Risk Level 0 - 2 = Low Risk Oriented to surroundings, Maintained a safe environment, Educated pt \T\ family on fall prevention, incl call for assistance when getting out of bed, Assessed \T\ reinforced patient's understanding of fall precautions, Hourly rounding (assess needs \T\ fall precautionary measures) done. Abuse screen: Denies threats or abuse. Denies injuries from another. Nutritional screening: No deficits noted. Tuberculosis screening: No symptoms or risk factors identified. Assessment: 21:40 General: Appears uncomfortable, Behavior is calm, cooperative. Pain: Complains of pain as6 in right flank Pain radiates to right lower quadrant. Neuro: Level of Consciousness is awake, alert, obeys commands, Oriented to person, place, time, situation. Cardiovascular: Capillary refill < 3 seconds Patient's skin is warm and dry. Respiratory: Respiratory effort is even, unlabored, Respiratory pattern is regular, symmetrical. GI: Reports lower abdominal pain, nausea, vomiting. : Reports burning with urination, pain in right flank(s). EENT: No deficits noted. No signs and/or symptoms were reported regarding the EENT system. Derm: Skin is intact, is healthy with good turgor, Skin is dry. Musculoskeletal: Circulation, motion, and sensation intact. 22:53 Reassessment: Patient and/or family updated on plan of care and expected duration. Pain tl4 level reassessed. Patient is alert, oriented x 3, equal unlabored respirations, skin warm/dry/pink. Patient states symptoms have not improved. Vital Signs: 21:57 BP 137 / 92; Pulse 67; Resp 18 S; Temp 97.5(O); Pulse Ox 96% on R/A; Weight 104.33 kg as6 (R); Height 5 ft. 10 in. (R); Pain 8/10; 22:54 BP 131 / 87; Pulse 64; Resp 18; Pulse Ox 98% ; Pain 8/10; tl4 23:33 BP 134 / 94; Pulse 70; Resp 18; Temp 98.1(O); Pulse Ox 99% on R/A; Pain 0/10; tl4 21:57 Body Mass Index 33.00 (104.33 kg, 177.8 cm) as6 21:57 Pain Scale: Adult as6 22:54 Pain Scale: Adult tl4 23:33 Pain Scale: Adult tl4 ED Course: 21:17 Patient arrived in ED. mr 21:18 [facility] kb 21:18 Woody Chakraborty MD is Attending Physician. kb 21:33 Attila Paul, RN is Primary Nurse. as6 21:33 Triage completed. as6 21:33 Arm band placed on. as6 21:51 Urinalysis w/ reflexes Sent. as6 21:51 Lipase Sent. as6 21:52 CMP Sent. as6 21:52 CBC with Diff Sent. as6 21:58 Bed in low position. Call light in reach. Side rails up X 1. Client placed on as6 continuous cardiac and pulse oximetry monitoring. NIBP monitoring applied. 22:00 Initial lab(s) drawn, by me, sent to lab. Urine collected: clean catch specimen, clear. as6 Inserted saline lock: 20 gauge in left antecubital area, using aseptic technique. Blood collected. 22:22 CT Stone Protocol In Process Unspecified. EDMS 22:53 CMP Sent. tl4 22:53 Lipase Sent. tl4 23:34 No provider procedures requiring assistance completed. IV discontinued, intact, tl4 bleeding controlled, No redness/swelling at site. Pressure dressing applied. 23:35 Provided Education on: ED process. tl4 Administered Medications: 22:01 Drug: NS 0.9% IV 1000 ml IV at 1 bolus Per protocol; 1000 mL bolus Route: IV; Rate: 1 as6 bolus; Site: left antecubital; 23:36 Follow up: Response: No adverse reaction; IV Status: Infusion continued; IV Intake: tl4 1000ml 22:01 Drug: TORadol - Ketorolac IVP 15 mg IVP once Route: IVP; Site: left antecubital; as6 22:52 Follow up: Response: No adverse reaction; Pain is decreased tl4 22:01 Drug: Ondansetron IVP 4 mg IVP once; over 2 minutes Route: IVP; Site: left antecubital; as6 22:52 Follow up: Response: No adverse reaction; Nausea is decreased tl4 23:05 Drug: morphine IVP or IV 4 mg IVP once over 4 mins Route: IVP; Infused Over: 4 mins; tl4 Site: left antecubital; 23:36 Follow up: Response: No adverse reaction; Pain is decreased tl4 Medication: 21:37 VIS not applicable for this client. as6 Intake: 23:36 IV: 1000ml; Total: 1000ml. tl4 Outcome: 23:22 Discharge ordered by . kb 23:34 Discharged to home ambulatory, with family, tl4 23:34 Condition: stable 23:34 Discharge instructions given to patient, Instructed on discharge instructions, follow up and referral plans. medication usage, Demonstrated understanding of instructions, follow-up care, medications, Prescriptions given X 2, 23:36 Patient left the ED. tl4 Signatures: Dispatcher [employer] EDMS Regine Tobar, AUTO REPAIR SHOP MANAGER-C AUTO REPAIR SHOP MANAGER-CkAna Cristina Crow, Reg Reg mr Attila Paul RN RN as6 Bobby Anderson RN RN tl4
--- NOTE | 2024-01-28 23:23 | EDPHYS ---
Physician Documentation [facility] Name: Javid Carver Age: 48 yrs Sex: Male : 1975 Arrival Date: 01/28/2024 Time: 21:14 Bed 16 Private MD: ED Physician Woody Chakraborty HPI: 01/27 23:23 This 48 yrs old Male presents to ER via Ambulatory with complaints of Back Pain, Pain kb With Urination. 23:23 Patient is a 48-year-old male who presents for right flank pain that radiates to the kb right abdomen with difficulty urinating, dysuria and nausea. States pain started yesterday and got worse 1 hour prior to arrival. Denies fever.. Historical: - Allergies: 21:36 Hydrocodone-Acetaminophen; as6 - Home Meds: 23:35 Norvasc 10 mg Oral tab 1 tab once daily [Active]; Metoprolol Tartrate Oral [Active]; tl4 - PMHx: 21:36 Hypertension; acid reflux; as6 - PSHx: 21:36 None; as6 - Immunization history:: Adult Immunizations up to date. - Social history:: Smoking status: Patient denies any tobacco usage or history of. ROS: 23:23 Constitutional: As per HPI kb Exam: 23:23 Constitutional: This is a well developed, well nourished patient who is awake, alert, kb and in no acute distress. Head/Face: Normocephalic, atraumatic. ENT: Moist Mucous membranes Cardiovascular: Regular rate Respiratory: Respirations even and unlabored. No increased work of breathing. Talking in full sentences Abdomen/GI: Soft, non-tender. No distention Skin: Warm, dry with normal turgor. Normal color. MS/ Extremity: Pulses equal, no cyanosis. Neurovascular intact. Full, normal range of motion. Neuro: Awake and alert, GCS 15, oriented to person, place, time, and situation. Moves all extremities. Normal gait. 23:23 Back: CVA tenderness, that is moderate, is noted on the right, Vital Signs: 21:57 BP 137 / 92; Pulse 67; Resp 18 S; Temp 97.5(O); Pulse Ox 96% on R/A; Weight 104.33 kg as6 (R); Height 5 ft. 10 in. (R); Pain 8/10; 22:54 BP 131 / 87; Pulse 64; Resp 18; Pulse Ox 98% ; Pain 8/10; tl4 23:33 BP 134 / 94; Pulse 70; Resp 18; Temp 98.1(O); Pulse Ox 99% on R/A; Pain 0/10; tl4 21:57 Body Mass Index 33.00 (104.33 kg, 177.8 cm) as6 21:57 Pain Scale: Adult as6 22:54 Pain Scale: Adult tl4 23:33 Pain Scale: Adult tl4 MDM: 21:18 Patient medically screened. kb 23:24 Differential diagnosis: nephrolithiasis, pyelonephritis, UTI. Data reviewed: vital kb signs, nurses notes. Counseling: I had a detailed discussion with the patient and/or guardian regarding the historical points, exam findings, and any diagnostic results supporting the discharge/admit diagnosis, lab results, radiology results, the need for outpatient follow up, a urologist, to return to the emergency department if symptoms worsen or persist or if there are any questions or concerns that arise at home. 01/27 21:32 Order name: CBC with Diff; Complete Time: 22:19 kb 01/27 21:32 Order name: CMP; Complete Time: 23:03 kb 01/27 21:32 Order name: Lipase; Complete Time: 23:03 kb 01/27 21:32 Order name: Urinalysis w/ reflexes; Complete Time: 22:19 kb 01/27 21:32 Order name: CT Stone Protocol; Complete Time: 22:33 kb 01/27 21:32 Order name: IV Saline Lock; Complete Time: 21:52 kb 01/27 21:32 Order name: Labs collected and sent; Complete Time: 21:52 kb Administered Medications: 22:01 Drug: NS 0.9% IV 1000 ml IV at 1 bolus Per protocol; 1000 mL bolus Route: IV; Rate: 1 as6 bolus; Site: left antecubital; 23:36 Follow up: Response: No adverse reaction; IV Status: Infusion continued; IV Intake: tl4 1000ml 22:01 Drug: TORadol - Ketorolac IVP 15 mg IVP once Route: IVP; Site: left antecubital; as6 22:52 Follow up: Response: No adverse reaction; Pain is decreased tl4 22:01 Drug: Ondansetron IVP 4 mg IVP once; over 2 minutes Route: IVP; Site: left antecubital; as6 22:52 Follow up: Response: No adverse reaction; Nausea is decreased tl4 23:05 Drug: morphine IVP or IV 4 mg IVP once over 4 mins Route: IVP; Infused Over: 4 mins; tl4 Site: left antecubital; 23:36 Follow up: Response: No adverse reaction; Pain is decreased tl4 Disposition: 23:38 Co-signature as Attending Physician, Woody Chakraborty MD I agree with the assessment sp4 and plan of care. I reviewed the patient's care provided by the Advanced Practice Provider and agree with the diagnosis and treatment plan. Disposition Summary: 01/28/24 23:22 Discharge Ordered Notes: Location: Home kb Condition: Stable kb Diagnosis - Calculus of kidney kb Followup: kb - With: Emergency Department - When: As needed - Reason: Worsening of condition Followup: kb - With: Private Physician - When: 2 - 3 days - Reason: Recheck today's complaints, Continuance of care, Re-evaluation by your physician Discharge Instructions: - Discharge Summary Sheet kb - Kidney Stones, [id number] kb Forms: - Medication Reconciliation Form kb - Thank You Letter kb - Antibiotic Education kb - Prescription Opioid Use kb - Patient Portal Instructions kb - Leadership Thank You Letter kb Prescriptions: - Zofran 4 mg Oral tablet - take 1 tablet ORAL route every 6 hours As needed; 12 tablet; Refills: 0, kb Product Selection Permitted - Diclofenac Sodium 75 mg Oral tablet, delayed release (enteric coated) - take 1 tablet ORAL route 2 times per day As needed; 30 tablet; Refills: 0, kb Product Selection Permitted Signatures: Dispatcher [employer] Regine Fernández FNP-C FNP-Ckb Slawson, Ashby, RN RN as6 Woody Chakraborty MD MD sp4 Bobby Anderson RN RN tl4
[2024-01-28 23:47] VITALS: BP 134/94; TEMP 98.1; O2SAT 99
== END ==
LOC: ER 21:14
DX: N20.0 Calculus of kidney (principal); I10 Essential (primary) hypertension; Z88.5 Allergy status to narcotic agent
CPT/HCPCS: 96361; 85025; 81001; 36415; 83690; 80053; 76377; 74176; 96375; 96374; 99284; J2405; J7030

== ENCOUNTER 2024-04-25 22:29 | Emergency (ER) | payer OTHER ==
--- OUTSIDE RECORDS SUMMARY | 2024-04-25 22:35 | XMS REPORT | Continuity of Care Document ---
Author Name Unknown Address [address] [facility] [address] [place] [address] [facility] Address [address] [facility] [address] [place] [address] Care Team Providers Care Hr Administrator Name Role Phone TIM VALDEZ Primary Care Physician Unavailab Neetu Beltran Attending Clinician Unavailab Tim Buenrostro L Attending Clinician Unavailable DEMIAN YOUNG Attending Clinician Unavailable Demian Noble Attending Clinician [phone] LISA BENITEZ Attending Clinician Unavailab Lisa Bragg DO Attending Clinician [phone] DAIANA ALDANA Attending Clinician UnavailDaiana Khan MD Attending Clinician [phone] Doctor Unassigned, [place] Attending Clinician U NICO Mckeon Attending Clinician Unavaila Jordon Phipps DO Attending Clinician [phone] DEMIAN YOUNG Admitting Clinician Unavailable DAIANA ALDANA Admitting Clinician UnavailNICO Espinoza Admitting Clinician Unavaila ble Payers Payer Name Policy Type Policy Number Effective Date Expirati on Date Source [facility] [id number] 2017 00:00:00 2023 00:00:00 Problems Condition Name Condition Details Condition Category Status Onset Date Resolution Date Last Treatment Date Treating Clinician Comments Source Gastroente ritis Gastroente ritis Disease Active 2021-11 00:00: 00 [facility] [id number] Generalize d anxiety disorder Problem Active [facility] Alcoholism Alcoholism Problem Active [facility] [id number] HTN (hypertens ion), benign Problem Active [facility] Body mass index 30+ - obesity Adult BMI 30.0-30.9 kg/sq m Problem Active [facility] Chronic fatigue syndrome Chronic fatigue Problem Active [facility] Seasonal allergy Seasonal allergies Problem Active [facility] Tobacco abuse Tobacco abuse Problem [facility] Thrombocyt openia Thrombocyt openia, unspecifie d Problem [facility] Counseling about tobacco use Tobacco abuse counseling Problem [facility] No known active problems No known active problems Disease [facility] [id number] Gastroesop hageal reflux disease without esophagiti s Problem Active [facility] [id number] Seasonal allergic rhinitis, unspecifie d trigger Problem Active [facility] [id number] Moderate persistent reactive airway disease with acute exacerbati on Problem Active [facility] Obstructiv e sleep apnea Obstructiv e sleep apnea Problem Active [facility] Allergies, Adverse Reactions, Alerts Allergy Name Allergy Type Status Severity Reaction(s) Onset Date Inactive Date Treating Clinician Comments Source Lisinopr il Propensi ty to adverse reaction s Active Cough 04-15 00:00: 00 [facility] LISINOPR IL DRUG INGREDI Active COUGH 04-15 00:00: 00 [facility] Social History Social Habit Start Date Stop Date Quantity Comments Source History of Tobacco Use [facility] Sex Assigned At [facility] to SARS-CoV-2 (event) 2022-10-21 00:00:00 2022-10-31 06:50:00 Not sure [facility] Smoking Status Start Date Stop Date Source Never Smoker [facility] Tobacco smoking consumption unknown [facility] Medications Ordered Medication Name Filled Medication Name Start Date Stop Date Current Medication? Ordering Clinician Indication Dosage Frequency Signature (SIG) Comments Components Source HYDROcodone -acetaminop hen (NORCO) 10-325 mg tablet 1 tablet 2022-11 22:00: 00 08-24 21:22 :00 No 1{tbl} 1 tablet, Oral, ONCE, 1 dose, On 08/24/23 at 1700, Routine [facility] indomethaci n 50 mg capsule 2022-11 00:00: 00 Yes [id number] 50mg Take 1 capsule by mouth in the morning and 1 capsule at noon and 1 capsule in the evening. Take with meals. [facility] colchicine, gout, 0.6 mg tablet 2022-11 00:00: 00 Yes [id number] Take 1 tablet followed by 2 tablets an hour later. [facility] lactulose (CEPHULAC) solution 30 mL 04-18 20:45: 00 04-18 20:49 :00 No 30mL 30 mL, Oral, ONCE, 1 dose, On Bing 04/18/23 at 1545, CONTRERAS [facility] aspirin tablet 325 mg 2021-11 15:00: 00 Yes 325mg 325 mg, Oral, DAILY, First dose on Sat10/31/22 at 0900, Until Discontinu ed, Routine [facility] ondansetron (ZOFRAN (PF)) injection 4 mg 2021-11 13:45: 00 10-31 13:51 :00 No 4mg 4 mg, Slow IV Push, ONCE, 1 dose, On Sat10/31/22 at 0745, CONTRERAS [facility] NaCl 0.9% (NS) bolus infusion 1,000 mL 2021-11 13:45: 00 10-31 15:28 :00 No 1000mL at 999 mL/hr, 1,000 mL, IV Infusion, ONCE, 1 dose, On Sat10/31/22 at 0745, STAT [facility] NICOLE CHEWABLE ASPIRIN ORAL 2021-11 09:18: 52 Yes 81mg Take 81 mg by mouth daily. [facility] aspirin 81 mg chewable tablet 2021-11 00:00: 00 11-16 05:59 :00 No [id number] 81mg Take 1 tablet by mouth in the morning for 15 days. [facility] ondansetron 4 mg disintegrat ing tablet 2021-11 00:00: 00 11-06 05:59 :00 No [id number] 4mg Take 1 tablet by mouth every 8 (eight) hours as needed for Nausea and Vomiting (N/V) for up to 5 days. [facility] morpHINE injection 4 mg 12-28 22:30: 00 12-28 21:23 :00 No 4mg 4 mg, Slow IV Push, ONCE, 1 dose, Sat12/28/19 at 1630, STAT [facility] ondansetron (ZOFRAN (PF)) injection 4 mg 12-28 22:30: 00 12-28 21:23 :00 No 4mg 4 mg, Slow IV Push, ONCE, 1 dose, Sat12/28/19 at 1630, CONTRERAS [facility] ketorolac (TORADOL) injection 30 mg 12-28 19:30: 00 12-28 18:26 :00 No 30mg 30 mg, Slow IV Push, ONCE, 1 dose, Sat12/28/19 at 1330, CONTRERAS
Fa culty member approving Restricted medication : DEMIAN YOUNG [facility] albuterol 90 mcg/actuati on inhaler 1-08 00:00: 00 Yes [id number] 2{puff} Inhale 2 Puffs every 4 (four) hours as needed for Wheezing or Shortness of Breath. [facility] benzonatate 100 mg capsule 11-11 00:00: 00 Yes [id number] 100mg Take 1 capsule by mouth 3 (three) times daily as needed for Cough. [facility] NaCl 0.9% (NS) bolus infusion 1,000 mL 06-04 11:45: 00 06-04 11:47 :00 No 1000mL at 999 mL/hr, 1,000 mL, IV Piggyback, ONCE, 1 dose, Sat06/04/19 at 0645, STAT [facility] methylPREDN ISolone sodium succinate (SOLU-MEDRO L) injection 125 mg 06-04 11:00: 00 Yes 125mg 125 mg, Intravenou s, Q6H, First dose on Sat06/04/19 at 0600, Until Discontinu ed, Routine [facility] losartan 50 mg tablet 06-04 10:45: 10 Yes 50mg Take 50 mg by mouth daily. [facility] NICOLE CHEWABLE ASPIRIN ORAL 06-04 10:45: 10 Yes 81mg Take 81 mg by mouth daily. [facility] pantoprazol e 20 mg EC tablet 06-04 10:45: 10 Yes 20mg Take 20 mg by mouth daily. [facility] chlorthalid one 25 mg tablet 06-04 10:45: 10 Yes 25mg Take 25 mg by mouth daily. [facility] pantoprazol e 20 mg EC tablet 06-04 05:45: 10 Yes 20mg Take 20 mg by mouth daily. [facility] chlorthalid one 25 mg tablet 06-04 05:45: 10 Yes 25mg Take 25 mg by mouth daily. [facility] losartan 50 mg tablet 06-04 05:45: 10 Yes 50mg Take 50 mg by mouth daily. [facility] benzonatate 100 mg capsule 06-04 00:00: 00 Yes [id number] 100mg Take 1 capsule by mouth 3 (three) times daily as needed for Cough. [facility] methylPREDN ISolone (MEDROL, MC,) 4 mg tablets 06-04 00:00: 00 Yes [id number] Take by mouth SEE-INSTRU CTIONS. follow package directions [facility] chlorphenir amine 4 mg tablet 06-04 00:00: 00 Yes [id number] 4mg Take 1 tablet by mouth every 6 (six) hours as needed for Allergies or Runny nose. [facility] benzonatate 100 mg capsule 04-15 00:00: 00 06-04 00:00 :00 No 100mg Take 1 capsule by mouth 3 (three) times daily as needed for Cough. [facility] Flonase 50 MCG/ACT Flonase 50 MCG/ACT 02-25 [...] Na Valdez 1 tablet [facility] BusPIRone HCl BusPIRone HCl Yes Na Valdez 1 tablet [facility] Metoprolol Tartrate Metoprolol Tartrate Yes Na Valdez 1.5 tablets with food [facility] amLODIPine Besylate 5 MG amLODIPine Besylate 5 [...] 1{table t} TID busPIRone HCl 15 MG busPIRone HCl 15 MG busPIRone HCl [...] Pneumovax (PPSV23) Pneumovax (PPSV23) 2018-01-01 09:44:00 Completed [facility] Adacel (Tdap) Adacel (Tdap) 2018-01-01 09:44:00 Completed [facility] Pneumovax (PPSV23) Pneumovax (PPSV23) 2018-01-01 09:44:00 Completed [facility] Adacel (Tdap) Adacel (Tdap) 2018-01-01 09:44:00 Completed [facility] Pneumovax (PPSV23) Pneumovax (PPSV23) 2018-01-01 09:44:00 Completed [facility] Adacel (Tdap) Adacel (Tdap) 2018-01-01 09:44:00 Completed [facility] Pneumovax (PPSV23) Pneumovax (PPSV23) Unknown Completed [facility] Adacel (Tdap) Adacel (Tdap) Unknown Completed [facility] Pneumovax (PPSV23) Pneumovax (PPSV23) Unknown Completed [facility] Adacel (Tdap) Adacel (Tdap) Unknown Completed [facility] on [facility] Vital Signs Vital Name Observation Time Observation Value Comments S ource Systolic blood pressure 2023-08-24 20:16:00 130 mm[Hg] [facility] Diastolic blood pressure 2023-08-24 20:16:00 96 mm[Hg] [facility] Heart rate 2023-08-24 20:16:00 69 /min [facility] Body temperature 2023-08-24 20:16:00 36.89 Kamille [facility] Respiratory rate 2023-08-24 20:16:00 18 /min [facility] Body height 2023-08-24 20:16:00 175.3 cm [facility] Body weight 2023-08-24 20:16:00 107.956 [facility] BMI 2023-08-24 20:16:00 35.15 kg/m2 [facility] Oxygen saturation in Arterial blood by Pulse oximetry 2023-08-24 20:16:00 99 /min [facility] Systolic blood pressure 2023-04-18 20:27:00 146 mm[Hg] [facility] Diastolic blood pressure 2023-04-18 20:27:00 99 mm[Hg] [facility] Heart rate 2023-04-18 20:27:00 65 /min [facility] Body temperature 2023-04-18 20:27:00 36.5 Kamille [facility] Respiratory rate 2023-04-18 20:27:00 18 /min [facility] Body height 2023-04-18 20:27:00 175.3 cm [facility] Body weight 2023-04-18 20:27:00 108.863 kg [facility] BMI 2023-04-18 20:27:00 35.44 kg/m2 [facility] Oxygen saturation in Arterial blood by Pulse oximetry 2023-04-18 20:27:00 97 /min [facility] Systolic blood pressure 2022-10-31 12:52:00 145 mm[Hg] [facility] Diastolic blood pressure 2022-10-31 12:52:00 104 mm[Hg] [facility] Heart rate 2022-10-31 12:52:00 71 /min [facility] Body temperature 2022-10-31 12:52:00 36.61 Kamille [facility] Respiratory rate 2022-10-31 12:52:00 18 /min [facility] Body height 2022-10-31 12:52:00 [facility].3 [facility] 2022-10-31 12:52:00 108.863 kg [facility] BMI 2022-10-31 12:52:00 35.44 kg/m2 [facility] Oxygen saturation in Arterial blood by Pulse oximetry 2022-10-31 12:52:00 99 /min [facility] Systolic blood pressure 2019-12-28 22:00:00 144 mm[Hg] [facility] Diastolic blood pressure 2019-12-28 22:00:00 105 mm[Hg] [facility] Heart rate 2019-12-28 22:00:00 64 /min [facility] Respiratory rate 2019-12-28 22:00:00 20 /min [facility] Oxygen saturation in Arterial blood by Pulse oximetry 2019-12-28 22:00:00 97 /min [facility] Body temperature 2019-12-28 17:58:00 36.56 Kamille [facility] Body height 2019-12-28 17:58:00 175.3 cm [facility] Body weight 2019-12-28 17:58:00 90.719 kg [facility] BMI 2019-12-28 17:58:00 29.53 kg/m2 [facility] Systolic blood pressure 2019-12-28 22:00:00 144 mm[Hg] [facility] Diastolic blood pressure 2019-12-28 22:00:00 105 mm[Hg] [facility] Heart rate 2019-12-28 22:00:00 64 /min [facility] Respiratory rate 2019-12-28 22:00:00 20 /min [facility] Oxygen saturation in Arterial blood by Pulse oximetry 2019-12-28 22:00:00 97 /min [facility] Body temperature 2019-12-28 17:58:00 36.56 Kamille [facility] Body height 2019-12-28 17:58:00 175.3 cm [facility] Body weight 2019-12-28 17:58:00 90.719 kg [facility] BMI 2019-12-28 17:58:00 29.53 kg/m2 [facility] Systolic blood pressure 2019-06-04 10:29:00 136 mm[Hg] [facility] Diastolic blood pressure 2019-06-04 10:29:00 102 mm[Hg] [facility] Heart rate 2019-06-04 10:29:00 103 /min [facility] Body temperature 2019-06-04 10:29:00 36.78 Kamille [facility] Respiratory rate 2019-06-04 10:29:00 20 /min [facility] Body height 2019-06-04 10:29:00 175.3 cm [facility] Body weight 2019-06-04 10:29:00 95.255 kg [facility] BMI 2019-06-04 10:29:00 31.01 kg/m2 [facility] Oxygen saturation in Arterial blood by Pulse oximetry 2019-06-04 10:29:00 96 /min [facility] Systolic blood pressure 2019-06-04 10:29:00 136 mm[Hg] [facility] Diastolic blood pressure 2019-06-04 10:29:00 102 mm[Hg] [facility] Heart rate 2019-06-04 10:29:00 103 /min [facility] Body temperature 2019-06-04 10:29:00 36.78 Kamille [facility] Respiratory rate 2019-06-04 10:29:00 20 /min [facility] Body height 2019-06-04 10:29:00 175.3 cm [facility] Body weight 2019-06-04 10:29:00 95.255 kg [facility] BMI 2019-06-04 10:29:00 31.01 kg/m2 [facility] Oxygen saturation in Arterial blood by Pulse oximetry 2019-06-04 10:29:00 96 /min [facility] Procedures Procedure Date / Time Performed Performing Clinician Source ASSIGNMENT OF BENEFITS 2023-08-24 22:10:13 Docervin r Unassigned, Boyds [facility] XR ANKLE 3+ VW LEFT 2023-08-24 20:54:52 Demian Young [facility] CONSENT/REFUSAL FOR DIAGNOSIS AND TREATMENT 2023-08-24 19:52:32 Doctor Unassigned, [place] [facility] ASSIGNMENT OF BENEFITS 2023-04-18 20:53:18 Docto r Unassigned, [place] [facility] CONSENT/REFUSAL FOR DIAGNOSIS AND TREATMENT 2023-04-18 20:24:58 Doctor Unassigned, [place] [facility] XR CHEST 2 VW 2022-10-31 14:04:07 Daiana Ald[facility] 2022-10-31 13:50:00 Daiana Aldana [facility] COMP. METABOLIC PANEL ([id number]) 2022-10-31 13:50:00 Daiana Aldana [facility] CBC WITH DIFF 2022-10-31 13:50:00 [facility]-BNP 2022-10-31 13:50:00 Daiana Aldana [facility] COVID-19 (ID NOW RAPID TESTING) 2022-10-31 13:50:00 Daiana Aldana [facility] RAPID INFLUENZA A/B 2022-10-31 13:14:00 Lesia Aldana [facility] CONSENT/REFUSAL FOR DIAGNOSIS AND TREATMENT 2022-10-31 12:43:31 Doctor Unassigned, [place] [facility] CT ABDOMEN PELVIS WO CONTRAST 2019-12-28 20:01:17 Demian Young [facility] LIPASE 2019-12-28 18:10:00 Demian Young [facility] COMP. METABOLIC PANEL ([id number]) 2019-12-28 18:10:00 Demian Young [facility] CBC WITH DIFFERENTIAL 2019-12-28 18:10:00 Demian Young [facility] URINALYSIS 2019-12-28 18:10:00 Demian Young [facility] NOTICE OF PRIVACY PRACTICES 2019-12-28 17:54:35 Doctor Unassigned, [place] [facility] CONSENT/REFUSAL FOR DIAGNOSIS AND TREATMENT 2019-12-28 17:44:24 Doctor Unassigned, [place] [facility] COMP. METABOLIC PANEL ([id number]) 2019-06-04 10:49:00 Jordon Craig [facility] CBC WITH DIFFERENTIAL 2019-06-04 10:49:00 Yusef Craig [facility] XR CHEST 1 VW 2019-06-04 10:45:17 Jordon Craig [facility] NOTICE OF PRIVACY PRACTICES 2019-06-04 10:16:35 Doctor Unassigned, [place] [facility] Encounters Start Date/Time End Date/Time Encounter Type Admission Type Attending [facility] Care Department Encounter ID Source 2023-05-28 15:09:00 Out[facility] [id number] [facility] 2022-07-12 14:58:00 Outpatient Valdez, Na STLMLC ST[facility]C [id number] [facility] 2022-06-29 11:19:00 Outpatient Valdez, Na STLMLC ST[facility]C [id number] [facility] 2021-11-29 14:31:20 Outpatient Valdez, Na STLMLC STLMLC [id number] [facility] 2021-11-29 14:30:49 Outpatient Valdez, Na STLMLC STLMLC [id number] [facility] 2021-11-29 12:43:32 Outpatient Valdez, Na STLMLC STLMLC [id number] [facility] 2021-11-29 11:34:10 Outpatient Valdez, Na STLMLC STLMLC [id number] [facility] 2021-11-29 11:15:43 Outpatient Valdez, Na STLMLC STLMLC [id number] [facility] 2021-11-29 10:59:47 Outpatient Valdez, Na STLMLC STLMLC [id number] [facility] 2021-11-29 10:57:56 Outpatient Valdez, Na STLMLC STLMLC [id number] [facility] 2024-02-15 11:57:59 2024-02-15 11:57:59 Outpatient [facility] [id number] Micky Vega 2023-08-28 10:41:51 2023-08-28 10:41:51 Outpatient [facility] [id number] Micky Vega 2023-08-27 09:30:18 2023-08-27 09:30:18 Outpatient SFA [facility] [id number] Micky Vega 2023-08-24 15:18:00 2023-08-24 18:43:00 Emergency X DEMIAN YOUGN [facility] [id number] [facility] 2023-08-24 15:18:00 2023-08-24 18:43:00 Emergency Demian Young [facility] [id number] [facility] 2023-05-25 13:34:20 2023-05-25 13:34:20 Outpatient [facility] [id number] Micky Vega 2023-05-02 13:12:06 2023-05-02 13:12:06 Outpatient [facility] [id number] Micky Vega 2023-04-18 15:29:00 2023-04-18 16:13:00 Emergency X LISA BENITEZ [facility] ERT [id number] [facility] 2023-04-18 15:29:00 2023-04-18 16:13:00 Emergency Lisa Benitez [facility] [id number] [facility] 2023-01-25 00:00:00 2023-01-25 00:00:00 [facility] [id number] [facility] 2023-01-25 00:00:00 2023-01-25 00:00:00 (TEL) [facility] [id number] [facility] 2022-10-31 06:54:00 2022-10-31 09:29:00 Emergency X DAIANA ALDANA [facility] ERT [id number] [facility] 2022-10-31 06:54:00 2022-10-31 09:29:00 Emergency Daiana Aldana A [facility] [id number] [facility] 2022-06-29 00:00:00 2022-06-29 00:00:00 (TEL) [facility] [id number] [facility] 2022-06-28 00:00:00 2022-06-28 00:00:00 (TEL) STLMLC STLMLC [id number] [facility] 2021-11-09 00:00:00 2021-11-09 00:00:00 OFFICE VISIT ESTAB PT LEVEL 4 STLMLC STLMLC [id number] [facility] 2021-02-01 00:00:00 2021-02-01 00:00:00 Outpatient [facility] [id number] [facility] 2020-06-03 13:40:00 2020-06-03 13:40:00 [facility] [id number] [facility] 2020-01-20 14:21:00 2020-01-20 14:21:00 [facility] [id number] [facility] 2020-01-15 14:55:00 2020-01-15 14:55:00 [facility]patient [facility] [id number] [facility] 2019-12-28 11:59:45 2019-12-28 16:55:00 Emergency Demian Young [facility] [id number] [facility] 2019-12-28 11:59:45 2019-12-28 16:55:00 Emergency X DEMIAN YOUNG [facility] ERT [id number] [facility] 2019-12-28 11:59:45 2019-12-28 16:55:00 Emergency Demian Young [id number] 2019-12-28 10:58:00 2019-12-28 10:58:00 [facility] [id number] [facility] 2019-12-28 00:00:00 2019-12-28 00:00:00 Orders Only Doctor Unassigned, Boyds [facility] [id number] 2019-12-28 00:00:00 2019-12-28 00:00:00 Orders Only Doctor Unassigned, Boyds [facility] [id number] [facility] 2019-11-11 10:51:25 2019-11-11 12:46:00 Emergency NICO GONSALEZ [facility] ERT [id number] [facility] 2019-09-11 08:24:00 2019-09-11 08:24:00 [facility] [id number] [facility] 2019-09-07 15:20:00 2019-09-07 15:20:00 [facility] [id number] [facility] 2019-07-29 13:22:00 2019-07-29 13:22:00 [facility] [id number] [facility] 2019-06-26 09:56:00 2019-06-26 09:56:00 [facility] [id number] [facility] 2019-06-25 15:20:00 2019-06-25 15:20:00 [facility] [id number] [facility] 2019-06-04 05:22:14 2019-06-04 06:49:00 Emergency Jordon Craig [facility] [id number] 2019-06-04 05:22:14 2019-06-04 06:49:00 Emergency Jordon Craig [facility] [id number] [facility] 2019-02-16 16:00:00 2019-02-16 16:00:00 [facility] [id number] [facility] Results Test Description Test Time Test Comments Results Result Co mments Source LIPID [id number] 00:33:15* Test Item Value Reference Range Interpretation Comme nts CHOLESTEROL (test code = 2210) 95 MG/DL <200 TRIGLYCERIDES (test code = 2232) 62 MG/DL <150 HDL CHOLESTEROL (test code = 2220) 41 MG/DL >39 CALC LDL CHOL (test code = 2237) 40 MG/DL <100 NOTE: CALCULATED LDL IS BASED ON ERIC-BETTS METHOD WHICHINCLUDES ADJUSTABLE TRIGLYCERIDE:VLDL CHOLESTEROL RATIO.THIS FACTOR VARIES BY MEASURED TRIGLYCERIDE AND NON-HDLCHOLESTEROL CONCENTRATIONS WITH INCREASED CALCULATED LDL SEENIN HIGHER TRIGLYCERIDE OR LOWER NON-HDL SPECIMENS. FOR MOREINFORMATION, SEE CLIENT ANNOUNCEMENT AT [email or web address] RATIO LDL/HDL (test code = 2238) 0.98 RATIO <3.55 UNLESS OTHERW ISE INDICATED, ALL TESTING PERFORMED AT [facility] [address] [place] [address] BLOCKMASON: ELI DOE M.D. CLIA NUMBER [id number] [facility]. [id number] TROPONIN [id number] 14:27:53* Test Item Value Reference Range Interpretation Comments TROPONIN I (test code = 8685035598) 0.005 ng/mL See_Comment [Automated message] The system which generated this result transmitted reference range: <=0.034. The reference range was not used to interpret this result as normal/abnormal. KAYY (test code = KAYY) Reference (Normal) [...] of biotin. Lab Interpretation (test code = 06898-5) Normal [facility] WITH [id number] 14:24:31* Test Item Value Reference Range Interpretation Comme nts WBC (test code = 6690-2) See_Comment [Automated [employer]] The system which generated this result transmitted reference range: 4.20 - 10.70 10*3/?L. The reference range was not used to interpret this result as normal/abnormal. RBC (test code = 789-8) See_Comment [Automated [employer]] The system which generated this result transmitted [...] g/dL 31.2-35.0 H RDW-SD (test code = 42090-7) 39.0 fL 38.5-51.6 RDW-CV (test code = 788-0) 12.7 % 12.1-15.4 PLT (test code = 777-3) See_Comment L [Automated [employer]] The system which generated this result transmitted reference range: 150 - 328 10*3/?L. The reference range was not used to interpret this result as normal/abnormal. MPV (test code = 76375-5) 8.4 fL 9.8-13.0 L IPF % (test code = 5842278206) 0.9 % 1.2-10.7 L Platelet count measured by fluorescence method. NRBC/100 WBC (test code = 5735061827) See_Comment [Automated me ssage] The system which generated this result transmitted reference range: 0.0 - 10.0 /100 WBCs. The reference range was not used to interpret this result as normal/abnormal. NRBC x10^3 (test code = 5316444973) See_Comment [Automated messa ge] The system which generated this result transmitted reference range: 10*3/?L. The reference range was not used to interpret this result as normal/abnormal. GRAN MAT (NEUT) % (test code = 770-8) 53.8 % IMM GRAN % (test code = 7390799391) 0.80 % LYMPH % (test code = 736-9) 31.2 % MONO % (test code = 5905-5) 11.4 % EOS % (test code = 713-8) 1.9 % BASO % (test code = 706-2) 0.9 % GRAN MAT x10^3(ANC) (test code = 9487154205) 5.30 10*3/uL 1.99-6.95 IMM GRAN x10^3 (test code = 5345058789) 0.08 10*3/uL 0.00-0.06 H LYMPH x10^3 (test code = 731-0) 3.08 10*3/uL 1.09-3.23 MONO x10^3 (test code = 742-7) 1.13 10*3/uL 0.36-1.02 H EOS x10^3 (test code = 711-2) 0.19 10*3/uL 0.06-0.53 BASO x10^3 (test code = 704-7) 0.09 10*3/uL 0.01-0.09 Lab Interpretation (test code = 25893-6) [facility]normal [id number] 14:24:31* Test Item Value Reference Range Interpretation Comme nts NT-proBNP (test code = 8842820682) 82 pg/mL See_Comment [Automated message] The system which generated this result transmitted reference range: <=125. The reference range was not used to interpret this result as normal/abnormal. KAYY (test code = KAYY) Biotin has been reported to cause a negative bias, interpret results relative to patient's use of biotin. Lab Interpretation (test code = 94286-8) Normal [facility]. METABOLIC PANEL ([id number])2022-10-31 14:16:16* Test Item Value Reference Range Interpretation Comme nts NA (test code = 6036946504) 140 mmol/L 135-145 K (test code = 1280473592) 3.8 mmol/L 3.5-5.0 CL (test code = 5705486088) 108 mmol/L 98-108 CO2 TOTAL (test code = 3268115046) 25 mmol/L 23-31 AGAP (test code = 0618184218) 2-16 BUN (test code = 1500528017) 12 mg/dL 7-23 GLUCOSE (test code = 5330546836) 117 mg/dL 70-110 H CREATININE (test code = 1673688501) 0.92 mg/dL 0.60-1.25 TOTAL BILI (test code = 1576909608) 0.9 mg/dL 0.1-1.1 CALCIUM (test code = 1776397486) 8.2 mg/dL 8.6-10.6 L T PROTEIN (test code = 2202216224) 6.5 g/dL 6.3-8.2 ALBUMIN (test code = 9488109674) 3.8 g/dL 3.5-5.0 ALK PHOS (test code = 9271163463) 59 U/L 34-122 ALTv (test code = 1742-6) 64 U/L 5-50 H AST(SGOT) (test code = 2137417217) 37 U/L 13-40 eGFR (test code = 7174166024) mL/min/1.73m2 KAYY (test code = KAYY) Association [...] imaging tests). Lab Interpretation (test code = 84567-8) Abnormal [facility] WO [id number] 21:04:461. ?No urinary system calculi. No hydronephrosis. [...] hyperemia related to mild enteritis.3. Additional findingsas above.[facility] Metabolic [id number] 18:46:00* Test Item Value Reference Range Interpretation Comme nts NA (test code = 4552278503) 139 mmol/L 135-145 K (test code = 8194322985) 3.7 mmol/L 3.5-5 CL (test code = 6100023698) 104 mmol/L 98-108 CO2 TOTAL (test code = 1496919574) 27 mmol/L 23-31 AGAP (test code = 4027545822) 2-16 BUN (test code = 4879417762) 16 mg/dL 7-23 GLUCOSE (test code = 7301649499) 94 mg/dL 70-110 CREATININE (test code = 2168085125) 1.06 mg/dL 0.6-1.25 TOTAL BILI (test code = 6724738881) 1.3 mg/dL 0.1-1.1 H CALCIUM (test code = 6006523589) 9.2 mg/dL 8.6-10.6 T PROTEIN (test code = 5032212620) 7.4 g/dL 6.3-8.2 ALBUMIN (test code = 1117228553) 4.2 g/dL 3.5-5 ALK PHOS (test code = 8387231150) 49 U/L 34-122 ALTv (test code = 1742-6) 33 U/L 5-50 AST(SGOT) (test code = 9926564234) 33 U/L 13-40 eGFR Calculation (Non-) (test code = 4327916828) mL/min/1.73m2 eGFR Calculation () (test code = 2645781615) mL/min/1.73m2 KAYY (test code = KAYY) Association [...] imaging tests). Lab Interpretation (test code = 42182-7) Abnormal [facility], [id number] 18:46:00* Test Item Value Reference Range Interpretation Comme nts LIPASE (test code = 3982006092) 174 U/L 0-220 Lab Interpretation (test cod e = 09969-6) Normal [facility] Texas[facility]inalysis2020-02-24 18:41:00* Test Item Value Reference Range Interpretation Comme nts APPEARANCE (test code = 4714363239) Clear Clear COLOR (test code = 3087251762) Yellow Yellow PH (test code = 4136309324) 4.8-8.0 SP GRAVITY (test code = 7817665534) 1.003-1.030 GLU U QUAL (test code = 1671699157) Normal Normal BLOOD (test code = 1954575318) 2+ Negative A KETONES (test code = 6423859883) Negative Negative PROTEIN (test code = 2887-8) 100 mg/dL Negative A UROBILIN (test code = 2728712053) Normal Normal BILIRUBIN (test code = 8297144013) Negative Negative NITRITE (test code = 1464872916) Negative Negative LEUK ANNA (test code = 6800823991) Negative Negative RBC/HPF (test code = 6750092609) See_Comment H [Automated messa ge] The system which generated this result transmitted reference range: 0 - 3 HPF. The reference range was not used to interpret this result as normal/abnormal. WBC/HPF (test code = 6995016146) See_Comment [Automated messa ge] The system which generated this result transmitted reference range: 0 - 5 HPF. The reference range was not used to interpret this result as normal/abnormal. BACTERIA (test code = 8009211843) Few Negative A MUCOUS (test code = 8901753199) Slight Negative LPF A HYAL CAST (test code = 6616102365) See_Comment H [Automated messa ge] The system which generated this result transmitted reference range: <=2 LPF. The reference range was not used to interpret this result as normal/abnormal. Lab Interpretation (test code = 72241-8) Abnormal [facility] WITH [id number] 18:29:00* Test Item Value Reference Range Interpretation [...] 34.3 g/dL 31.2-35 RDW-SD (test code = 92076-3) 39.5 fL 38.5-51.6 RDW-CV (test code = 788-0) 12.4 % 12.1-15.4 PLT (test code = 777-3) See_Comment [Automated messa ge] The system which generated this result transmitted reference range: 150 - 328 10*3/?L. The reference range was not used to interpret this result as normal/abnormal. MPV (test code = 40394-0) 8.6 fL 9.8-13 L NRBC/100 WBC (test code = 3637794931) See_Comment [Automated [employer] ssage] The system which generated this result transmitted reference range: 0.0 - 10.0 /100 WBCs. The reference range was not used to interpret this result as normal/abnormal. NRBC x10^3 (test code = 0953717572) <0.01 See_Comment [Automated messa ge] The system which generated this result transmitted reference range: 10*3/?L. The reference range was not used to interpret this result as normal/abnormal. GRAN MAT (NEUT) % (test code = 770-8) 58.6 % IMM GRAN % (test code = 3743138945) 0.50 % LYMPH % (test code = 736-9) 26.9 % MONO % (test code = 5905-5) 10.1 % EOS % (test code = 713-8) 3.2 % BASO % (test code = 706-2) 0.7 % GRAN MAT x10^3(ANC) (test code = 5120179996) 7.58 10*3/uL 1.99-6.95 H IMM GRAN x10^3 (test code = 3809077784) 0.06 10*3/uL 0-0.06 LYMPH x10^3 (test code = 731-0) 3.48 10*3/uL 1.09-3.23 H MONO x10^3 (test code = 742-7) 1.30 10*3/uL 0.36-1.02 H EOS x10^3 (test code = 711-2) 0.42 10*3/uL 0.06-0.53 BASO x10^3 (test code = 704-7) 0.09 10*3/uL 0.01-0.09 Lab Interpretation (test code = 36925-4) Abnormal [facility] METABOLIC PANEL (15248)2019-06-04 11:45:00* Test Item Value Reference Range Interpretation Comme nts NA (test code = 2645630825) 144 mmol/L 135-145 K (test code = 1012767680) 3.3 mmol/L 3.5-5 L CL (test code = 8153286989) 103 mmol/L 98-108 CO2 TOTAL (test code = 9267484493) 29 mmol/L 23-31 AGAP (test code = 1169034662) 2-16 BUN (test code = 3922664683) 17 mg/dL 7-23 GLUCOSE (test code = 1091183039) 126 mg/dL 70-110 H CREATININE (test code = 4144673380) 1.30 mg/dL 0.6-1.25 H TOTAL BILI (test code = 6511354001) 1.1 mg/dL 0.1-1.1 CALCIUM (test code = 4356607226) 9.3 mg/dL 8.6-10.6 T PROTEIN (test code = 2656449513) 8.0 g/dL 6.3-8.2 ALBUMIN (test code = 8459743641) 4.5 g/dL 3.5-5 ALK PHOS (test code = 1750784697) 66 U/L 34-122 ALT(SGPT) (test code = 7886892069) 215 U/L 9-51 H AST(SGOT) (test code = 7356000561) 114 U/L 13-40 H eGFR Calculation (Non-) (test code = 2298523959) mL/min/1.73m2 eGFR Calculation () (test code = 2291722834) mL/min/1.73m2 KAYY (test code = KAYY) Association [...] imaging tests). Lab Interpretation (test code = 15509-9) Abnormal [facility] WITH [id number] 11:30:00* Test Item Value Reference Range Interpretation Comme nts WBC (test code = 6690-2) See_Comment H [SimpliVT] The system which generated this result transmitted reference range: 4.20 - 10.70 10*3/?L. The reference range was not used to interpret this result as normal/abnormal. RBC (test code = 789-8) See_Comment [SimpliVT] The system which generated this result transmitted [...] g/dL 31.2-35 H RDW-SD (test code = 41736-9) 39.8 fL 38.5-51.6 RDW-CV (test code = 788-0) 12.9 % 12.1-15.4 PLT (test code = 777-3) See_Comment [SimpliVT] The system which generated this result transmitted reference range: 150 - 328 10*3/?L. The reference range was not used to interpret this result as normal/abnormal. MPV (test code = 04601-4) 8.7 fL 9.8-13 L NRBC/100 WBC (test code = 9905753375) See_Comment [Automated me ssage] The system which generated this result transmitted reference range: 0.0 - 10.0 /100 WBCs. The reference range was not used to interpret this result as normal/abnormal. NRBC x10^3 (test code = 8353609602) <0.01 See_Comment [Automated messa ge] The system which generated this result transmitted reference range: 10*3/?L. The reference range was not used to interpret this result as normal/abnormal. GRAN MAT (NEUT) % (test code = 770-8) 55.4 % IMM GRAN % (test code = 6772484995) 0.90 % LYMPH % (test code = 736-9) 27.9 % MONO % (test code = 5905-5) 11.8 % EOS % (test code = 713-8) 3.0 % BASO % (test code = 706-2) 1.0 % GRAN MAT x10^3(ANC) (test code = 5423306751) 6.33 10*3/uL 1.99-6.95 IMM GRAN x10^3 (test code = 0976028455) 0.10 10*3/uL 0-0.06 H LYMPH x10^3 (test code = 731-0) 3.18 10*3/uL 1.09-3.23 MONO x10^3 (test code = 742-7) 1.35 10*3/uL 0.36-1.02 H EOS x10^3 (test code = 711-2) 0.34 10*3/uL 0.06-0.53 BASO x10^3 (test code = 704-7) 0.11 10*3/uL 0.01-0.09 H Lab Interpretation (test code = 95617-9) Abnormal [facility]"
[2024-04-25] MEDS ORDERED: ONDANSETRON 4 MG/2 ML VIAL ONE (23:52)
[2024-04-25] MEDS ORDERED: KETOROLAC 30 MG/ML INJ ONE (23:53)
[2024-04-26 00:39] LABS: Absolute Basophils 0.1 K/uL (0-0.5); Absolute Eosinophils 0.1 K/uL (0-0.5); Absolute Lymphocytes (CBC) 1.9 K/uL (0.7-4.9); Absolute Monocytes 1.8 K/uL (0.1-1.3); Basophils % 0.6 % (0-1.3); Eosinophils % 0.8 % (0-4.4); Hematocrit 42.6 % (39.6-49.0); Hemoglobin 14.7 g/dL (13.6-17.9); Lymphocytes % 12.9 % (15.3-44.8); MCH 30.6 pg (27.0-35.0); MCHC 34.5 g/dL (32.0-36.0); MCV 88.6 fL (80-100); MPV 6.4 fL (7.6-11.3); Monocytes % 12.1 % (3.3-12.3); Neutrophils % 73.6 % (41.7-73.7); Platelets 124 thou/uL (152-406); RBC Red Blood Cell Count 4.81 M/uL (4.33-5.43); Red Cell Distribution Width 13.7 % (12.1-15.2)
[2024-04-26 00:56] LABS: Anion Gap 8.9 mEq/L (5.0-15.0); Potassium 3.9 mEq/L (3.5-5.1)
[2024-04-26] MEDS ORDERED: VANCOMYCIN 1 GM/VIAL ONE (02:12)
[2024-04-26] MEDS ORDERED: PIPERACIL/TAZO 3.375 GM VIAL IV ONE (02:13)
[2024-04-26] MEDS ORDERED: NA CHLORIDE 0.9% 250 ML ONE (02:13)
[2024-04-26] MEDS ORDERED: NA CHLORIDE 0.9% 1,000 ML ONE (02:13)
[2024-04-26] MEDS ORDERED: NA CHLORIDE 0.9% 100 ML ONE (02:13)
--- NOTE | 2024-04-26 02:25 | EDPHYS ---
Physician Documentation [facility] Name: Javid Carver Age: 48 yrs Sex: Male : 1975 Arrival Date: 04/25/2024 Time: 22:29 Bed 16 Private MD: ED Physician HPI: 04/25 23:47 This 48 yrs old Male presents to ER via Ambulatory with complaints of ec2 Testicular Swelling, Testicular Pain. 23:47 Patient arrives today for evaluation of a perineal swelling. States that he had noted ec2 an abscess, had some drainage to the area, states he is having continued pain. Patient reports no fevers or chills, does report some generalized bodyaches. . Historical: - Allergies: 23:14 Hydrocodone-Acetaminophen; as6 - PMHx: 23:14 acid reflux; Hypertension; as6 - PSHx: 23:14 None; as6 - Immunization history:: Adult Immunizations up to date. - Infectious Disease History:: Denies. - Social history:: Smoking status: Reported history of juuling and/or vaping. ROS: 23:47 Constitutional: as per hpi ec2 Exam: 23:47 Constitutional: GEN: NAD Head: atraumatic Eyes: EOMI Ears: External ears are ec2 normal. CV: regular rate LUNGS: no respiratory distress ABD: non-distended. : Perineal induration and swelling, no appreciable fluctuance, no crepitus appreciated. SKIN: no evidence of rashes MSK: no evidence of trauma NEURO: moves all extremities equally Vital Signs: 23:13 BP 145 / 95; Pulse 86; Resp 18; Temp 98.2; Pulse Ox 98% ; Weight 104.33 kg; Height 5 as6 ft. 9 in. ; Pain 8/10; 04/26 00:51 BP 146 / 85; Pulse 80; Resp 16 S; Pulse Ox 97% on R/A; as6 02:27 BP 139 / 86; Pulse 77; Resp 17 S; Pulse Ox 98% on R/A; lg3 05:53 BP 133 / 84; Pulse 79; Resp 18 S; Temp 97.6(O); Pulse Ox 97% on R/A; lg3 04/25 23:13 Body Mass Index 33.96 (104.33 kg, 175.26 cm) as6 04/25 23:13 Pain Scale: Adult as6 MDM: 04/25 22:35 Patient medically screened. ec2 23:47 Data reviewed: vital signs. ED course: Patient arrives today for evaluation of perineal ec2 induration and swelling. Examination remarkable for findings as above. Will obtain lab work, CT imaging as well as ultrasound. Differential diagnosis include perineal cellulitis, abscess, Camille's gangrene.. 04/26 01:25 ED course: CBC shows leukocytosis of 15. Metabolic profile shows proper electrolytes, ec2 diminished renal function with a GFR 53. Ultrasound shows large heterogenous fluid collection in the perineal area, concerning for abscess. Pending CT imaging . 02:22 ED course: = CT of the pelvis shows focal area of ulceration in the left perineum with ec2 concern for cellulitis, phlegmon, no evidence of abscess formation. Will transfer for urology care. . 03:37 ED course: MDM: Differential diagnosis as documented above in ED course; All lab tests ec2 ordered and reviewed as documented above; Discuss inpatient hospitalization: Yes; I discussed the case with: transferring doc . 03:45 ED course: I discussed the case w/ transfer center, they discussed w/ urology who felt ec2 this was a general surgery process. I discussed the case w/ their general surgeon and he agreed to accept. Ultimately I am transferring for urology consultation given the involvement of the scrotal sac and perineum. . 04/25 22:36 Order name: UAM; Complete Time: 03:29 ec2 04/25 23:45 Order name: CBC with Diff; Complete Time: 01:24 ec2 04/25 23:45 Order name: BMP; Complete Time: 01:24 ec2 04/25 23:49 Order name: LFT's; Complete Time: 03:29 ec2 04/25 23:49 Order name: CRP; Complete Time: 03:29 ec2 04/26 01:28 Order name: Blood Culture Adult (2) ec2 04/26 01:28 Order name: Lactate w/ 2H reflex if indic.; Complete Time: 03:29 ec2 04/25 22:36 Order name: Scrotum Testicles US ec2 04/25 23:45 Order name: CT Pelvis w cont ec2 Administered Medications: 00:07 Drug: Ketorolac IVP 15 mg IVP once Route: IVP; Site: left antecubital; as6 03:35 Follow up: Response: No adverse reaction lg3 00:07 Drug: Ondansetron IVP 4 mg IVP once; over 2 minutes Route: IVP; Site: left antecubital; as6 03:35 Follow up: Response: No adverse reaction lg3 02:27 Drug: Piperacillin-Tazobactam IVPB 3.375 grams IVPB once over 60 mins; (mix in NS 100 lg3 mL) Route: IVPB; Infused Over: 60 mins; Site: left antecubital; 03:34 Follow up: Response: No adverse reaction; IV Status: Completed infusion; IV Intake: lg3 100ml 02:27 Drug: NS 0.9% IV 1000 ml IV at 1 bolus Per protocol; 1000 mL bolus Route: IV; Rate: 1 lg3 bolus; Site: left antecubital; 03:34 Follow up: Response: No adverse reaction; IV Status: Completed infusion; IV Intake: lg3 1000ml 03:35 Drug: vancoMYCIN IVPB 1 grams IVPB once over 2 hrs Route: IVPB; Infused Over: 2 hrs; lg3 Site: left antecubital; 05:53 Follow up: Response: No adverse reaction; IV Status: Completed infusion; IV Intake: lg3 250ml Disposition Summary: 04/26/24 02:25 Transfer Ordered Notes: Transfer Location: Other Acute Care Facility ec2 Reason: Higher level of care ec2 Condition: Stable ec2 Problem: new ec2 Symptoms: have improved ec2 Accepting Physician: transferring doc(04/26/24 05:55) lg3 Diagnosis - Perineal Cellulitis/Phlegmon ec2 Forms: - Medication Reconciliation Form ec2 - SBAR form ec2 Signatures: Dispatcher [employer] Alee Cervantes RN RN lg3 Attila Paul RN RN as6 Everardo Alvarado MD MD ec2 Corrections: (The following items were deleted from the chart) 04/25 23:49 23:49 HEPATIC FUNCTION+C.LAB.BRZ ordered. EDMS EDMS 23:49 23:49 C-REACTIVE PROTEIN+C.LAB.BRZ ordered. EDMS EDMS 04/26 01:29 01:29 BLOOD CULTURE*+BA.LAB.BRZ ordered. EDMS EDMS 01:29 01:29 LACTATE+C.LAB.BRZ ordered. EDMS EDMS 05:55 02:25 transferring doc ec2 lg3
--- NOTE | 2024-04-26 02:25 | ER ---
Nurse's Notes [facility] Name: Javid Carver Age: 48 yrs Sex: Male : 1975 Arrival Date: 04/25/2024 Time: 22:29 Bed 16 Private MD: Diagnosis: Perineal Cellulitis/Phlegmon Presentation: 04/25 23:00 Coronavirus screen: At this time, the client does not indicate any symptoms associated as6 with coronavirus-19. Ebola Screen: No symptoms or risks identified at this time. Risk Assessment: Do you want to hurt yourself or someone else? Patient reports no desire to harm self or others. 23:00 Method Of Arrival: Ambulatory as6 23:01 Acuity: ALEJANDRA 3 as6 23:13 Chief complaint: Patient states: "I think I have a boil or something near my balls". as6 Initial Sepsis Screen: Does the patient meet any 2 criteria? No. Patient's initial sepsis screen is negative. Does the patient have a suspected source of infection? No. Patient's initial sepsis screen is negative. Onset of symptoms was April 23, 2024. Historical: - Allergies: 23:14 Hydrocodone-Acetaminophen; as6 - PMHx: 23:14 acid reflux; Hypertension; as6 - PSHx: 23:14 None; as6 - Immunization history:: Adult Immunizations up to date. - Infectious Disease History:: Denies. - Social history:: Smoking status: Reported history of juuling and/or vaping. Screenin:00 [facility] ED Fall Risk Assessment (Adult) History of falling in the last 3 months, as6 including since admission No falls in past 3 months (0 pts) Confusion or Disorientation No (0 pts) Intoxicated or Sedated No (0 pts) Impaired Gait No (0 pts) Mobility Assist Device Used No (0 pt) Altered Elimination No (0 pt) Score/Fall Risk Level 0 - 2 = Low Risk Oriented to surroundings, Maintained a safe environment, Educated pt \\T\\ family on fall prevention, incl call for assistance when getting out of bed, Assessed \\T\\ reinforced patient's understanding of fall precautions. Abuse screen: Denies threats or abuse. Denies injuries from another. Nutritional screening: No deficits noted. Tuberculosis screening: No symptoms or risk factors identified. Assessment: 23:29 General: Appears uncomfortable, Behavior is calm, cooperative. Pain: Complains of pain as6 in pelvis. Derm: Abscess located on perineum is quarter sized, has foul odor, is raised, was lanced by patient prior to arrival. 04/26 00:51 Reassessment: Patient appears in no apparent distress at this time. Patient and/or as6 family updated on plan of care and expected duration. Pain level reassessed. Patient is alert, oriented x 3, equal unlabored respirations, skin warm/dry/pink. 02:27 General: Appears in no apparent distress. comfortable, Behavior is calm, cooperative. lg3 Pain: Complains of pain in perineum Pain does not radiate. Pain currently is 3 out of 10 on a pain scale. Neuro: No deficits noted. Riggs Agitation-Sedation Scale (RASS): 0 - Alert and Calm Level of Consciousness is awake, alert, obeys commands, Oriented to person, place, time, situation. Cardiovascular: No deficits noted. Denies chest pain, shortness of breath, Capillary refill < 3 seconds Clubbing of nail beds is absent JVD is absent Patient's skin is warm and dry. Respiratory: No deficits noted. Airway is patent Respiratory effort is even, unlabored, Respiratory pattern is regular, symmetrical. GI: No deficits noted. No signs and/or symptoms were reported involving the gastrointestinal system. : No deficits noted. No signs and/or symptoms were reported regarding the genitourinary system. EENT: No deficits noted. No signs and/or symptoms were reported regarding the EENT system. Derm: Abscess located on perineum. Musculoskeletal: No deficits noted. No signs and/or symptoms reported regarding the musculoskeletal system. Circulation, motion, and sensation intact. Range of motion: intact in all extremities. 05:52 Reassessment: Patient appears in no apparent distress at this time. No changes from lg3 previously documented assessment. Patient and/or family updated on plan of care and expected duration. Pain level reassessed. Patient is alert, oriented x 3, equal unlabored respirations, skin warm/dry/pink. Patient states feeling better. Vital Signs: 04/25 23:13 BP 145 / 95; Pulse 86; Resp 18; Temp 98.2; Pulse Ox 98% ; Weight 104.33 kg; Height 5 as6 ft. 9 in. ; Pain 8/10; 04/26 00:51 BP 146 / 85; Pulse 80; Resp 16 S; Pulse Ox 97% on R/A; as6 02:27 BP 139 / 86; Pulse 77; Resp 17 S; Pulse Ox 98% on R/A; lg3 05:53 BP 133 / 84; Pulse 79; Resp 18 S; Temp 97.6(O); Pulse Ox 97% on R/A; lg3 04/25 23:13 Body Mass Index 33.96 (104.33 kg, 175.26 cm) as6 04/25 23:13 Pain Scale: Adult as6 ED Course: 04/25 22:35 Patient arrived in ED. gm2 22:35 Everardo Alvarado MD is Attending Physician. ec2 23:01 Attila Paul, HANK is Primary Nurse. as6 23:01 Triage completed. as6 23:01 Arm band placed on. as6 23:05 Scrotum Testicles US In Process Unspecified. EDMS 23:30 Placed in gown. Bed in low position. Call light in reach. as6 04/26 00:06 Inserted saline lock: 20 gauge in left antecubital area, using aseptic technique. Blood as6 collected. 00:07 CBC with Diff Sent. as6 00:07 BMP Sent. as6 00:07 LFT's Sent. as6 00:07 CRP Sent. as6 01:24 CT Pelvis w cont In Process Unspecified. EDMS 02:27 Door closed. Noise minimized. Warm blanket given. Pillow given. Family accompanied lg3 patient. 02:27 Lactate w/ 2H reflex if indic. Sent. lg3 02:27 Blood Culture Adult (2) Sent. lg3 03:33 contacted [facility] - no answer. kmf 03:33 initiated transfer with aric [facility]. Diet:. [facility] 04:[address] [facility]. Dr Jimenez accepted \\T\\ [id number]. Admin approval given at [facility] 0345 by aric luevano. number for nurse to nurse report [phone]. [facility] to transfer pt. 05:54 No provider procedures requiring assistance completed. Patient transferred, IV remains lg3 in place. Administered Medications: 00:07 Drug: Ketorolac IVP 15 mg IVP once Route: IVP; Site: left antecubital; as6 03:35 Follow up: Response: No adverse reaction lg3 00:07 Drug: Ondansetron IVP 4 mg IVP once; over 2 minutes Route: IVP; Site: left antecubital; as6 03:35 Follow up: Response: No adverse reaction lg3 02:27 Drug: Piperacillin-Tazobactam IVPB 3.375 grams IVPB once over 60 mins; (mix in NS 100 lg3 mL) Route: IVPB; Infused Over: 60 mins; Site: left antecubital; 03:34 Follow up: Response: No adverse reaction; IV Status: Completed infusion; IV Intake: lg3 100ml 02:27 Drug: NS 0.9% IV 1000 ml IV at 1 bolus Per protocol; 1000 mL bolus Route: IV; Rate: 1 lg3 bolus; Site: left antecubital; 03:34 Follow up: Response: No adverse reaction; IV Status: Completed infusion; IV Intake: lg3 1000ml 03:35 Drug: vancoMYCIN IVPB 1 grams IVPB once over 2 hrs Route: IVPB; Infused Over: 2 hrs; lg3 Site: left antecubital; 05:53 Follow up: Response: No adverse reaction; IV Status: Completed infusion; IV Intake: lg3 250ml Medication: 04/25 23:00 VIS not applicable for this client. as6 Intake: 23 03:34 IV: 1000ml; Total: 1000ml. lg3 03:34 IV: 100ml; Total: 1100ml. lg3 05:53 IV: 250ml; Total: 1350ml. lg3 Outcome: 02:25 ER care complete, transfer ordered by . ec2 05:54 Transferred by ground EMS to [facility], Transfer form lg3 completed. 05:54 Condition: stable 05:54 Instructed on the need for transfer, Demonstrated understanding of instructions, 05:55 Patient left the ED. lg3 Signatures: Dispatcher [employer] Alee Cervantes RN RN lg3 Attila Paul RN RN as6 Everardo Alvarado MD MD ec2 Sammi Vasquez [place] [facility]
[2024-04-26 03:01] LABS: Specific Gravity 1.016 (1.005-1.030); Sqamous Epithelial <5 /HPF (None Seen); Urine Bacteria None Seen /HPF (<20); Urine Bilirubin NEGATIVE (Negative); Urine Blood 3+ (OVER) (Negative); Urine Clarity Turbid (Clear); Urine Color Yellow (Yellow); Urine Culture Reflex Order NOT NEEDED; Urine Glucose NEGATIVE (Negative); Urine Ketones NEGATIVE (Negative); Urine Micro Reflex YN NO BILL MICROSCOPIC; Urine Mucus Slight /HPF (None Seen); Urine Nitrite NEGATIVE (Negative); Urine Protein 2+ (Negative); Urine RBC >50 /HPF (None Seen); Urine Urobilinogen Normal (Normal); Urine WBC <5 /HPF (<5); Urine Yeast (Budding) Moderate /HPF (None Seen)
[2024-04-26 03:08] LABS: Albumin 3.2 g/dL (3.4-5.0); Albumin/Globulin Ratio 0.8 (1.1-1.8); Bilirubin Direct 0.4 mg/dL (0-0.2); Bilirubin Indirect, Calculated 0.9 mg/dL (0.2-0.8); Bilirubin Total 1.3 mg/dL (0.2-1.0); C-Reactive Protein 64.7 mg/L (<3.00); Protein, Total 7.2 g/dL (6.4-8.2)
[2024-04-26 06:29] VITALS: BP 133/84; O2SAT 97
[2024-04-26 06:30] VITALS: TEMP 97.6
--- NOTE | 2024-04-27 21:16 | RAD REPORT ---
EXAM DESCRIPTION: US - Scrotum Testicles - 04/26/2024 12:14 am CLINICAL HISTORY: 48 years Male, SWELLING. Reported pus draining from perineum. COMPARISON: None. TECHNIQUE: Real-time sonographic images of the scrotal contents obtained using a linear multi hertz transducer. Color and spectral Doppler imaging was also obtained. FINDINGS: Testicles: The right testicle measures 4.2 x 2.5 x 3.1 cm. The left testicle measures 3.5 x 1.9 x 2.5 cm. There is diffuse heterogeneity of the left testicle with areas of hypoechogenicity th roughout the testicular parenchyma. No discrete measurable mass.. There are punctate hyperechoic foci within bilateral testicles suspicious for microlithiasis. Otherwise normal homogeneous echogenicity of the right testicle. Epididymis: No abnormalities of the epididymis. Hydrocele: Mild bilateral hydroceles. Blood flow: Normal arterial and venous blood flow identified bilaterally. Other: There is a large heterogeneous fluid collection in the region of interest along the posterior scrotum measuring approximately 4.4 x 1.2 x 1.8 cm, suspicious for abscess. IMPRESSION: 1. Large heterogeneous fluid collection in the region of interest along the posterior scrotum, suspicious for abscess. Diffuse heterogeneity of the left testicle without discrete measurab le mass. Preserved vascularity without definite evidence of torsion. Given history and complex fluid collection in the posterior scrotum, findings are suspicious for orchitis. Recommend follow-up ultras ound in 6-8 weeks to assess for resolution. 2. Mild bilateral hydroceles. Electronically signed by: Dorothy Varela MD 04/26/2024 12:04 AM [facility] Due to temporary technical issues with the PACS/Fluency reporting system, reports are being signed by the in house radiologists without review as a courtesy to insure prompt reporting. The interpreting radiologist is fully responsible for the content of the report.
--- NOTE | 2024-04-27 22:00 | RAD REPORT ---
EXAM DESCRIPTION: CT - Pelvis W/Cont - 04/26/2024 7:17 am CLINICAL HISTORY: 48 years, Male, scrotal/perineum abscess COMPARISON: None FINDINGS: Multiple transaxial tomograms of the pelvis were obtained utilizing 5 mm slight thickness at 5 mm interval reconstruction after the administration of IV contrast. Subsequent to the 3-D multiplanar reformats were generated for subsequent interpretation. An individualized dose optimization technique, Automated Exposure Control, was utilized for the perfo rmed procedure. The visualized portions of the large and small bowel demonstrate to be within normal limits. : The urinary bladder demonstrate to be partially distended. Genitalia: The prostate gland is normal. The iliac arteries demonstrate to be patent. There is no evidence for pelvic ascites and/or pelvic lymphadenopathy. The bone windows demonstrate to be within normal limits. No evidence for acute bony injuries. The visualized portions of the lower lumbar spine demonstrate to be unremarkable. Sacrum demonstrate to be intact. There is increased thickness of the skin/subcutaneous tissue posterior aspect scrotal sac with a area of ulceration left posterior scrotal sacs near the left perineum with increase haziness of the skin/ subcutaneous tissue on axial image 58/75-64/75. No evidence for gas and/or extension into the periton eum and/or intrapelvic extension. Testicles, external genitalia, spermatic cord demonstrate to be unremarkable. IMPRESSION: Focal area of ulceration left posterior scrotal sacs near the left perineum with increas e haziness of the skin/subcutaneous tissue corresponding to cellulitis/phlegmon. No evidence for gas and/or extension into the peritoneum and/or intrapelvic extension. Electronically signed by: David Ohara MD 04/26/2024 02:18 AM [facility] Due to temporary technical issues with the PACS/Fluency reporting system, reports are being signed by the in house radiologists without review as a courtesy to insure prompt reporting. The interpreting radiologist is fully responsible for the content of the report.
== END 2024-04-26 05:55 ==
LOC: ER 22:29
DX: L03.315 Cellulitis of perineum (principal); L02.215 Cutaneous abscess of perineum
CPT/HCPCS: 87040 ×2; 85025; 81001; 80048; 36415; 80076; 83605; 86140; 72193; 76870; Q9967; J2543; J2405; J7050; J7030; 96365; 96366; 96367; 96375; 99285

== ENCOUNTER 2024-06-17 12:24 | Emergency (ER) | payer OTHER ==
[2024-06-17] MEDS ORDERED: NA CHLORIDE 0.9% 1,000 ML ONE (12:45)
[2024-06-17 13:18] LABS: Absolute Basophils 0.1 K/uL (0-0.5); Absolute Eosinophils 0.2 K/uL (0-0.5); Absolute Lymphocytes (CBC) 2.4 K/uL (0.7-4.9); Absolute Monocytes 1.1 K/uL (0.1-1.3); Absolute Neutrophil 5.3 K/uL (1.8-8.0); Basophils % 1.2 % (0-1.3); Eosinophils % 1.9 % (0-4.4); Hematocrit 44.5 % (39.6-49.0); Lymphocytes % 26.8 % (15.3-44.8); MCHC 33.7 g/dL (32.0-36.0); MCV 89.2 fL (80-100); MPV 6.3 fL (7.6-11.3); Monocytes % 11.8 % (3.3-12.3); Neutrophils % 58.3 % (41.7-73.7); Platelets 118 thou/uL (152-406); RBC Red Blood Cell Count 4.99 M/uL (4.33-5.43); Red Cell Distribution Width 14.3 % (12.1-15.2)
[2024-06-17 13:19] LABS: PT Prothrombin Time 11.4 SECONDS (9.4-12.5); Protime INR 1.02
--- NOTE | 2024-06-17 13:31 | RAD REPORT ---
EXAM DESCRIPTION: Brittany Single View06/17/2024 1:13 pm CLINICAL HISTORY: cough COMPARISON: 2022 FINDINGS: The lungs appear clear of acute infiltrate. The heart is normal size IMPRESSION: No acute abnormalities displayed
[2024-06-17 13:32] LABS: Albumin 3.3 g/dL (3.4-5.0); Albumin/Globulin Ratio 0.9 (1.1-1.8); Anion Gap 7.9 mEq/L (5.0-15.0); Bilirubin Direct 0.2 mg/dL (0-0.2); Bilirubin Indirect, Calculated 0.8 mg/dL (0.2-0.8); Globulin 3.5 g/dL (2.3-3.5); Magnesium 1.8 mg/dL (1.6-2.4); Potassium 3.9 mEq/L (3.5-5.1); Protein, Total 6.8 g/dL (6.4-8.2); Troponin High Sensitivity 6.1 pg/mL (<58.9)
[2024-06-17 14:03] LABS: SARS-CoV-2 Antigen CONTROL BLUE LINE VIS/BG OK; SARS-CoV-2 Antigen Rapid Res Negative (Negative)
[2024-06-17 14:10] LABS: Specific Gravity 1.019 (1.005-1.030); Sqamous Epithelial <5 /HPF (None Seen); Urine Bacteria None Seen /HPF (<20); Urine Bilirubin NEGATIVE (Negative); Urine Blood 3+ (Negative); Urine Clarity Clear (Clear); Urine Color Light-Yellow (Yellow); Urine Culture Reflex Order NOT NEEDED; Urine Glucose NEGATIVE (Negative); Urine Ketones NEGATIVE (Negative); Urine Microscopic Reflex YN ORDER UMIC; Urine Mucus Slight /HPF (None Seen); Urine Nitrite NEGATIVE (Negative); Urine Protein 2+ (Negative); Urine RBC 21-50 /HPF (None Seen); Urine Urobilinogen Normal (Normal); Urine WBC None Seen /HPF (<5); Urine Yeast (Budding) Trace /HPF (None Seen)
--- NOTE | 2024-06-17 14:57 | RAD REPORT ---
EXAM DESCRIPTION: CT - Abdomen Pelvis W Contrast - 06/17/2024 2:34 pm CLINICAL HISTORY: Abdominal pain COMPARISON: January 2024 TECHNIQUE: Computed axial tomography of the abdomen pelvis was obtained. 100 cc Isovue-300 was admin istered intravenously. Oral contrast was not requested which limits evaluation of bowel and appendix All CT scans are performed using dose optimization technique as appropriate and may include automated exposure control or mA/KV adjustment according to patient size. FINDINGS: Mild fatty liver Spleen, pancreas, adrenals and kidneys unremarkable Normal appendix. No evidence of diverticulitis. Small umbilical hernia IMPRESSION: No acute abnormality is displayed.
--- NOTE | 2024-06-17 15:06 | EDPHYS ---
Physician Documentation [facility] Name: Javid Carver Age: 49 yrs Sex: Male : 1975 Arrival Date: 06/17/2024 Time: 12:24 Bed 16 Private MD: ED Physician Keron Gillespie HPI: 06/17 13:58 This 49 yrs old Male presents to ER via Ambulatory with complaints of marcelino Weakness. Historical: - Allergies: 12:33 Lisinopril; dd2 12:33 Hydrocodone-Acetaminophen; dd2 - PMHx: 12:33 acid reflux; Hypertension; dd2 - PSHx: 12:33 None; dd2 - Immunization history:: Adult Immunizations unknown. - Infectious Disease History:: Denies. - Social history:: Smoking status: Reported history of juuling and/or vaping. ROS: 13:58 Constitutional: Negative for fever, chills, and weight loss, Eyes: Negative for injury, marcelino pain, redness, and discharge, ENT: Negative for injury, pain, and discharge, Neck: Negative for injury, pain, and swelling, Cardiovascular: Negative for chest pain, palpitations, and edema, Respiratory: Negative for shortness of breath, cough, wheezing, and pleuritic chest pain, Abdomen/GI: Negative for abdominal pain, nausea, vomiting, diarrhea, and constipation, Back: Negative for injury and pain, : Negative for injury, bleeding, discharge, and swelling, MS/Extremity: Negative for injury and deformity, Skin: Negative for injury, rash, and discoloration, Psych: Negative for depression, anxiety, suicide ideation, homicidal ideation, and hallucinations, Allergy/Immunology: Negative for hives, rash, and allergies, Endocrine: Negative for neck swelling, polydipsia, polyuria, polyphagia, and marked weight changes, Hematologic/Lymphatic: Negative for swollen nodes, abnormal bleeding, and unusual bruising, 13:58 Neuro: Positive for weakness, Exam: 13:58 Constitutional: This is a well developed, well nourished patient who is awake, alert, marcelino and in no acute distress. Head/Face: Normocephalic, atraumatic. Eyes: Pupils equal round and reactive to light, extra-ocular motions intact. Lids and lashes normal. Conjunctiva and sclera are non-icteric and not injected. Cornea within normal limits. Periorbital areas with no swelling, redness, or edema. ENT: Nares patent. No nasal discharge, no septal abnormalities noted. Tympanic membranes are normal and external auditory canals are clear. Oropharynx with no redness, swelling, or masses, exudates, or evidence of obstruction, uvula midline. Mucous membranes moist. Neck: Trachea midline, no thyromegaly or masses palpated, and no cervical lymphadenopathy. Supple, full range of motion without nuchal rigidity, or vertebral point tenderness. No Meningismus. Chest/axilla: Normal chest wall appearance and motion. Nontender with no deformity. No lesions are appreciated. Cardiovascular: Regular rate and rhythm with a normal S1 and S2. No gallops, murmurs, or rubs. Normal PMI, no JVD. No pulse deficits. Respiratory: Lungs have equal breath sounds bilaterally, clear to auscultation and percussion. No rales, rhonchi or wheezes noted. No increased work of breathing, no retractions or nasal flaring. Abdomen/GI: Soft, non-tender, with normal bowel sounds. No distension or tympany. No guarding or rebound. No evidence of tenderness throughout. Back: No spinal tenderness. No costovertebral tenderness. Full range of motion. Male : Normal genitalia with no discharge or lesions. Skin: Warm, dry with normal turgor. Normal color with no rashes, no lesions, and no evidence of cellulitis. MS/ Extremity: Pulses equal, no cyanosis. Neurovascular intact. Full, normal range of motion. Neuro: Awake and alert, GCS 15, oriented to person, place, time, and situation. Cranial nerves II-XII grossly intact. Motor strength 5/5 in all extremities. Sensory grossly intact. Cerebellar exam normal. Normal gait. Psych: Awake, alert, with orientation to person, place and time. Behavior, mood, and affect are within normal limits. 13:58 Musculoskeletal/extremity: DVT Exam: No signs of deep vein thrombosis. no pain, no swelling, no tenderness, negative Homans' sign noted on exam, no appreciated bluish discoloration, no erythema, no increased warmth, 14:14 ECG was reviewed by the Attending Physician. [facility] Vital Signs: 12:29 BP 181 / 109; Pulse 69; Resp 16; Temp 97.5; Pulse Ox 96% ; Weight 107.95 kg; Height 5 dd2 ft. 9 in. ; 13:00 BP 152 / 107; Pulse 61; Resp 16; Pulse Ox 97% on R/A; me1 13:30 BP 157 / 103; Pulse 66; Resp 16; Pulse Ox 98% on R/A; me1 14:00 BP 153 / 101; Pulse 63; Resp 16; Pulse Ox 99% ; me1 15:37 BP 165 / 107; Pulse 63; Resp 18; Temp 98.1; Pulse Ox 99% on R/A; me1 12:29 Body Mass Index 35.15 (107.95 kg, 175.26 cm) dd2 MDM: 12:29 Patient medically screened. [facility] 13:59 Differential Diagnosis altered mental status, sepsis, flu. Data reviewed: vital signs, [facility] nurses notes, lab test result(s), EKG, radiologic studies, plain films. Consideration of Admission/Observation Escalation of care including admission/observation considered. I considered the following discharge prescriptions or medication management in the emergency department Medications were administered in the Emergency Department. See MAR. Independent interpretation of the following test(s) in the Emergency Department EKG: See my EKG interpretation above. Test considered but Not performed: CT: no ct abd/ pelvis. Care significantly affected by the following chronic conditions: Hypertension, Obesity, gerd. 06/17 12:30 Order name: Basic Metabolic Panel; Complete Time: 13:37 [facility] 06/17 12:30 Order name: CBC with Diff; Complete Time: 13:37 [facility] 06/17 12:30 Order name: LFT's; Complete Time: 13:37 [facility] 06/17 12:30 Order name: Magnesium; Complete Time: 13:37 [facility] 06/17 12:30 Order name: NT PRO-BNP; Complete Time: 13:37 [facility] 06/17 12:30 Order name: PT-INR; Complete Time: 13:37 [facility] 06/17 12:30 Order name: Troponin HS; Complete Time: 13:37 [facility] 06/17 12:30 Order name: Lipase; Complete Time: 13:37 [facility] 06/17 12:30 Order name: Urinalysis w/ reflexes; Complete Time: 14:18 [facility] 06/17 13:34 Order name: Flu; Complete Time: 14:18 [facility] 06/17 13:34 Order name: SARS RAPID; Complete Time: 14:18 [facility] 06/17 12:30 Order name: XRAY Chest (1 view); Complete Time: 13:37 [facility] 06/17 14:19 Order name: CT Abd/Pelvis - IV Contrast Only; Complete Time: 15:01 [facility] 06/17 12:30 Order name: EKG; Complete Time: 12:30 [facility] 06/17 12:30 Order name: Cardiac monitoring; Complete Time: 13:08 [facility] 06/17 12:30 Order name: EKG - Nurse/Tech; Complete Time: 12:54 [facility] 06/17 12:30 Order name: IV Saline Lock; Complete Time: 13:08 [facility] 06/17 12:30 Order name: Labs collected and sent; Complete Time: 13:08 [facility] 06/17 12:30 Order name: O2 Per Protocol; Complete Time: 12:44 [facility] 06/17 12:30 Order name: O2 Sat Monitoring; Complete Time: 12:44 [facility] EC:14 Rate is 61 beats/min. Rhythm is regular. CA interval is normal. QRS interval is normal. marcelino QT interval is normal. No Q waves. T waves are Normal. No ST changes noted. Clinical impression: NSR w/ Non-specific ST/T Changes and No evidence of ischemia. Interpreted by me. Reviewed by me. Administered Medications: 13:08 Drug: NS 0.9% IV 1000 ml IV at 1 bolus Per protocol; 1000 mL bolus Route: IV; Rate: 1 me1 bolus; Site: left antecubital; 14:19 Follow up: Response: No adverse reaction; IV Status: Completed infusion; IV Intake: me1 1000ml 15:15 Drug: Norvasc PO 10 mg PO once Route: PO; me1 15:40 Follow up: Response: No adverse reaction me1 Disposition Summary: 06/17/24 15:05 Discharge Ordered Notes: Location: Home marcelino Problem: new marcelino Symptoms: have improved marcelino Condition: Stable marcelino Diagnosis - Weakness marcelino - Nausea marcelino - Gastro-esophageal reflux disease without esophagitis marcelino - Essential (primary) hypertension marcelino - Hematuria, unspecified marcelino Followup: marcelino - With: Private Physician - When: 2 - 3 days - Reason: Recheck today's complaints, Continuance of care, Re-evaluation by your physician Followup: marcelino - With: Daniel Gudino MD - When: 2 - 3 days - Reason: Recheck today's complaints, Re-evaluation by your physician Discharge Instructions: - Discharge Summary Sheet marcelino - Food Choices for Gastroesophageal Reflux Disease, Adult marcelino - Gastroesophageal Reflux Disease, Adult marcelino - Hematuria, Adult marcelino - Hypertension, Adult marcelino - Nausea, Adult marcelino - Weakness marcelino - Fatigue marcelino - Hypertension, Adult, [id number] marcelino - Gastroesophageal Reflux Disease, Adult, [id number] marcelino - How to Take Your Blood Pressure, Plcn-uk-Fzxa marcelino - Weakness, Iinv-vq-Dbod marcelino - Managing Your Hypertension [facility] Forms: - Medication Reconciliation Form marcelino - Antibiotic Education marcelino - Prescription Opioid Use marcelino - Patient Portal Instructions marcelino - Leadership Thank You Letter marcelino - Work release form me1 Prescriptions: - ondansetron 4 mg Oral Tablet,disintegrating - take 1 tablet ORAL route every 6 to 8 hours as needed for nausea and vomiting; marcelino 20 tablet; Refills: 0, Product Selection Permitted - Norvasc 5 mg Oral Tablet - take 1 tablet ORAL route once daily; 20 tablet; Refills: 0, Product Selection marcelino Permitted - Protonix 40 mg Oral Tablet - take 1 tablet ORAL route once daily; 30 tablet; Refills: 0, Product Selection marcelino Permitted Signatures: Dispatcher [employer] EDMS Keron Gillespie MD MD cha Eddleman, Michelle, RN RN me1 AL STOCK RN RN dd2 Corrections: (The following items were deleted from the chart) 12:30 12:30 BASIC METABOLIC PANEL+C.LAB.BRZ ordered. EDMS EDMS 12:30 12:30 CBC+H.LAB.BRZ ordered. EDMS EDMS 12:30 12:30 HEPATIC FUNCTION+C.LAB.BRZ ordered. EDMS EDMS 12:30 12:30 MAGNESIUM+C.LAB.BRZ ordered. EDMS EDMS 12:30 12:30 PROBNP+C.LAB.BRZ ordered. EDMS EDMS 12:30 12:30 PROTIME (+INR)+COAG.LAB.BRZ ordered. EDMS EDMS 12:30 12:30 Troponin High Sensitivity+C.LAB.BRZ ordered. EDMS EDMS 12:30 12:30 LIPASE+C.LAB.BRZ ordered. EDMS EDMS 12:30 12:30 Urinalysis+U.LAB.BRZ ordered. EDMS EDMS 12:30 12:30 Chest Single View+RAD.RAD.BRZ ordered. EDMS EDMS 13:34 13:34 Influenza Screen (A \T\ B)+BA.LAB.BRZ ordered. EDMS EDMS 13:34 13:34 SARS-COV-2 Antigen Rapid+I.LAB.BRZ ordered. EDMS EDMS 14:19 14:19 Abdomen Pelvis W Con+CT.RAD.BRZ ordered. EDMS EDMS
--- NOTE | 2024-06-17 15:06 | ER ---
Nurse's Notes [facility] Name: Javid Carver Age: 49 yrs Sex: Male : 1975 Arrival Date: 06/17/2024 Time: 12:24 Bed 16 Private MD: Diagnosis: Weakness;Nausea;Gastro-esophageal reflux disease without esophagitis;Essential (primary) hypertension;Hematuria, unspecified Presentation: 06/17 12:29 Chief complaint: Patient states: Pt states nausea, congestion x 4-5 days. Coronavirus dd2 screen: congestion, fatigue, nausea. Ebola Screen: No symptoms or risks identified at this time. 12:29 Method Of Arrival: Ambulatory dd2 12:32 Initial Sepsis Screen: Does the patient meet any 2 criteria? No. Patient's initial dd2 sepsis screen is negative. Does the patient have a suspected source of infection? No. Patient's initial sepsis screen is negative. Risk Assessment: Do you want to hurt yourself or someone else? Patient reports no desire to harm self or others. Onset of symptoms is unknown. 12:32 Acuity: ALEJANDRA 3 dd2 Triage Assessment: 12:33 General: Appears in no apparent distress. Behavior is calm, cooperative. Pain: Denies dd2 pain. Historical: - Allergies: 12:33 Lisinopril; dd2 12:33 Hydrocodone-Acetaminophen; dd2 - PMHx: 12:33 acid reflux; Hypertension; dd2 - PSHx: 12:33 None; dd2 - Immunization history:: Adult Immunizations unknown. - Infectious Disease History:: Denies. - Social history:: Smoking status: Reported history of juuling and/or vaping. Screenin:00 [facility] ED Fall Risk Assessment (Adult) History of falling in the last 3 months, me1 including since admission No falls in past 3 months (0 pts) Confusion or Disorientation No (0 pts) Intoxicated or Sedated No (0 pts) Impaired Gait No (0 pts) Mobility Assist Device Used No (0 pt) Altered Elimination No (0 pt) Score/Fall Risk Level 0 - 2 = Low Risk Maintained a safe environment, Provided non-skid footwear, Hourly rounding (assess needs \T\ fall precautionary measures) done. Abuse screen: Denies threats or abuse. Nutritional screening: No deficits noted. Tuberculosis screening: No symptoms or risk factors identified. Assessment: 13:00 General: Appears comfortable, ill, well groomed, well developed, well nourished, me1 Behavior is calm, cooperative, appropriate for age, Reports Pt states nausea, congestion x 4-5 days. Pain: Denies pain. Neuro: Level of Consciousness is awake, alert, obeys commands, Oriented to person, place, time, situation, Appropriate for age. Cardiovascular: Patient's skin is warm and dry. Respiratory: Reports cough that is persistent Airway is patent Trachea midline Respiratory effort is even, unlabored, Respiratory pattern is regular, symmetrical. GI: No signs and/or symptoms were reported involving the gastrointestinal system. : No signs and/or symptoms were reported regarding the genitourinary system. EENT: Reports nasal congestion. Derm: Skin is intact, is healthy with good turgor, Skin is pink, warm \T\ dry. Musculoskeletal: No deficits noted. Vital Signs: 12:29 BP 181 / 109; Pulse 69; Resp 16; Temp 97.5; Pulse Ox 96% ; Weight 107.95 kg; Height 5 dd2 ft. 9 in. ; 13:00 BP 152 / 107; Pulse 61; Resp 16; Pulse Ox 97% on R/A; me1 13:30 BP 157 / 103; Pulse 66; Resp 16; Pulse Ox 98% on R/A; me1 14:00 BP 153 / 101; Pulse 63; Resp 16; Pulse Ox 99% ; me1 15:37 BP 165 / 107; Pulse 63; Resp 18; Temp 98.1; Pulse Ox 99% on R/A; me1 12:29 Body Mass Index 35.15 (107.95 kg, 175.26 cm) dd2 ED Course: 12:26 Patient arrived in ED. ra3 12:28 Keron Gillespie MD is Attending Physician. marcelino 12:33 Triage completed. dd2 12:33 Arm band placed on left wrist. Patient placed in an exam room, on a stretcher, on pulse dd2 oximetry, Patient notified of wait time. 12:44 Antonia Rodriguez, HANK is Primary Nurse. kc6 12:54 EKG done, by ED staff, reviewed by Keron Gillespie MD. kc6 13:00 Patient has correct armband on for positive identification. Bed in low position. Call me1 light in reach. Side rails up X 1. Provided Education on: POC. Verbalized understanding. . Client placed on continuous cardiac and pulse oximetry monitoring. NIBP monitoring applied. Pulse ox on. NIBP on. 13:00 No provider procedures requiring assistance completed. me1 13:08 Basic Metabolic Panel Sent. me1 13:08 CBC with Diff Sent. me1 13:08 LFT's Sent. me1 13:08 Magnesium Sent. me1 13:08 NT PRO-BNP Sent. me1 13:08 PT-INR Sent. me1 13:08 Troponin HS Sent. me1 13:08 Lipase Sent. me1 13:08 Initial lab(s) drawn, by sd, sent to lab. Inserted saline lock: 22 gauge in left me1 antecubital area, using aseptic technique. 13:15 XRAY Chest (1 view) In Process Unspecified. EDMS 13:36 SARS RAPID Sent. me1 13:36 Flu Sent. me1 13:36 COVID swab sent to lab. Flu and/or RSV swab sent to lab. me1 14:02 Urinalysis w/ reflexes Sent. me1 14:02 Urine collected: clean catch specimen, clear. me1 14:36 CT Abd/Pelvis - IV Contrast Only In Process Unspecified. EDMS 15:05 Daniel Gudino MD is Referral Physician. marcelino 15:38 IV discontinued, intact, bleeding controlled, No redness/swelling at site. Pressure me1 dressing applied. Administered Medications: 13:08 Drug: NS 0.9% IV 1000 ml IV at 1 bolus Per protocol; 1000 mL bolus Route: IV; Rate: 1 me1 bolus; Site: left antecubital; 14:19 Follow up: Response: No adverse reaction; IV Status: Completed infusion; IV Intake: me1 1000ml 15:15 Drug: Norvasc PO 10 mg PO once Route: PO; me1 15:40 Follow up: Response: No adverse reaction me1 Medication: 13:00 VIS not applicable for this client. me1 Intake: 14:19 IV: 1000ml; Total: 1000ml. me1 Outcome: 15:05 Discharge ordered by . marcelino 15:38 Discharged to home ambulatory, me1 15:38 Condition: stable 15:38 Discharge instructions given to patient, Instructed on discharge instructions, follow up and referral plans. medication usage, Demonstrated understanding of instructions, follow-up care, medications, Prescriptions given X 3, 15:39 Patient left the ED. me1 Signatures: Dispatcher [employer] EDKeron Peterson MD MD cha Campbell, Kaitlyn RN RN kc6 Radha Orourke RN RN me1 Yudith Cochran 3 AL STOCK RN RN dd2 Corrections: (The following items were deleted from the chart) 13:42 12:29 Chief complaint: Patient states: Pt states nausea, congestion x 4-5 days. dd2 me1
[2024-06-17] MEDS ORDERED: AMLODIPINE 10 MG TAB ONE (15:13)
[2024-06-17 16:12] VITALS: O2SAT 99
[2024-06-17 16:14] VITALS: BP 165/107; TEMP 98.1
--- NOTE | 2024-06-18 16:24 | EKG ---
Test Date: 2024-06-17 Test Time: 12:52:14 News Agent: NATHAN MEASUREMENT RESULTS: Intervals: Rate: 61 MO: 136 QRSD: 96 QT: 392 QTc: 394 [place]: P: 65 MO: 136 QRS: 59 T: 81 INTERPRETIVE STATEMENTS: Normal sinus rhythm Nonspecific ST and T wave abnormality Abnormal ECG Compared to ECG 04/26/2019 11:38:42 No significant changes Electronically Signed On 06-18-24 16:23:53 CDT by Jefferson Scott
== END 2024-06-17 15:39 | disposition home or self-care (01) ==
LOC: ER 12:24
DX: R53.1 Weakness (principal); R11.0 Nausea; K21.9 Gastro-esophageal reflux disease without esophagitis; R31.9 Hematuria, unspecified; I10 Essential (primary) hypertension; Z11.52 Encounter for screening for COVID-19
CPT/HCPCS: 85025; 81001; 80048; 36415; 83735; 85610; 80076; 84484; 83690; 83880; 87804 ×2; 74177; 71045; 87811; Q9967; J7030; 93005

== ENCOUNTER 2024-06-20 20:34 | Emergency (ER) | payer OTHER ==
[2024-06-20] MEDS ORDERED: DIPHENHYDRAMINE 50 MG/ML VIAL ONE (21:32)
[2024-06-20] MEDS ORDERED: NA CHLORIDE 0.9% 1,000 ML ONE (21:32)
[2024-06-20] MEDS ORDERED: METOCLOPRAMIDE 10 MG/2mL INJ ONE (21:32)
[2024-06-20 21:38] LABS: Absolute Basophils 0.1 K/uL (0-0.5); Absolute Eosinophils 0.2 K/uL (0-0.5); Absolute Lymphocytes (CBC) 2.1 K/uL (0.7-4.9); Absolute Monocytes 1.5 K/uL (0.1-1.3); Absolute Neutrophil 7.8 K/uL (1.8-8.0); Basophils % 0.9 % (0-1.3); Eosinophils % 1.9 % (0-4.4); Hematocrit 42.7 % (39.6-49.0); Hemoglobin 14.7 g/dL (13.6-17.9); MCH 30.3 pg (27.0-35.0); MCHC 34.4 g/dL (32.0-36.0); MCV 88.1 fL (80-100); MPV 5.7 fL (7.6-11.3); Monocytes % 12.5 % (3.3-12.3); Neutrophils % 66.7 % (41.7-73.7); Nucleated Red Blood Cells % 0.1 % (0-0); Platelets 112 thou/uL (152-406); RBC Red Blood Cell Count 4.85 M/uL (4.33-5.43); Red Cell Distribution Width 14.3 % (12.1-15.2)
[2024-06-20 21:52] LABS: Anion Gap 9.9 mEq/L (5.0-15.0); Potassium 3.9 mEq/L (3.5-5.1)
--- NOTE | 2024-06-20 22:20 | EDPHYS ---
Physician Documentation [facility] Name: Javid Carver Age: 49 yrs Sex: Male : 1975 Arrival Date: 06/20/2024 Time: 20:34 Bed 5 Private MD: ED Physician Everardo Alvarado HPI: 06/20 21:23 This 49 yrs old Male presents to ER via Unassigned with complaints of ec2 myalgias. 21:23 Patient arrives today for evaluation of myalgias as well as headache. Reports that he ec2 has been having some cough and cold symptoms, nausea, vomiting, diarrhea. States that he is concerned he is dehydrated. Also on multiple different medications. Patient reports no chest pain or difficulty breathing, reports generalized body cramps.. Historical: - Allergies: 21:29 Hydrocodone-Acetaminophen; vc1 21:29 Lisinopril; vc1 - PMHx: 21:29 acid reflux; Hypertension; vc1 - PSHx: 21:29 None; vc1 - Immunization history:: Adult Immunizations up to date. - Infectious Disease History:: Denies. - Social history:: Smoking status: Reported history of juuling and/or vaping. ROS: 21:23 Constitutional: as per hpi ec2 Exam: 21:23 Constitutional: GEN: NAD Head: atraumatic Eyes: EOMI Ears: External ears are ec2 normal. CV: regular rate LUNGS: no respiratory distress ABD: non-distended SKIN: no evidence of rashes MSK: no evidence of traumaHe Vital Signs: 21:27 BP 168 / 98; Pulse 74; Resp 18; Temp 98.2; Pulse Ox 100% ; Weight 107.95 kg; Height 5 vc1 ft. 9 in. ; 22:59 BP 180 / 96; Pulse 93; Resp 18; Pulse Ox 99% ; cp4 21:27 Body Mass Index 35.15 (107.95 kg, 175.26 cm) vc1 MDM: 20:46 Patient medically screened. ec2 21:23 Data reviewed: vital signs. ED course: Patient arrives today for evaluation of myalgias ec2 and headache. Examination markable for well-appearing nontoxic individual otherwise in no acute distress. Will obtain lab work. Evaluating for processes such as anemia, electrolyte disturbances, dehydration, rhabdomyolysis.. 21:58 ED course: CBC reassuring, metabolic profile shows some renal dysfunction with a ec2 creatinine of 1.57 and a GFR 54. CPK and is within normal ranges. When compared to external records, renal function slightly diminished. Suspect possible component of early dehydration causing the patient's cramping. . 06/20 21:22 Order name: CBC with Diff; Complete Time: 21:58 ec2 06/20 21:22 Order name: BMP; Complete Time: 21:58 ec2 06/20 21:22 Order name: CK; Complete Time: 21:58 ec2 06/20 21:22 Order name: IV; Complete Time: 21:45 ec2 06/20 22:07 Order name: Misc. Order: finish IVF then d/c; Complete Time: 22:40 ec2 Administered Medications: 21:36 Drug: NS 0.9% IV 1000 ml IV at 1 bolus Per protocol; 1000 mL bolus Route: IV; Rate: 1 jh8 bolus; Site: right hand; 23:00 Follow up: Response: No adverse reaction; IV Status: Completed infusion cp4 21:36 Drug: metoCLOPramide IVP 10 mg IVP once; over 1 to 2 minutes Route: IVP; Site: right [facility] hand; 23:00 Follow up: Response: No adverse reaction cp4 21:36 Drug: diphenhydrAMINE IVP 12.5 mg IVP once Route: IVP; Site: right hand; [facility] 23:00 Follow up: Response: No adverse reaction cp4 Disposition Summary: 06/20/24 22:20 Discharge Ordered Notes: Location: Home ec2 Condition: Stable ec2 Diagnosis - Cramp and spasm ec2 - Dehydration ec2 Followup: ec2 - With: Private Physician - When: - Reason: Re-evaluation by your physician Discharge Instructions: - Discharge Summary Sheet ec2 - Muscle Cramps and Spasms ec2 Forms: - Medication Reconciliation Form ec2 - Antibiotic Education ec2 - Prescription Opioid Use ec2 - Patient Portal Instructions ec2 - Leadership Thank You Letter ec2 Signatures: Dispatcher [employer] Stacia Dodson RN RN vc1 Everardo Alvarado MD MD ec2 Ha Jeffries RN RN jh8 Sobeida Torres cp4
--- NOTE | 2024-06-20 22:20 | ER ---
Nurse's Notes [facility] Name: Javid Carver Age: 49 yrs Sex: Male : 1975 Arrival Date: 06/20/2024 Time: 20:34 Bed 5 Private MD: Diagnosis: Cramp and spasm;Dehydration Presentation: 06/20 21:27 Chief complaint: Patient states: Started on new BP meds the other day, now having body vc1 cramps, leg pains, feel feverish, and throwing up. Coronavirus screen: Client denies travel out of the [place] in the last 14 days. At this time, the client does not indicate any symptoms associated with coronavirus-19. Ebola Screen: Patient negative for fever greater than or equal to 101.5 degrees Fahrenheit, and additional compatible Ebola Virus Disease symptoms Patient denies exposure to infectious person. Patient denies travel to an Ebola-affected area in the 21 days before illness onset. No symptoms or risks identified at this time. Initial Sepsis Screen: Does the patient meet any 2 criteria? No. Patient's initial sepsis screen is negative. Does the patient have a suspected source of infection? No. Patient's initial sepsis screen is negative. Risk Assessment: Do you want to hurt yourself or someone else? Patient reports no desire to harm self or others. Onset of symptoms was June 20, 2024. Care prior to arrival: None. Activity prior to arrival: None. Mechanism of Injury: No Mechanism of Injury. Transition of care: patient was not received from another setting of care. 21:27 Method Of Arrival: Ambulatory vc1 21:27 Acuity: ALEJANDRA 3 vc1 Historical: - Allergies: 21:29 Hydrocodone-Acetaminophen; vc1 21:29 Lisinopril; vc1 - PMHx: 21:29 acid reflux; Hypertension; vc1 - PSHx: 21:29 None; vc1 - Immunization history:: Adult Immunizations up to date. - Infectious Disease History:: Denies. - Social history:: Smoking status: Reported history of juuling and/or vaping. Screenin:30 [facility] ED Fall Risk Assessment (Adult) History of falling in the last 3 months, vc1 including since admission No falls in past 3 months (0 pts) Confusion or Disorientation No (0 pts) Intoxicated or Sedated No (0 pts) Impaired Gait No (0 pts) Mobility Assist Device Used No (0 pt) Altered Elimination No (0 pt) Score/Fall Risk Level 0 - 2 = Low Risk Oriented to surroundings, Maintained a safe environment, Educated pt \T\ family on fall prevention, incl call for assistance when getting out of bed. Abuse screen: Denies threats or abuse. Nutritional screening: No deficits noted. Tuberculosis screening: No symptoms or risk factors identified. Assessment: 22:40 Reassessment: Disposition pending. Patient finishing IV fluids. cp4 Vital Signs: 21:27 BP 168 / 98; Pulse 74; Resp 18; Temp 98.2; Pulse Ox 100% ; Weight 107.95 kg; Height 5 vc1 ft. 9 in. ; 22:59 BP 180 / 96; Pulse 93; Resp 18; Pulse Ox 99% ; cp4 21:27 Body Mass Index 35.15 (107.95 kg, 175.26 cm) vc1 ED Course: 20:37 Patient arrived in ED. ra3 20:45 Everardo Alvarado MD is Attending Physician. ec2 21:29 Triage completed. vc1 21:30 Arm band placed on left wrist. vc1 21:37 Inserted saline lock: 20 gauge in right hand, using aseptic technique. jh8 22:59 Bed in low position. Call light in reach. Side rails up X2. Provided Education on: cp4 muscle cramps. 22:59 No provider procedures requiring assistance completed. intact, bleeding controlled, No cp4 redness/swelling at site. Pressure dressing applied. Administered Medications: 21:36 Drug: NS 0.9% IV 1000 ml IV at 1 bolus Per protocol; 1000 mL bolus Route: IV; Rate: 1 jh8 bolus; Site: right hand; 23:00 Follow up: Response: No adverse reaction; IV Status: Completed infusion cp4 21:36 Drug: metoCLOPramide IVP 10 mg IVP once; over 1 to 2 minutes Route: IVP; Site: right [address]; 23:00 Follow up: Response: No adverse reaction cp4 21:36 Drug: diphenhydrAMINE IVP 12.5 mg IVP once Route: IVP; Site: right hand; [facility] 23:00 Follow up: Response: No adverse reaction cp4 Medication: 22:59 VIS not applicable for this client. cp4 Outcome: 22:20 Discharge ordered by . ec2 22:59 Discharged to home ambulatory, cp4 22:59 Condition: stable 22:59 Discharge instructions given to patient, Instructed on discharge instructions, follow up and referral plans. Demonstrated understanding of instructions, follow-up care, 23:00 Patient left the ED. cp4 Signatures: Stacia Mcadams RN RN vc1 Everardo Alvarado MD MD ec2 Sobeida Torres cp4 Yudith Cochran 3 Ha Jeffries, RN RN jh8
[2024-06-20 23:09] VITALS: TEMP 98.2
[2024-06-20 23:15] VITALS: BP 180/96; O2SAT 99
== END 2024-06-20 23:00 | disposition home or self-care (01) ==
LOC: ER 20:34
DX: R25.2 Cramp and spasm (principal); E86.0 Dehydration; R51.9 Headache, unspecified; I10 Essential (primary) hypertension
CPT/HCPCS: 96361; 85025; 80048; 36415; 82550; 96375; 96374; 99284; J2765; J1200; J7030

== ENCOUNTER 2024-07-15 17:55 | Emergency (ER) | payer OTHER ==
--- OUTSIDE RECORDS SUMMARY | 2024-07-15 17:59 | XMS REPORT | Continuity of Care Document ---
Author Name Unknown Address [address] [facility] [address] [place] [address] [facility] thconnect Address [address] [facility]. 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 Phone Tristan Brittni ALLEN Primary Care Physician Neetu Feng Attending Clinician Unavailab Melissa Buenrostro Attending Clinician Unavailable Mele Jimenez MD Attending Clinician [phone] Josse Nieves MD Attending Clinician [phone] DEMIAN YOUNG Attending Clinician Unavailable Demian Noble Attending Clinician [phone] LISA BENITEZ Attending Clinician Unavailab Lisa Bragg DO Attending Clinician [phone] DAIANA ALDANA Attending Clinician UnavailDaiana Khan MD Attending Clinician [phone] Doctor Unassigned, [place] Attending Clinician U navailNICO Lewis Attending Clinician Jordon Maldonado DO Attending Clinician [phone] Person Josse BELTRÁN Admitting Clinician [phone] DEMIAN YOUNG Admitting Clinician Unavailable DAIANA ALDANA Admitting Clinician NICO Mari Admitting Clinician Shyam chen Payers Payer Name Policy Type Policy Number Effective Date Expirati on Date Source BCBS [facility] OUT [facility] STATE [id number] 2017 00:00:00 2023 00:00:00 Problems Condition Name Condition Details Condition Category Status Onset Date Resolution Date Last Treatment Date Treating Clinician Comments Source Perineal abscess Perineal abscess Disease Active 04-26 00:00: 00 [facility] Obesity (BMI 30-39.9) Obesity (BMI 30-39.9) Disease Active 04-26 00:00: 00 [facility] Gastroente ritis Gastroente ritis Disease Active 2021-11 00:00: 00 [facility] [id number] Gastroesop hageal reflux disease without esophagiti s Problem Active [facility] [id number] Seasonal allergic rhinitis, unspecifie d trigger Problem Active [facility] [id number] Moderate persistent reactive airway disease with acute exacerbati on Problem Active [facility] Obstructiv e sleep apnea Obstructiv e sleep apnea Problem Active [facility] [id number] Generalize d anxiety disorder Problem Active [facility] Alcoholism Alcoholism Problem Active [facility] [id number] HTN (hypertens ion), benign Problem Active [facility] Chronic fatigue syndrome Chronic fatigue Problem Active [facility] Seasonal allergy Seasonal allergies Problem Active [facility] Tobacco abuse Tobacco abuse Problem [facility] Thrombocyt openia Thrombocyt openia, unspecifie d Problem [facility] Counseling about tobacco use Tobacco abuse counseling Problem [facility] No known active problems No known active problems Disease [facility] Allergies, Adverse Reactions, Alerts Allergy Name Allergy Type Status Severity Reaction(s) Onset Date Inactive Date Treating Clinician Comments Source Lisinopr il Propensi ty to adverse reaction s Active Cough 04-15 00:00: 00 [facility] LISINOPR [place] DRUG INGREDI Active COUGH 04-15 00:00: 00 [facility] Social History Social Habit Start Date Stop Date Quantity Comments Source History of Tobacco Use [facility] Social function 2024-04-27 00:00:00 2024-04-27 00:00:00 [facility] Exposure to SARS-CoV-2 (event) 2022-10-21 00:00:00 2022-10-31 06:50:00 Not sure [facility] Smoking Status Start Date Stop Date Source Never Smoker [facility] Tobacco smoking consumption unknown [facility] Medications Ordered Medication Name Filled Medication Name Start Date Stop Date Current Medication? Ordering Clinician Indication Dosage Frequency Signature (SIG) Comments Components Source sulfamethox azole-trime thoprim (BACTRIM DS) 800-160 mg per tablet 1 tablet 04-28 01:00: 00 05-01 00:59 :00 Yes 1{tbl} 1 tablet, Oral, BID, 6 doses, First dose on 04/27/24 at 2000, Last dose on Sat04/30/24 at 0800, CONTRERAS, Reason for Anti-Infec tive: Documented Infection, Documented Infection Site: Skin / Soft Tissue, Duration of Therapy: 7 days [facility] pantoprazol e 20 mg EC tablet 04-27 14:38: 51 Yes 20mg Take 20 mg by mouth daily. [facility] chlorthalid one 25 mg tablet 04-27 14:38: 51 Yes 25mg Take 25 mg by mouth daily. [facility] losartan 50 mg tablet 04-27 14:38: 51 Yes 50mg Take 50 mg by mouth daily. [facility] NICOLE CHEWABLE ASPIRIN ORAL 04-27 14:38: 51 Yes 81mg Take 81 mg by mouth daily. [facility] ibuprofen (IBU) tablet 800 mg 04-27 14:22: 45 Yes 800mg [facility] acetaminoph en (TYLENOL) tablet 650 mg 04-27 14:22: 45 Yes 650mg [facility] sulfamethox azole-trime thoprim 800-160 mg per tablet 04-27 00:00: 00 05-08 04:59 :00 Yes [id number] 1{tbl} Take 1 tablet by mouth in the morning and 1 tablet in the evening. Do all this for 10 days. [facility] piperacilli n-tazobacta m (ZOSYN) 3.375 g in NaCl 0.9% (NS) 100 mL VIAL-MATE 04-26 20:00: 00 05-01 19:59 :00 Yes 3.375g 3.375 g, IV Piggyback, Q8H ABX, 15 doses, First dose on Sat04/26/24 at 1500, Last dose on Sat05/01/24 at 0700, Administer over 4 Hours, 100 mL, Reason for Anti-Infec tive: Documented Infection, Documented Infection Site: Skin / Soft Tissue, Duration of Therapy: 7 days [facility] ondansetron (ZOFRAN (PF)) injection 4 mg 04-26 15:02: 53 Yes 4mg 4 mg, Slow IV Push, Q6HPRN, Starting on Sat04/26/24 at 1002, Until Discontinu ed, Routine, Nausea and Vomiting (N/V) [facility] morpHINE injection 2 mg 04-26 15:02: 49 Yes 2mg 2 mg, Slow IV Push, Q2HPRN, Starting on Sat04/26/24 at 1002, Until Discontinu ed, Routine, Pain (scale 7-10), Pain unrelieved by scheduled analgesics [facility] HYDROcodone -acetaminop hen (NORCO 5) 5-325 mg tablet 1 tablet 04-26 15:02: 38 Yes 1{tbl} 1 tablet, Oral, Q6HPRN, Starting on 04/26/24 at 1002, Until Discontinu ed, Routine, Pain (scale 4-6) [facility] acetaminoph en (TYLENOL) tablet 650 mg 04-26 15:02: 24 Yes 650mg 650 mg, Oral, Q6HPRN, Starting on 04/26/24 at 1002, Until Discontinu ed, Routine, Pain (scale 1-3), Fever [facility] ampicillin- sulbactam (UNASYN) 1.5 g in NaCl 0.9% (NS) 100 mL VIAL-MATE 04-26 14:30: 00 04-26 15:07 :00 No 1.5g 1.5 g, IV Piggyback, ONCE, 1 dose, On Sat04/26/24 at 0930, Administer over 30 Minutes, 100 mL, Reason for Anti-Infec tive: Documented Infection, Documented Infection Site: Other, Other site: Pelvic, Duration of Therapy: 7 days [facility] telmisartan 20 mg tablet 02-14 00:00: 00 Yes 1mg Micky Vega metoprolol tartrate 100 mg tablet 02-14 00:00: 00 Yes 1mg Micky Vega omeprazole 20 mg capsule,del ayed release 02-14 00:00: 00 Yes 1mg Micky Vega benzonatate 100 mg capsule 02-14 00:00: 00 Yes 1mg Micky Vega diclofenac sodium 75 mg tablet,rosa yed release 01-28 00:00: 00 Yes mg Micky Vega ondansetron HCl 4 mg tablet 01-28 00:00: 00 Yes mg Micky Porter Vega TAKE ONE (1) TABLET(S) BY MOUTH TWICE A DAY NEEDED. 01-27 00:00: 00 Yes Micky Porter Gary TAKE ONE (1) TABLET(S) BY MOUTH EVERY SIX HOURS NEEDED. 01-27 00:00: 00 Yes Micky Porter Gary APPLY SPARINGLY TO AFFECTED AREA(S) TWICE DAILY 2022-11 00:00: 00 03-03 00:00 :00 No 2 Micky Vega TAKE 1 CAPSULE TWICE DAILY. 2022-11 00:00: 00 03-03 00:00 :00 No 100 Micky Vega TAKE 1 TABLET DAILY. 2022-11 00:00: 00 03-03 00:00 :00 No 100 Micky Vega TAKE 1 TABLET TWICE DAILY. 2022-11 00:00: 00 03-03 00:00 :00 No 100 Micky Vega TAKE 1 TABLET DAILY. 2022-11 00:00: 00 03-03 00:00 :00 No 10 Micky Vega TAKE 1 TABLET AT BEDTIME. 2022-11 00:00: 00 03-03 00:00 :00 No 20 Micky Vega colchicine 0.6 mg tablet 2022-11 00:00: 00 Yes mg Micky Vega indomethaci n 50 mg capsule 2022-11 00:00: 00 Yes mg Micky Vega HYDROcodone -acetaminop hen (NORCO) 10-325 mg tablet 1 tablet 2022-11 22:00: 00 08-24 21:22 :00 No 1{tbl} 1 tablet, Oral, ONCE, 1 dose, On 08/24/23 at 1700, Routine [facility] indomethaci n 50 mg capsule 2022-11 00:00: 00 Yes [id number] 50mg Take 1 capsule by mouth in the morning and 1 capsule at noon and 1 capsule in the evening. Take with meals. [facility] TAKE ONE (1) TABLET(S) BY MOUTH NOW, FOLLOWED BY TWO (2) TABLETS 1 HOUR LATER. 2022-11 00:00: 00 Yes Micky Vega TAKE 1 CAPSULE BY MOUTH IN THE MORNING AND 1 CAPSULE AT NOON AND 1 CAPSULE IN THE EVENING. TAKE WITH MEALS. 2022-11 00:00: 00 Yes Micky Vega buspirone 15 mg tablet 05-25 00:00: 00 Yes mg Micky Vega TAKE 1 TABLET DAILY. 05-25 00:00: 00 03-03 00:00 :00 No 25 Micky Vega TAKE 1 CAPSULE 3 TIMES DAILY NEEDED. 05-25 00:00: 00 03-03 00:00 :00 No 100 Micky Vega TAKE 1 TABLET TWICE DAILY. 05-25 00:00: 00 03-03 00:00 :00 No 5 Micky Vega TAKE 1 TABLET DAILY. 05-25 00:00: 00 03-03 00:00 :00 No 10 Micky Vega TAKE 1 TABLET TWICE DAILY. 05-25 00:00: 00 03-03 00:00 :00 No 100 Micky Vega lactulose (CEPHULAC) solution 30 mL 04-18 20:45: 00 04-18 20:49 :00 No 30mL 30 mL, Oral, ONCE, 1 dose, [facility]S) BY MOUTH TWICE A DAY WITH FOOD. 01-29 00:00: 00 Yes Micky Vega TAKE ONE (1) TABLET(S) BY MOUTH ONCE A DAY AT BEDTIME. 01-29 00:00: 00 Yes Micky Vega TAKE ONE (1) TABLET(S) BY MOUTH EVERY FOUR HOURS. 11-29 00:00: 00 Yes Micky Vega TAKE ONE (1) TABLET(S) BY MOUTH EVERY TWELVE HOURS UNTIL GONE. 11-29 00:00: 00 Yes Micky Vega TAKE ONE (1) TABLET(S) BY MOUTH EVERY EIGHT HOURS NEEDED. 11-25 00:00: 00 Yes Micky Vega TAKE ONE (1) CAPSULE(S) BY MOUTH EVERY SIX HOURS FOR 10 DAYS. 11-25 00:00: 00 Yes Micky Vega aspirin tablet 325 mg 2021-11 15:00: 00 Yes 325mg 325 mg, Oral, DAILY, First dose on Sat10/31/22 at 0900, Until Discontinu ed, Routine [facility] ondansetron (ZOFRAN (PF)) injection 4 mg 2021-11 13:45: 00 10-31 13:51 :00 No 4mg 4 mg, Slow IV Push, ONCE, 1 dose, On Sat10/31/22 at 0745, CONTRERAS [facility] NaCl 0.9% (NS) bolus infusion 1,000 mL 2021-11 13:45: 00 10-31 15:28 :00 No 1000mL at 999 mL/hr, 1,000 mL, IV Infusion, ONCE, 1 dose, On Sat10/31/22 at 0745, STAT [facility] NICOLE CHEWABLE ASPIRIN ORAL 2021-11 09:18: 52 Yes 81mg Take 81 mg by mouth daily. [facility] aspirin 81 mg chewable tablet 2021-11 00:00: 00 11-16 05:59 :00 No [id number] 81mg Take 1 tablet by mouth in the morning for 15 days. [facility] ondansetron 4 mg disintegrat ing tablet 2021-11 00:00: 00 11-06 05:59 :00 No [id number] 4mg Take 1 tablet by mouth every 8 (eight) hours as needed for Nausea and Vomiting (N/V) for up to 5 days. [facility] TAKE ONE (1) TABLET(S) BY MOUTH ONCE A DAY. 06-29 00:00: 00 Yes Micky Vega TAKE ONE (1) TABLET(S) BY MOUTH ONCE A DAY. 06-29 00:00: 00 Yes Micky Vega TAKE ONE (1) TABLET(S) BY MOUTH THREE TIMES A DAY. 06-29 00:00: 00 Yes Micky Vega TAKE TWO (2) TABLET(S) BY MOUTH TWICE A DAY WITH FOOD. 06-29 00:00: 00 Yes Micky Vega morpHINE injection 4 mg 12-28 22:30: 00 12-28 21:23 :00 No 4mg 4 mg, Slow IV Push, ONCE, 1 dose, 12/28/19 at 1630, STAT [facility] ondansetron (ZOFRAN (PF)) injection 4 mg 12-28 22:30: 00 12-28 21:23 :00 No 4mg 4 mg, Slow IV Push, ONCE, 1 dose, Sat12/28/19 at 1630, CONTRERAS [facility] ketorolac (TORADOL) injection 30 mg 12-28 19:30: 00 12-28 18:26 :00 No 30mg 30 mg, Slow IV Push, ONCE, 1 dose, Sat12/28/19 at 1330, CONTRERAS
[facility] approving Restricted medication : DEMIAN YOUNG [facility] albuterol 90 mcg/actuati on inhaler 11-11 00:00: 00 Yes [id number] 2{puff} Inhale 2 Puffs every 4 (four) hours as needed for Wheezing or Shortness of Breath. [facility] benzonatate 100 mg capsule 11-11 00:00: 00 Yes [id number] 100mg Take 1 capsule by mouth 3 (three) times daily as needed for Cough. [facility] NaCl 0.9% (NS) bolus infusion 1,000 mL 06-04 11:45: 00 06-04 11:47 :00 No 1000mL at 999 mL/hr, 1,000 mL, IV Piggyback, ONCE, 1 dose, Sat06/04/19 at 0645, STAT [facility] methylPREDN ISolone sodium succinate (SOLU-MEDRO L) injection 125 mg 06-04 11:00: 00 Yes 125mg 125 mg, Intravenou s, Q6H, First dose on Sat06/04/19 at 0600, Until Discontinu ed, Routine [facility] losartan 50 mg tablet 06-04 10:45: 10 Yes 50mg Take 50 mg by mouth daily. [facility] NICOLE CHEWABLE ASPIRIN ORAL 06-04 10:45: 10 Yes 81mg Take 81 mg by mouth daily. [facility] pantoprazol e 20 mg EC tablet 06-04 10:45: 10 Yes 20mg Take 20 mg by mouth daily. [facility] chlorthalid one 25 mg tablet 06-04 10:45: 10 Yes 25mg Take 25 mg by mouth daily. [facility] pantoprazol e 20 mg EC tablet 06-04 05:45: 10 Yes 20mg Take 20 mg by mouth daily. [facility] chlorthalid one 25 mg tablet 06-04 05:45: 10 Yes 25mg Take 25 mg by mouth daily. [facility] losartan 50 mg tablet 06-04 05:45: 10 Yes 50mg Take 50 mg by mouth daily. [facility] benzonatate 100 mg capsule 06-04 00:00: 00 Yes [id number] 100mg Take 1 capsule by mouth 3 (three) times daily as needed for Cough. [facility] methylPREDN ISolone (MEDROL, MC,) 4 mg tablets 06-04 00:00: 00 Yes [id number] Take by mouth SEE-INSTRU CTIONS. follow package directions [facility] chlorphenir amine 4 mg tablet 06-04 00:00: 00 Yes [id number] 4mg Take 1 tablet by mouth every 6 (six) hours as needed for Allergies or Runny nose. [facility] benzonatate 100 mg capsule 04-15 00:00: 00 06-04 00:00 :00 No 100mg Take 1 capsule by mouth 3 (three) times daily as needed for Cough. [facility] Flonase 50 MCG/ACT Flonase 50 [...] (90 Base) MCG/ACT Protonix Protonix Yes Na Reed 1 tablet [facility] BusPIRone HCl BusPIRone HCl Yes Na Reed 1 tablet [facility] Metoprolol Tartrate Metoprolol Tartrate Yes Na Reed 1.5 tablets with food [facility] amLODIPine Besylate 5 MG amLODIPine Besylate [...] Pneumovax (PPSV23) Pneumovax (PPSV23) 2018-01-01 09:44:00 Completed [facility] Adacel (Tdap) Adacel (Tdap) 2018-01-01 09:44:00 Completed [facility] Pneumovax (PPSV23) Pneumovax (PPSV23) 2018-01-01 09:44:00 Completed [facility] Adacel (Tdap) Adacel (Tdap) 2018-01-01 09:44:00 Completed [facility] Pneumovax (PPSV23) Pneumovax (PPSV23) 2018-01-01 09:44:00 Completed [facility] Adacel (Tdap) Adacel (Tdap) 2018-01-01 09:44:00 Completed [facility] Pneumovax (PPSV23) Pneumovax (PPSV23) Unknown Completed [facility] Adacel (Tdap) Adacel (Tdap) Unknown Completed [facility] Pneumovax (PPSV23) Pneumovax (PPSV23) Unknown Completed [facility] Adacel (Tdap) Adacel (Tdap) Unknown Completed [facility] Vital Signs Vital Name Observation Time Observation Value Comments S rory Systolic blood pressure 2024-04-27 16:12:00 131 mm[Hg] [facility] Diastolic blood pressure 2024-04-27 16:12:00 78 mm[Hg] [facility] Heart rate 2024-04-27 16:12:00 57 /min Unive [facility] Body temperature 2024-04-27 16:12:00 36.56 [facility] Respiratory rate 2024-04-27 16:12:00 16 /min [facility] Oxygen saturation in Arterial blood by Pulse oximetry 2024-04-27 16:12:00 95 /min [facility] Body height 2024-04-26 11:56:00 175.3 cm [facility] Body weight 2024-04-26 11:56:00 99.791 kg [facility] BMI 2024-04-26 11:56:00 32.49 kg/m2 [facility] Systolic blood pressure 2023-08-24 20:16:00 130 mm[Hg] [facility] Diastolic blood pressure 2023-08-24 20:16:00 96 mm[Hg] [facility] Heart rate 2023-08-24 20:16:00 69 /min Unive [facility] Body temperature 2023-08-24 20:16:00 36.89 [facility] Respiratory rate 2023-08-24 20:16:00 18 /min [facility] Body height 2023-08-24 20:16:00 175.3 cm [facility] Body weight 2023-08-24 20:16:00 107.956 kg [facility] BMI 2023-08-24 20:16:00 35.15 kg/m2 [facility] Oxygen saturation in Arterial blood by Pulse oximetry 2023-08-24 20:16:00 99 /min [facility] Systolic blood pressure 2023-04-18 20:27:00 146 mm[Hg] [facility] Diastolic blood pressure 2023-04-18 20:27:00 99 mm[Hg] [facility] Heart rate 2023-04-18 20:27:00 65 /min Unive [facility] Body temperature 2023-04-18 20:27:00 36.5 [facility] Respiratory rate 2023-04-18 20:27:00 18 /min [facility] Body height 2023-04-18 20:27:00 175.3 cm [facility] Body weight 2023-04-18 20:27:00 108.863 kg [facility] BMI 2023-04-18 20:27:00 35.44 kg/m2 [facility] Oxygen saturation in Arterial blood by Pulse oximetry 2023-04-18 20:27:00 97 /min [facility] Systolic blood pressure 2022-10-31 12:52:00 145 mm[Hg] [facility] Diastolic blood pressure 2022-10-31 12:52:00 104 mm[Hg] [facility] Heart rate 2022-10-31 12:52:00 71 /min Unive [facility] Body temperature 2022-10-31 12:52:00 36.61 [facility] Respiratory rate 2022-10-31 12:52:00 18 /min [facility] Body height 2022-10-31 12:52:00 175.3 cm [facility] Body weight 2022-10-31 12:52:00 108.863 kg [facility] BMI 2022-10-31 12:52:00 35.44 kg/m2 [facility] Oxygen saturation in Arterial blood by Pulse oximetry 2022-10-31 12:52:00 99 /min [facility] Systolic blood pressure 2019-12-28 22:00:00 144 mm[Hg] [facility] Diastolic blood pressure 2019-12-28 22:00:00 105 mm[Hg] [facility] Heart rate 2019-12-28 22:00:00 64 /[facility] 2019-12-28 22:00:00 20 /min [facility] Oxygen saturation in Arterial blood by Pulse oximetry 2019-12-28 22:00:00 97 /min [facility] Body temperature 2019-12-28 17:58:00 36.56 [facility] Body height 2019-12-28 17:58:00 175.3 cm [facility] Body weight 2019-12-28 17:58:00 90.719 kg [facility] BMI 2019-12-28 17:58:00 29.53 kg/m2 [facility] Systolic blood pressure 2019-12-28 22:00:00 144 mm[Hg] [facility] Diastolic blood pressure 2019-12-28 22:00:00 105 mm[Hg] [facility] Heart rate 2019-12-28 22:00:00 64 [facility] Respiratory rate 2019-12-28 22:00:00 20 /min [facility] Oxygen saturation in Arterial blood by Pulse oximetry 2019-12-28 22:00:00 97 /min [facility] Body temperature 2019-12-28 17:58:00 36.56 [facility] Body height 2019-12-28 17:58:00 175.3 cm [facility] Body weight 2019-12-28 17:58:00 90.719 kg [facility] BMI 2019-12-28 17:58:00 29.53 kg/m2 [facility] Systolic blood pressure 2019-06-04 10:29:00 136 mm[Hg] [facility] Diastolic blood pressure 2019-06-04 10:29:00 102 mm[Hg] [facility] Heart rate 2019-06-04 10:29:00 103 /min [facility] Body temperature 2019-06-04 10:29:00 36.78 [facility] Respiratory rate 2019-06-04 10:29:00 20 /min [facility] Body height 2019-06-04 10:29:00 175.3 cm [facility] Body weight 2019-06-04 10:29:00 95.255 kg [facility] BMI 2019-06-04 10:29:00 31.01 kg/m2 [facility] Oxygen saturation in Arterial blood by Pulse oximetry 2019-06-04 10:29:00 96 /min [facility] Systolic blood pressure 2019-06-04 10:29:00 136 mm[Hg] [facility] Diastolic blood pressure 2019-06-04 10:29:00 102 mm[Hg] [place] [facility] Heart rate 2019-06-04 10:29:00 103 /min [facility] Body temperature 2019-06-04 10:29:00 36.78 [facility] Respiratory rate 2019-06-04 10:29:00 20 /min [facility] Body height 2019-06-04 10:29:00 175.3 cm [facility] Body weight 2019-06-04 10:29:00 95.255 kg [facility] BMI 2019-06-04 10:29:00 31.01 kg/m2 [facility] Oxygen saturation in Arterial blood by Pulse oximetry 2019-06-04 10:29:00 96 /min [place] [facility] BP Diastolic 2024-02-15 12:05:00 113 mm[Hg] Nathaniel phen F Gary Weight Measured 2024-02-15 12:05:00 231.00 pounds Micky F Gary Height Measured 2024-02-15 12:05:00 68.50 inches Micky F Gary Body Temperature 2024-02-15 12:05:00 98.20 degrees Micky F Gary Heart Rate 2024-02-15 12:05:00 85.00 /min Marisela en F Gary Respiratory Rate 2024-02-15 12:05:00 18.00 /min Micky F Gary BP Systolic 2024-02-15 12:05:00 169 mm[Hg] Step hen F Gary BP Systolic 2023-08-28 10:53:00 155 mm[Hg] Step hen F Gary BP Diastolic 2023-08-28 10:53:00 99 mm[Hg] Nathaniel phen F Gary Weight Measured 2023-08-28 10:53:00 235.60 pounds Micky F Gary Height Measured 2023-08-28 10:53:00 68.50 inches Micky F Gary Body Temperature 2023-08-28 10:53:00 98.60 degrees Micky F Gary Heart Rate 2023-08-28 10:53:00 76.00 /min Marisela en F Gary Respiratory Rate 2023-08-28 10:53:00 17.00 /min Micky F Gary BP Systolic 2023-05-25 14:05:00 152 mm[Hg] Step hen Porter Vega BP Diastolic 2023-05-25 14:05:00 107 mm[Hg] Nathaniel phen Porter Vega Weight Measured 2023-05-25 14:05:00 228.60 pounds Micky Vega Height Measured 2023-05-25 14:05:00 68.50 inches Micky Vega Body Temperature 2023-05-25 14:05:00 97.90 degrees Micky Vega Heart Rate 2023-05-25 14:05:00 64.00 /min Marisela en Porter Vega Respiratory Rate 2023-05-25 14:05:00 Micky Vega BP Systolic 2023-05-25 13:39:00 152 mm[Hg] Step hen Porter Vega BP Diastolic 2023-05-25 13:39:00 107 mm[Hg] Nathaniel phen Porter Vega Weight Measured 2023-05-25 13:39:00 228.60 pounds Micky Vega Height Measured 2023-05-25 13:39:00 68.50 inches Micky Vega Body Temperature 2023-05-25 13:39:00 97.90 degrees Micky Vega Heart Rate 2023-05-25 13:39:00 64.00 /min Marisela en Porter Vega Respiratory Rate 2023-05-25 13:39:00 Micky Vega Procedures Procedure Date / Time Performed Performing Clinician Source URINALYSIS 2024-04-27 11:35:00 Kaley Wilson [facility] EXTRA TUBE URINE CULTURE 2024-04-27 11:35:00 Josse Nieves [facility] PHOSPHORUS 2024-04-27 09:17:00 Kaley Wilson [facility] MAGNESIUM 2024-04-27 09:17:00 Kaley Wilson [facility] BASIC METABOLIC PANEL (NA, K, CL, CO2, GLUCOSE, BUN, CREATININE, CA) 2024-04-27 09:17:00 Kaley Wilson [facility] CBC WITH DIFF 2024-04-27 09:17:00 Kaley Wilson [facility] BASIC METABOLIC PANEL (NA, K, CL, CO2, GLUCOSE, BUN, CREATININE, CA) 2024-04-26 13:33:00 Kaley Wilson [facility] CBC WITH DIFF 2024-04-26 13:33:00 Kaley Wilson [facility] US SCROTUM AND CONTENTS 2024-04-26 13:29:15 Alethea Wilson [facility] ASSIGNMENT OF BENEFITS 2023-08-24 22:10:13 Docto r Unassigned, [place] [facility] XR ANKLE 3+ VW LEFT 2023-08-24 20:54:52 Demian Young [facility] CONSENT/REFUSAL FOR DIAGNOSIS AND TREATMENT 2023-08-24 19:52:32 Doctor Unassigned, [place] [facility] ASSIGNMENT OF BENEFITS 2023-04-18 20:53:18 Docervin r Unassigned, [place] [facility] CONSENT/REFUSAL FOR DIAGNOSIS AND TREATMENT 2023-04-18 20:24:58 Doctor Unassigned, [place] [facility] XR CHEST 2 VW 2022-10-31 14:04:07 Daiana Aldana Un [facility] TROPONIN I 2022-10-31 13:50:00 Daiana Aldana Uni [facility] COMP. METABOLIC PANEL ([id number]) 2022-10-31 13:50:00 Daiana Aldana [facility] CBC WITH DIFF 2022-10-31 13:50:00 [facility] 2022-10-31 13:50:00 Daiana Aldana [facility] COVID-19 (ID NOW RAPID TESTING) 2022-10-31 13:50:00 Daiana Aldana [facility] RAPID INFLUENZA A/B 2022-10-31 13:14:00 Lesia Aldana [facility] CONSENT/REFUSAL FOR DIAGNOSIS AND TREATMENT 2022-10-31 12:43:31 Doctor Unassigned, [place] [facility] CT ABDOMEN PELVIS WO CONTRAST 2019-12-28 20:01:17 Demian Young [facility] LIPASE 2019-12-28 18:10:00 Demian Young [facility] COMP. METABOLIC PANEL ([id number]) 2019-12-28 18:10:00 Demian Young [facility] CBC WITH DIFFERENTIAL 2019-12-28 18:10:00 Demian Young [facility] URINALYSIS 2019-12-28 18:10:00 Demian Young [facility] NOTICE OF PRIVACY PRACTICES 2019-12-28 17:54:35 Doctor Unassigned, [place] [facility] CONSENT/REFUSAL FOR DIAGNOSIS AND TREATMENT 2019-12-28 17:44:24 Doctor Unassigned, [place] [facility] COMP. METABOLIC PANEL ([id number]) 2019-06-04 10:49:00 Jordon Craig [facility] CBC WITH DIFFERENTIAL 2019-06-04 10:49:00 Yusef Craig [facility] XR CHEST 1 VW 2019-06-04 10:45:17 Jordon Craig [facility] NOTICE OF PRIVACY PRACTICES 2019-06-04 10:16:35 Doctor Unassigned, [place] [facility] Encounters Start Date/Time End Date/Time Encounter Type Admission Type Attending [facility] Care Facility Care Department Encounter ID Source 2023-05-28 15:09:00 [facility] [id number] [facility] 2022-07-12 14:58:00 Outpatient Melissa Reed [facility] [id number] [facility] 2022-06-29 11:19:00 Outpatient Derek Na STLMLC STL[facility]C [id number] [facility] 2021-11-29 14:31:20 Outpatient Reed, Na STLMLC STLMLC [id number] [facility] 2021-11-29 14:30:49 Outpatient Melissa Reed [facility] ST[facility] [id number] [facility] 2021-11-29 12:43:32 Outpatient Derek Na [facility] ST[facility] [id number] [facility] 2021-11-29 11:34:10 Out[address] [facility] [id number] [facility] 2021-11-29 11:15:43 Outpatient [address] lundy [facility] [id number] [facility] 2021-11-29 10:59:47 Outpatient [facility]issa [facility] [id number] [facility] 2021-11-29 10:57:56 Outpatient ReedMelissa lundy [facility] [id number] [facility] 2024-05-25 17:52:31 2024-05-25 17:52:31 Outpatient SFA [facility] [id number] Micky Vega 2024-05-25 00:00:00 2024-05-25 00:00:00 Outpatient Visit [facility] [id number] Micky Vega 2024-04-26 06:58:00 2024-04-27 14:38:00 Emergency Mele [facility]Pending sale to [facility] 1.2.840.114 350.1.13.10 4.2.7.2.686 [id number] [facility] 2024-02-15 11:57:59 2024-02-15 11:57:59 Outpatient [facility] [id number] Micky Vega 2023-08-28 10:41:51 2023-08-28 10:41:51 Outpatient [facility] [id number] Micky Vega 2023-08-27 09:30:18 2023-08-27 09:30:18 Outpatient SFA [facility] [id number] Micky Vega 2023-08-24 15:18:00 2023-08-24 18:43:00 Emergency X DEMIAN YOUNG [facility] [id number] [facility] 2023-08-24 15:18:00 2023-08-24 18:43:00 Emergency Demian Young [facility] 1.2.840.114 350.1.13.10 4.2.7.2.686 [id number] [facility] 2023-05-25 13:34:20 2023-05-25 13:34:20 Outpatient [facility] [id number] Micky Vega 2023-05-02 13:12:06 2023-05-02 13:12:06 Outpatient [facility] [id number] Micky Vega 2023-04-18 15:29:00 2023-04-18 16:13:00 Emergency X LISA BENITEZ [facility] ERT [id number] [facility] 2023-04-18 15:29:00 2023-04-18 16:13:00 Emergency Lisa Benitez [facility] 1.2.840.114 350.1.13.10 4.2.7.2.686 [id number] [facility] 2023-01-25 00:00:00 2023-01-25 00:00:00 (TEL) [facility]C [facility] [id number] [facility] 2023-01-25 00:00:00 2023-01-25 00:00:00 (TEL) [facility]LMLC [facility] [id number] [facility] 2022-10-31 06:54:00 2022-10-31 09:29:00 Emergency X DAIANA ALDANA [facility] ERT [id number] [facility] 2022-10-31 06:54:00 2022-10-31 09:29:00 Emergency Behzadi, Daiana A [facility] 1.2.840.114 350.1.13.10 4.2.7.2.686 [id number] [facility] 2022-06-29 00:00:00 2022-06-29 00:00:00 (TEL) STLMLC [facility]C [id number] [facility] 2022-06-28 00:00:00 2022-06-28 00:00:00 (TEL) STLMLC STLMLC [id number] [facility] 2021-11-09 00:00:00 2021-11-09 00:00:00 OFFICE VISIT ESTAB PT LEVEL 4 STLMLC STLMLC [id number] [facility] 2021-02-01 00:00:00 2021-02-01 00:00:00 Outpatient STLMLC STLMLC [id number] [facility] 2020-06-03 13:40:00 2020-06-03 13:40:00 [facility] Medicine [facility] [id number] [facility] 2020-01-20 14:21:00 2020-01-20 14:21:00 Outpatient [facility] [id number] [facility] 2020-01-15 14:55:00 2020-01-15 14:55:00 Outpatient [facility] Medicine [facility] [id number] [facility] 2019-12-28 11:59:45 2019-12-28 16:55:00 Emergency Demian Young [address]2.840.114 350.1.13.10 4.2.7.2.686 [id number] 2019-12-28 11:59:45 2019-12-28 16:55:00 Emergency Demian Young [facility] 12.840.114 350.1.13.10 4.2.7.2.686 [id number] [facility] 2019-12-28 11:59:45 2019-12-28 16:55:00 Emergency X DEMIAN YOUNG [facility] ERT [id number] [facility] 2019-12-28 10:58:00 2019-12-28 10:58:00 Outpatient [facility] Medicine [facility] [id number] [facility] 2019-12-28 00:00:00 2019-12-28 00:00:00 Orders Only Doctor Unassigned, [place] [facility] 1.2.840.114 350.1.13.10 4.2.7.2.686 [id number] 2019-12-28 00:00:00 2019-12-28 00:00:00 Orders Only Doctor Unassigned, [place] [facility] 1.2.840.114 350.1.13.10 4.2.7.2.686 [id number] [facility] 2019-11-11 10:51:25 2019-11-11 12:46:00 Emergency X NICO BONILLA [facility] ERT [id number] [facility] 2019-09-11 08:24:00 2019-09-11 08:24:00 [facility] [id number] [facility] 2019-09-07 15:20:00 2019-09-07 15:20:00 [facility] [id number] [facility] 2019-07-29 13:22:00 2019-07-29 13:22:00 [facility] [place] [facility] [id number] [facility] 2019-06-26 09:56:00 2019-06-26 09:56:00 [facility] [place] [facility] [id number] [facility] 2019-06-25 15:20:00 2019-06-25 15:20:00 [facility] [place] [facility] [id number] [facility] 2019-06-04 05:22:14 2019-06-04 06:49:00 Emergency Jordon Craig [facility] 1.2.840.114 350.1.13.10 4.2.7.2.686 [id number] 2019-06-04 05:22:14 2019-06-04 06:49:00 Emergency Jordon Craig [facility] 1.2.840.114 350.1.13.10 4.2.7.2.686 [id number] [facility] 2019-02-16 16:00:00 2019-02-16 16:00:00 Outpatient [facility] [id number] [facility] Results Test Description Test Time Test Comments Results Result Comments Source US SCROTUM AND CONTENTS 16:08:18 EXAM: US SCROTUM AND CONTENTS HISTORY: 48 years-old Male with Scrotal pain . TECHNIQUE: Ultrasound imaging with color Doppler of the scrotum wasperformed from OSH. [employer] Gl[employer] Stuffer images were uploaded for interpretation.A report is present for comparison. Read is requested for surgicalplanning. COMPARISON: None FINDINGS: Right Testicle: The right testicle is normal in size, shape, andechotexture. The right testicle measures 4.2 x 2.5 x 3.1 cm, with a volumeof 17.2 mL. The blood flow is normal. No focal lesion is seen. Mildhydrocele is present. Left Testicle: The left testicle is small in size however with heterogenousechotexture and demonstrated areas of hypoechogenicity. Diminished flowcompared to the right testicles. The left testicle measures 2.5 x 3.5 x 1.9cm, with a volume of 8.7 mL. The blood flow is symmetric. No focal lesionis seen at the area of concern at the midline posterior scrotum, there issevere inflammatory changes and edema as well as skin thickening. Anirregular 1.8 x 4.4 x 1.2 cm heterogenous fluid collection is noted. Mildleft hydrocele is seen. Right Epididymis: The right epididymal head is normal in size anddemonstrates normal blood flow. Left Epididymis: The left epididymal head is normal in size anddemonstrates normal blood flow. 1 x 1 cm epididymal simple cyst. No sonographic evidence of varicocele is seen. [facility] (NA, K, CL, CO2, GLUCOSE, BUN, CREATININE, CA)2024-04-26 13:59:20* Test Item Value Reference Range Interpretation Comme nts NA (test code = 1179301648) 136 mmol/L 135-145 K (test code = 4605941148) 3.7 mmol/L 3.5-5.0 CL (test code = 0894183492) 108 mmol/L 98-108 CO2 TOTAL (test code = 4078561294) 26 mmol/L 23-31 AGAP (test code = 8297844629) 2 2-16 BUN (test code = 8449756371) 16 mg/dL 7-23 GLUCOSE (test code = 1389807414) 124 mg/dL 70-110 H CREATININE (test code = 2160-0) 1.50 mg/dL 0.60-1.25 H CALCIUM (test code = 4226670258) 8.3 mg/dL 8.6-10.6 L eGFR (test code = 47599-1) 57.8 mL/min/1.73m2 CKD-EPI eGFR (2020). Assuming creatinine has been stable day-to-day for at least three months, the eGFR indicates Category G3a (45 - 59 mL/min/1.73 m2) Lab Interpretation (test code = 16505-1) [facility] [id number] 00:33:15* Test Item Value Reference Range Interpretation Comme nts GLUCOSE (test code = 2217) 82 MG/DL 70-99 BUN (test code = 2208) 13 MG/DL 6-20 CREATININE (test code = 2214) 1.36 MG/DL 0.80-1.40 eGFR (2020 CKD-EPI) (test co de = 01405) 65 ML/MIN/1.73 >60 CALC BUN/CREAT (test code = 2235) 10 RATIO 6-28 SODIUM (test code = 2231) 145 MEQ/L 133-146 POTASSIUM (test code = 2228) 4.0 MEQ/L 3.5-5.4 CHLORIDE (test code = 2215) 106 MEQ/L 95-107 CARBON DIOXIDE (test code = 2206) 24 MEQ/L 19-31 CALCIUM (test code = 2209) 9.4 MG/DL 8.5-10.5 PROTEIN, TOTAL (test code = 2229) 7.1 G/DL 6.1-8.3 ALBUMIN (test code = 220) 4.5 G/DL 3.5-5.2 CALC GLOBULIN (test code = 2240) 2.6 G/DL 1.9-3.7 CALC A/G RATIO (test code = 2234) 1.7 RATIO 1.0-2.6 BILIRUBIN, TOTAL (test code = 2206) 1.3 MG/DL <=1.2 H ALKALINE PHOSPHATASE (test code = 220) 64 U/L 40-118 AST (test code = 2218) 31 U/L 9-50 ALT (test code = 2219) 57 U/L 5-50 H LIPID [id number] 00:33:15* Test Item Value Reference Range Interpretation Comme nts CHOLESTEROL (test code = 2209) 95 MG/DL <200 TRIGLYCERIDES (test code = 2232) 62 MG/DL <150 HDL CHOLESTEROL (test code = 2219) 41 MG/DL >39 CALC LDL CHOL (test code = 223) 40 MG/DL <100 NOTE: CALCULATED LDL IS BASED ON ERIC-BETTS METHOD WHICHINCLUDES ADJUSTABLE TRIGLYCERIDE:VLDL CHOLESTEROL RATIO.THIS FACTOR VARIES BY MEASURED TRIGLYCERIDE AND NON-HDLCHOLESTEROL CONCENTRATIONS WITH INCREASED CALCULATED LDL SEENIN HIGHER TRIGLYCERIDE OR LOWER NON-HDL SPECIMENS. FOR MOREINFORMATION, SEE CLIENT ANNOUNCEMENT AT [email or web address] RISK RATIO LDL/HDL (test code = 223) 0.98 RATIO <3.55 UNLESS OTHERW ISE INDICATED, ALL TESTING PERFORMED AT [facility] [address] [place] [address] CHIEF CONTROLLER: ELI DOE M.D. CLIA NUMBER [id number] [facility] [place]. [id number] COMPREHENSIVE METABOLIC [id number] 00:00:00* Test Item Value Reference Range Interpretation Comme nts GLUCOSE (test code = 2216) 82 MG/DL BUN (test code = 2207) 13 MG/DL CREATININE (test code = 221) 1.36 MG/DL eGFR (2020 CKD-EPI) (test co de = 82039) 65 ML/MIN/1.73 CALC BUN/CREAT (test code = 2234) 10 RATIO SODIUM (test code = 2231) 145 MEQ/L POTASSIUM (test code = 2228) 4.0 MEQ/L CHLORIDE (test code = 2215) 106 MEQ/L CARBON DIOXIDE (test code = 2206) 24 MEQ/L CALCIUM (test code = 2209) 9.4 MG/DL PROTEIN, TOTAL (test code = 2229) 7.1 G/DL ALBUMIN (test code = 2201) 4.5 G/DL CALC GLOBULIN (test code = 2240) 2.6 G/DL CALC A/G RATIO (test code = 2234) 1.7 RATIO BILIRUBIN, TOTAL (test code = 2207) 1.3 MG/DL ALKALINE PHOSPHATASE (test code = 2204) 64 U/L AST (test code = 2218) 31 U/L ALT (test code = 2219) 57 U/L Micky VegaLIPID [id number] 00:00:00* Test Item Value Reference Range Interpretation Comme nts CHOLESTEROL (test code = 2210) 95 MG/DL TRIGLYCERIDES (test code = 2232) 62 MG/DL HDL CHOLESTEROL (test code = 2220) 41 MG/DL CALC LDL CHOL (test code = 2237) 40 MG/DL RISK RATIO LDL/HDL (test cod e = 2238) 0.98 RATIO Micky VegaTROPONIN [id number] 14:27:53* Test Item Value Reference Range Interpretation Comments TROPONIN I (test code = 7031645449) 0.005 ng/mL See_Comment [Automated message] The system [...] of biotin. Lab Interpretation (test code = 54941-3) Normal [facility] WITH [id number] 14:24:31* Test Item Value Reference Range Interpretation Comme nts WBC (test code = 6690-2) See_Comment [Automated messa ge] The system which generated this result transmitted reference range: 4.20 - 10.70 10*3/?L. The reference range was not used to interpret this result as normal/abnormal. RBC (test code = 789-8) See_Comment [Automated [employer]a ge] The system which generated this result [...] g/dL 31.2-35.0 H RDW-SD (test code = 27905-7) 39.0 fL 38.5-51.6 RDW-CV (test code = 788-0) 12.7 % 12.1-15.4 PLT (test code = 777-3) See_Comment L [Automated messa ge] The system which generated this result transmitted reference range: 150 - 328 10*3/?L. The reference range was not used to interpret this result as normal/abnormal. MPV (test code = 06370-0) 8.4 fL 9.8-13.0 L IPF % (test code = 0696300770) 0.9 % 1.2-10.7 L Platelet count measured by fluorescence method. NRBC/100 WBC (test code = 1018921229) See_Comment [Automated mobintent ssage] The system which generated this result transmitted reference range: 0.0 - 10.0 /100 WBCs. The reference range was not used to interpret this result as normal/abnormal. NRBC x10^3 (test code = 7760362643) See_Comment [Automated messa ge] The system which generated this result transmitted reference range: 10*3/?L. The reference range was not used to interpret this result as normal/abnormal. GRAN MAT (NEUT) % (test code = 770-8) 53.8 % IMM GRAN % (test code = 2187001111) 0.80 % LYMPH % (test code = 736-9) 31.2 % MONO % (test code = 5905-5) 11.4 % EOS % (test code = 713-8) 1.9 % BASO % (test code = 706-2) 0.9 % GRAN MAT x10^3(ANC) (test code = 1864211490) 5.30 10*3/uL 1.99-6.95 IMM GRAN x10^3 (test code = 0574964469) 0.08 10*3/uL 0.00-0.06 H LYMPH x10^3 (test code = 731-0) 3.08 10*3/uL 1.09-3.23 MONO x10^3 (test code = 742-7) 1.13 10*3/uL 0.36-1.02 H EOS x10^3 (test code = 711-2) 0.19 10*3/uL 0.06-0.53 BASO x10^3 (test code = 704-7) 0.09 10*3/uL 0.01-0.09 Lab Interpretation (test code = 58512-0) [facility] [id number] 14:24:31* Test Item Value Reference Range Interpretation Comme nts NT-proBNP (test code = 6951014372) 82 pg/mL See_Comment [Automated message] The system which generated this result transmitted reference range: <=125. The reference range was not used to interpret this result as normal/abnormal. KAYY (test code = KAYY) Biotin has been reported to cause a negative bias, interpret results relative to patient's use of biotin. Lab Interpretation (test code = 19327-0) [facility] (79271)2022-10-31 14:16:16* Test Item Value Reference Range Interpretation Comme nts NA (test code = 0413116259) 140 mmol/L 135-145 K (test code = 8169431973) 3.8 mmol/L 3.5-5.0 CL (test code = 4366604814) 108 mmol/L 98-108 CO2 TOTAL (test code = 2714493161) 25 mmol/L 23-31 AGAP (test code = 9967944363) 2-16 BUN (test code = 9319607158) 12 mg/dL 7-23 GLUCOSE (test code = 9760321384) 117 mg/dL 70-110 H CREATININE (test code = 6256910789) 0.92 mg/dL 0.60-1.25 TOTAL BILI (test code = 2649854161) 0.9 mg/dL 0.1-1.1 CALCIUM (test code = 5508442455) 8.2 mg/dL 8.6-10.6 L T PROTEIN (test code = 9017093496) 6.5 g/dL 6.3-8.2 ALBUMIN (test code = 3987144726) 3.8 g/dL 3.5-5.0 ALK PHOS (test code = 0844247050) 59 U/L 34-122 ALTv (test code = 1742-6) 64 U/L 5-50 H AST(SGOT) (test code = 3684982077) 37 U/L 13-40 eGFR (test code = 1281326664) mL/min/1.73m2 KAYY (test code = KAYY) Association [...] imaging tests). Lab Interpretation (test code = 05698-0) [facility] WO [id number] 21:04:461. ?No urinary system calculi. No hydronephrosis. [...] hyperemia related to mild enteritis.3. Additional findingsas above.[facility] CenterComplete Metabolic [id number] 18:46:00* Test Item Value Reference Range Interpretation Comme nts NA (test code = 1183214178) 139 mmol/L 135-145 K (test code = 3300879714) 3.7 mmol/L 3.5-5 CL (test code = 6071992335) 104 mmol/L 98-108 CO2 TOTAL (test code = 4627910014) 27 mmol/L 23-31 AGAP (test code = 7782197228) 2-16 BUN (test code = 6529539257) 16 mg/dL 7-23 GLUCOSE (test code = 8611638704) 94 mg/dL 70-110 CREATININE (test code = 5147639178) 1.06 mg/dL 0.6-1.25 TOTAL BILI (test code = 1530589889) 1.3 mg/dL 0.1-1.1 H CALCIUM (test code = 7866569659) 9.2 mg/dL 8.6-10.6 T PROTEIN (test code = 2929626849) 7.4 g/dL 6.3-8.2 ALBUMIN (test code = 0043609618) 4.2 g/dL 3.5-5 ALK PHOS (test code = 4743687078) 49 U/L 34-122 ALTv (test code = 1742-6) 33 U/L 5-50 AST(SGOT) (test code = 0136315609) 33 U/L 13-40 eGFR Calculation (Non-) (test code = 3649013383) mL/min/1.73m2 eGFR Calculation () (test code = 3597266865) mL/min/1.73m2 KAYY (test code = KAYY) Association [...] imaging tests). Lab Interpretation (test code = 75167-1) Abnormal [facility] CenterLip[facility], [id number] 18:46:00* Test Item Value Reference Range Interpretation Comme nts LIPASE (test code = 4686535762) 174 U/L 0-220 Lab Interpretation (test cod e = 99774-4) Normal [facility] CenterUrinalysis2020-02-24 18:41:00* Test Item Value Reference Range Interpretation Comme nts APPEARANCE (test code = 6803752670) Clear Clear COLOR (test code = 4985327899) Yellow Yellow PH (test code = 6765065305) 4.8-8.0 SP GRAVITY (test code = 3969840379) 1.003-1.030 GLU U QUAL (test code = 4772146957) Normal Normal BLOOD (test code = 3770182402) 2+ Negative A KETONES (test code = 3841880266) Negative Negative PROTEIN (test code = 2887-8) 100 mg/dL Negative A UROBILIN (test code = 5638046932) Normal Normal BILIRUBIN (test code = 5750738001) Negative Negative NITRITE (test code = 4150815409) Negative Negative LEUK ANNA (test code = 0364951418) Negative Negative RBC/HPF (test code = 3664930004) See_Comment H [[employer] The system which generated this result transmitted reference range: 0 - 3 HPF. The reference range was not used to interpret this result as normal/abnormal. WBC/HPF (test code = 2245331962) See_Comment [Automated messa ge] The system which generated this result transmitted reference range: 0 - 5 HPF. The reference range was not used to interpret this result as normal/abnormal. BACTERIA (test code = 2186344550) Few Negative A MUCOUS (test code = 5541377245) Slight Negative LPF A HYAL CAST (test code = 0761049906) See_Comment H [Automated messa ge] The system which generated this result transmitted reference range: <=2 LPF. The reference range was not used to interpret this result as normal/abnormal. Lab Interpretation (test code = 40956-5) Abnormal [facility] WITH [id number] 18:29:00* Test Item Value Reference Range Interpretation [...] 34.3 g/dL 31.2-35 RDW-SD (test code = 71221-7) 39.5 fL 38.5-51.6 RDW-CV (test code = 788-0) 12.4 % 12.1-15.4 PLT (test code = 777-3) See_Comment [Automated messa ge] The system which generated this result transmitted reference range: 150 - 328 10*3/?L. The reference range was not used to interpret this result as normal/abnormal. MPV (test code = 66209-3) 8.6 fL 9.8-13 L NRBC/100 WBC (test code = 2008596005) See_Comment [Automated me ssage] The system which generated this result transmitted reference range: 0.0 - 10.0 /100 WBCs. The reference range was not used to interpret this result as normal/abnormal. NRBC x10^3 (test code = 0102373337) <0.01 See_Comment [Automated messa ge] The system which generated this result transmitted reference range: 10*3/?L. The reference range was not used to interpret this result as normal/abnormal. GRAN MAT (NEUT) % (test code = 770-8) 58.6 % IMM GRAN % (test code = 3560773665) 0.50 % LYMPH % (test code = 736-9) 26.9 % MONO % (test code = 5905-5) 10.1 % EOS % (test code = 713-8) 3.2 % BASO % (test code = 706-2) 0.7 % GRAN MAT x10^3(ANC) (test code = 9545167791) 7.58 10*3/uL 1.99-6.95 H IMM GRAN x10^3 (test code = 5098818997) 0.06 10*3/uL 0-0.06 LYMPH x10^3 (test code = 731-0) 3.48 10*3/uL 1.09-3.23 H MONO x10^3 (test code = 742-7) 1.30 10*3/uL 0.36-1.02 H EOS x10^3 (test code = 711-2) 0.42 10*3/uL 0.06-0.53 BASO x10^3 (test code = 704-7) 0.09 10*3/uL 0.01-0.09 Lab Interpretation (test code = 79250-0) Abnormal [facility]. METABOLIC PANEL ([id number])2019-06-04 11:45:00* Test Item Value Reference Range Interpretation Comme nts NA (test code = 6766338334) 144 mmol/L 135-145 K (test code = 4775657737) 3.3 mmol/L 3.5-5 L CL (test code = 0900135755) 103 mmol/L 98-108 CO2 TOTAL (test code = 7893284878) 29 mmol/L 23-31 AGAP (test code = 4326632828) 2-16 BUN (test code = 2313400735) 17 mg/dL 7-23 GLUCOSE (test code = 2275084106) 126 mg/dL 70-110 H CREATININE (test code = 4639648830) 1.30 mg/dL 0.6-1.25 H TOTAL BILI (test code = 3683783179) 1.1 mg/dL 0.1-1.1 CALCIUM (test code = 3277062867) 9.3 mg/dL 8.6-10.6 T PROTEIN (test code = 5096184682) 8.0 g/dL 6.3-8.2 ALBUMIN (test code = 6466913949) 4.5 g/dL 3.5-5 ALK PHOS (test code = 5977902549) 66 U/L 34-122 ALT(SGPT) (test code = 5775468546) 215 U/L 9-51 H AST(SGOT) (test code = 4341110217) 114 U/L 13-40 H eGFR Calculation (Non-) (test code = 5817020063) mL/min/1.73m2 eGFR Calculation () (test code = 4323771483) mL/min/1.73m2 KAYY (test code = KAYY) Association [...] imaging tests). Lab Interpretation (test code = 89662-8) Abnormal [facility] WITH [id number] 11:30:00* Test Item Value Reference Range Interpretation Comme nts WBC (test code = 6690-2) See_Comment H [Automated [employer].a ge] The system which generated this result transmitted reference range: 4.20 - 10.70 10*3/?L. The reference range was not used to interpret this result as normal/abnormal. RBC (test code = 789-8) See_Comment [Automated [employer]a ge] The system which generated this result [...] g/dL 31.2-35 H RDW-SD (test code = 49732-6) 39.8 fL 38.5-51.6 RDW-CV (test code = 788-0) 12.9 % 12.1-15.4 PLT (test code = 777-3) See_Comment [Automated [employer].a ge] The system which generated this result transmitted reference range: 150 - 328 10*3/?L. The reference range was not used to interpret this result as normal/abnormal. MPV (test code = 41825-1) 8.7 fL 9.8-13 L NRBC/100 WBC (test code = 4686473909) See_Comment [Automated mobintent ssage] The system which generated this result transmitted reference range: 0.0 - 10.0 /100 WBCs. The reference range was not used to interpret this result as normal/abnormal. NRBC x10^3 (test code = 1459345315) <0.01 See_Comment [Automated messa ge] The system which generated this result transmitted reference range: 10*3/?L. The reference range was not used to interpret this result as normal/abnormal. GRAN MAT (NEUT) % (test code = 770-8) 55.4 % IMM GRAN % (test code = 8474289250) 0.90 % LYMPH % (test code = 736-9) 27.9 % MONO % (test code = 5905-5) 11.8 % EOS % (test code = 713-8) 3.0 % BASO % (test code = 706-2) 1.0 % GRAN MAT x10^3(ANC) (test code = 9950638437) 6.33 10*3/uL 1.99-6.95 IMM GRAN x10^3 (test code = 4412090948) 0.10 10*3/uL 0-0.06 H LYMPH x10^3 (test code = 731-0) 3.18 10*3/uL 1.09-3.23 MONO x10^3 (test code = 742-7) 1.35 10*3/uL 0.36-1.02 H EOS x10^3 (test code = 711-2) 0.34 10*3/uL 0.06-0.53 BASO x10^3 (test code = 704-7) 0.11 10*3/uL 0.01-0.09 H Lab Interpretation (test code = 54249-2) Abnormal [facility] Notes Date/Time Note Provider Source Micky Purcell [facility]2024-06-24 14:29:29 Problem: Skin integrity Impaired (Risk or Actual) Goal: Wound healing Outcome: Progressing as expected [id number]05:16 Patient has some swelling below the scrotum with purulent drainage coming from a very small area that has a white head, there are 2 other white heads around it, will apply warm compress and clean it with vashe and cover with a foam. [facility]ut[id number] 09:57:47 Spoke with residential appliance repair technician who is interpreting images at this time. Trevor Perry [id number] 07:24:53 Antoinette Carver room 117/117, presents in no evident distress with even and unlabored respirations, skin is warm, dry, and normal for ethnicity, mentation developmentally normal. Initial education provided including: call light location and use, fall precautions, dietary restrictions, plan of care with time approximations, care team, and pain management. Focused assessment reveals testicular swelling. Jim Nicholson [place] [id number] 07:17:53 Surgery aware of pt. [facility]rival. [id number] 06:55[facility]47 Antoinette Carver is a 48 year old male received via EMS as a transfer from [facility]. Pt. Has abscess near genitals with possible involvement to the scrotum per report. Pt. 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 Pt. Was given zosyn, vanc, and 1L NS at OSH. Pt. To room for eval, surgery paged. [facility]meron [facility]"
[2024-07-15 19:10] LABS: SARS-CoV-2 Antigen CONTROL BLUE LINE VIS/BG OK; SARS-CoV-2 Antigen Rapid Res Negative (Negative)
--- NOTE | 2024-07-15 20:21 | EDPHYS ---
Physician Documentation [facility] Name: Javid Carver Age: 49 yrs Sex: Male : 1975 Arrival Date: 07/15/2024 Time: 17:55 Bed IW1 Private MD: ED Physician Keron Gillespie HPI: 07/15 23:08 This 49 yrs old Male presents to ER via Ambulatory with complaints of Sore Throat. kb 23:08 Patient is a 49-year-old male who presents for slight cough, congestion, sore throat kb and cannot smell for 3 days. Denies shortness of breath, fever, chills.. Historical: - Allergies: 18:39 Hydrocodone-Acetaminophen; iw 18:39 Lisinopril; iw - PMHx: 18:39 Hypertension; acid reflux; iw - Immunization history:: Adult Immunizations not up to date. - Infectious Disease History:: Denies. - Social history:: Smoking status: Patient denies any tobacco usage or history of. ROS: 23:07 Constitutional: As per HPI kb Exam: 23:07 Constitutional: This is a well developed, well nourished patient who is awake, alert, kb and in no acute distress. Head/Face: Normocephalic, atraumatic. ENT: Moist Mucous membranes Cardiovascular: Regular rate Respiratory: Respirations even and unlabored. No increased work of breathing. Talking in full sentences Abdomen/GI: Soft, non-tender. No distention Skin: Warm, dry with normal turgor. Normal color. MS/ Extremity: Pulses equal, no cyanosis. Neurovascular intact. Full, normal range of motion. Neuro: Awake and alert, GCS 15, oriented to person, place, time, and situation. Moves all extremities. Normal gait. Vital Signs: 18:38 BP 154 / 98; Pulse 69; Resp 16; Pulse Ox 97% on R/A; iw 20:30 BP 149 / 87; Pulse 61; Resp 17 S; Temp 98.4(O); Pulse Ox 99% on R/A; lg3 MDM: 18:45 Patient medically screened. kb 23:08 Differential diagnosis: Flu, strep, COVID, URI. Data reviewed: vital signs, nurses kb notes. Counseling: I had a detailed discussion with the patient and/or guardian regarding the historical points, exam findings, and any diagnostic results supporting the discharge/admit diagnosis, lab results, the need for outpatient follow up, a family practitioner, to return to the emergency department if symptoms worsen or persist or if there are any questions or concerns that arise at home. 07/15 18:38 Order name: SARS RAPID; Complete Time: 19:16 07/15 18:38 Order name: Flu; Complete Time: 19:16 07/15 18:38 Order name: Strep 07/15 19:11 Order name: Throat Culture EDMS Administered Medications: No medications were administered Disposition Summary: 07/15/24 20:20 Discharge Ordered Notes: Location: Home kb Condition: Stable kb Diagnosis - Acute upper respiratory infection, unspecified kb Followup: kb - With: Emergency Department - When: As needed - Reason: Worsening of condition Followup: kb - With: Private Physician - When: 2 - 3 days - Reason: Recheck today's complaints, Continuance of care, Re-evaluation by your physician Discharge Instructions: - Discharge Summary Sheet kb - Upper Respiratory Infection, Adult, [id number]-ci-Ywew kb - Viral Respiratory Infection, Ikgu-Fw-Zwnf kb Forms: - Medication Reconciliation Form kb - Antibiotic Education kb - Prescription Opioid Use kb - Patient Portal Instructions kb - Leadership Thank You Letter kb - Work release form rv1 Addendum: 07/18/2024 15:52 Co-signature as Attending Physician, Keron Gillespie MD I agree with the assessment and c dominguez plan of care. Signatures: Dispatcher [employer] Regine Fernández, MANAGER AUDIO-C MANAGER AUDIO-Keron Ibrahim MD MD cha Williams, Irene, RN RN iw
--- NOTE | 2024-07-15 20:21 | ER ---
Nurse's Notes [facility] Name: Javid Carver Age: 49 yrs Sex: Male : 1975 Arrival Date: 07/15/2024 Time: 17:55 Bed IW1 Private MD: Diagnosis: Acute upper respiratory infection, unspecified Presentation: 07/15 18:38 Chief complaint: Patient states: sore throat, can't smell , congestion X 3 days. iw Coronavirus screen: Client presents with at least one sign or symptom that may indicate coronavirus-19. Ebola Screen: No symptoms or risks identified at this time. Initial Sepsis Screen: Does the patient meet any 2 criteria? No. Patient's initial sepsis screen is negative. Does the patient have a suspected source of infection? No. Patient's initial sepsis screen is negative. Risk Assessment: Do you want to hurt yourself or someone else? Patient reports no desire to harm self or others. Onset of symptoms was July 12, 2024. 18:38 Method Of Arrival: Ambulatory iw 18:38 Acuity: ALEJANDRA 4 iw Historical: - Allergies: 18:39 Hydrocodone-Acetaminophen; iw 18:39 Lisinopril; iw - PMHx: 18:39 Hypertension; acid reflux; iw - Immunization history:: Adult Immunizations not up to date. - Infectious Disease History:: Denies. - Social history:: Smoking status: Patient denies any tobacco usage or history of. Screenin:30 [facility] ED Fall Risk Assessment (Adult) History of falling in the last 3 months, lg3 including since admission No falls in past 3 months (0 pts) Confusion or Disorientation No (0 pts) Intoxicated or Sedated No (0 pts) Impaired Gait No (0 pts) Mobility Assist Device Used No (0 pt) Altered Elimination No (0 pt) Score/Fall Risk Level 0 - 2 = Low Risk Oriented to surroundings, Maintained a safe environment, Educated pt \T\ family on fall prevention, incl call for assistance when getting out of bed, Assessed \T\ reinforced patient's understanding of fall precautions. Abuse screen: Denies threats or abuse. Denies injuries from another. Nutritional screening: No deficits noted. Tuberculosis screening: No symptoms or risk factors identified. Assessment: 20:30 General: Appears in no apparent distress. comfortable, Behavior is calm, cooperative. lg3 Pain: Complains of pain in throat Pain does not radiate. Pain currently is 2 out of 10 on a pain scale. Neuro: No deficits noted. Riggs Agitation-Sedation Scale (RASS): 0 - Alert and Calm Level of Consciousness is awake, alert, obeys commands, Oriented to person, place, time, situation. Cardiovascular: No deficits noted. Denies chest pain, shortness of breath, Capillary refill < 3 seconds Clubbing of nail beds is absent JVD is absent Patient's skin is warm and dry. Respiratory: No deficits noted. Airway is patent Respiratory effort is even, unlabored, Respiratory pattern is regular, symmetrical. GI: No deficits noted. No signs and/or symptoms were reported involving the gastrointestinal system. Abdomen is round non-distended. : No deficits noted. No signs and/or symptoms were reported regarding the genitourinary system. EENT: Throat is clear Reports nasal congestion pain when swallowing. Derm: No deficits noted. No signs and/or symptoms reported regarding the dermatologic system. Skin is intact, is healthy with good turgor, Skin is dry, Skin is normal, Skin temperature is warm. Musculoskeletal: No deficits noted. No signs and/or symptoms reported regarding the musculoskeletal system. Circulation, motion, and sensation intact. Range of motion: intact in all extremities. 20:33 Respiratory: Breath sounds are clear bilaterally. lg3 Vital Signs: 18:38 BP 154 / 98; Pulse 69; Resp 16; Pulse Ox 97% on R/A; iw 20:30 BP 149 / 87; Pulse 61; Resp 17 S; Temp 98.4(O); Pulse Ox 99% on R/A; lg3 ED Course: 18:01 Patient arrived in ED. ra3 18:39 Triage completed. iw 18:40 Arm band placed on. iw 18:44 Regine Tobar [facility]-C [facility] kb 18:44 Keron Gillespie MD is Attending Physician. kb 18:44 COVID swab sent to lab. Flu and/or RSV swab sent to lab. Strep swab sent to lab. ap3 18:44 Strep Sent. ap3 18:44 Flu Sent. ap3 18:44 SARS RAPID Sent. ap3 20:30 Patient has correct armband on for positive identification. lg3 20:30 No provider procedures requiring assistance completed. Patient did not have IV access lg3 during this emergency room visit. Administered Medications: No medications were administered Medication: 20:30 VIS not applicable for this client. lg3 Outcome: 20:20 Discharge ordered by . kb 20:30 Discharged to home ambulatory, lg3 20:30 Condition: stable 20:30 Discharge instructions given to patient, Instructed on discharge instructions, follow up and referral plans. Demonstrated understanding of instructions, follow-up care, 20:33 Patient left the ED. lg3 Signatures: Regine Tobar, POLISHER SAND-C POLISHER SAND-Gracie David, RN HANK iw Amberly Mills RN RN ap3 Alee Garcia RN RN lg3 Yudith Cochran
[2024-07-15 21:09] VITALS: BP 149/87; TEMP 98.4; O2SAT 99
== END 2024-07-15 20:33 | disposition home or self-care (01) ==
LOC: ER 17:55
DX: J06.9 Acute upper respiratory infection, unspecified (principal); Z11.52 Encounter for screening for COVID-19; I10 Essential (primary) hypertension
CPT/HCPCS: 36415; 87070; 87081; 87804; 87811; 99283

== ENCOUNTER 2024-12-26 17:49 | Emergency (ER) | payer OTHER ==
--- OUTSIDE RECORDS SUMMARY | 2024-12-26 17:54 | XMS REPORT | Continuity of Care Document ---
Author Name Unknown Address [address] [facility] [address] [place] [address] [facility] Address [address] [facility] [address] [place] [address] Care Team Providers Care Laundry Agent Name Role Phone Tristan ALEJANDRO Brittni Primary Care Physician Neetu Feng Attending Clinician Unavailab Melissa Buenrostro Attending Clinician Unavailable Mele Jimenez MD Attending Clinician [phone] Josse Nieves MD Attending Clinician [phone] DEMIAN YOUNG Attending Clinician Unavailable Demian Noble Attending Clinician [phone] LISA BENITEZ Attending Clinician Unavailab Lisa Bragg DO Attending Clinician [phone] DAIANA ALDANA Attending Clinician UnavailDaiana Khan MD Attending Clinician [phone] Doctor Unassigned, [place] Attending Clinician U navailNICO Lewis Attending Clinician Jordon Maldonado DO Attending Clinician [phone] Person Josse BELTRÁN Admitting Clinician [phone] DEMIAN YOUNG Admitting Clinician Unavailable DAIANA ALDANA Admitting Clinician NICO Mari Admitting Clinician Shyam chen Payers Payer Name Policy Type Policy Number Effective Date Expirati on Date Source BCBS [facility] [id number] 2017 00:00:00 2023 00:00:00 Problems Condition Name Condition Details Condition Category Status Onset Date Resolution Date Last Treatment Date Treating Clinician Comments Source Perineal abscess Perineal abscess Disease Active 04-26 00:00: 00 [facility] Obesity (BMI 30-39.9) Obesity (BMI 30-39.9) Disease Active 04-26 00:00: 00 [facility] Gastroente ritis Gastroente ritis Disease Active 2021-11 00:00: 00 [facility] [id number] Gastroesop hageal reflux disease without esophagiti s Problem Active [facility] [id number] Seasonal allergic rhinitis, unspecifie d trigger Problem Active [facility] [id number] Moderate persistent reactive airway disease with acute exacerbati on Problem Active [facility] Obstructiv e sleep apnea Obstructiv e sleep apnea Problem Active [facility] [id number] Generalize d anxiety disorder Problem Active [facility] Alcoholism Alcoholism Problem Active [facility] [id number] HTN (hypertens ion), benign Problem Active [facility] Chronic fatigue syndrome Chronic fatigue Problem Active [facility] Seasonal allergy Seasonal allergies Problem Active [facility] Tobacco abuse Tobacco abuse Problem [facility] Thrombocyt openia Thrombocyt openia, unspecifie d Problem [facility] Counseling about tobacco use Tobacco abuse counseling Problem [facility] No known active problems No known active problems Disease [facility] Allergies, Adverse Reactions, Alerts Allergy Name Allergy [...] Quantity Comments Source History of Tobacco Use [facility] Sex Assigned At [facility] of Social function 2024-04-27 00:00:00 2024-04-27 00:00:00 [facility] Exposure to SARS-CoV-2 (event) 2022-10-21 00:00:00 2022-10-31 06:50:00 Not sure [facility] Smoking Status Start Date Stop Date Source Never Smoker [facility] Tobacco smoking consumption unknown [facility] Medications Ordered Medication Name Filled Medication Name Start Date Stop Date Current Medication? Ordering Clinician Indication Dosage Frequency Signature (SIG) Comments Components Source sulfamethox azole-trime thoprim (BACTRIM DS) 800-160 mg per tablet 1 tablet 04-28 01:00: 00 05-01 00:59 :00 No 1{tbl} 1 tablet, Oral, BID, 6 doses, First dose on 04/27/24 at 2000, Last dose on Sat04/30/24 at 0800, CONTRERAS, Reason for Anti-Infec tive: Documented Infection, Documented Infection Site: Skin / Soft Tissue, Duration of Therapy: 7 days [facility] pantoprazol e 20 mg EC tablet 04-27 14:38: 51 Yes 20mg Take 20 mg by mouth daily. [facility] chlorthalid one 25 mg tablet 04-27 14:38: 51 Yes 25mg Take 25 mg by mouth daily. [facility] losartan 50 mg tablet 04-27 14:38: 51 Yes 50mg Take 50 mg by mouth daily. [facility] NICOLE CHEWABLE ASPIRIN ORAL 04-27 14:38: 51 Yes 81mg Take 81 mg by mouth daily. [facility] ibuprofen (IBU) tablet 800 mg 04-27 14:22: 45 Yes 800mg [facility] acetaminoph en (TYLENOL) tablet 650 mg 04-27 14:22: 45 Yes 650mg [facility] sulfamethox azole-trime thoprim 800-160 mg per tablet 04-27 00:00: 00 05-08 04:59 :00 No [id number] 1{tbl} Take 1 tablet by mouth in the morning and 1 tablet in the evening. Do all this for 10 days. [facility] piperacilli n-tazobacta m (ZOSYN) 3.375 g in NaCl 0.9% (NS) 100 mL VIAL-MATE 04-26 20:00: 00 05-01 19:59 :00 No 3.375g 3.375 g, IV Piggyback, Q8H ABX, 15 doses, First dose on Sat04/26/24 at 1500, Last dose on Sat05/01/24 at 0700, Administer over 4 Hours, 100 mL, Reason for Anti-Infec tive: Documented Infection, Documented Infection Site: Skin / Soft Tissue, Duration of Therapy: 7 days [facility] ondansetron (ZOFRAN (PF)) injection 4 mg 04-26 15:02: 53 Yes 4mg 4 mg, Slow IV Push, Q6HPRN, Starting on Sat04/26/24 at 1002, Until Discontinu ed, Routine, Nausea and Vomiting (N/V) [facility] morpHINE injection 2 mg 04-26 15:02: 49 Yes 2mg 2 mg, Slow IV Push, Q2HPRN, Starting on Sat04/26/24 at 1002, Until Discontinu ed, Routine, Pain (scale 7-10), Pain unrelieved by scheduled analgesics [facility] HYDROcodone -acetaminop hen (NORCO 5) 5-325 mg tablet 1 tablet 04-26 15:02: 38 Yes 1{tbl} 1 tablet, Oral, Q6HPRN, Starting on 04/26/24 at 1002, Until Discontinu ed, Routine, Pain (scale 4-6) [facility] acetaminoph en (TYLENOL) tablet 650 mg 04-26 15:02: 24 Yes 650mg 650 mg, Oral, Q6HPRN, Starting on 04/26/24 at 1002, Until Discontinu ed, Routine, Pain (scale 1-3), Fever [facility] ampicillin- sulbactam (UNASYN) 1.5 g in NaCl 0.9% (NS) 100 mL VIAL-MATE 04-26 14:30: 00 04-26 15:07 :00 No 1.5g 1.5 g, IV Piggyback, ONCE, 1 dose, On Sat04/26/24 at 0930, Administer over 30 Minutes, 100 mL, Reason for Anti-Infec tive: Documented Infection, Documented Infection Site: Other, Other site: Pelvic, Duration of Therapy: 7 days [facility] telmisartan 20 mg tablet 02-14 00:00: 00 [...] 50 mg capsule 2022-11 00:00: 00 Yes [id number] 50mg Take 1 capsule by mouth in the morning and 1 capsule at noon and 1 capsule in the evening. Take with meals. [facility] TAKE ONE (1) TABLET(S) BY MOUTH NOW, [...] 1 dose, [facility] (2) TABLET(S) BY MOUTH TWICE [...] 2021-11 00:00: 00 11-16 05:59 :00 No [id number] 81mg Take 1 tablet by mouth in the morning for 15 days. [facility] ondansetron 4 mg disintegrat ing tablet 2021-11 00:00: 00 11-06 05:59 :00 No [id number] 4mg Take 1 tablet by mouth every 8 (eight) hours as needed for Nausea and Vomiting (N/V) for up to 5 days. [facility] TAKE ONE (1) TABLET(S) BY MOUTH ONCE A DAY. 06-29 00:00: 00 Yes Micky Veag TAKE ONE (1) TABLET(S) BY MOUTH ONCE [...] ONCE, 1 dose, 12/28/19 at 1630, STAT [facility] ondansetron (ZOFRAN (PF)) injection 4 mg 12-28 22:30: 00 12-28 21:23 :00 No 4mg 4 mg, Slow IV Push, ONCE, 1 dose, Sat12/28/19 at 1630, CONTRERAS [facility] ketorolac (TORADOL) injection 30 mg 12-28 19:30: 00 12-28 18:26 :00 No 30mg 30 mg, Slow IV Push, ONCE, 1 dose, Sat12/28/19 at 1330, [facility] : DEMIAN YOUNG [facility] albuterol 90 mcg/actuati on inhaler 11-11 00:00: 00 Yes [id number] 2{puff} Inhale 2 Puffs every 4 (four) hours as needed for Wheezing or Shortness of Breath. [facility] benzonatate 100 mg capsule 11-11 00:00: 00 Yes [id number] 100mg Take 1 capsule by mouth 3 [...] 100 mg capsule 06-04 00:00: 00 Yes [id number] 100mg Take 1 capsule by mouth 3 (three) times daily as needed for Cough. [facility] methylPREDN ISolone (MEDROL, MC,) 4 mg tablets 06-04 00:00: 00 Yes [id number] Take by mouth SEE-INSTRU CTIONS. follow package directions [facility] chlorphenir amine 4 mg tablet 06-04 00:00: 00 Yes [id number] 4mg Take 1 tablet by mouth every [...] Protonix Protonix Yes Na Reed 1 tablet [facility] BusPIRone HCl BusPIRone HCl Yes Na Reed 1 tablet [facility] Metoprolol Tartrate Metoprolol Tartrate Yes Na Reed 1.5 tablets with food [facility] amLODIPine Besylate 5 MG amLODIPine Besylate 5 [...] Pneumovax (PPSV23) Pneumovax (PPSV23) 2018-01-01 09:44:00 Completed [facility] Adacel (Tdap) Adacel (Tdap) 2018-01-01 09:44:00 Completed [facility] Pneumovax (PPSV23) Pneumovax (PPSV23) Unknown Completed [facility] Adacel (Tdap) Adacel (Tdap) Unknown Completed [facility] Pneumovax (PPSV23) Pneumovax (PPSV23) Unknown Completed [facility] Adacel (Tdap) Adacel (Tdap) Unknown Completed [facility] Vital Signs Vital Name Observation Time Observation Value Comments S rory Systolic blood pressure 2024-04-27 16:12:00 131 mm[Hg] [facility] Diastolic blood pressure 2024-04-27 16:12:00 78 mm[Hg] [facility] Heart rate 2024-04-27 16:12:00 57 /min [facility] Body temperature 2024-04-27 16:12:00 36.56 Kamille [facility] Respiratory rate 2024-04-27 16:12:00 16 /min [facility] Oxygen saturation in Arterial blood by Pulse oximetry 2024-04-27 16:12:00 95 /min [facility] Body height 2024-04-26 11:56:00 175.3 cm [facility] Body weight 2024-04-26 11:56:00 99.791 kg [facility] BMI 2024-04-26 11:56:00 32.49 kg/m2 [facility] Systolic blood pressure 2023-08-24 20:16:00 130 mm[Hg] [facility] Diastolic blood pressure 2023-08-24 20:16:00 96 mm[Hg] [facility] Heart rate 2023-08-24 20:16:00 69 /min [facility] Body temperature 2023-08-24 20:16:00 36.89 Kamille [facility] Respiratory rate 2023-08-24 20:16:00 18 /min [facility] Body height 2023-08-24 20:16:00 175.3 cm [facility] Body weight 2023-08-24 20:16:00 107.956 kg [facility] BMI 2023-08-24 20:16:00 35.15 kg/m2 [facility] Oxygen saturation in Arterial blood by Pulse oximetry 2023-08-24 20:16:00 99 /min [facility] Systolic blood pressure 2023-04-18 20:27:00 146 mm[Hg] [facility] Diastolic blood pressure 2023-04-18 20:27:00 99 mm[Hg] [facility] Heart rate 2023-04-18 20:27:00 65 /min [facility] Body temperature 2023-04-18 20:27:00 36.5 Kamille [facility] Respiratory rate 2023-04-18 20:27:00 18 /min [facility] Body height 2023-04-18 20:27:00 175.3 cm [facility] Body weight 2023-04-18 20:27:00 108.863 kg [facility] BMI 2023-04-18 20:27:00 35.44 kg/m2 [facility] Oxygen saturation in Arterial blood by Pulse oximetry 2023-04-18 20:27:00 97 /min [facility] Systolic blood pressure 2022-10-31 12:52:00 145 mm[Hg] [facility] Diastolic blood pressure 2022-10-31 12:52:00 104 mm[Hg] [facility] Heart rate 2022-10-31 12:52:00 71 /min [facility] Body temperature 2022-10-31 12:52:00 36.61 Kamille [facility] Respiratory rate 2022-10-31 12:52:00 18 /min [facility] Body height 2022-10-31 12:52:00 175.3 cm [facility] Body weight 2022-10-31 12:52:00 108.863 kg [facility] BMI 2022-10-31 12:52:00 35.44 kg/m2 [facility] Oxygen saturation in Arterial blood by Pulse oximetry 2022-10-31 12:52:00 99 /min [facility] Systolic blood pressure 2019-12-28 22:00:00 144 mm[Hg] [facility] Diastolic blood pressure 2019-12-28 22:00:00 105 mm[Hg] [facility] Heart rate 2019-12-28 22:00:00 64 /min [facility] Respiratory rate 2019-12-28 22:00:00 20 /min [facility] Oxygen saturation in Arterial blood by Pulse oximetry 2019-12-28 22:00:00 97 /min [facility] Body temperature 2019-12-28 17:58:00 36.56 Kamille [facility] Body height 2019-12-28 17:58:00 175.3 cm [facility] Body weight 2019-12-28 17:58:00 90.719 kg [facility] BMI 2019-12-28 17:58:00 29.53 kg/m2 [facility] Systolic blood pressure 2019-12-28 22:00:00 144 mm[Hg] [facility] Diastolic blood pressure 2019-12-28 22:00:00 105 mm[Hg] [facility] Heart rate 2019-12-28 22:00:00 64 /min [facility] Respiratory rate 2019-12-28 22:00:00 20 /min [facility] Oxygen saturation in Arterial blood by Pulse oximetry 2019-12-28 22:00:00 97 /min [facility] Body temperature 2019-12-28 17:58:00 36.56 Kamille [facility] Body height 2019-12-28 17:58:00 175.3 cm [facility] Body weight 2019-12-28 17:58:00 90.719 kg [facility] BMI 2019-12-28 17:58:00 29.53 kg/m2 [facility] Systolic blood pressure 2019-06-04 10:29:00 136 mm[Hg] [facility] Diastolic blood pressure 2019-06-04 10:29:00 102 mm[Hg] [facility] Heart rate 2019-06-04 10:29:00 103 /min [facility] Body temperature 2019-06-04 10:29:00 36.78 Kamille [facility] Respiratory rate 2019-06-04 10:29:00 20 /min [facility] Body height 2019-06-04 10:29:00 175.3 cm [facility] Body weight 2019-06-04 10:29:00 95.255 kg [facility] BMI 2019-06-04 10:29:00 31.01 kg/m2 [facility] Oxygen saturation in Arterial blood by Pulse oximetry 2019-06-04 10:29:00 96 /min [facility] Systolic blood pressure 2019-06-04 10:29:00 136 mm[Hg] [facility] Diastolic blood pressure 2019-06-04 10:29:00 102 mm[Hg] [facility] Heart rate 2019-06-04 10:29:00 103 /min [facility] Body temperature 2019-06-04 10:29:00 36.78 Kamille [facility] Respiratory rate 2019-06-04 10:29:00 20 /min [facility] Body height 2019-06-04 10:29:00 175.3 cm [facility] Body weight 2019-06-04 10:29:00 95.255 kg [facility] BMI 2019-06-04 10:29:00 31.01 kg/m2 [facility] Oxygen saturation in Arterial blood by Pulse oximetry 2019-06-04 10:29:00 96 /min [facility] BP Diastolic 2024-02-15 12:05:00 113 mm[Hg] Nathaniel [...] Systolic 2023-05-25 14:05:00 152 mm[Hg] Step hen F Gary BP Diastolic 2023-05-25 14:05:00 107 mm[Hg] Nathaniel phen F Gary Weight Measured 2023-05-25 14:05:00 228.60 pounds Micky F Gary Height Measured 2023-05-25 14:05:00 68.50 inches Micky F Gary Body Temperature 2023-05-25 14:05:00 97.90 degrees Micky F Gary Heart Rate 2023-05-25 14:05:00 64.00 /min Marisela en F Gary Respiratory Rate 2023-05-25 14:05:00 Micky F Gary BP Systolic 2023-05-25 13:39:00 152 mm[Hg] Guzman Vega BP Diastolic 2023-05-25 13:39:00 107 mm[Hg] Nathaniel Vega Weight Measured 2023-05-25 13:39:00 228.60 pounds Micky Vega Height Measured 2023-05-25 13:39:00 68.50 inches Micky Vega Body Temperature 2023-05-25 13:39:00 97.90 degrees Micky Vega Heart Rate 2023-05-25 13:39:00 64.00 /min Marisela Vega Respiratory Rate 2023-05-25 13:39:00 Micky Vega Procedures Procedure Date / Time Performed Performing Clinician Source URINALYSIS 2024-04-27 11:35:00 Kaley Wilson [facility] EXTRA TUBE URINE CULTURE 2024-04-27 11:35:00 Josse Nieves [facility] PHOSPHORUS 2024-04-27 09:17:00 Kaley Wilson [facility] MAGNESIUM 2024-04-27 09:17:00 Kaley Wilson [facility] BASIC METABOLIC PANEL (NA, K, CL, CO2, GLUCOSE, BUN, CREATININE, CA) 2024-04-27 09:17:00 Kaley Wilson [facility] CBC WITH DIFF 2024-04-27 09:17:00 Kaley Wilson [facility] BASIC METABOLIC PANEL (NA, K, CL, CO2, GLUCOSE, BUN, CREATININE, CA) 2024-04-26 13:33:00 Kaley Wilson [facility] CBC WITH DIFF 2024-04-26 13:33:00 Kaley Wilson [facility] US SCROTUM AND CONTENTS 2024-04-26 13:29:15 Alethea Wilson [facility] ASSIGNMENT OF BENEFITS 2023-08-24 22:10:13 Docto r Unassigned, [place] [facility] XR ANKLE 3+ VW LEFT 2023-08-24 20:54:52 Demian Young [facility] CONSENT/REFUSAL FOR DIAGNOSIS AND TREATMENT 2023-08-24 19:52:32 Doctor Unassigned, [place] [facility] ASSIGNMENT OF BENEFITS 2023-04-18 20:53:18 Docto r Unassigned, [place] [facility] CONSENT/REFUSAL FOR DIAGNOSIS AND TREATMENT 2023-04-18 20:24:58 Doctor Unassigned, [place] [facility] XR CHEST 2 VW 2022-10-31 14:04:07 [facility] 2022-10-31 13:50:00 Daiana Aldana [facility] COMP. METABOLIC PANEL ([id number]) 2022-10-31 13:50:00 Daiana Aldana [facility] CBC WITH DIFF 2022-10-31 13:50:[address] [facility] N-TERMINAL PRO-BNP 2022-10-31 13:50:00 Daiana Aldana [facility] COVID-19 (ID NOW RAPID TESTING) 2022-10-31 13:50:00 Daiana Aldana [facility] RAPID INFLUENZA A/B 2022-10-31 13:14:00 Lesia Aldana [facility] CONSENT/REFUSAL FOR DIAGNOSIS AND TREATMENT 2022-10-31 12:43:31 Doctor Unassigned, [place] [facility] CT ABDOMEN PELVIS WO CONTRAST 2019-12-28 20:01:17 Demian Young [facility] LIPASE 2019-12-28 18:10:00 Demian Young [facility] COMP. METABOLIC PANEL ([id number]) 2019-12-28 18:10:00 Demian Young [facility] CBC WITH DIFFERENTIAL 2019-12-28 18:10:00 Demian Young [facility] URINALYSIS 2019-12-28 18:10:00 Demian [facility] NOTICE OF PRIVACY PRACTICES 2019-12-28 17:54:35 Doctor Unassigned, [place] [facility] CONSENT/REFUSAL FOR DIAGNOSIS AND TREATMENT 2019-12-28 17:44:24 Doctor Unassigned, [place] [facility] COMP. METABOLIC PANEL ([id number]) 2019-06-04 10:49:00 Jordon Craig [facility] CBC WITH DIFFERENTIAL 2019-06-04 10:49:00 Yusef Craig [facility] XR CHEST 1 VW 2019-06-04 10:45:17 Jordon Craig [facility] NOTICE OF PRIVACY PRACTICES 2019-06-04 10:16:35 Doctor Unassigned, [place] [facility] Encounters Start Date/Time End Date/Time Encounter Type Admission Type Attending [facility] Facility Care Department Encounter ID Source 2023-05-28 15:09:00 Outpatient Neetu Feng [facility]LMLC ST[facility] [id number] [facility] 2022-07-12 14:58:00 Outpatient Reed, Na STLMLC STLMLC [id number] [facility] 2022-06-29 11:19:00 Outpatient Reed, Na STLMLC STLMLC [id number] [facility] 2021-11-29 14:31:20 Outpatient Reed, Na STLMLC STLMLC [id number] [facility] 2021-11-29 14:30:49 Outpatient Reed, Na STLMLC STLMLC [id number] [facility] 2021-11-29 12:43:32 Outpatient Reed, Na STLMLC STLMLC [id number] [facility] 2021-11-29 11:34:10 Outpatient Reed, Na STLMLC STLMLC [id number] [facility] 2021-11-29 11:15:43 Outpatient Reed, Na STLMLC STLMLC [id number] [facility] 2021-11-29 10:59:47 Outpatient Reed, Na STLMLC STLMLC [id number] [facility] 2021-11-29 10:57:56 Outpatient Reed, Na STLMLC STLMLC [id number] [facility] 2024-05-25 17:52:31 2024-05-25 17:52:31 Outpatient SFA [facility] [id number] Micky Vega 2024-05-25 00:00:00 2024-05-25 00:00:00 Outpatient Visit [facility] [id number] Micky Vega 2024-04-26 06:58:00 2024-04-27 14:38:00 [facility] [id number] [facility] 2024-02-15 11:57:59 2024-02-15 11:57:59 Outpatient SFA [facility] [id number] Micky Vega 2023-08-28 10:41:51 2023-08-28 10:41:51 Outpatient SFA [facility] [id number] Micky Vega 2023-08-27 09:30:18 2023-08-27 09:30:18 Outpatient SFA [facility] [id number] Micky Vega 2023-08-24 15:18:00 2023-08-24 18:43:00 Emergency X DEMIAN YOUNG [facility] ERT [id number] [facility] 2023-08-24 15:18:00 2023-08-24 18:43:00 Emergency Demian Young [facility] [id number] [facility] 2023-05-25 13:34:20 2023-05-25 13:34:20 Outpatient SFA [facility] [id number] Micky Vega 2023-05-02 13:12:06 2023-05-02 13:12:06 Outpatient SFA [facility] [id number] Micky Vega 2023-04-18 15:29:00 2023-04-18 16:13:00 Emergency X LISA BENITEZ [facility] ERT [id number] [facility] 2023-04-18 15:29:00 2023-04-18 16:13:00 Emergency Lisa Benitez [facility] [id number] [facility] 2023-01-25 00:00:00 2023-01-25 00:00:00 (TEL) STLMLC STLMLC [id number] [facility] 2023-01-25 00:00:00 2023-01-25 00:00:00 (TEL) STLMLC STLMLC [id number] [facility] 2022-10-31 06:54:00 2022-10-31 09:29:00 Emergency X DAIANA ALDANA [facility] ERT [id number] [facility] 2022-10-31 06:54:00 2022-10-31 09:29:00 Emergency Daiana Aldana A [facility] [id number] [facility] 2022-06-29 00:00:00 2022-06-29 00:00:00 (TEL) STLMLC STLMLC [id number] [facility] 2022-06-28 00:00:00 2022-06-28 00:00:00 (TEL) STLMLC STLMLC [id number] [facility] 2021-11-09 00:00:00 2021-11-09 00:00:00 OFFICE VISIT ESTAB PT LEVEL 4 STLMLC STLMLC [id number] [facility] 2021-02-01 00:00:00 2021-02-01 00:00:00 Outpatient STLMLC [facility]LML[facility] [id number] [facility] 2020-06-03 13:40:00 2020-06-03 13:40:00 Outpatient [facility] Medicine [facility] [id number] [facility] 2020-01-20 14:21:00 2020-01-20 14:21:00 Outpatient [facility] Medicine [facility] [id number] [facility] 2020-01-15 14:55:00 2020-01-15 14:55:00 Outpatient [facility] [id number] [facility] 2019-12-28 11:59:45 2019-12-28 16:55:00 Emergency Demian Young [facility] 1.84.114 350.1.13.10 4.2.7.2.686 [id number] [facility] 2019-12-28 11:59:45 2019-12-28 16:55:00 Emergency X DEMIAN YOUNG [facility] ERT [id number] [facility] 2019-12-28 11:59:45 2019-12-28 16:55:00 Emergency Demian Young [facility] 1..114 350.1.13.10 4.2.7.2.686 [id number] 2019-12-28 10:58:00 2019-12-28 10:58:00 Outpatient [facility] [id number] [facility] 2019-12-28 00:00:00 2019-12-28 00:00:00 Orders Only Doctor Unassigned, [place] [facility] 1.114 350.1.13.10 4.2.7.2.686 [id number] [facility] 2019-12-28 00:00:00 2019-12-28 00:00:00 Orders Only Doctor Unassigned, [place] [facility] 1.0.114 350.1.13.10 4.2.7.2.686 [id number] 2019-11-11 10:51:25 2019-11-11 12:46:00 Emergency X NICO BONILLA [facility] ERT [id number] [facility] 2019-09-11 08:24:00 2019-09-11 08:24:00 [facility] [id number] [facility] 2019-09-07 15:20:00 2019-09-07 15:20:00 [facility] [id number] [facility] 2019-07-29 13:22:00 2019-07-29 13:22:00 [facility] [id number] [facility] 2019-06-26 09:56:00 2019-06-26 09:56:00 [facility] [id number] [facility] 2019-06-25 15:20:00 2019-06-25 15:20:00 [facility] [id number] [facility] 2019-06-04 05:22:14 2019-06-04 06:49:00 Emergency Singer [address]2.840.114 350.1.13.10 4.2.7.2.686 [id number] [facility] 2019-06-04 05:22:14 2019-06-04 06:49:00 Emergency Singer [facility] 12.840.114 350.1.13.10 4.2.7.2.686 [id number] [id number] 2019-02-16 16:00:00 2019-02-16 16:00:[address] [facility] [id number] [facility] Results Test Description Test Time Test Comments Results Result Comments Source US SCROTUM AND CONTENTS 16:08:18 EXAM: US SCROTUM AND CONTENTS HISTORY: 48 years-old Male with Scrotal pain . TECHNIQUE: Ultrasound imaging with color Doppler of the scrotum wasperformed from OSH. Collections Specialist images were uploaded for interpretation.A report is [...] No sonographic evidence of varicocele is seen. [facility] (NA, K, CL, CO2, GLUCOSE, BUN, CREATININE, CA)2024-04-26 13:59:20* Test Item Value Reference Range Interpretation Comme nts NA (test code = 8899224195) 136 mmol/L 135-145 K (test code = 9903432686) 3.7 mmol/L 3.5-5.0 CL (test code = 0563148912) 108 mmol/L 98-108 CO2 TOTAL (test code = 7833088420) 26 mmol/L 23-31 AGAP (test code = 5680794138) 2 2-16 BUN (test code = 4493677368) 16 mg/dL 7-23 GLUCOSE (test code = 0324830104) 124 mg/dL 70-110 H CREATININE (test code = 2160-0) 1.50 mg/dL 0.60-1.25 H CALCIUM (test code = 2396329891) 8.3 mg/dL 8.6-10.6 L eGFR (test code = 76781-0) 57.8 mL/min/1.73m2 CKD-EPI eGFR (2020). Assuming creatinine has been stable day-to-day for at least three months, the eGFR indicates Category G3a (45 - 59 mL/min/1.73 m2) Lab Interpretation (test code = 44950-1) Abnormal [facility] [id number] 00:33:15* Test Item Value Reference Range Interpretation Comme nts GLUCOSE (test code = 2217) 82 MG/DL 70-99 BUN (test code = 2208) 13 MG/DL 6-20 CREATININE (test code = 2214) 1.36 MG/DL 0.80-1.40 eGFR (2020 CKD-EPI) (test co de = 70696) 65 ML/MIN/1.73 >60 CALC BUN/CREAT (test code = 2235) 10 RATIO 6-28 SODIUM (test code = 223) 145 MEQ/L 133-146 POTASSIUM (test code = 2228) 4.0 MEQ/L 3.5-5.4 CHLORIDE (test code = 2215) 106 MEQ/L 95-107 CARBON DIOXIDE (test code = 2206) 24 MEQ/L 19-31 CALCIUM (test code = 2209) 9.4 MG/DL 8.5-10.5 PROTEIN, TOTAL (test code = 2229) 7.1 G/DL 6.1-8.3 ALBUMIN (test code = 2201) 4.5 G/DL 3.5-5.2 CALC GLOBULIN (test code = 2240) 2.6 G/DL 1.9-3.7 CALC A/G RATIO (test code = 2234) 1.7 RATIO 1.0-2.6 BILIRUBIN, TOTAL (test code = 7) 1.3 MG/DL <=1.2 H ALKALINE PHOSPHATASE (test code = 4) 64 U/L 40-118 AST (test code = 2218) 31 U/L 9-50 ALT (test code = 2219) 57 U/L 5-50 H LIPID [id number] 00:33:15* Test Item Value Reference Range Interpretation [...] SPECIMENS. FOR MOREINFORMATION, SEE CLIENT ANNOUNCEMENT AT [email or web address] RISK RATIO LDL/HDL (test code = 2238) 0.98 RATIO <3.55 UNLESS OTHERW ISE INDICATED, ALL TESTING PERFORMED AT [facility] [address] [place] [address] CLOTH WINDING SUPERVISOR: ELI DOE M.D. CLIA NUMBER [id number] [facility] [place]. [id number] COMPREHENSIVE METABOLIC [id number] 00:00:00* Test Item Value Reference Range Interpretation Comme nts GLUCOSE (test code = 2217) 82 MG/DL BUN (test code = 2208) 13 MG/DL CREATININE (test code = 2214) 1.36 MG/DL eGFR (2020 CKD-EPI) (test co de = 31617) 65 ML/MIN/1.73 CALC BUN/CREAT (test code = 2235) 10 RATIO SODIUM (test code = 2231) [...] code = 2219) 57 U/L Micky VegaLIPID [id number] 00:00:00* Test Item Value Reference Range Interpretation Comme nts CHOLESTEROL (test code = 2210) 95 MG/DL TRIGLYCERIDES (test code = 2232) 62 MG/DL HDL CHOLESTEROL (test code = 2220) 41 MG/DL CALC LDL CHOL (test code = 2237) 40 MG/DL RISK RATIO LDL/HDL (test cod e = 2238) 0.98 RATIO Micky LaguerreNIN [id number] 14:27:53* Test Item Value Reference Range Interpretation Comments TROPONIN I (test code = 4926357496) 0.005 ng/mL See_Comment [Automated message] The system [...] of biotin. Lab Interpretation (test code = 47715-8) Normal [facility] WITH [id number] 14:24:31* Test Item Value Reference Range Interpretation Comme nts WBC (test code = 6690-2) See_Comment [Automated [employer]] The system which generated this result transmitted reference range: 4.20 - 10.70 10*3/?L. The reference range was not used to interpret this result as normal/abnormal. RBC (test code = 789-8) See_Comment [Automated [employer]] The system which generated this result transmitted [...] g/dL 31.2-35.0 H RDW-SD (test code = 51125-0) 39.0 fL 38.5-51.6 RDW-CV (test code = 788-0) 12.7 % 12.1-15.4 PLT (test code = 777-3) See_Comment L [Automated [employer]] The system which generated this result transmitted reference range: 150 - 328 10*3/?L. The reference range was not used to interpret this result as normal/abnormal. MPV (test code = 80226-3) 8.4 fL 9.8-13.0 L IPF % (test code = 9125136103) 0.9 % 1.2-10.7 L Platelet count measured by fluorescence method. NRBC/100 WBC (test code = 5983914639) See_Comment [Automated August ssage] The system which generated this result transmitted reference range: 0.0 - 10.0 /100 WBCs. The reference range was not used to interpret this result as normal/abnormal. NRBC x10^3 (test code = 9410869837) See_Comment [Automated [employer]] The system which generated this result transmitted reference range: 10*3/?L. The reference range was not used to interpret this result as normal/abnormal. GRAN MAT (NEUT) % (test code = 770-8) 53.8 % IMM GRAN % (test code = 3583136708) 0.80 % LYMPH % (test code = 736-9) 31.2 % MONO % (test code = 5905-5) 11.4 % EOS % (test code = 713-8) 1.9 % BASO % (test code = 706-2) 0.9 % GRAN MAT x10^3(ANC) (test code = 7848233401) 5.30 10*3/uL 1.99-6.95 IMM GRAN x10^3 (test code = 1942561882) 0.08 10*3/uL 0.00-0.06 H LYMPH x10^3 (test code = 731-0) 3.08 10*3/uL 1.09-3.23 MONO x10^3 (test code = 742-7) 1.13 10*3/uL 0.36-1.02 H EOS x10^3 (test code = 711-2) 0.19 10*3/uL 0.06-0.53 BASO x10^3 (test code = 704-7) 0.09 10*3/uL 0.01-0.09 Lab Interpretation (test code = 46876-7) Abnormal [facility] Lake[facility]-TERMINAL [id number] 14:24:31* Test Item Value Reference Range Interpretation Comme nts NT-proBNP (test code = 2526173335) 82 pg/mL See_Comment [Automated message] The system which generated this result transmitted reference range: <=125. The reference range was not used to interpret this result as normal/abnormal. KAYY (test code = KAYY) Biotin has been reported to cause a negative bias, interpret results relative to patient's use of biotin. Lab Interpretation (test code = 47590-5) Normal [facility] LakeCOMP. METABOLIC PANEL (61737)2022-10-31 14:16:16* Test Item Value Reference Range Interpretation Comme nts NA (test code = 2233951894) 140 mmol/L 135-145 K (test code = 2773561357) 3.8 mmol/L 3.5-5.0 CL (test code = 9758218428) 108 mmol/L 98-108 CO2 TOTAL (test code = 7680150422) 25 mmol/L 23-31 AGAP (test code = 2614914644) 2-16 BUN (test code = 0053960699) 12 mg/dL 7-23 GLUCOSE (test code = 2895510621) 117 mg/dL 70-110 H CREATININE (test code = 3498337747) 0.92 mg/dL 0.60-1.25 TOTAL BILI (test code = 5925372222) 0.9 mg/dL 0.1-1.1 CALCIUM (test code = 1472803610) 8.2 mg/dL 8.6-10.6 L T PROTEIN (test code = 3480745396) 6.5 g/dL 6.3-8.2 ALBUMIN (test code = 3132569333) 3.8 g/dL 3.5-5.0 ALK PHOS (test code = 0668406835) 59 U/L 34-122 ALTv (test code = 1742-6) 64 U/L 5-50 H AST(SGOT) (test code = 4129533470) 37 U/L 13-40 eGFR (test code = 5295799211) mL/min/1.73m2 KAYY (test code = KAYY) Association [...] imaging tests). Lab Interpretation (test code = 97788-1) [facility]normal [facility] WO [id number] 21:04:461. ?No urinary system calculi. No hydronephrosis. [...] hyperemia related to mild enteritis.3. Additional findingsas above.[facility] LakeComplete Metabolic [id number] 18:46:00* Test Item Value Reference Range Interpretation Comme nts NA (test code = 4937363954) 139 mmol/L 135-145 K (test code = 9773362584) 3.7 mmol/L 3.5-5 CL (test code = 7354796652) 104 mmol/L 98-108 CO2 TOTAL (test code = 5947247593) 27 mmol/L 23-31 AGAP (test code = 8179823973) 2-16 BUN (test code = 7203216690) 16 mg/dL 7-23 GLUCOSE (test code = 8049389407) 94 mg/dL 70-110 CREATININE (test code = 5566131102) 1.06 mg/dL 0.6-1.25 TOTAL BILI (test code = 4727753944) 1.3 mg/dL 0.1-1.1 H CALCIUM (test code = 4105045306) 9.2 mg/dL 8.6-10.6 T PROTEIN (test code = 7194823223) 7.4 g/dL 6.3-8.2 ALBUMIN (test code = 7692950190) 4.2 g/dL 3.5-5 ALK PHOS (test code = 1084902971) 49 U/L 34-122 ALTv (test code = 1742-6) 33 U/L 5-50 AST(SGOT) (test code = 5940542911) 33 U/L 13-40 eGFR Calculation (Non-) (test code = 5878394644) mL/min/1.73m2 eGFR Calculation () (test code = 9898575307) mL/min/1.73m2 KAYY (test code = KAYY) Association [...] imaging tests). Lab Interpretation (test code = 18616-7) Abnormal [facility] LakeLipase, [id number] 18:46:00* Test Item Value Reference Range Interpretation Comme nts LIPASE (test code = 4167745862) 174 U/L 0-220 Lab Interpretation (test cod e = 98070-2) Normal [facility] LakeUrinalysis2020-02-24 18:41:00* Test Item Value Reference Range Interpretation Comme nts APPEARANCE (test code = 8761506014) Clear Clear COLOR (test code = 5184275109) Yellow Yellow PH (test code = 7233421921) 4.8-8.0 SP GRAVITY (test code = 1625415524) 1.003-1.030 GLU U QUAL (test code = 3285399417) Normal Normal BLOOD (test code = 3730876477) 2+ Negative A KETONES (test code = 2463382093) Negative Negative PROTEIN (test code = 2887-8) 100 mg/dL Negative A UROBILIN (test code = 4042343729) Normal Normal BILIRUBIN (test code = 3625223135) Negative Negative NITRITE (test code = 1177910986) Negative Negative LEUK ANNA (test code = 0574320109) Negative Negative RBC/HPF (test code = 9095838317) See_Comment H [Automated [employer]] The system which generated this result transmitted reference range: 0 - 3 HPF. The reference range was not used to interpret this result as normal/abnormal. WBC/HPF (test code = 5331301675) See_Comment [Automated [employer]] The system which generated this result transmitted reference range: 0 - 5 HPF. The reference range was not used to interpret this result as normal/abnormal. BACTERIA (test code = 6426000519) Few Negative A MUCOUS (test code = 5972022289) Slight Negative LPF A HYAL CAST (test code = 3762468989) See_Comment H [Automated [employer]] The system which generated this result transmitted reference range: <=2 LPF. The reference range was not used to interpret this result as normal/abnormal. Lab Interpretation (test code = 31575-0) Abnormal [facility] LakeCBC WITH [id number] 18:29:00* Test Item Value Reference Range Interpretation [...] 34.3 g/dL 31.2-35 RDW-SD (test code = 61741-6) 39.5 fL 38.5-51.6 RDW-CV (test code = 788-0) 12.4 % 12.1-15.4 PLT (test code = 777-3) See_Comment [Automated messa ge] The system which generated this result transmitted reference range: 150 - 328 10*3/?L. The reference range was not used to interpret this result as normal/abnormal. MPV (test code = 91382-0) 8.6 fL 9.8-13 L NRBC/100 WBC (test code = 1163771507) See_Comment [Automated August ssage] The system which generated this result transmitted reference range: 0.0 - 10.0 /100 WBCs. The reference range was not used to interpret this result as normal/abnormal. NRBC x10^3 (test code = 3735616333) <0.01 See_Comment [Automated messa ge] The system which generated this result transmitted reference range: 10*3/?L. The reference range was not used to interpret this result as normal/abnormal. GRAN MAT (NEUT) % (test code = 770-8) 58.6 % IMM GRAN % (test code = 6914534703) 0.50 % LYMPH % (test code = 736-9) 26.9 % MONO % (test code = 5905-5) 10.1 % EOS % (test code = 713-8) 3.2 % BASO % (test code = 706-2) 0.7 % GRAN MAT x10^3(ANC) (test code = 9961957627) 7.58 10*3/uL 1.99-6.95 H IMM GRAN x10^3 (test code = 2045389839) 0.06 10*3/uL 0-0.06 LYMPH x10^3 (test code = 731-0) 3.48 10*3/uL 1.09-3.23 H MONO x10^3 (test code = 742-7) 1.30 10*3/uL 0.36-1.02 H EOS x10^3 (test code = 711-2) 0.42 10*3/uL 0.06-0.53 BASO x10^3 (test code = 704-7) 0.09 10*3/uL 0.01-0.09 Lab Interpretation (test code = 89997-1) Abnormal [facility] Lake[facility] METABOLIC PANEL (25315)2019-06-04 11:45:00* Test Item Value Reference Range Interpretation Comme nts NA (test code = 7748416654) 144 mmol/L 135-145 K (test code = 7461097803) 3.3 mmol/L 3.5-5 L CL (test code = 1450535424) 103 mmol/L 98-108 CO2 TOTAL (test code = 7471721289) 29 mmol/L 23-31 AGAP (test code = 7563502254) 2-16 BUN (test code = 2473321862) 17 mg/dL 7-23 GLUCOSE (test code = 0505802820) 126 mg/dL 70-110 H CREATININE (test code = 3743141603) 1.30 mg/dL 0.6-1.25 H TOTAL BILI (test code = 7650264411) 1.1 mg/dL 0.1-1.1 CALCIUM (test code = 1914590548) 9.3 mg/dL 8.6-10.6 T PROTEIN (test code = 7491889083) 8.0 g/dL 6.3-8.2 ALBUMIN (test code = 2442638030) 4.5 g/dL 3.5-5 ALK PHOS (test code = 1098249529) 66 U/L 34-122 ALT(SGPT) (test code = 6648892543) 215 U/L 9-51 H AST(SGOT) (test code = 3867696222) 114 U/L 13-40 H eGFR Calculation (Non-) (test code = 6834458601) mL/min/1.73m2 eGFR Calculation () (test code = 7246766746) mL/min/1.73m2 KAYY (test code = KAYY) Association [...] imaging tests). Lab Interpretation (test code = 89797-3) Abnormal [facility] WITH [id number] 11:30:00* Test Item Value Reference Range Interpretation Comme nts WBC (test code = 6690-2) See_Comment H [Automated [employer]] The system which generated this result transmitted reference range: 4.20 - 10.70 10*3/?L. The reference range was not used to interpret this result as normal/abnormal. RBC (test code = 789-8) See_Comment [Automated [employer]] The system which generated this result [...] g/dL 31.2-35 H RDW-SD (test code = 44475-1) 39.8 fL 38.5-51.6 RDW-CV (test code = 788-0) 12.9 % 12.1-15.4 PLT (test code = 777-3) See_Comment [Automated [employer]] The system which generated this result transmitted reference range: 150 - 328 10*3/?L. The reference range was not used to interpret this result as normal/abnormal. MPV (test code = 95312-7) 8.7 fL 9.8-13 L NRBC/100 WBC (test code = 2721832246) See_Comment [Automated August ssage] The system which generated this result transmitted reference range: 0.0 - 10.0 /100 WBCs. The reference range was not used to interpret this result as normal/abnormal. NRBC x10^3 (test code = 1131174706) <0.01 See_Comment [Automated [employer]] The system which generated this result transmitted reference range: 10*3/?L. The reference range was not used to interpret this result as normal/abnormal. GRAN MAT (NEUT) % (test code = 770-8) 55.4 % IMM GRAN % (test code = 6436296000) 0.90 % LYMPH % (test code = 736-9) 27.9 % MONO % (test code = 5905-5) 11.8 % EOS % (test code = 713-8) 3.0 % BASO % (test code = 706-2) 1.0 % GRAN MAT x10^3(ANC) (test code = 6791221709) 6.33 10*3/uL 1.99-6.95 IMM GRAN x10^3 (test code = 0081376517) 0.10 10*3/uL 0-0.06 H LYMPH x10^3 (test code = 731-0) 3.18 10*3/uL 1.09-3.23 MONO x10^3 (test code = 742-7) 1.35 10*3/uL 0.36-1.02 H EOS x10^3 (test code = 711-2) 0.34 10*3/uL 0.06-0.53 BASO x10^3 (test code = 704-7) 0.11 10*3/uL 0.01-0.09 H Lab Interpretation (test code = 50723-2) Abnormal [facility] Notes Date/Time Note Provider Source Micky Purcell [facility]2024-06-24 14:29:29 Problem: Skin integrity Impaired (Risk or Actual) Goal: Wound healing Outcome: Progressing as expected [facility] 11:05:16 Patient has some swelling below the scrotum with purulent drainage coming from a very small area that has a white head, there are 2 other white heads around it, will apply warm compress and clean it with vashe and cover with a foam. Lexis Urrutia [facility]Ggfxca5756-73-98 09:57:47 Spoke with residential real estate assistant who is interpreting images at this time. Trevor Perry [facility] CenterKxbbic7895-44-05 07:24:53 Antoinette Fink Stone room 117/117, presents in no evident distress with even and unlabored respirations, skin is warm, dry, and normal for ethnicity, mentation developmentally normal. Initial education provided including: call light location and use, fall precautions, dietary restrictions, plan of care with time approximations, care team, and pain management. Focused assessment reveals testicular swelling. Jim Nicholson [facility] CenterJowdbx5719-08-47 07:17:53 Surgery aware of pt. Arrival. T [facility]Jszgbs8073-42-80 06:55:47 Antoinette Carver is a 48 year old male received via EMS as a transfer from [facility]. Pt. Has abscess near genitals with possible involvement to the scrotum per report. Pt. Arrives in no pain, aaox4, 20g inserted to [employer]. Pt. Was given zosyn, vanc, and 1L NS at OSH. Pt. To room for eval, surgery paged. T Katia Salmeron [facility]"
[2024-12-26 18:44] LABS: Absolute Basophils 0.1 K/uL (0-0.5); Absolute Eosinophils 0.1 K/uL (0-0.5); Absolute Monocytes 1.6 K/uL (0.1-1.3); Absolute Neutrophil 9.6 K/uL (1.8-8.0); Basophils % 0.9 % (0-1.3); Eosinophils % 0.7 % (0-4.4); Hematocrit 43.2 % (39.6-49.0); Lymphocytes % 14.8 % (15.3-44.8); MCH 30.1 pg (27.0-35.0); MCHC 34.7 g/dL (32.0-36.0); MCV 86.7 fL (80-100); Monocytes % 11.7 % (3.3-12.3); Neutrophils % 71.9 % (41.7-73.7); Nucleated Red Blood Cells % 0.1 % (0-0); Platelets 133 thou/uL (152-406); RBC Red Blood Cell Count 4.99 M/uL (4.33-5.43); Red Cell Distribution Width 14.3 % (12.1-15.2)
[2024-12-26] MEDS ORDERED: MORPHINE 4 MG/ML SYR ONE (18:59)
[2024-12-26] MEDS ORDERED: ONDANSETRON 4 MG/2 ML VIAL ONE (18:59)
[2024-12-26 19:00] LABS: Albumin/Globulin Ratio 0.8 (1.1-1.8); Anion Gap 11.4 mEq/L (5.0-15.0); Bilirubin Total 1.1 mg/dL (0.2-1.0); Globulin 3.8 g/dL (2.3-3.5); Potassium 3.4 mEq/L (3.5-5.1); Protein, Total 6.8 g/dL (6.4-8.2)
--- NOTE | 2024-12-26 20:32 | RAD REPORT ---
EXAMINATION: CT PELVIS WITH CONTRAST CLINICAL INDICATION: Male, 49 years old.[facility] MAIN upper thigh abscess Bed Name: 12 TECHNIQUE: CT pelvis was performed, following IV contrast, as per department protocol. Axial, sagitta l and coronal reconstructions were obtained. One or more of the following dose reduction techniques were used: Automated exposure control, adjustment of the mA and/or kV according to patient size, and/ or iterative reconstruction. Unless otherwise specified, incidental findings do not require dedicated imaging follow-up. COMPARISON: 04/26/2024 and 06/17/2024. FINDINGS: MUSCULOSKELETAL: Swelling and subcutaneous fat stranding along the medial left upper thigh extending along the adjacent medial groin and perineal, reaching the root of the scrotum on the left. No appreciable fluid collections. No area or suspicious tracts to suggest a fistula. No acute fractures or suspicious osseous lesion. URINARY SYSTEM: No abnormalities of the included lower ureters and bladder. Small calcification withi n the prostate with no significant enlargement. GASTROINTESTINAL TRACT: Included small and large bowel is normal in caliber. No wall thickening or matt wel inflammatory changes. LYMPH NODES: No lymphadenopathy. ABDOMINAL AORTA AND OTHER VESSELS: Normal caliber of the iliac vessels. ADDITIONAL FINDINGS: None. No appreciable hernias. IMPRESSION: Nonspecific inflammatory changes along the skin and subcutaneous tissues of the medial left upper thi gh adjacent perineum, concerning for cellulitis, with no sizable fluid collections to suggest an abscess.
--- NOTE | 2024-12-26 21:10 | ER ---
Nurse's Notes [facility] Name: Javid Carver Age: 49 yrs Sex: Male : 1975 Arrival Date: 12/26/2024 Time: 17:49 Bed 12 Private MD: Diagnosis: Cellulitis of groin Presentation: 12/26 18:05 Chief complaint: Patient states: Bumps to groin x 2-3 days. Coronavirus screen: At this jl7 time, the client does not indicate any symptoms associated with coronavirus-19. Ebola Screen: No symptoms or risks identified at this time. Initial Sepsis Screen: Does the patient meet any 2 criteria? No. Patient's initial sepsis screen is negative. Does the patient have a suspected source of infection? No. Patient's initial sepsis screen is negative. Risk Assessment: Do you want to hurt yourself or someone else? Patient reports no desire to harm self or others. Onset of symptoms was December 23, 2024. 18:05 Method Of Arrival: Ambulatory jl7 18:05 Acuity: ALEJANDRA 3 jl7 Triage Assessment: 18:07 General: Appears in no apparent distress. uncomfortable, Behavior is calm, cooperative, jl7 appropriate for age. Pain: Complains of pain in pelvis Pain currently is 8 out of 10 on a pain scale. Neuro: Level of Consciousness is awake, alert, obeys commands, Oriented to person, place, time, situation. Cardiovascular: Patient's skin is warm and dry. Respiratory: Airway is patent Respiratory effort is even, unlabored, Respiratory pattern is regular, symmetrical. Derm: Skin is pink, warm \T\ dry. Abscess located on pelvis is nickel sized, is red, is raised. Historical: - Allergies: 18:07 Hydrocodone-Acetaminophen; jl7 18:07 Lisinopril; jl7 21:12 Sulfa (Sulfonamide Antibiotics); sb4 - PMHx: 18:07 acid reflux; Hypertension; jl7 - Immunization history:: Adult Immunizations unknown. - Infectious Disease History:: Denies. - Social history:: Smoking status: unknown. Screenin:09 [facility] ED Fall Risk Assessment (Adult) History of falling in the last 3 months, lg3 including since admission No falls in past 3 months (0 pts) Confusion or Disorientation No (0 pts) Intoxicated or Sedated No (0 pts) Impaired Gait No (0 pts) Mobility Assist Device Used No (0 pt) Altered Elimination No (0 pt) Score/Fall Risk Level 0 - 2 = Low Risk Oriented to surroundings, Maintained a safe environment, Educated pt \T\ family on fall prevention, incl call for assistance when getting out of bed, Assessed \T\ reinforced patient's understanding of fall precautions. Abuse screen: Denies threats or abuse. Denies injuries from another. Nutritional screening: No deficits noted. Tuberculosis screening: No symptoms or risk factors identified. Assessment: 19:09 General: Appears in no apparent distress. comfortable, Behavior is calm, cooperative. lg3 Pain: Complains of pain in groin Pain does not radiate. Pain currently is 6 out of 10 on a pain scale. Neuro: No deficits noted. Riggs Agitation-Sedation Scale (RASS): 0 - Alert and Calm Level of Consciousness is awake, alert, obeys commands, Oriented to person, place, time, situation. Cardiovascular: No deficits noted. Denies chest pain, shortness of breath, Capillary refill < 3 seconds Clubbing of nail beds is absent JVD is absent Patient's skin is warm and dry. Respiratory: No deficits noted. Airway is patent Respiratory effort is even, unlabored, Respiratory pattern is regular, symmetrical. GI: No deficits noted. No signs and/or symptoms were reported involving the gastrointestinal system. : No signs and/or symptoms were reported regarding the genitourinary system. EENT: No deficits noted. No signs and/or symptoms were reported regarding the EENT system. Derm: Reports abscess to groin. Musculoskeletal: No deficits noted. No signs and/or symptoms reported regarding the musculoskeletal system. Circulation, motion, and sensation intact. Range of motion: intact in all extremities. 21:32 Reassessment: Patient appears in no apparent distress at this time. No changes from lg3 previously documented assessment. Patient and/or family updated on plan of care and expected duration. Pain level reassessed. Patient is alert, oriented x 3, equal unlabored respirations, skin warm/dry/pink. Patient states feeling better. Patient states symptoms have improved. Vital Signs: 18:05 BP 161 / 98; Pulse 89; Resp 17; Temp 99.1; Pulse Ox 98% ; Weight 108.86 kg; Height 6 jl7 ft. 0 in. ; Pain 8/10; 19:09 BP 158 / 91; Pulse 81; Resp 18 S; Pulse Ox 99% on R/A; lg3 21:32 BP 181 / 87; Pulse 87; Resp 17 S; Temp 98.9(O); Pulse Ox 99% on R/A; lg3 18:05 Body Mass Index 32.55 (108.86 kg, 182.88 cm) jl7 18:05 Pain Scale: Adult jl7 ED Course: 17:51 Patient arrived in ED. mr 17:52 Safia Hebert PA-C is PHCP. sb4 17:52 Keron Gillespie MD is Attending Physician. sb4 17:54 Safia Hebert PA-C is PHCP. sb4 18:07 Triage completed. jl7 18:07 Arm band placed on right wrist. jl7 19:09 Patient has correct armband on for positive identification. Placed in gown. Bed in low lg3 position. Call light in reach. Side rails up X 1. Client placed on continuous cardiac and pulse oximetry monitoring. NIBP monitoring applied. Door closed. Noise minimized. Warm blanket given. Pillow given. 19:09 Inserted saline lock: 22 gauge in right antecubital area, using aseptic technique. lg3 Flushed with 10 mL NS. Patient maintains SpO2 saturation greater than 95% on room air. 19:45 CT Pelvis w cont In Process Unspecified. EDMS 20:10 Alee Garcia, RN is Primary Nurse. lg3 21:32 No provider procedures requiring assistance completed. IV discontinued, intact, lg3 bleeding controlled, No redness/swelling at site. Pressure dressing applied. Administered Medications: 19:09 Drug: morphine IVP or IV 4 mg IVP once over 4 mins Route: IVP; Infused Over: 4 mins; lg3 Site: right antecubital; 20:13 Follow up: Response: No adverse reaction; Marked relief of symptoms lg3 19:09 Drug: Ondansetron IVP 4 mg IVP once; over 2 minutes Route: IVP; Site: right antecubital;lg3 20:13 Follow up: Response: No adverse reaction; Marked relief of symptoms lg3 21:04 CANCELLED (Physician Discretion): [id number] mg IVPB once over 30 mins; (mix in 50 sb4 mL) 21:22 Drug: Clindamycin PO 300 mg PO once Route: PO; lg3 21:33 Follow up: Response: No adverse reaction lg3 21:22 Drug: Rocephin IV 1 grams IV at calculated rate once; Given slow IV push per pharmacy lg3 instructions Route: IV; Rate: calculated rate; Site: right antecubital; :33 Follow up: Response: No adverse reaction; IV Status: Completed infusion; IV Intake: [id number] Medication: 19:09 VIS not applicable for this client. lg3 Intake: :33 IV: 10ml; Total: 10ml. lg3 Outcome: 21:10 Discharge ordered by MD. sb4 21:32 Discharged to home ambulatory, with significant other, lg3 21:32 Condition: stable 21:32 Discharge instructions given to patient, Instructed on discharge instructions, follow up and referral plans. medication usage, Demonstrated understanding of instructions, follow-up care, medications, Prescriptions given X 1, :33 Patient left the ED. lg3 Signatures: Dispatcher [employer] [facility] Ana Cristina Aponte, Reg Reg mr Cherelle Brown RN RN jl7 Alee Garcia RN RN lg3 Safia Hebert, PA-C PA-C sb4
--- NOTE | 2024-12-26 21:10 | EDPHYS ---
Physician Documentation [facility] Name: aJvid Carver Age: 49 yrs Sex: Male : 1975 Arrival Date: 12/26/2024 Time: 17:49 Bed 12 Private MD: ED Physician Keron Gillespie HPI: 12/26 18:14 This 49 yrs old Male presents to ER via Ambulatory with complaints of Abscess. sb4 21:14 patient reports "knots" and redness in his left upper thigh area. states he has had sb4 this issue in the past and it improved with antibiotics. denies any fever or chills. no n/v/d. Historical: - Allergies: 18:07 Hydrocodone-Acetaminophen; jl7 18:07 Lisinopril; jl7 21:12 Sulfa (Sulfonamide Antibiotics); sb4 - PMHx: 18:07 acid reflux; Hypertension; jl7 - Immunization history:: Adult Immunizations unknown. - Infectious Disease History:: Denies. - Social history:: Smoking status: unknown. ROS: 21:14 Constitutional: Negative for fever, chills, and weight loss, sb4 21:14 Skin: Positive for abscess, cellulitis, 21:14 All other systems are negative, Exam: 21:14 Constitutional: This is a well developed, well nourished patient who is awake, alert, sb4 and in no acute distress. Head/Face: Normocephalic, atraumatic. Eyes: Extra-ocular motions intact. Periorbital areas with no swelling, redness, or edema. ENT: Mucous membranes moist. Cardiovascular: Regular rate and rhythm with a normal S1 and S2. Respiratory: No increased work of breathing, no retractions or nasal flaring. Abdomen/GI: Soft, non-tender, no distension. 21:14 Skin: abscess, that is small, of the left femoral area, with surrounding cellulitis, 2 small abscesses, non draining. Vital Signs: 18:05 BP 161 / 98; Pulse 89; Resp 17; Temp 99.1; Pulse Ox 98% ; Weight 108.86 kg; Height 6 jl7 ft. 0 in. ; Pain 8/10; 19:09 BP 158 / 91; Pulse 81; Resp 18 S; Pulse Ox 99% on R/A; lg3 21:32 BP 181 / 87; Pulse 87; Resp 17 S; Temp 98.9(O); Pulse Ox 99% on R/A; lg3 18:05 Body Mass Index 32.55 (108.86 kg, 182.88 cm) jl7 18:05 Pain Scale: Adult jl7 MDM: 17:52 Medical Screening Exam initiated sb4 21:14 Data reviewed: vital signs, nurses notes, lab test result(s), radiologic studies, I sb4 have discussed the patient's presentation/case with the attending Emergency Department Physician; and as a result, I will discharge patient. Counseling: I had a detailed discussion with the patient and/or guardian regarding the historical points, exam findings, and any diagnostic results supporting the discharge/admit diagnosis, the presence of at least one elevated blood pressure reading (>120/80) during this emergency department visit, lab results, radiology results, the need for outpatient follow up, for definitive care, to return to the emergency department if symptoms worsen or persist or if there are any questions or concerns that arise at home. 12/26 18:09 Order name: CBC with Diff; Complete Time: 18:47 sb4 12/26 18:09 Order name: CMP; Complete Time: 19:01 sb4 12/26 18:09 Order name: Lipase; Complete Time: 19:01 sb4 12/26 18:09 Order name: CT Pelvis w cont; Complete Time: 20:42 sb4 12/26 18:09 Order name: IV Saline Lock; Complete Time: 18:24 sb4 12/26 18:09 Order name: Labs collected and sent; Complete Time: 18:24 sb4 Administered Medications: 19:09 Drug: morphine IVP or IV 4 mg IVP once over 4 mins Route: IVP; Infused Over: 4 mins; lg3 Site: right antecubital; 20:13 Follow up: Response: No adverse reaction; Marked relief of symptoms lg3 19:09 Drug: Ondansetron IVP 4 mg IVP once; over 2 minutes Route: IVP; Site: right antecubital;lg3 20:13 Follow up: Response: No adverse reaction; Marked relief of symptoms lg3 21:04 CANCELLED (Physician Discretion): [id number] mg IVPB once over 30 mins; (mix in 50 sb4 mL) 21:22 Drug: Clindamycin PO 300 mg PO once Route: PO; lg3 21:33 Follow up: Response: No adverse reaction lg3 21:22 Drug: Rocephin IV 1 grams IV at calculated rate once; Given slow IV push per pharmacy lg3 instructions Route: IV; Rate: calculated rate; Site: right antecubital; 21:33 Follow up: Response: No adverse reaction; IV Status: Completed infusion; IV Intake: [id number] Disposition Summary: 12/26/24 21:10 Discharge Ordered Notes: Location: Home sb4 Problem: new sb4 Symptoms: have improved sb4 Condition: Stable sb4 Diagnosis - Cellulitis of groin sb4 Followup: sb4 - With: Emergency Department - When: As needed - Reason: Fever > 102 F, Worsening of condition Discharge Instructions: - Discharge Summary Sheet sb4 - Cellulitis, Adult sb4 Forms: - Work release form lg3 - Antibiotic Education sb4 - Patient Portal Instructions sb4 - Leadership Thank You Letter sb4 Prescriptions: - Clindamycin HCl 300 mg Oral Capsule - take 1 capsule ORAL route every 6 hours for 10 days; 40 capsule; Refills: 0, sb4 Product Selection Permitted Addendum: 12/28/2024 12:39 Co-signature as Attending Physician, Keron Gillespie MD I agree with the assessment and c dominguez plan of care. Signatures: Dispatcher [employer] Keron Calixto MD MD cha Leal, Jahala, RN RN jl7 Alee Garcia RN RN lg3 Safia Hebert PA-C PAWali sb4 Corrections: (The following items were deleted from the chart) 12/26 18:10 18:10 CBC+H.LAB.BRZ ordered. EDMS EDMS 18:10 18:10 COMPREHENSIVE METABOLIC PANEL+C.LAB.BRZ ordered. EDMS EDMS 18:10 18:10 LIPASE+C.LAB.BRZ ordered. EDMS EDMS 18:10 18:10 Urinalysis+U.LAB.BRZ ordered. EDMS EDMS 18:10 18:10 Pelvis W/Cont+CT.RAD.BRZ ordered. EDMS EDMS 21:04 21:02 Clindamycin IVPB 600 mg IVPB once over 30 mins; (mix in 50 mL) ordered. sb4 sb4
[2024-12-26] MEDS ORDERED: CEFTRIAXONE 1000 MG/VIAL ONE (21:18)
[2024-12-26 21:53] VITALS: O2SAT 99
[2024-12-26 21:55] VITALS: BP 181/87; TEMP 98.9
== END 2024-12-26 21:33 | disposition home or self-care (01) ==
LOC: ER 17:49
DX: L03.314 Cellulitis of groin (principal)
CPT/HCPCS: 85025; 36415; 83690; 80053; 72193; 96375; 96374; 99284; Q9967; J2405; J0696